=== PATIENT | female | born 1985 | race Caucasian/White ===

== ENCOUNTER 2017-05-22 16:31 | Inpatient (IN) | payer OTHER ==
[2017-05-22 17:18] LABS: Glucose,Whole Blood 60 mg/dL (75-99)
[2017-05-22] MEDS ORDERED: SODIUM CHLORIDE 0.9% 1,000 ML IV ONE ×2 (17:28)
--- NOTE | 2017-05-22 17:38 | ED ---
Altered Mental Status HPI - General Chief Complaint: Altered Mental Status Stated Complaint: SYNCOPE, SEIZURES, HALLUCINATIONS, DIARRHEA Time Seen by Provider: 05/22/17 17:02 Source: patient Mode of arrival: ambulatory Limitations: no limitations - History of Present Illness Initial Comments: This 31-year-old white female presents with mother and sister with the complaint of some mental status changes. She apparently had 2 seizures 2 days ago. She fell approximately 3 times yesterday. Mother states that she was just walking when she would fall to the ground. She does not eat much. She apparently does drink heavily. Sister relates that she likely drinks over a fifth of vodka daily. She does have a history of a seizure disorder and does take Keppra for this. She complains of pain to multiple areas of body. She complains of significant bruising. She has significant bruising to her right femur region, left hip, and to a lesser extent the thoracic and lumbar region as well as the lower and upper extremities. The family states that she has been hallucinating over the last day. She apparently is seeing things that aren 't there and called the police this morning. No other complaints or modifying factors. - Related Data Home Medications Medication Instructions Recorded Confirmed Loratadine [Claritin] 10 mg PO DAILY PRN 04/29/14 05/22/17 Multivitamins, Thera [Theragran] 1 tab PO DAILY@1200 04/29/14 05/22/17 Biotin 5 mg PO DAILY 01/31/16 05/22/17 levETIRAcetam [Keppra] 1,000 mg PO Q12HR 01/31/16 05/22/17 Allergies Allergy/AdvReac Type Severity Reaction Status Date / Time gluten Allergy Swelling Verified 05/22/17 17:03 starch Allergy Swelling Uncoded 01/31/16 12:16 Review of Systems ROS Statement: Those systems with pertinent positive or pertinent negative responses have been documented in the HPI. ROS Other: All systems not noted in ROS Statement are negative. Past Medical History Past Medical History: Seizure Disorder Additional Past Medical History / Comment(s): amenorrhia x 4 years History of Any Multi-Drug Resistant Organisms: None Reported Past Surgical History: No Surgical Hx Reported Past Anesthesia/Blood Transfusion Reactions: Unable to Obtain Past Psychological History: No Psychological Hx Reported Smoking Status: Never smoker Past Alcohol Use History: Abuse, Daily, Heavy Past Drug Use History: None Reported - Past Family History Mother Family Medical History: Cancer General Exam - General Exam Comments Initial Comments: GENERAL: The patient is appearing malnourished. VITAL SIGNS: Heart rate, blood pressure, respiratory rate reviewed as recorded in nurse's notes. EYES: Pupils are round and reactive. Extraocular movements are intact. No conjunctival / lid redness or swelling. ENT: No external evidence of injury, swelling, or ecchymosis. Airway is patent. Throat is clear. NECK: Nontender. No swelling or evidence of injury. No subcutaneous emphysema. Trachea is midline. No thyroid mass. HEART: Regular rate and rhythm. Good peripheral pulses. LUNGS/CHEST: Breath sounds clear and equal bilaterally. No rales, rhonchi, or wheezes. No ecchymosis, subcutaneous emphysema, or tenderness. ABDOMEN: Abdomen soft without tenderness. No palpable masses or organomegaly. No peritoneal signs. No abdominal wall swelling or ecchymosis. EXTREMITIES: There is tenderness and ecchymosis noted to the right mid femur as well as the left hip. There is mild diffuse tenderness noted to bilateral upper and lower extremities. Normal muscle tone and function. No thoracolumbar tenderness. NEUROLOGIC: Sensation is grossly intact. Cranial nerve exam reveals face is symmetrical, tongue is midline, speech is clear. SKIN: There are multiple areas of ecchymosis noted to the right femur, left hip and throughout the upper and lower extremities and back. No induration or masses noted. PSYCHIATRIC: Alert and in no current distress. She appears appropriate currently. Limitations: no limitations Course Vital Signs 05/22/17 05/22/17 05/22/17 16:49 18:28 19:20 Temperature 97.1 F L Pulse Rate 87 96 80 Respiratory 18 18 18 Rate Blood Pressure 90/54 94/61 O2 Sat by Pulse 99 98 Oximetry 05/22/17 20:54 Temperature 96.7 F L Pulse Rate 86 Respiratory 18 Rate Blood Pressure 95/53 O2 Sat by Pulse 99 Oximetry Medical Decision Making - Medical Decision Making The patient was seen and examined. All diagnostics were reviewed. The EKG was done and shows a normal sinus rhythm at a rate of 79. There is no acute ST-T wave changes identified. The AR intervals 144, QRS duration is 88, and the QTc interval is prolonged at 532. The patient received fluid hydration. The patient's laboratory did come back significantly abnormal. Her alcohol level is 381, hemoglobin is 8.8, she is pancytopenic, her sodium is 149, her CO2 is low at 21, her glucose is low at 55, and her liver function studies are elevated. The x-rays did not show any acute processes. The patient also had a computed tomography scan of the brain which shows some worsened atrophy. She is counseled regarding alcohol abuse. It appears that her hypoglycemia is fairly persistent and she is essentially refusing to eat much in the ER. She is given some D50. It is felt as though she would require admission to the hospital. The case is discussed with Dr. Vazquez who is agreeable and would like her to be started on D10. - Lab Data Result diagrams: 05/22/17 17:25 05/22/17 17:25 Lab Results 05/22/17 05/22/17 05/22/17 Range/Units 17:14 17:25 17:25 WBC 3.3 L (3.8-10.6) k/uL RBC 2.42 L (3.80-5.40) m/uL Hgb 8.8 L (11.4-16.0) gm/dL Hct 27.0 L (34.0-46.0) % MCV 111.6 H (80.0-100.0) fL MCH 36.3 H (25.0-35.0) pg MCHC 32.5 (31.0-37.0) g/dL RDW 13.3 (11.5-15.5) % Plt Count 118 L (150-450) k/uL Neutrophils % 67 % Lymphocytes % 20 % Monocytes % 7 % Eosinophils % 1 % Basophils % 1 % Neutrophils # 2.2 (1.3-7.7) k/uL Lymphocytes # 0.7 L (1.0-4.8) k/uL Monocytes # 0.2 (0-1.0) k/uL Eosinophils # 0.0 (0-0.7) k/uL Basophils # 0.0 (0-0.2) k/uL Manual Slide Review Performed Macrocytosis Marked PT (9.0-12.0) sec INR (<1.2) APTT (22.0-30.0) sec Sodium (137-145) mmol/L Potassium (3.5-5.1) mmol/L Chloride (98-107) mmol/L Carbon Dioxide (22-30) mmol/L Anion Gap mmol/L BUN (7-17) mg/dL Creatinine (0.52-1.04) mg/dL Est GFR (CKD-EPI)AfAm (>60 ml/min/1.73 sqM) Est GFR (CKD-EPI)NonAf (>60 ml/min/1.73 sqM) Glucose (74-99) mg/dL POC Glucose (mg/dL) 60 L (75-99) mg/dL POC Glu [employer] Technology Professor Galilea Lim Calcium (8.4-10.2) mg/dL Total Bilirubin (0.2-1.3) mg/dL AST (14-36) U/L ALT (9-52) U/L Alkaline Phosphatase (38-126) U/L Ammonia (<30) umol/L Total Creatine Kinase 130 (30-135) U/L CK-MB (CK-2) 1.5 (0.0-2.4) ng/mL CK-MB (CK-2) Rel Index 1.2 Troponin I <0.012 (0.000-0.034) ng/mL Total Protein (6.3-8.2) g/dL Albumin (3.5-5.0) g/dL Serum Alcohol mg/dL 05/22/17 05/22/17 05/22/17 Range/Units 17:25 17:25 17:44 WBC (3.8-10.6) k/uL RBC (3.80-5.40) m/uL Hgb (11.4-16.0) gm/dL Hct (34.0-46.0) % MCV (80.0-100.0) fL MCH (25.0-35.0) pg MCHC (31.0-37.0) g/dL RDW (11.5-15.5) % Plt Count (150-450) k/uL Neutrophils % % Lymphocytes % % Monocytes % % Eosinophils % % Basophils % % Neutrophils # (1.3-7.7) k/uL Lymphocytes # (1.0-4.8) k/uL Monocytes # (0-1.0) k/uL Eosinophils # (0-0.7) k/uL Basophils # (0-0.2) k/uL Manual Slide Review Macrocytosis PT 12.9 H (9.0-12.0) sec INR 1.4 H (<1.2) APTT 26.6 (22.0-30.0) sec Sodium 149 H (137-145) mmol/L Potassium 3.7 (3.5-5.1) mmol/L Chloride 105 (98-107) mmol/L Carbon Dioxide 21 L (22-30) mmol/L Anion Gap 23 mmol/L BUN 8 (7-17) mg/dL Creatinine 0.30 L (0.52-1.04) mg/dL Est GFR (CKD-EPI)AfAm >90 (>60 ml/min/1.73 sqM) Est GFR (CKD-EPI)NonAf >90 (>60 ml/min/1.73 sqM) Glucose 55 L (74-99) mg/dL POC Glucose (mg/dL) 59 L (75-99) mg/dL POC Glu [employer] Technology Professor ID Galilea Ochoa Calcium 9.1 (8.4-10.2) mg/dL Total Bilirubin 1.8 H (0.2-1.3) mg/dL AST 170 H (14-36) U/L ALT 53 H (9-52) U/L Alkaline Phosphatase 156 H (38-126) U/L Ammonia (<30) umol/L Total Creatine Kinase (30-135) U/L CK-MB (CK-2) (0.0-2.4) ng/mL CK-MB (CK-2) Rel Index Troponin I (0.000-0.034) ng/mL Total Protein 7.5 (6.3-8.2) g/dL Albumin 4.0 (3.5-5.0) g/dL Serum Alcohol 381 mg/dL 05/22/17 05/22/17 05/22/17 Range/Units 17:48 18:27 19:20 WBC (3.8-10.6) k/uL RBC (3.80-5.40) m/uL Hgb (11.4-16.0) gm/dL Hct (34.0-46.0) % MCV (80.0-100.0) fL MCH (25.0-35.0) pg MCHC (31.0-37.0) g/dL RDW (11.5-15.5) % Plt Count (150-450) k/uL Neutrophils % % Lymphocytes % % Monocytes % % Eosinophils % % Basophils % % Neutrophils # (1.3-7.7) k/uL Lymphocytes # (1.0-4.8) k/uL Monocytes # (0-1.0) k/uL Eosinophils # (0-0.7) k/uL Basophils # (0-0.2) k/uL Manual Slide Review Macrocytosis PT (9.0-12.0) sec INR (<1.2) APTT (22.0-30.0) sec Sodium (137-145) mmol/L Potassium (3.5-5.1) mmol/L Chloride (98-107) mmol/L Carbon Dioxide (22-30) mmol/L Anion Gap mmol/L BUN (7-17) mg/dL Creatinine (0.52-1.04) mg/dL Est GFR (CKD-EPI)AfAm (>60 ml/min/1.73 sqM) Est GFR (CKD-EPI)NonAf (>60 ml/min/1.73 sqM) Glucose (74-99) mg/dL POC Glucose (mg/dL) 69 L 69 L (75-99) mg/dL POC Glu [employer] Technology Professor Ree Calvin Pam Calcium (8.4-10.2) mg/dL Total Bilirubin (0.2-1.3) mg/dL AST (14-36) U/L ALT (9-52) U/L Alkaline Phosphatase (38-126) U/L Ammonia <9 (<30) umol/L Total Creatine Kinase (30-135) U/L CK-MB (CK-2) (0.0-2.4) ng/mL CK-MB (CK-2) Rel Index Troponin I (0.000-0.034) ng/mL Total Protein (6.3-8.2) g/dL Albumin (3.5-5.0) g/dL Serum Alcohol mg/dL 05/22/17 05/22/17 05/22/17 Range/Units 20:00 20:46 22:08 WBC (3.8-10.6) k/uL RBC (3.80-5.40) m/uL Hgb (11.4-16.0) gm/dL Hct (34.0-46.0) % MCV (80.0-100.0) fL MCH (25.0-35.0) pg MCHC (31.0-37.0) g/dL RDW (11.5-15.5) % Plt Count (150-450) k/uL Neutrophils % % Lymphocytes % % Monocytes % % Eosinophils % % Basophils % % Neutrophils # (1.3-7.7) k/uL Lymphocytes # (1.0-4.8) k/uL Monocytes # (0-1.0) k/uL Eosinophils # (0-0.7) k/uL Basophils # (0-0.2) k/uL Manual Slide Review Macrocytosis PT (9.0-12.0) sec INR (<1.2) APTT (22.0-30.0) sec Sodium (137-145) mmol/L Potassium (3.5-5.1) mmol/L Chloride (98-107) mmol/L Carbon Dioxide (22-30) mmol/L Anion Gap mmol/L BUN (7-17) mg/dL Creatinine (0.52-1.04) mg/dL Est GFR (CKD-EPI)AfAm (>60 ml/min/1.73 sqM) Est GFR (CKD-EPI)NonAf (>60 ml/min/1.73 sqM) Glucose (74-99) mg/dL POC Glucose (mg/dL) 173 H 149 H 113 H (75-99) mg/dL POC Glu [employer] Technology Professor Gogo Nogueira Andrea Taylor, Tiffany Calcium (8.4-10.2) mg/dL Total Bilirubin (0.2-1.3) mg/dL AST (14-36) U/L ALT (9-52) U/L Alkaline Phosphatase (38-126) U/L Ammonia (<30) umol/L Total Creatine Kinase (30-135) U/L CK-MB (CK-2) (0.0-2.4) ng/mL CK-MB (CK-2) Rel Index Troponin I (0.000-0.034) ng/mL Total Protein (6.3-8.2) g/dL Albumin (3.5-5.0) g/dL Serum Alcohol mg/dL Disposition Clinical Impression: Altered mental status, Seizure, Hypoglycemia, Hypotension, Alcohol abuse, Malnourished, Multiple contusions, Delirium due to general medical condition, Prolonged Q-T interval on ECG, Anemia, Pancytopenia, Hypernatremia, Dehydration , Alcoholic intoxication, Elevated LFTs Disposition: ADMITTED IP TO THIS [facility] Condition: Fair Referrals: Kunal Regan MD [Primary Care Provider] - 1-2 days Time of Disposition: 22:24 Decision Date: 05/22/17 Decision Time: 22:24
[2017-05-22 17:45] LABS: Glucose,Whole Blood 59 mg/dL (75-99)
[2017-05-22 17:56] LABS: ALT 53 U/L (9-52); AST 170 U/L (14-36); Alkaline Phosphatase 156 U/L (38-126); Anion Gap 23 mmol/L; Blood Urea Nitrogen 8 mg/dL (7-17); Calcium 9.1 mg/dL (8.4-10.2); Carbon Dioxide 21 mmol/L (22-30); Chloride 105 mmol/L (98-107); Glucose 55 mg/dL (74-99); Potassium 3.7 mmol/L (3.5-5.1); Sodium 149 mmol/L (137-145); Total Bilirubin 1.8 mg/dL (0.2-1.3); Total Protein 7.5 g/dL (6.3-8.2)
[2017-05-22 18:00] LABS: Basophils % (A) 1 %; Eosinophils % (A) 1 %; HGB 8.8 gm/dL (11.4-16.0); Lymphocytes # (A) 0.7 k/uL (1.0-4.8); Lymphocytes % (A) 20 %; MCH 36.3 pg (25.0-35.0); MCHC 32.5 g/dL (31.0-37.0); MCV 111.6 fL (80.0-100.0); Macrocytosis Marked; Mean Platelet Volume 7.2; Monocytes # (A) 0.2 k/uL (0-1.0); Monocytes % (A) 7 %; Neutrophils # (A) 2.2 k/uL (1.3-7.7); Neutrophils % (A) 67 %; Platelet Count 118 k/uL (150-450); RBC 2.42 m/uL (3.80-5.40); RDW 13.3 % (11.5-15.5); WBC 3.3 k/uL (3.8-10.6)
[2017-05-22 18:04] LABS: INR 1.4 (<1.2); Partial Thromboplastin Time 26.6 sec (22.0-30.0); Prothrombin Time 12.9 sec (9.0-12.0)
[2017-05-22 18:08] LABS: Creatine Kinase 130 U/L (30-135)
[2017-05-22 18:12] LABS: Alcohol 381 mg/dL
[2017-05-22 18:21] LABS: Creatine Kinase MB 1.5 ng/mL (0.0-2.4); Troponin I <0.012 ng/mL (0.000-0.034)
[2017-05-22 18:29] LABS: Glucose,Whole Blood 69 mg/dL (75-99)
[2017-05-22] MEDS ORDERED: DEXTROSE 50%-WATER 50 ML SYRINGE IVP STA (18:45)
--- NOTE | 2017-05-22 18:47 | XR ---
EXAMINATION TYPE: XR chest 2V DATE OF EXAM: 05/22/2017 COMPARISON: 01/31/2016 HISTORY: Altered mental status TECHNIQUE: Frontal and lateral views of the chest are obtained. FINDINGS: There is no heart failure nor confluent pneumonic infiltrate. Heart and mediastinum are no rmal. There are chest leads. Bony thorax is intact. IMPRESSION: Normal chest. No change.
--- NOTE | 2017-05-22 18:52 | XR ---
EXAMINATION TYPE: XR pelvis AP view DATE OF EXAM: 05/22/2017 COMPARISON: NONE HISTORY: Altered mental status TECHNIQUE: Single view FINDINGS: The pelvic ring is intact. Proximal femurs and hip joints are intact. Sacroiliac joints dalton ear normal. IMPRESSION: Normal pelvis
--- NOTE | 2017-05-22 18:53 | XR ---
EXAMINATION TYPE: XR femur RT DATE OF EXAM: 05/22/2017 COMPARISON: NONE HISTORY: Mental status TECHNIQUE: 4 views FINDINGS: I see no fracture nor dislocation. Knee joint and hip joint appear intact. Joint spaces are fairly normal. IMPRESSION: Negative right femur exam.
[2017-05-22 19:24] LABS: Glucose,Whole Blood 69 mg/dL (75-99)
[2017-05-22 20:04] LABS: Glucose,Whole Blood 173 mg/dL (75-99)
--- NOTE | 2017-05-22 20:06 | CT ---
EXAMINATION TYPE: CT brain wo con DATE OF EXAM: 05/22/2017 COMPARISON: 04/29/2014 HISTORY: Altered mental status. CT DLP: 869.3 mGycm. Automated Exposure Control for Dose Reduction was Utilized. TECHNIQUE: CT scan of the head is performed without contrast. FINDINGS: There is cerebral cortical atrophy. There is no mass effect nor midline shift. There is n o sign of intracranial hemorrhage. There is a 1 cm hypodensity in the left temporal lobe in the insul a white matter. The calvarium is intact. CONCLUSION: Moderate atrophy for the patient's age. 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 No acute intracranial abnormality. There is progression of atrophy compared to old CT scan.
[2017-05-22 20:47] LABS: Glucose,Whole Blood 149 mg/dL (75-99)
[2017-05-22 22:13] LABS: Glucose,Whole Blood 113 mg/dL (75-99)
[2017-05-22] MEDS ORDERED: DEXTROSE 10% IN WATER 1,000 ML IV ONE (22:25)
[2017-05-22] MEDS ORDERED: ONDANSETRON 4 MG/2 ML VIAL IVP PRN (22:26)
[2017-05-22] MEDS ORDERED: NALOXONE 0.4 MG/ML 1 ML VIAL IV PRN (22:26)
[2017-05-22] MEDS ORDERED: LORazepam 2 MG/ML INJ IV PRN (22:26)
[2017-05-22] MEDS ORDERED: IBUPROFEN 400 MG TAB PO PRN (22:26)
[2017-05-22] MEDS ORDERED: THIAMINE 100 MG/ML 2 ML VIAL IM STA (22:26)
[2017-05-22] MEDS ORDERED: LORATADINE 10 MG TAB PO PRN (22:29)
[2017-05-22] MEDS: THIAMINE 100 MG TAB PO SCH (23:23)
[2017-05-22] MEDS: PANTOPRAZOLE 40 MG/10 ML VIAL IV SCH (23:23)
[2017-05-22 23:35] LABS: Glucose,Whole Blood 117 mg/dL (75-99)
[2017-05-23] MEDS ORDERED: levETIRAcetam 500 MG TAB PO ONE (00:08)
[2017-05-23] MEDS: LORazepam 2 MG/ML INJ IV PRN ×9 (01:49→20:44)
[2017-05-23 06:58] LABS: Glucose,Whole Blood 90 mg/dL (75-99)
[2017-05-23 07:47] LABS: ALT 50 U/L (9-52); AST 148 U/L (14-36); Albumin 3.1 g/dL (3.5-5.0); Alkaline Phosphatase 167 U/L (38-126); Anion Gap 14 mmol/L; Blood Urea Nitrogen 9 mg/dL (7-17); Calcium 8.1 mg/dL (8.4-10.2); Carbon Dioxide 23 mmol/L (22-30); Chloride 99 mmol/L (98-107); Glucose 84 mg/dL (74-99); Magnesium 1.1 mg/dL (1.6-2.3); Phosphorus 2.4 mg/dL (2.5-4.5); Potassium 3.8 mmol/L (3.5-5.1); Sodium 136 mmol/L (137-145); Total Bilirubin 1.2 mg/dL (0.2-1.3); Total Protein 5.9 g/dL (6.3-8.2)
[2017-05-23 08:45] LABS: Basophils % (A) 1 %; Eosinophils % (A) 1 %; HCT 21.7 % (34.0-46.0); Lymphocytes # (A) 0.5 k/uL (1.0-4.8); Lymphocytes % (A) 21 %; MCH 36.6 pg (25.0-35.0); MCHC 32.4 g/dL (31.0-37.0); MCV 112.9 fL (80.0-100.0); Macrocytosis Marked; Mean Platelet Volume 7.5; Monocytes # (A) 0.3 k/uL (0-1.0); Monocytes % (A) 14 %; Neutrophils # (A) 1.5 k/uL (1.3-7.7); Neutrophils % (A) 60 %; RBC 1.92 m/uL (3.80-5.40); RDW 13.2 % (11.5-15.5); WBC 2.5 k/uL (3.8-10.6)
[2017-05-23] MEDS: PANTOPRAZOLE 40 MG/10 ML VIAL IV SCH (08:46)
[2017-05-23] MEDS: levETIRAcetam 500 MG TAB PO SCH ×2 (08:46→21:18)
[2017-05-23] MEDS: ENOXAPARIN 40 MG/0.4 ML SYRINGE SQ SCH (08:47)
[2017-05-23] MEDS ORDERED: NON-FORMULARY DRUG (Biotin [Biotin] 5 MG) PO SCH (09:00)
[2017-05-23 09:11] LABS: Platelet Count 92 k/uL (150-450)
[2017-05-23] MEDS: THIAMINE 100 MG TAB PO SCH ×2 (11:27→16:43)
[2017-05-23] MEDS: MULTIVITAMINS, THERA 1 EACH TAB PO SCH (11:27)
[2017-05-23 11:44] VITALS: BMI 16.7
--- NOTE | 2017-05-23 16:52 | PN ---
PROGRESS NOTE DATE OF SERVICE: 05/23/17 CHIEF COMPLAINT: Acute alcohol intoxication and chronic alcoholism with pancytopenia. HISTORY OF PRESENT ILLNESS: This lady is doing fairly well. She is not tremulous at this stage and she denies diplopia. PHYSICAL EXAM: She has tachycardia. Chest is clear. The abdomen is soft. IMPRESSION: 1. Acute alcohol intoxication. 2. Chronic alcoholism. 3. Pancytopenia. 4. Impending delirium tremens. PLAN: 1. Continue with IV fluids. 2. Continue to monitor laboratory studies and vital signs as well as her neurologic status. MMODL / IJN: [id number] /
--- NOTE | 2017-05-23 17:07 | HP ---
HISTORY AND PHYSICAL CHIEF COMPLAINT: Acute alcohol intoxication, chronic alcoholism and pancytopenia. HISTORY OF PRESENT ILLNESS: This is another admission for this 31-year-old white female who continues to be a heavy consumer of alcohol. She has never been able get control. She also has a seizure disorder. She came into the emergency room for help. She has thrombocytopenia, hypokalemia, anemia and leukocytosis. She has not had blackouts or seizures of late that she admits to. REVIEW OF SYSTEMS: She has had no diplopia, chest pain, shortness of breath, syncope, abdominal pain, vomiting, hematemesis, melena, hematochezia, jaundice, hematuria, dysuria, diabetes, etc. Blood sugar was somewhat low in the in the emergency room. Past medical history, family history, and personal and social histories are otherwise unremarkable and noncontributory. PHYSICAL EXAMINATION: Blood pressure is 103/70 with a pulse of 96 and regular, respirations of 35, and she is afebrile. In general she appeared to be pale and somewhat lethargic. She was not jaundiced. Head, ears, eyes, nose, mouth and throat were normal except for hyperemia of the lips. Neck veins were not distended. Chest was clear. Cardiac exam demonstrated sinus tachycardia with no murmurs or extra sounds. The abdomen was soft and nontender with no significant ascites or effusion, and there was no hepatomegaly. Extremities were normal. Neurologically she was intact. ADMITTING DIAGNOSES: She is admitted to the hospital with the following diagnoses: 1. Acute alcohol intoxication. 2. Chronic alcoholism. 3. Pancytopenia. 4. Seizure disorder. PLAN: 1. Bed rest. 2. IV fluids. 3. CIWA protocol. MMODL / IJN: [id number] /
[2017-05-23] MEDS: DEXTROSE 5% IN WATER 1,000 ML IV SCH (17:08)
[2017-05-23 17:32] LABS: Appearance,Urine Clear (Clear); Bilirubin,Urine Negative (Negative); Blood,Urine Negative (Negative); Color,Urine Yellow; Glucose,Urine (UA) Negative (Negative); Ketones,Urine Negative (Negative); Leukocyte Esterase,Urine Negative (Negative); Nitrite,Urine Negative (Negative); Protein,Urine Negative (Negative); Specific Gravity,Urine 1.005 (1.001-1.035); Urobilinogen,Urine <2.0 mg/dL (<2.0)
[2017-05-23 17:45] LABS: Amphetamine Screen,Urine Not Detected (NotDetected); Cocaine Screen,Urine Not Detected (NotDetected); Opiate Screen,Urine Not Detected (NotDetected); Phencyclidine Screen,Urine Not Detected (NotDetected); Urn Cannabinoid Scrn Not Detected (NotDetected)
[2017-05-23 17:46] LABS: Barbiturate Screen,Urine Not Detected (NotDetected); Benzodiazepines Screen,Urine Detected (NotDetected); Methadone Screen, Urine Not Detected (NotDetected); Oxycodone Screen, Urine Not Detected (NotDetected); Tricyclic Antidepressant,Urine Not Detected (NotDetected)
[2017-05-24] MEDS: LORazepam 2 MG/ML INJ IV PRN ×3 (00:50→22:09)
[2017-05-24] MEDS: DEXTROSE 5% IN WATER 1,000 ML IV SCH ×2 (05:21→18:30)
[2017-05-24] MEDS: levETIRAcetam 500 MG TAB PO SCH ×2 (07:59→20:24)
[2017-05-24] MEDS: PANTOPRAZOLE 40 MG/10 ML VIAL IV SCH (07:59)
[2017-05-24] MEDS: ENOXAPARIN 40 MG/0.4 ML SYRINGE SQ SCH (07:59)
[2017-05-24 09:06] LABS: Basophils % (A) 0 %; Eosinophils # (A) 0.1 k/uL (0-0.7); Eosinophils % (A) 2 %; HCT 22.6 % (34.0-46.0); HGB 7.7 gm/dL (11.4-16.0); Lymphocytes # (A) 0.4 k/uL (1.0-4.8); Lymphocytes % (A) 13 %; MCH 37.5 pg (25.0-35.0); MCHC 33.9 g/dL (31.0-37.0); MCV 110.7 fL (80.0-100.0); Macrocytosis Marked; Mean Platelet Volume 7.5; Monocytes # (A) 0.2 k/uL (0-1.0); Monocytes % (A) 8 %; Neutrophils # (A) 2.2 k/uL (1.3-7.7); Neutrophils % (A) 75 %; RBC 2.04 m/uL (3.80-5.40); RDW 13.9 % (11.5-15.5); WBC 2.9 k/uL (3.8-10.6)
[2017-05-24 09:10] LABS: Platelet Count 97 k/uL (150-450)
[2017-05-24] MEDS: MULTIVITAMINS, THERA 1 EACH TAB PO SCH (11:36)
[2017-05-24] MEDS: THIAMINE 100 MG TAB PO SCH ×2 (11:36→17:03)
--- NOTE | 2017-05-24 12:50 | PN ---
PROGRESS NOTE DATE OF SERVICE: 05/24/2017. CHIEF COMPLAINT: 1. Acute alcohol intoxication. 2. Chronic alcoholism. 3. Impending DTs. 4. Pancytopenia. PHYSICAL EXAM: Chest is clear and cardiac exam is normal, but she is difficult to arouse. Abdomen is soft, nontender. IMPRESSION: 1. Chronic alcoholism. 2. Acute alcohol intoxication. 3. Delirium tremens. 4. Lethargy. PLAN: Repeat labs and watch hemoglobin. MMODL / IJN: [id number] /
[2017-05-24 15:17] LABS: INR 1.4 (<1.2); Prothrombin Time 12.8 sec (9.0-12.0)
[2017-05-24 15:24] LABS: Anion Gap 10 mmol/L; Blood Urea Nitrogen 3 mg/dL (7-17); Calcium 8.5 mg/dL (8.4-10.2); Carbon Dioxide 28 mmol/L (22-30); Chloride 98 mmol/L (98-107); Glucose 114 mg/dL (74-99); Sodium 136 mmol/L (137-145)
[2017-05-24 15:27] LABS: Potassium 2.7 mmol/L (3.5-5.1)
[2017-05-24] MEDS ORDERED: Potassium Replacement Protocol 1 EACH MISC MISCELLANE PRN (15:29)
[2017-05-24] MEDS: POTASSIUM CHLORIDE 10 MEQ in WATER FOR INJECTION 1 100ML.BAG IVPB SCH ×4 (17:03→19:25)
[2017-05-24] MEDS: ACETAMINOPHEN TAB 325 MG TAB PO PRN (18:11)
[2017-05-24] MEDS: MAGNESIUM SULFATE-D5W PMX 1 GM in DEXTROSE/WATER 1 100ML.BAG IVPB SCH ×3 (18:30→22:13)
[2017-05-25] MEDS ORDERED: Potassium Replacement Protocol 1 EACH MISC MISCELLANE PRN (03:31)
[2017-05-25] MEDS: POTASSIUM CHLORIDE 10 MEQ in WATER FOR INJECTION 1 100ML.BAG IVPB SCH ×2 (04:31→06:12)
[2017-05-25] MEDS: DEXTROSE 5% IN WATER 1,000 ML IV SCH (06:23)
[2017-05-25 08:19] LABS: HCT 21.9 % (34.0-46.0); HGB 7.2 gm/dL (11.4-16.0); MCH 37.5 pg (25.0-35.0); MCHC 32.7 g/dL (31.0-37.0); MCV 114.5 fL (80.0-100.0); Macrocytosis Marked; Mean Platelet Volume 7.4; Platelet Count 100 k/uL (150-450); RBC 1.92 m/uL (3.80-5.40); RDW 13.9 % (11.5-15.5)
[2017-05-25 08:30] LABS: WBC 1.7 k/uL (3.8-10.6)
[2017-05-25 08:48] LABS: Magnesium 1.8 mg/dL (1.6-2.3); Potassium 3.9 mmol/L (3.5-5.1)
[2017-05-25 09:09] LABS: Band Neutrophils % 1 %; Lymphocytes # (M) 0.36 k/uL (1.0-4.8); Monocytes # (M) 0.32 k/uL (0-1.0); Myelocytes # (M) 0.02 k/uL (0); Myelocytes % 1 %; Neutrophils % (M) 58 %; Nucleated Red Blood Cells 0 /100 WBC (0-0); Total Cells Counted 100
[2017-05-25 09:12] LABS: Anisocytosis (M) Present; Poikilocytosis (M) Present; Polychromasia Present
[2017-05-25] MEDS: levETIRAcetam 500 MG TAB PO SCH ×2 (09:27→21:00)
[2017-05-25] MEDS: ENOXAPARIN 40 MG/0.4 ML SYRINGE SQ SCH (09:27)
[2017-05-25] MEDS: PANTOPRAZOLE 40 MG/10 ML VIAL IV SCH (09:28)
[2017-05-25] MEDS: THIAMINE 100 MG TAB PO SCH ×2 (09:28→17:26)
[2017-05-25] MEDS: MULTIVITAMINS, THERA 1 EACH TAB PO SCH (09:28)
--- NOTE | 2017-05-25 15:57 | CDI ---
Last Revision, January 2017 Documentation Clarification Form Date: 05/25/2017 03:54:00 PM From: Lisa AndersonALFREDO, CCDS Admit Date: 05/22/2017 10:26:00 PM Patient Name: Bear Nur Visit Number: [id number] Discharge Date: ATTENTION: The Clinical Documentation Specialists (CDI) and [facility] Coding Staff appreciate your assistance in clarifying documentation. Please respond to the clarification below the line at the bottom and electronically sign. The CDI & [facility] Coding staff will review the response and follow-up if needed. Please note: Queries are made part of the Legal Health Record. If you have any questions, please contact the author of this message via ITS. Dr. Kunal Regan: Per the ED note, the patient appears malnourished, documented BMI is 16.8, per family: the patient does not eat much & drinks >5th Vodka daily. History/Risk Factors: Alcoholism, Seizure disorder, Hypertension. Clinical Indicators: Labs: Albumin: 4.0 - 3.1, Total Protein 7.5 - 5.9. Current BMI: 16.8 Nutrition Assessment: Appetite: Fair; Appearance: Emaciated; Wt 49.895 kg, 5 ft 8 in; Underweight; 9% wt loss x16 months Treatment: Oral nutritional supplement ordered by ED physician, IV fluids, CIWA protocol, IV Ativan In your professional opinion, can you please clarify if these findings signify one of the following conditions? Mild Protein Malnutrition Mild Protein-Calorie Malnutrition Moderate Protein Malnutrition Moderate Protein-Calorie Malnutrition Severe Protein Malnutrition Severe Protein-Calorie Malnutrition Other condition, please specify Unable to determine Please continue to document in your progress notes and discharge summary in order to capture severity of illness and risk of mortality. Include clinical findings that support your diagnosis. MTDD
--- NOTE | 2017-05-25 19:51 | PN ---
PROGRESS NOTE CHIEF COMPLAINT: Alcoholism, DTs and pancytopenia. HISTORY OF PRESENT ILLNESS: This lady is a very difficult to arouse. They say in the daytime she is awake and alert. PHYSICAL EXAMINATION: CHEST: Clear. Cardiac exam is normal. Abdomen is soft, nontender. IMPRESSION: 1. Acute alcohol intoxication. 2. Chronic alcoholism. 3. Pancytopenia. 4. Lethargy. 5. Hypokalemia. 6. Hypomagnesemia. PLAN: 1. Continue with IV fluids. 2. Correct potassium and magnesium. MMODL / IJN: [id number] /
[2017-05-25] MEDS: POTASSIUM CHLORIDE ER 20 MEQ TAB.ER PO SCH (21:00)
[2017-05-25] MEDS: MAGNESIUM OXIDE 400 MG TAB PO SCH (21:00)
[2017-05-25] MEDS: LORazepam 2 MG/ML INJ IV PRN (21:12)
[2017-05-26] MEDS: DEXTROSE 5% IN WATER 1,000 ML IV SCH ×3 (02:48→20:22)
[2017-05-26] MEDS: levETIRAcetam 500 MG TAB PO SCH ×2 (09:57→21:49)
[2017-05-26] MEDS: POTASSIUM CHLORIDE ER 20 MEQ TAB.ER PO SCH ×2 (09:57→21:49)
[2017-05-26] MEDS: MULTIVITAMINS, THERA 1 EACH TAB PO SCH (09:57)
[2017-05-26] MEDS: MAGNESIUM OXIDE 400 MG TAB PO SCH ×2 (09:57→21:49)
[2017-05-26] MEDS: THIAMINE 100 MG TAB PO SCH ×2 (09:57→16:32)
[2017-05-26] MEDS: PANTOPRAZOLE 40 MG/10 ML VIAL IV SCH (09:58)
[2017-05-26] MEDS: ENOXAPARIN 40 MG/0.4 ML SYRINGE SQ SCH (09:58)
[2017-05-26 17:01] LABS: Basophils % (A) 1 %; Eosinophils # (A) 0.1 k/uL (0-0.7); Eosinophils % (A) 3 %; HGB 8.3 gm/dL (11.4-16.0); Hypochromasia Slight; Lymphocytes # (A) 0.4 k/uL (1.0-4.8); Lymphocytes % (A) 22 %; MCH 37.6 pg (25.0-35.0); MCHC 31.9 g/dL (31.0-37.0); Macrocytosis Marked; Mean Platelet Volume 7.5; Monocytes # (A) 0.3 k/uL (0-1.0); Monocytes % (A) 14 %; Neutrophils # (A) 1.1 k/uL (1.3-7.7); Neutrophils % (A) 53 %; RDW 13.7 % (11.5-15.5)
[2017-05-26 17:12] LABS: ALT 34 U/L (9-52); AST 74 U/L (14-36); Albumin 3.5 g/dL (3.5-5.0); Alkaline Phosphatase 197 U/L (38-126); Anion Gap 14 mmol/L; Blood Urea Nitrogen 7 mg/dL (7-17); Calcium 8.8 mg/dL (8.4-10.2); Carbon Dioxide 24 mmol/L (22-30); Chloride 102 mmol/L (98-107); Glucose 91 mg/dL (74-99); Potassium 3.6 mmol/L (3.5-5.1); Sodium 140 mmol/L (137-145); Total Bilirubin 1.1 mg/dL (0.2-1.3); Total Protein 6.9 g/dL (6.3-8.2)
[2017-05-26 17:41] LABS: Platelet Count 170 k/uL (150-450)
[2017-05-26 17:58] LABS: Poikilocytosis (M) Present; Polychromasia Present
--- NOTE | 2017-05-26 18:10 | PN ---
PROGRESS NOTE CHIEF COMPLAINT: DTs. HISTORY OF PRESENT ILLNESS: This lady is stable but she is very difficult to arouse in the morning. They stated that she is more alert and awake during the day. PHYSICAL EXAM: She remains pale. Chest is clear. Cardiac exam is normal. Abdomen is soft, nontender. IMPRESSION: 1. Delirium tremens. 2. Chronic alcoholism. PLAN: Continue to monitor progress. If she does not start to become more alert, she will have to undergo further neurologic evaluation. MMODL / IJN: [id number] /
--- NOTE | 2017-05-26 19:49 | XR ---
EXAMINATION TYPE: XR chest 2V DATE OF EXAM: 05/26/2017 COMPARISON: 05/22/2017 HISTORY: Weakness TECHNIQUE: Frontal and lateral views of the chest are obtained. FINDINGS: Heart and mediastinum are normal. Lungs are clear. Diaphragm is normal. Bony thorax is int act. IMPRESSION: Normal chest. No change.
[2017-05-26] MEDS: ACETAMINOPHEN TAB 325 MG TAB PO PRN (21:52)
[2017-05-26] MEDS: LORazepam 2 MG/ML INJ IV PRN (21:52)
[2017-05-27] MEDS: POTASSIUM CHLORIDE ER 20 MEQ TAB.ER PO SCH ×2 (09:44→19:59)
[2017-05-27] MEDS: MULTIVITAMINS, THERA 1 EACH TAB PO SCH (09:44)
[2017-05-27] MEDS: THIAMINE 100 MG TAB PO SCH ×2 (09:44→16:08)
[2017-05-27] MEDS: PANTOPRAZOLE 40 MG/10 ML VIAL IV SCH (09:44)
[2017-05-27] MEDS: MAGNESIUM OXIDE 400 MG TAB PO SCH ×2 (09:44→19:59)
[2017-05-27] MEDS: levETIRAcetam 500 MG TAB PO SCH ×2 (09:44→19:59)
[2017-05-27] MEDS: ENOXAPARIN 40 MG/0.4 ML SYRINGE SQ SCH (09:44)
[2017-05-27] MEDS: DEXTROSE 5% IN WATER 1,000 ML IV SCH ×2 (09:45→20:00)
[2017-05-27] MEDS: ACETAMINOPHEN TAB 325 MG TAB PO PRN ×3 (09:48→22:48)
--- NOTE | 2017-05-27 10:47 | MISC ---
MISCELLANOUS REPORT This has to do with malnutrition. Notes say moderate protein calorie malnutrition. MMODL / IJN: [id number] /
--- NOTE | 2017-05-27 14:14 | PN ---
PROGRESS NOTE CHIEF COMPLAINT: DKA and pancytopenia. HISTORY OF PRESENT ILLNESS: This lady is doing fairly well, but her white count remains very low. Platelets are starting to respond. She has apparently developed a new problem where she feels at night that her feet are swollen and she is developing the hip esthesia or dysesthesias. PHYSICAL EXAM: CHEST: Clear. Cardiac exam is normal. Abdomen is soft, nontender. The feet are normal. There is no edema and pulses are good. Sensation seems to be normal. IMPRESSION: 1. Questionable peripheral neuropathy affecting the lower extremities. 2. Pancytopenia. 3. Alcohol intoxication. 4. Alcoholism. PLAN: Try to increase activity and bring her to the point of independence after which she can be discharged. MMODL / IJN: [id number] /
[2017-05-27 15:59] LABS: Appearance,Urine Clear (Clear); Bilirubin,Urine Negative (Negative); Blood,Urine Negative (Negative); Color,Urine Light Yellow; Glucose,Urine (UA) Negative (Negative); Ketones,Urine Negative (Negative); Leukocyte Esterase,Urine Negative (Negative); Nitrite,Urine Negative (Negative); PH, Urine 7.5 (5.0-8.0); Protein,Urine Negative (Negative); Specific Gravity,Urine 1.004 (1.001-1.035); Urobilinogen,Urine <2.0 mg/dL (<2.0)
[2017-05-27] MEDS: LORazepam 2 MG/ML INJ IV PRN (22:55)
[2017-05-28] MEDS: POTASSIUM CHLORIDE ER 20 MEQ TAB.ER PO SCH ×2 (08:04→21:46)
[2017-05-28] MEDS: ACETAMINOPHEN TAB 325 MG TAB PO PRN (08:04)
[2017-05-28] MEDS: THIAMINE 100 MG TAB PO SCH ×2 (08:05→16:30)
[2017-05-28] MEDS: levETIRAcetam 500 MG TAB PO SCH ×2 (08:05→21:46)
[2017-05-28] MEDS: MAGNESIUM OXIDE 400 MG TAB PO SCH ×2 (08:05→21:46)
[2017-05-28] MEDS: PANTOPRAZOLE 40 MG TABLET PO SCH (08:05)
[2017-05-28] MEDS: MULTIVITAMINS, THERA 1 EACH TAB PO SCH (08:05)
[2017-05-28] MEDS: ENOXAPARIN 40 MG/0.4 ML SYRINGE SQ SCH (08:05)
[2017-05-28] MEDS: DEXTROSE 5% IN WATER 1,000 ML IV SCH (08:46)
[2017-05-28] MEDS: LORazepam 2 MG/ML INJ IV PRN (22:51)
[2017-05-29 02:52] VITALS: RESP 18
[2017-05-29 06:22] VITALS: BP 107/63; PULSE 108; TEMP 99.8
[2017-05-29] MEDS: levETIRAcetam 500 MG TAB PO SCH (08:30)
[2017-05-29] MEDS: ENOXAPARIN 40 MG/0.4 ML SYRINGE SQ SCH (08:30)
[2017-05-29] MEDS: PANTOPRAZOLE 40 MG TABLET PO SCH (08:30)
[2017-05-29] MEDS: POTASSIUM CHLORIDE ER 20 MEQ TAB.ER PO SCH (08:30)
[2017-05-29] MEDS: MAGNESIUM OXIDE 400 MG TAB PO SCH (08:30)
[2017-05-29] MEDS: ACETAMINOPHEN TAB 325 MG TAB PO PRN (08:35)
[2017-05-29] MEDS: THIAMINE 100 MG TAB PO SCH (11:06)
[2017-05-29] MEDS: MULTIVITAMINS, THERA 1 EACH TAB PO SCH (11:06)
--- NOTE | 2017-05-29 18:10 | PN ---
PROGRESS NOTE CHIEF COMPLAINT: Acute alcohol intoxication, alcoholism and DTs. HISTORY OF PRESENT ILLNESS: This lady is doing quite well now. She is quite awake and alert. PHYSICAL EXAM: CHEST: Clear. Cardiac exam is normal. Abdomen is a little bit distended. There are no masses. IMPRESSION: 1. Alcoholism. 2. Delirium tremens. PLAN: Probably home tomorrow. MMODL / IJN: [id number] /
--- NOTE | 2017-05-29 18:49 | DS ---
DISCHARGE SUMMARY CHIEF COMPLAINT: Acute alcohol intoxication, alcoholism and DTs. HISTORY OF PRESENT ILLNESS AND PHYSICAL EXAM: Details of this lady's history and physical can be found in the initial summary. LABORATORY STUDIES: While she was in a hospital she had laboratory studies details which can be found in the laboratory section of her chart. COURSE IN THE HOSPITAL: After admission she was placed on bedrest and started on intravenous fluids and CIWA protocol. She went into DTs and she remained very lethargic for several days. There was concern that she may have encephalopathy. She then became more awake and alert and stabilized and was able to be discharged on the and she will come to the office in a day or 2. We will talk to her further about treatment and modalities to help her with her addiction. FINAL DIAGNOSES: 1. Acute alcohol intoxication. 2. Chronic alcoholism. 3. Delirium tremens. 4. Possible alcohol encephalopathy. OPERATIONS: None. CONSULTATION: None. She is improved. MMHARPREET / PAYTON: [id number] /
== END 2017-05-29 14:45 | disposition home health service (06) | DRG 897 ==
LOC: EC 16:31 → 3SUR 22:26 → 4MS4W 05-23 10:40
PROVIDERS: ADMIT Family Medicine; ATTEND Family Medicine
DX: F10.231 Alcohol dependence with withdrawal delirium (principal); D61.818 Other pancytopenia; I95.9 Hypotension, unspecified; E87.0 Hyperosmolality and hypernatremia; G31.2 Degeneration of nervous system due to alcohol; E44.0 Moderate protein-calorie malnutrition; E83.42 Hypomagnesemia; Z68.1 Body mass index [BMI] 19.9 or less, adult; G40.909 Epilepsy, unspecified, not intractable, without status epilepticus; E87.6 Hypokalemia; Y90.8 Blood alcohol level of 240 mg/100 ml or more; F10.229 Alcohol dependence with intoxication, unspecified; R00.0 Tachycardia, unspecified; E86.0 Dehydration; G62.9 Polyneuropathy, unspecified; E16.2 Hypoglycemia, unspecified; D64.9 Anemia, unspecified; Z79.899 Other long term (current) drug therapy; Z91.018 Allergy to other foods; Z71.41 Alcohol abuse counseling and surveillance of alcoholic; Z80.9 Family history of malignant neoplasm, unspecified
CPT/HCPCS: 36415; 70450; 71046; 72170; 80048; 80053; 80177; 80306; 80320; 81003; 82140; 82550; 82553; 83735; 84100; 84132; 84484; 85025; 85610; 85730; 87040; 93005; 96361; 96374; 99285

== ENCOUNTER 2017-08-21 20:16 | Inpatient (IN) | payer OTHER ==
[2017-08-21 20:38] LABS: Glucose,Whole Blood 35 mg/dL (75-99)
[2017-08-21 20:38] LABS: Glucose,Whole Blood 41 mg/dL (75-99)
[2017-08-21 20:40] LABS: Glucose,Whole Blood 34 mg/dL (75-99)
[2017-08-21] MEDS ORDERED: DEXTROSE 50%-WATER 50 ML SYRINGE IVP STA (20:53)
[2017-08-21 21:05] LABS: Glucose,Whole Blood 138 mg/dL (75-99)
[2017-08-21] MEDS ORDERED: SODIUM CHLORIDE 0.9% 500 ML IV STA (21:36)
[2017-08-21] MEDS: SODIUM CHLORIDE 0.9% 1,000 ML IV STA (21:51)
[2017-08-21 22:08] LABS: Anisocytosis Slight; HCT 33.7 % (34.0-46.0); HGB 10.4 gm/dL (11.4-16.0); Hypochromasia Slight; MCH 36.4 pg (25.0-35.0); MCHC 30.8 g/dL (31.0-37.0); MCV 117.9 fL (80.0-100.0); Macrocytosis Marked; Mean Platelet Volume 7.6; RBC 2.86 m/uL (3.80-5.40); RDW 16.7 % (11.5-15.5); WBC 2.8 k/uL (3.8-10.6)
[2017-08-21 22:17] LABS: INR 1.5 (<1.2); Prothrombin Time 13.7 sec (9.0-12.0)
[2017-08-21 22:19] LABS: ALT 71 U/L (9-52); AST 289 U/L (14-36); Albumin 4.1 g/dL (3.5-5.0); Alkaline Phosphatase 102 U/L (38-126); Anion Gap 29 mmol/L; Blood Urea Nitrogen 6 mg/dL (7-17); Calcium 7.9 mg/dL (8.4-10.2); Carbon Dioxide 13 mmol/L (22-30); Chloride 97 mmol/L (98-107); Glucose 186 mg/dL (74-99); Magnesium 1.7 mg/dL (1.6-2.3); Phosphorus 2.7 mg/dL (2.5-4.5); Potassium 4.4 mmol/L (3.5-5.1); Sodium 139 mmol/L (137-145); Total Bilirubin 2.7 mg/dL (0.2-1.3); Total Protein 6.8 g/dL (6.3-8.2)
[2017-08-21 22:29] LABS: Alcohol 375 mg/dL
[2017-08-21 22:31] LABS: Creatine Kinase 69 U/L (30-135)
[2017-08-21 22:38] LABS: Lymphocytes # (M) 0.39 k/uL (1.0-4.8); Neutrophils # (M) 2.41 k/uL (1.3-7.7); Neutrophils % (M) 86 %; Nucleated Red Blood Cells 0 /100 WBC (0-0); Platelet Count 95 k/uL (150-450); Polychromasia Present; Total Cells Counted 100
[2017-08-21] MEDS ORDERED: THIAMINE 100 MG/ML 2 ML VIAL IVPB STA (22:43)
--- NOTE | 2017-08-21 22:43 | ED ---
General Adult HPI - General Chief complaint: Weakness Stated complaint: weakness Time Seen by Provider: 08/21/17 21:25 Source: EMS, RN notes reviewed, old records reviewed Mode of arrival: EMS Limitations: physical limitation - History of Present Illness Initial comments: This is a 32-year-old female the ER today. Patient was essay for evaluation regarding weakness. Patient states she cannot walk. Patient is a poor historian at this point secondary severe level of intoxication - Related Data Home Medications Medication Instructions Recorded Confirmed Loratadine [Claritin] 10 mg PO DAILY PRN 04/29/14 08/21/17 Multivitamins, Thera [Multivitamin 1 tab PO DAILY@1200 04/29/14 08/21/17 (formulary)] Biotin 5 mg PO DAILY 01/31/16 08/21/17 levETIRAcetam [Keppra] 1,000 mg PO Q12HR 01/31/16 08/21/17 Ascorbic Acid [Vitamin C] 500 mg PO DAILY 08/21/17 08/21/17 Cholecalciferol [Vitamin D3] 1,000 unit PO DAILY 08/21/17 08/21/17 Vitamin A 8,000 unit PO DAILY 08/21/17 08/21/17 Allergies Allergy/AdvReac Type Severity Reaction Status Date / Time gluten Allergy Swelling Verified 08/21/17 20:52 starch Allergy Swelling Uncoded 01/31/16 12:16 Review of Systems ROS Statement: Those systems with pertinent positive or pertinent negative responses have been documented in the HPI. ROS Other: All systems not noted in ROS Statement are negative. Past Medical History Past Medical History: Seizure Disorder Additional Past Medical History / Comment(s): amenorrhia x 4 years History of Any Multi-Drug Resistant Organisms: None Reported Past Surgical History: No Surgical Hx Reported Past Anesthesia/Blood Transfusion Reactions: Unable to Obtain Past Psychological History: No Psychological Hx Reported Smoking Status: Never smoker Past Alcohol Use History: Abuse, Daily, Heavy Past Drug Use History: None Reported - Past Family History Mother Family Medical History: Cancer General Exam Limitations: physical limitation General appearance: alert, in no apparent distress, appears intoxicated Head exam: Present: atraumatic, normocephalic, normal inspection Eye exam: Present: normal appearance, PERRL, EOMI. Absent: scleral icterus, conjunctival injection, periorbital swelling ENT exam: Present: normal exam, mucous membranes moist Neck exam: Present: normal inspection. Absent: tenderness, meningismus, lymphadenopathy Respiratory exam: Present: normal lung sounds bilaterally. Absent: respiratory distress, wheezes, rales, rhonchi, stridor Cardiovascular Exam: Present: regular rate, normal rhythm, normal heart sounds. Absent: systolic murmur, diastolic murmur, rubs, gallop, clicks GI/Abdominal exam: Present: soft, normal bowel sounds. Absent: distended, tenderness, guarding, rebound, rigid Extremities exam: Present: normal inspection, full ROM, normal capillary refill. Absent: tenderness, pedal edema, joint swelling, calf tenderness Back exam: Present: normal inspection Neurological exam: Present: alert, oriented X3, CN II-XII intact Psychiatric exam: Present: normal affect, normal mood Skin exam: Present: warm, dry, intact, normal color. Absent: rash Course Vital Signs 08/21/17 08/21/17 20:32 23:26 Temperature 98.6 F Pulse Rate 121 H 76 Respiratory 18 18 Rate Blood Pressure 105/62 100/60 O2 Sat by Pulse 98 98 Oximetry - Reevaluation(s) Reevaluation #1: 08/21/17 23:59 Medical record is reviewed EKG Findings - EKG Comments: EKG Findings:: AG shows sinus tach rate 106, CO 136, QRS 80, QTC 480 Medical Decision Making - Medical Decision Making 32 female the ER with history of severe alcoholism. Patient coming in for evaluation of multiple complaints. Patient be admitted for alcohol toxicity withdrawal, multiple x-ray drainage was, dehydration recurrent hypoglycemia - Lab Data Result diagrams: 08/21/17 20:00 08/21/17 20:00 Lab Results 08/21/17 08/21/17 08/21/17 Range/Units 20:00 20:00 20:00 WBC 2.8 L (3.8-10.6) k/uL RBC 2.86 L (3.80-5.40) m/uL Hgb 10.4 L (11.4-16.0) gm/dL Hct 33.7 L (34.0-46.0) % MCV 117.9 H (80.0-100.0) fL MCH 36.4 H (25.0-35.0) pg MCHC 30.8 L (31.0-37.0) g/dL RDW 16.7 H (11.5-15.5) % Plt Count 95 L (150-450) k/uL Neutrophils % (Manual) 86 % Lymphocytes % (Manual) 14 % Neutrophils # (Manual) 2.41 (1.3-7.7) k/uL Lymphocytes # (Manual) 0.39 L (1.0-4.8) k/uL Nucleated RBCs 0 (0-0) /100 WBC Polychromasia Present Hypochromasia Slight Anisocytosis Slight Macrocytosis Marked PT (9.0-12.0) sec INR (<1.2) APTT (22.0-30.0) sec Sodium 139 (137-145) mmol/L Potassium 4.4 (3.5-5.1) mmol/L Chloride 97 L (98-107) mmol/L Carbon Dioxide 13 L (22-30) mmol/L Anion Gap 29 mmol/L BUN 6 L (7-17) mg/dL Creatinine 0.50 L (0.52-1.04) mg/dL Est GFR (CKD-EPI)AfAm >90 (>60 ml/min/1.73 sqM) Est GFR (CKD-EPI)NonAf >90 (>60 ml/min/1.73 sqM) Glucose 186 H (74-99) mg/dL POC Glucose (mg/dL) (75-99) mg/dL POC Glu [employer] Super[employer] ID Plasma Lactic Acid Hema (0.7-2.0) mmol/L Calcium 7.9 L (8.4-10.2) mg/dL Phosphorus 2.7 (2.5-4.5) mg/dL Magnesium 1.7 (1.6-2.3) mg/dL Total Bilirubin 2.7 H (0.2-1.3) mg/dL AST 289 H (14-36) U/L ALT 71 H (9-52) U/L Alkaline Phosphatase 102 (38-126) U/L Total Creatine Kinase 69 (30-135) U/L CK-MB (CK-2) 0.5 (0.0-2.4) ng/mL CK-MB (CK-2) Rel Index 0.7 Troponin I <0.012 (0.000-0.034) ng/mL Total Protein 6.8 (6.3-8.2) g/dL Albumin 4.1 (3.5-5.0) g/dL TSH 1.190 (0.465-4.680) mIU/L Urine Color Urine Appearance (Clear) Urine pH (5.0-8.0) Ur Specific [place] (1.001-1.035) Urine Protein (Negative) Urine Glucose (UA) (Negative) Urine Ketones (Negative) Urine Blood (Negative) Urine Nitrite (Negative) Urine Bilirubin (Negative) Urine Urobilinogen (<2.0) mg/dL Ur Leukocyte Esterase (Negative) Urine RBC (0-5) /hpf Urine WBC (0-5) /hpf Ur Squamous Epith Cells (0-4) /hpf Hyaline Casts (0-2) /lpf Urine Mucus (None) /hpf Serum Alcohol 375 mg/dL 08/21/17 08/21/17 08/21/17 Range/Units 20:00 20:00 20:25 WBC (3.8-10.6) k/uL RBC (3.80-5.40) m/uL Hgb (11.4-16.0) gm/dL Hct (34.0-46.0) % MCV (80.0-100.0) fL MCH (25.0-35.0) pg MCHC (31.0-37.0) g/dL RDW (11.5-15.5) % Plt Count (150-450) k/uL Neutrophils % (Manual) % Lymphocytes % (Manual) % Neutrophils # (Manual) (1.3-7.7) k/uL Lymphocytes # (Manual) (1.0-4.8) k/uL Nucleated RBCs (0-0) /100 WBC Polychromasia Hypochromasia Anisocytosis Macrocytosis PT 13.7 H (9.0-12.0) sec INR 1.5 H (<1.2) APTT 29.0 (22.0-30.0) sec Sodium (137-145) mmol/L Potassium (3.5-5.1) mmol/L Chloride (98-107) mmol/L Carbon Dioxide (22-30) mmol/L Anion Gap mmol/L BUN (7-17) mg/dL Creatinine (0.52-1.04) mg/dL Est GFR (CKD-EPI)AfAm (>60 ml/min/1.73 sqM) Est GFR (CKD-EPI)NonAf (>60 ml/min/1.73 sqM) Glucose (74-99) mg/dL POC Glucose (mg/dL) 35 L (75-99) mg/dL POC Glu [employer] ID Edel Kyle Plasma Lactic Acid Hema 5.6 H* (0.7-2.0) mmol/L Calcium (8.4-10.2) mg/dL Phosphorus (2.5-4.5) mg/dL Magnesium (1.6-2.3) mg/dL Total Bilirubin (0.2-1.3) mg/dL AST (14-36) U/L ALT (9-52) U/L Alkaline Phosphatase (38-126) U/L Total Creatine Kinase (30-135) U/L CK-MB (CK-2) (0.0-2.4) ng/mL CK-MB (CK-2) Rel Index Troponin I (0.000-0.034) ng/mL Total Protein (6.3-8.2) g/dL Albumin (3.5-5.0) g/dL TSH (0.465-4.680) mIU/L Urine Color Urine Appearance (Clear) Urine pH (5.0-8.0) Ur Specific [place] (1.001-1.035) Urine Protein (Negative) Urine Glucose (UA) (Negative) Urine Ketones (Negative) Urine Blood (Negative) Urine Nitrite (Negative) Urine Bilirubin (Negative) Urine Urobilinogen (<2.0) mg/dL Ur Leukocyte Esterase (Negative) Urine RBC (0-5) /hpf Urine WBC (0-5) /hpf Ur Squamous Epith Cells (0-4) /hpf Hyaline Casts (0-2) /lpf Urine Mucus (None) /hpf Serum Alcohol mg/dL 08/21/17 08/21/17 08/21/17 Range/Units 20:27 20:38 21:04 WBC (3.8-10.6) k/uL RBC (3.80-5.40) m/uL Hgb (11.4-16.0) gm/dL Hct (34.0-46.0) % MCV (80.0-100.0) fL MCH (25.0-35.0) pg MCHC (31.0-37.0) g/dL RDW (11.5-15.5) % Plt Count (150-450) k/uL Neutrophils % (Manual) % Lymphocytes % (Manual) % Neutrophils # (Manual) (1.3-7.7) k/uL Lymphocytes # (Manual) (1.0-4.8) k/uL Nucleated RBCs (0-0) /100 WBC Polychromasia Hypochromasia Anisocytosis Macrocytosis PT (9.0-12.0) sec INR (<1.2) APTT (22.0-30.0) sec Sodium (137-145) mmol/L Potassium (3.5-5.1) mmol/L Chloride (98-107) mmol/L Carbon Dioxide (22-30) mmol/L Anion Gap mmol/L BUN (7-17) mg/dL Creatinine (0.52-1.04) mg/dL Est GFR (CKD-EPI)AfAm (>60 ml/min/1.73 sqM) Est GFR (CKD-EPI)NonAf (>60 ml/min/1.73 sqM) Glucose (74-99) mg/dL POC Glucose (mg/dL) 41 L 34 L 138 H (75-99) mg/dL POC Glu [employer] Super[employer] Edel Huerta, Galilea Orellana Plasma Lactic Acid Hema (0.7-2.0) mmol/L Calcium (8.4-10.2) mg/dL Phosphorus (2.5-4.5) mg/dL Magnesium (1.6-2.3) mg/dL Total Bilirubin (0.2-1.3) mg/dL AST (14-36) U/L ALT (9-52) U/L Alkaline Phosphatase (38-126) U/L Total Creatine Kinase (30-135) U/L CK-MB (CK-2) (0.0-2.4) ng/mL CK-MB (CK-2) Rel Index Troponin I (0.000-0.034) ng/mL Total Protein (6.3-8.2) g/dL Albumin (3.5-5.0) g/dL TSH (0.465-4.680) mIU/L Urine Color Urine Appearance (Clear) Urine pH (5.0-8.0) Ur Specific [place] (1.001-1.035) Urine Protein (Negative) Urine Glucose (UA) (Negative) Urine Ketones (Negative) Urine Blood (Negative) Urine Nitrite (Negative) Urine Bilirubin (Negative) Urine Urobilinogen (<2.0) mg/dL Ur Leukocyte Esterase (Negative) Urine RBC (0-5) /hpf Urine WBC (0-5) /hpf Ur Squamous Epith Cells (0-4) /hpf Hyaline Casts (0-2) /lpf Urine Mucus (None) /hpf Serum Alcohol mg/dL 08/21/17 Range/Units 22:55 WBC (3.8-10.6) k/uL RBC (3.80-5.40) m/uL Hgb (11.4-16.0) gm/dL Hct (34.0-46.0) % MCV (80.0-100.0) fL MCH (25.0-35.0) pg MCHC (31.0-37.0) g/dL RDW (11.5-15.5) % Plt Count (150-450) k/uL Neutrophils % (Manual) % Lymphocytes % (Manual) % Neutrophils # (Manual) (1.3-7.7) k/uL Lymphocytes # (Manual) (1.0-4.8) k/uL Nucleated RBCs (0-0) /100 WBC Polychromasia Hypochromasia Anisocytosis Macrocytosis PT (9.0-12.0) sec INR (<1.2) APTT (22.0-30.0) sec Sodium (137-145) mmol/L Potassium (3.5-5.1) mmol/L Chloride (98-107) mmol/L Carbon Dioxide (22-30) mmol/L Anion Gap mmol/L BUN (7-17) mg/dL Creatinine (0.52-1.04) mg/dL Est GFR (CKD-EPI)AfAm (>60 ml/min/1.73 sqM) Est GFR (CKD-EPI)NonAf (>60 ml/min/1.73 sqM) Glucose (74-99) mg/dL POC Glucose (mg/dL) (75-99) mg/dL POC Glu [employer] Supervisor ID Plasma Lactic Acid Hema (0.7-2.0) mmol/L Calcium (8.4-10.2) mg/dL Phosphorus (2.5-4.5) mg/dL Magnesium (1.6-2.3) mg/dL Total Bilirubin (0.2-1.3) mg/dL AST (14-36) U/L ALT (9-52) U/L Alkaline Phosphatase (38-126) U/L Total Creatine Kinase (30-135) U/L CK-MB (CK-2) (0.0-2.4) ng/mL CK-MB (CK-2) Rel Index Troponin I (0.000-0.034) ng/mL Total Protein (6.3-8.2) g/dL Albumin (3.5-5.0) g/dL TSH (0.465-4.680) mIU/L Urine Color Yellow Urine Appearance Clear (Clear) Urine pH 5.5 (5.0-8.0) Ur Specific [place] 1.018 (1.001-1.035) Urine Protein 1+ H (Negative) Urine Glucose (UA) Negative (Negative) Urine Ketones 4+ H (Negative) Urine Blood Negative (Negative) Urine Nitrite Negative (Negative) Urine Bilirubin Negative (Negative) Urine Urobilinogen 3.0 (<2.0) mg/dL Ur Leukocyte Esterase Small H (Negative) Urine RBC 1 (0-5) /hpf Urine WBC 6 H (0-5) /hpf Ur Squamous Epith Cells 1 (0-4) /hpf Hyaline Casts 10 H (0-2) /lpf Urine Mucus Rare H (None) /hpf Serum Alcohol mg/dL - Radiology Data Radiology results: report reviewed (CT abdomen pelvis ultrasound pelvis negative ), image reviewed Disposition Clinical Impression: Hypoglycemia, Delirium due to general medical condition, Altered mental status , Alcoholic intoxication, Alcohol abuse Disposition: ADMITTED IP TO THIS [facility] Condition: Serious Is patient prescribed a controlled substance at d/c from ED?: No Referrals: Kunal Regan MD [Primary Care Provider] - 1-2 days
[2017-08-21 22:44] LABS: Creatine Kinase MB 0.5 ng/mL (0.0-2.4); Troponin I <0.012 ng/mL (0.000-0.034)
[2017-08-21] MEDS ORDERED: DEXTROSE 5%-0.3% NACL 1,000 ML IV SCH (22:45)
--- NOTE | 2017-08-21 22:51 | CT ---
EXAMINATION TYPE: CT abdomen pelvis w con DATE OF EXAM: 08/21/2017 COMPARISON: 05/07/2012 HISTORY: Weakness CT DLP: 364.1 mGycm Automated exposure control for dose reduction was used. TECHNIQUE: Helical acquisition of images was performed from the lung bases through the pelvis. CONTRAST: Performed without Oral Contrast and with IV Contrast, patient injected with 100 mL of Isovue 300. FINDINGS: Lung bases are clear. There is no pleural effusion. Heart size is normal. There is no pericardial eff usion. There is fatty infiltration of the liver. Spleen appears normal. There is no pancreatic mass. Gallbladder appears normal. Bile ducts are not dilated. There is no adrenal mass. Kidneys show satisfactory contrast opacification. There is no hydronephrosi s. There is mild wall thickening of the ascending colon. There is mild distention of the terminal ile um. There is a small amount of free fluid in the pelvis. Bladder distends smoothly. There is no evide nce of a pelvic mass. There is mild wall thickening of the terminal ileum also. The bony structures a re intact. There is rounded soft tissue densities posterior to the right gluteal muscle that could be subcutaneo us hematomas. These measure up to 3 cm. IMPRESSION: THERE IS MILD WALL THICKENING INVOLVING THE ASCENDING COLON AND CECUM. THERE IS MILD ENLARGEMENT OF T HE TERMINAL ILEUM WITH MINIMAL WALL THICKENING. THIS COULD RELATE TO INFLAMMATORY BOWEL DISEASE. MINI MAL FREE FLUID IN THE PELVIS. BOWEL CHANGES ARE NEW COMPARED TO OLD EXAM. THERE IS CLEARING OF THE LEFT OVARY CYST COMPARED TO OLD EXAM. THERE IS RIGHT SIDE POSTERIOR SUBCUTANEOUS DENSITY CONSISTENT WITH SUBCUTANEOUS HEMATOMAS. FATTY INFILTRATION OF THE LIVER.
[2017-08-21 23:12] LABS: Appearance,Urine Clear (Clear); Bilirubin,Urine Negative (Negative); Blood,Urine Negative (Negative); Color,Urine Yellow; Glucose,Urine (UA) Negative (Negative); Hyaline Casts,Urine 10 /lpf (0-2); Ketones,Urine 4+ (Negative); Leukocyte Esterase,Urine Small (Negative); Mucus,Urine Rare /hpf; Nitrite,Urine Negative (Negative); PH, Urine 5.5 (5.0-8.0); Protein,Urine 1+ (Negative); RBC,Urine 1 /hpf (0-5); Specific Gravity,Urine 1.018 (1.001-1.035); Squamous Epithelial Cell,Urine 1 /hpf (0-4); WBC,Urine 6 /hpf (0-5)
[2017-08-21] MEDS: THIAMINE 100 MG TAB PO SCH (23:20)
--- NOTE | 2017-08-22 00:03 | US ---
EXAMINATION TYPE: US transvaginal DATE OF EXAM: 08/21/2017 COMPARISON: 12/04/2013 CLINICAL HISTORY: Pain. Pain TECHNIQUE: Transvaginal (TV). EXAM MEASUREMENTS: Uterus: 4.4 x 2.2 x 3.2 cm Endometrial Stripe: 0.2 cm 1. Uterus: Anteverted wnl 2. Endometrium: wnl 3. Right Ovary: Obscured by overlying bowel gas 4. Left Ovary: Obscured by overlying bowel gas 5. Bilateral Adnexa: wnl 6. Posterior cul-de-sac: wnl IMPRESSION: No adnexal mass or free fluid. No endometrial thickening. No adverse change compared to o ld exam.
[2017-08-22 01:31] LABS: Glucose,Whole Blood 264 mg/dL (75-99)
[2017-08-22] MEDS ORDERED: IBUPROFEN 600 MG TAB PO STA (01:36)
[2017-08-22] MEDS ORDERED: SODIUM CHLORIDE 0.9% 1,000 ML IV ONE (01:50)
[2017-08-22] MEDS ORDERED: SODIUM CHLORIDE 0.9% 500 ML IV ONE (01:50)
[2017-08-22] MEDS ORDERED: cefTRIAXone IN SWFI 1,000 MG/10 ML SYRINGE IVP STA (01:51)
[2017-08-22] MEDS: LORazepam 2 MG/ML INJ IV PRN ×5 (04:31→20:27)
[2017-08-22 05:49] LABS: Glucose,Whole Blood 311 mg/dL (75-99)
[2017-08-22] MEDS: SODIUM CHLORIDE 0.9% 1,000 ML IV SCH ×2 (05:54→15:11)
[2017-08-22] MEDS: SODIUM CHLORIDE 0.9% 1,000 ML IV STA (05:54)
[2017-08-22] MEDS: THIAMINE 100 MG TAB PO SCH ×2 (09:40→15:12)
[2017-08-22] MEDS: MULTIVITAMINS, THERA 1 EACH TAB PO SCH ×2 (09:40→11:41)
[2017-08-22 11:36] LABS: Glucose,Whole Blood 273 mg/dL (75-99)
--- NOTE | 2017-08-22 14:37 | HP ---
HISTORY AND PHYSICAL CHIEF COMPLAINT: Acute alcohol intoxication, low blood sugar. HISTORY OF PRESENT ILLNESS: Another admission for this 32-year-old white female, chronic alcoholic. She came in the emergency room with weakness, malaise and intoxication and her blood sugar was only 32. REVIEW OF SYSTEMS: She is lethargic but denies headaches, change in vision, hearing, shortness of breath, palpitations, chest pain, abdominal pain, vomiting, diarrhea, melena, jaundice, etc. Past medical history, family history and personal and social histories are only significant having to do with her alcoholism. She has chronic alcoholic hepatitis, pancytopenia and seizure disorder. She is not allergic to any medication. She takes Keppra and denies anything else. Remainder of her history is unremarkable. She does not smoke. PHYSICAL EXAMINATION: Blood pressure is 98/55 with a pulse pulse of 122, respirations of 32. She is afebrile. In general, she appeared to be pale and lethargic. Head, ears, eyes, nose, mouth, and throat were grossly normal. Gaze was conjugate. There is no strabismus. Neck veins are not distended. Chest is clear. Cardiac exam demonstrates sinus tachycardia. No murmurs or extra sounds. The abdomen is a little bit tender over the epigastrium and there is slight distention. EXTREMITIES: Normal except for multiple bruises. Neurologically, she is intact except for being a bit lethargic. IMPRESSION: 1. Acute alcohol intoxication. 2. Hypoglycemia: 3. Alcoholic hepatitis. 4. Depression. 5. Pancytopenia. PLAN: 1. Bed rest. 2. IV fluids. 3. WA protocol. 4. Correct electrolyte imbalance and blood sugar. MMODL / IJN: [id number] /
--- NOTE | 2017-08-22 15:04 | PN ---
PROGRESS NOTE DATE OF SERVICE: 08/22/2017 CHIEF COMPLAINT: Acute alcohol intoxication, alcoholic hepatitis. HISTORY OF PRESENT ILLNESS: This lady is lethargic, but she is not tremulous. Answers to questions do not seem appropriate. PHYSICAL EXAM: Her chest is clear. Cardiac exam is normal. Skin and extremities are normal except for the ecchymoses. IMPRESSION: 1. Acute alcoholic intoxication. 2. Alcoholism. 3. Impending delirium tremens. 4. Alcoholic hepatitis. 5. Pancytopenia. PLAN: Continue with IV fluids and CIWA protocol and follow labs. Her prognosis is very poor. MMODL / IJN: [id number] /
[2017-08-22 17:06] LABS: Glucose,Whole Blood 180 mg/dL (75-99)
[2017-08-22] MEDS: cefTRIAXone IN SWFI 1,000 MG/10 ML SYRINGE IVP SCH (20:29)
[2017-08-22] MEDS: levETIRAcetam 500 MG TAB PO SCH (20:29)
[2017-08-22 21:15] LABS: Glucose,Whole Blood 194 mg/dL (75-99)
[2017-08-23] MEDS ORDERED: LORazepam 2 MG/ML INJ ONE (04:15)
[2017-08-23] MEDS: SODIUM CHLORIDE 0.9% 1,000 ML IV SCH ×3 (05:24→23:05)
[2017-08-23 06:14] LABS: Glucose,Whole Blood 123 mg/dL (75-99)
[2017-08-23] MEDS: levETIRAcetam 500 MG TAB PO SCH ×2 (08:02→21:14)
[2017-08-23 11:45] LABS: Glucose,Whole Blood 144 mg/dL (75-99)
[2017-08-23] MEDS: MULTIVITAMINS, THERA 1 EACH TAB PO SCH ×2 (12:58→13:00)
[2017-08-23] MEDS: THIAMINE 100 MG TAB PO SCH ×2 (12:58→17:17)
--- NOTE | 2017-08-23 13:14 | PN ---
PROGRESS NOTE CHIEF COMPLAINT: Acute alcohol intoxication, alcoholism, DTs, alcoholic hepatitis and pancytopenia. HISTORY OF PRESENT ILLNESS: This lady is doing better. She is more awake and alert. PHYSICAL EXAM: She remains pale. Chest is clear. Cardiac exam is normal. Abdomen is soft, nontender. IMPRESSIONS: 1. Acute alcohol intoxication. 2. Alcoholism. 3. Alcoholic hepatitis. 4. Pancytopenia. PLAN: Continue with IV fluids and current treatment. Repeat labs. MMODL / IJN: [id number] /
[2017-08-23] MEDS: LORazepam 2 MG/ML INJ IV PRN ×3 (14:25→20:50)
[2017-08-23 16:35] LABS: Glucose,Whole Blood 111 mg/dL (75-99)
[2017-08-23 16:47] LABS: Anisocytosis Slight; Basophils % (A) 1 %; Eosinophils # (A) 0.1 k/uL (0-0.7); Eosinophils % (A) 4 %; HCT 26.7 % (34.0-46.0); Lymphocytes # (A) 0.2 k/uL (1.0-4.8); Lymphocytes % (A) 15 %; MCH 36.7 pg (25.0-35.0); MCHC 32.1 g/dL (31.0-37.0); MCV 114.5 fL (80.0-100.0); Macrocytosis Marked; Mean Platelet Volume 7.4; Monocytes # (A) 0.1 k/uL (0-1.0); Monocytes % (A) 5 %; Neutrophils # (A) 1.1 k/uL (1.3-7.7); Neutrophils % (A) 72 %; RBC 2.33 m/uL (3.80-5.40); RDW 16.3 % (11.5-15.5)
[2017-08-23 16:53] LABS: INR 1.7 (<1.2); Prothrombin Time 15.9 sec (9.0-12.0)
[2017-08-23 16:55] LABS: ALT 86 U/L (9-52); AST 324 U/L (14-36); Alkaline Phosphatase 126 U/L (38-126); Anion Gap 11 mmol/L; Blood Urea Nitrogen <2 mg/dL (7-17); Calcium 8.1 mg/dL (8.4-10.2); Carbon Dioxide 26 mmol/L (22-30); Chloride 97 mmol/L (98-107); Glucose 114 mg/dL (74-99); Potassium 3.2 mmol/L (3.5-5.1); Sodium 134 mmol/L (137-145); Total Bilirubin 3.2 mg/dL (0.2-1.3); Total Protein 5.5 g/dL (6.3-8.2)
[2017-08-23 17:04] LABS: Platelet Count 50 k/uL (150-450); WBC 1.6 k/uL (3.8-10.6)
[2017-08-23 21:02] LABS: Glucose,Whole Blood 148 mg/dL (75-99)
[2017-08-23] MEDS: cefTRIAXone IN SWFI 1,000 MG/10 ML SYRINGE IVP SCH (21:14)
[2017-08-23 23:12] LABS: HGB 8.6 gm/dL (11.4-16.0)
[2017-08-24] MEDS: LORazepam 2 MG/ML INJ IV PRN ×2 (00:06→04:34)
[2017-08-24 07:23] LABS: Glucose,Whole Blood 86 mg/dL (75-99)
[2017-08-24] MEDS: SODIUM CHLORIDE 0.9% 1,000 ML IV SCH ×2 (08:16→16:09)
[2017-08-24] MEDS: THIAMINE 100 MG TAB PO SCH ×2 (08:16→16:08)
[2017-08-24] MEDS: MULTIVITAMINS, THERA 1 EACH TAB PO SCH (08:16)
[2017-08-24] MEDS: levETIRAcetam 500 MG TAB PO SCH ×2 (08:17→19:59)
[2017-08-24 08:58] LABS: Basophils % (A) 1 %; Eosinophils # (A) 0.1 k/uL (0-0.7); Eosinophils % (A) 4 %; HCT 27.2 % (34.0-46.0); Lymphocytes # (A) 0.5 k/uL (1.0-4.8); Lymphocytes % (A) 15 %; MCH 37.4 pg (25.0-35.0); MCV 113.5 fL (80.0-100.0); Macrocytosis Marked; Mean Platelet Volume 7.8; Monocytes # (A) 0.1 k/uL (0-1.0); Monocytes % (A) 4 %; Neutrophils # (A) 2.2 k/uL (1.3-7.7); Neutrophils % (A) 74 %
[2017-08-24 08:59] LABS: Platelet Count 47 k/uL (150-450)
[2017-08-24 09:32] LABS: ALT 73 U/L (9-52); AST 221 U/L (14-36); Albumin 3.1 g/dL (3.5-5.0); Alkaline Phosphatase 108 U/L (38-126); Anion Gap 11 mmol/L; Blood Urea Nitrogen 2 mg/dL (7-17); Calcium 8.2 mg/dL (8.4-10.2); Carbon Dioxide 24 mmol/L (22-30); Chloride 102 mmol/L (98-107); Glucose 96 mg/dL (74-99); Potassium 3.5 mmol/L (3.5-5.1); Sodium 137 mmol/L (137-145); Total Bilirubin 2.5 mg/dL (0.2-1.3); Total Protein 5.7 g/dL (6.3-8.2)
[2017-08-24 11:59] LABS: Glucose,Whole Blood 97 mg/dL (75-99)
[2017-08-24 17:36] LABS: Glucose,Whole Blood 88 mg/dL (75-99)
[2017-08-24] MEDS: cefTRIAXone IN SWFI 1,000 MG/10 ML SYRINGE IVP SCH (19:59)
--- NOTE | 2017-08-24 20:57 | P.CONS ---
History of Present Illness - Reason for Consult Consult date: 08/24/17 Pancytopenia Requesting physician: Kunal Regan - Chief Complaint Weakness - History of Present Illness Bear is a 32 year old patient who presented to emergency department with increasing weakness, hypoglycema and intoxication. She has previous admissions over the past few years related to alcohol abuse. In January of 2016, she was admitted following routine bloodwork at her PCP office. She was noted to have pancytopenia at that time and weight loss. Hematology was consulted and her pancytopenia and weight loss was contributed to underlying bone marrow supproession and decreased PO intake from heavy chronic alcohol use. She was recently admitted in May of this year (2017) for complaints of mental status changes and seizures. She is on Keppra daily. She has a known history of depression, bruising easily, hallucinations, and multiple falls. 08/24/17 - She presented to the emergency room with extreme weakness and inability to ambulate. On presentation she was extremely intoxicated and her admission bloodwork showed pancytopenia, hematology was consulted. During evaluation this am patient was difficult to arouse and poor historian. She was responsive, although did not wake up fully to answer appropriately. According to the medical record she continues to drink approximately a fifth of liquor or more daily. Review of Systems A 14 point review of systems was assessed and completed and all negative except HPI Past Medical History Past Medical History: Seizure Disorder Additional Past Medical History / Comment(s): amenorrhia x 4 years, " undiagnosed multiple sclerosis" History of Any Multi-Drug Resistant Organisms: None Reported Past Surgical History: No Surgical Hx Reported Past Anesthesia/Blood Transfusion Reactions: Unable to Obtain Past Psychological History: No Psychological Hx Reported Smoking Status: Never smoker Past Alcohol Use History: Abuse, Daily, Heavy Past Drug Use History: None Reported - Past Family History Mother Family Medical History: Cancer Medications and Allergies Home Medications Medication Instructions Recorded Confirmed Type Loratadine [Claritin] 10 mg PO DAILY PRN 04/29/14 08/21/17 History Multivitamins, Thera [Multivitamin 1 tab PO DAILY@1200 04/29/14 08/21/17 History (formulary)] Biotin 5 mg PO DAILY 01/31/16 08/21/17 History levETIRAcetam [Keppra] 1,000 mg PO Q12HR 01/31/16 08/21/17 History Ascorbic Acid [Vitamin C] 500 mg PO DAILY 08/21/17 08/21/17 History Cholecalciferol [Vitamin D3] 1,000 unit PO DAILY 08/21/17 08/21/17 History Vitamin A 8,000 unit PO DAILY 08/21/17 08/21/17 History Allergies Allergy/AdvReac Type Severity Reaction Status Date / Time gluten Allergy Swelling Verified 08/21/17 20:52 starch Allergy Swelling Uncoded 01/31/16 12:16 Physical Exam Vitals: Vital Signs Temp Pulse Resp BP Pulse Ox 08/24/17 15:00 98.2 F 76 16 90/66 98 08/24/17 06:10 98.9 F 125 H 16 112/76 100 08/23/17 22:40 98.1 F 107 H 16 102/73 98 Intake and Output 08/24/17 08/24/17 08/24/17 06:59 14:59 22:59 Intake Total 800 Balance 800 Intake: IV 800 Sodium Chloride 0.9% 1, 800 000 ml @ 100 mls/hr IV . Q10H [facility] Rx#:[id number] Other: Voiding Method Bedpan Incontinent Diaper Incontinent # Voids 2 # Bowel Movements 2 Weight 35 kg 40 kg - Constitutional General appearance: cooperative, no acute distress, thin - EENT Eyes: EOMI, poor dentition, scleral icterus ENT: NA/AT, normal oropharynx - Neck supple, trachea midline Neck: normal ROM - Respiratory Respiratory: bilateral: CTA (no increased effort) - Cardiovascular Heart rate: 106 Rhythm: regular Heart sounds: normal: S1, S2 - Gastrointestinal General gastrointestinal: normal bowel sounds, tenderness - Integumentary Integumentary: pale - Neurologic no focal defects Neurologic: CNII-XII intact - Musculoskeletal Musculoskeletal: generalized weakness - Psychiatric lethargic, difficult to arouse, poor historian Results CBC & Chem 7: 08/24/17 08:31 08/24/17 08:31 Labs: Abnormal Lab Results - Last 24 Hours (Table) 08/23/17 08/23/17 08/24/17 Range/Units 16:22 20:58 08:31 WBC 3.0 L (3.8-10.6) k/uL RBC 2.40 L (3.80-5.40) m/uL Hgb 8.6 L D 9.0 L (11.4-16.0) gm/dL Hct 27.2 L (34.0-46.0) % MCV 113.5 H (80.0-100.0) fL MCH 37.4 H (25.0-35.0) pg RDW 16.0 H (11.5-15.5) % Plt Count 47 L* (150-450) k/uL Lymphocytes # 0.5 L (1.0-4.8) k/uL BUN (7-17) mg/dL Creatinine (0.52-1.04) mg/dL POC Glucose (mg/dL) 148 H (75-99) mg/dL Calcium (8.4-10.2) mg/dL Total Bilirubin (0.2-1.3) mg/dL AST (14-36) U/L ALT (9-52) U/L Total Protein (6.3-8.2) g/dL Albumin (3.5-5.0) g/dL 08/24/17 Range/Units 08:31 WBC (3.8-10.6) k/uL RBC (3.80-5.40) m/uL Hgb (11.4-16.0) gm/dL Hct (34.0-46.0) % MCV (80.0-100.0) fL MCH (25.0-35.0) pg RDW (11.5-15.5) % Plt Count (150-450) k/uL Lymphocytes # (1.0-4.8) k/uL BUN 2 L (7-17) mg/dL Creatinine 0.27 L (0.52-1.04) mg/dL POC Glucose (mg/dL) (75-99) mg/dL Calcium 8.2 L (8.4-10.2) mg/dL Total Bilirubin 2.5 H (0.2-1.3) mg/dL AST 221 H (14-36) U/L ALT 73 H (9-52) U/L Total Protein 5.7 L (6.3-8.2) g/dL Albumin 3.1 L (3.5-5.0) g/dL Microbiology - Last 24 Hours (Table) 08/21/17 22:55 Urine Culture - Final Urine,Voided Staphylococcus aureus 08/22/17 02:31 Blood Culture - Preliminary Blood No Growth after 48 hours Assessment and Plan Plan: Assessment and Recommendations 1. Pancytopenia - Secodnary to bone marrow suppression from chronic Alcohol Abuse. I will discuss with Dr. Garcia in am in role for further testing required regarding pancytopenia Macrocytic Anemia - Monitor CBC Daily - Check Iron Panel, B12, Folate - Likely would benefit from B12 and Folic Acid supplements daily while inpatient Thrombocytopenia - - Monitor for risks of bleeding - Transfuse for platelet count less than 10, or bleeding less than 50 - Would hold Anticoagulation, blood thinners with platlet count less than 50 Leukopenia - secondary to ETOH - Monitor for S/S infection 2. ETOH Abuse and Intoxication: - Per Primary Team - Cessation re-iterated - ?utility maintenance worker/Psych 3. Prolonged INR - Secondary to coagulopathy induced from liver disease from chronic alcohol use - Recheck Coagulation factors in am - May benefit from Vitamin K, recheck in am - Monitor for bleeding 4. Weakness - PT/OT - Per Primary Team 5.Hepatic Encephalopathy - Per Primary Team Thank you for allowing us to participate in the care of your patient we will follow with you Layne Thompson NP
[2017-08-24 20:58] LABS: Glucose,Whole Blood 113 mg/dL (75-99)
--- NOTE | 2017-08-24 23:13 | P.PN ---
Subjective Progress Note Date: 08/24/17 Principal diagnosis: Acute alcohol intoxication and pancytopenia Patient is a 32-year-old female with a known history of alcohol abuse, multiple falls, depression was admitted to hospital with acute alcohol intoxication. Patient also hypoglycemic. Patient does have a history of alcohol abuse. Patient was noted to have pancytopenia and oncology was consulted. Patient does drink about fifth of pint daily. 08/24/2017 Patient does have generalized weakness and lethargic. Platelet count 47 today. Patient was also noted to have right lower activity large bruise around the t thigh region. Oncology is following. Patient is currently lethargic and could not provide any history. Lying in the bed comfortable otherwise. No fever no chills. Patient is being continued on IV fluids and multivitamins. Complete review of systems could not be obtained from the patient Current medications reviewed Objective - Vital Signs Vital signs: Vital Signs Temp 98.2 F 08/24/17 15:00 Pulse 76 08/24/17 15:00 Resp 16 08/24/17 15:00 BP 90/66 08/24/17 15:00 Pulse Ox 98 08/24/17 15:00 Intake & Output 08/24/17 08/24/17 08/25/17 06:59 18:59 06:59 Intake Total 800 Balance 800 Weight 35 kg 40 kg Intake: IV 800 Sodium Chloride 0.9% 1, 800 000 ml @ 100 mls/hr IV . Q10H [facility] Rx#:[id number] Other: Voiding Method Incontinent # Voids 2 # Bowel Movements 2 - Exam PHYSICAL EXAMINATION: Patient is lying in the bed comfortably, no acute distress, lethargic and nonverbal HEENT: Normocephalic. Neck is supple. Pupils reactive. Nostrils clear. Oral cavity is moist. Ears reveal no drainage. Neck reveals no JVD, carotid bruits, or thyromegaly. CHEST EXAMINATION: Trachea is central. Symmetrical expansion. Lung dick clear to auscultation and percussion. CARDIAC: Normal S1, S2 with no gallops. No murmurs ABDOMEN: Soft. Bowel sounds normal. No organomegaly. No abdominal bruits. Extremities: reveal no edema. No clubbing or cyanosis Neurologically . Patient is lethargic and drowsy and otherwise. No focal deficits noted Skin: No rash or skin lesions. Psychiatric: Could not be assessed completely Musculoskeletal: No joint swelling or deformity. - Labs CBC & Chem 7: 18 08:31 18 08:31 Labs: Abnormal Lab Results - Last 24 Hours (Table) 08/23/17 08/24/17 08/24/17 Range/Units 16:22 08:31 08:31 WBC 3.0 L (3.8-10.6) k/uL RBC 2.40 L (3.80-5.40) m/uL Hgb 8.6 L D 9.0 L (11.4-16.0) gm/dL Hct 27.2 L (34.0-46.0) % MCV 113.5 H (80.0-100.0) fL MCH 37.4 H (25.0-35.0) pg RDW 16.0 H (11.5-15.5) % Plt Count 47 L* (150-450) k/uL Lymphocytes # 0.5 L (1.0-4.8) k/uL BUN 2 L (7-17) mg/dL Creatinine 0.27 L (0.52-1.04) mg/dL POC Glucose (mg/dL) (75-99) mg/dL Calcium 8.2 L (8.4-10.2) mg/dL Total Bilirubin 2.5 H (0.2-1.3) mg/dL AST 221 H (14-36) U/L ALT 73 H (9-52) U/L Total Protein 5.7 L (6.3-8.2) g/dL Albumin 3.1 L (3.5-5.0) g/dL 08/24/17 Range/Units 20:57 WBC (3.8-10.6) k/uL RBC (3.80-5.40) m/uL Hgb (11.4-16.0) gm/dL Hct (34.0-46.0) % MCV (80.0-100.0) fL MCH (25.0-35.0) pg RDW (11.5-15.5) % Plt Count (150-450) k/uL Lymphocytes # (1.0-4.8) k/uL BUN (7-17) mg/dL Creatinine (0.52-1.04) mg/dL POC Glucose (mg/dL) 113 H (75-99) mg/dL Calcium (8.4-10.2) mg/dL Total Bilirubin (0.2-1.3) mg/dL AST (14-36) U/L ALT (9-52) U/L Total Protein (6.3-8.2) g/dL Albumin (3.5-5.0) g/dL Microbiology - Last 24 Hours (Table) 08/21/17 22:55 Urine Culture - Final Urine,Voided Staphylococcus aureus 08/22/17 02:31 Blood Culture - Preliminary Blood No Growth after 48 hours Assessment and Plan Assessment: Acute alcohol intoxication with level 375 on admission Pancytopenia secondary to bone marrow suppression from chronic alcohol use Coagulopathy Generalized weakness and lethargy Elevated liver enzymes possible alcohol hepatitis DVT prophylaxis Bipolar disorder Severe alcohol abuse Plan: Patient be continued on IV fluids. Continue the multivitamins and thiamine. Monitor CBC. Hematology/Oncology is following. We'll continue to monitor for alcohol withdrawal symptoms and further recommendations based on the clinical course. Prognosis is guarded. Patient will be started on PTOT once she is is more awake. Time with Patient: Greater than 30
[2017-08-25] MEDS: SODIUM CHLORIDE 0.9% 1,000 ML IV SCH ×3 (04:47→22:41)
[2017-08-25 07:22] LABS: Glucose,Whole Blood 82 mg/dL (75-99)
[2017-08-25] MEDS: levETIRAcetam 500 MG TAB PO SCH ×2 (07:26→20:36)
[2017-08-25 10:41] LABS: Reticulocyte % 3.6 % (0.5-2.0)
[2017-08-25 11:51] LABS: Glucose,Whole Blood 121 mg/dL (75-99)
[2017-08-25] MEDS: THIAMINE 100 MG TAB PO SCH ×2 (12:00→16:04)
[2017-08-25] MEDS: MULTIVITAMINS, THERA 1 EACH TAB PO SCH (12:00)
[2017-08-25 16:57] LABS: Glucose,Whole Blood 104 mg/dL (75-99)
[2017-08-25 17:00] LABS: Iron Saturation 31.53 (12.00-45.00)
[2017-08-25 17:54] LABS: Folate, Serum 14.6 ng/mL
[2017-08-25 19:17] LABS: Glucose,Whole Blood 113 mg/dL (75-99)
[2017-08-25] MEDS: cefTRIAXone IN SWFI 1,000 MG/10 ML SYRINGE IVP SCH (20:36)
[2017-08-25 21:11] LABS: Glucose,Whole Blood 106 mg/dL (75-99)
--- NOTE | 2017-08-25 21:56 | P.PN ---
Subjective Progress Note Date: 08/25/17 Principal diagnosis: Acute alcohol intoxication and pancytopenia Patient is a 32-year-old female with a known history of alcohol abuse, multiple falls, depression was admitted to hospital with acute alcohol intoxication. Patient also hypoglycemic. Patient does have a history of alcohol abuse. Patient was noted to have pancytopenia and oncology was consulted. Patient does drink about fifth of pint daily. 08/24/2017 Patient does have generalized weakness and lethargic. Platelet count 47 today. Patient was also noted to have right lower activity large bruise around the t thigh region. Oncology is following. Patient is currently lethargic and could not provide any history. Lying in the bed comfortable otherwise. No fever no chills. Patient is being continued on IV fluids and multivitamins. 08/25/2017 Patient is more awake and oriented today. Denied any complaints of nausea and vomiting. Slightly tolerating diet. Overall improving. Vitamin B12, iron profile is pending. Patient denied any complaints of chest pain or shortness of breath. No other acute overnight issues. Feels weak. Complete review of systems could not be obtained from the patient Current medications reviewed Objective - Vital Signs Vital signs: Vital Signs Temp 99.0 F 08/25/17 14:51 Pulse 91 08/25/17 14:51 Resp 16 08/25/17 14:51 BP 93/53 08/25/17 14:51 Pulse Ox 98 08/25/17 14:51 Intake & Output 08/25/17 08/25/17 08/26/17 06:59 18:59 06:59 Intake Total 800 Balance 800 Weight 42 kg Intake: IV 800 Sodium Chloride 0.9% 1, 800 000 ml @ 100 mls/hr IV . Q10H [facility] Rx#:[id number] Other: Voiding Method Incontinent # Voids 3 2 - Exam PHYSICAL EXAMINATION: Patient is lying in the bed comfortably, no acute distress, awake alert and oriented 3 HEENT: Normocephalic. Neck is supple. Pupils reactive. Nostrils clear. Oral cavity is moist. Ears reveal no drainage. Neck reveals no JVD, carotid bruits, or thyromegaly. CHEST EXAMINATION: Trachea is central. Symmetrical expansion. Lung dick clear to auscultation and percussion. CARDIAC: Normal S1, S2 with no gallops. No murmurs ABDOMEN: Soft. Bowel sounds normal. No organomegaly. No abdominal bruits. Extremities: reveal no edema. No clubbing or cyanosis Neurologically . Awake alert oriented 3. No focal deficits noted Skin: No rash or skin lesions. Psychiatric: Cooperative. Musculoskeletal: No joint swelling or deformity. - Labs CBC & Chem 7: 08/24/17 08:31 08/24/17 08:31 Labs: Abnormal Lab Results - Last 24 Hours (Table) 08/25/17 08/25/17 08/25/17 Range/Units 08:46 11:49 16:47 Retic Count 3.6 H (0.5-2.0) % POC Glucose (mg/dL) 121 H 104 H (75-99) mg/dL 08/25/17 08/25/17 Range/Units 19:14 21:06 Retic Count (0.5-2.0) % POC Glucose (mg/dL) 113 H 106 H (75-99) mg/dL Microbiology - Last 24 Hours (Table) 08/22/17 02:31 Blood Culture - Preliminary Blood No Growth after 72 hours Assessment and Plan Assessment: Acute alcohol intoxication with level 375 on admission Pancytopenia secondary to bone marrow suppression from chronic alcohol use Coagulopathy Generalized weakness and lethargy Elevated liver enzymes possible alcoholic hepatitis DVT prophylaxis Bipolar disorder Severe alcohol abuse Seizure disorder Plan: Patient be continued on IV fluids. Continue the multivitamins and thiamine. Monitor CBC. Hematology/Oncology is following. We'll continue to monitor for alcohol withdrawal symptoms and further recommendations based on the clinical course. Prognosis is guarded. Patient will be started on PTOT once she is is more awake. Time with Patient: Greater than 30
[2017-08-26] MEDS: LORazepam 2 MG/ML INJ IV PRN (02:24)
[2017-08-26] MEDS: levETIRAcetam 500 MG TAB PO SCH ×2 (07:27→21:12)
[2017-08-26] MEDS: SODIUM CHLORIDE 0.9% 1,000 ML IV SCH ×2 (07:28→21:13)
[2017-08-26 07:43] LABS: Glucose,Whole Blood 96 mg/dL (75-99)
[2017-08-26 08:45] LABS: HCT 23.6 % (34.0-46.0); HGB 7.7 gm/dL (11.4-16.0); Hypochromasia Moderate; MCH 38.4 pg (25.0-35.0); MCHC 32.4 g/dL (31.0-37.0); MCV 118.4 fL (80.0-100.0); Macrocytosis Marked; Platelet Count 65 k/uL (150-450); RBC 1.99 m/uL (3.80-5.40); RDW 15.5 % (11.5-15.5)
[2017-08-26 08:47] LABS: ALT 47 U/L (9-52); AST 97 U/L (14-36); Albumin 2.7 g/dL (3.5-5.0); Alkaline Phosphatase 144 U/L (38-126); Anion Gap 9 mmol/L; Blood Urea Nitrogen 4 mg/dL (7-17); Calcium 7.6 mg/dL (8.4-10.2); Carbon Dioxide 22 mmol/L (22-30); Chloride 104 mmol/L (98-107); Glucose 84 mg/dL (74-99); Potassium 3.1 mmol/L (3.5-5.1); Sodium 135 mmol/L (137-145); Total Bilirubin 1.4 mg/dL (0.2-1.3); Total Protein 5.1 g/dL (6.3-8.2)
[2017-08-26 08:48] LABS: WBC 1.7 k/uL (3.8-10.6)
[2017-08-26 09:23] LABS: Basophils # (M) 0.02 k/uL (0-0.2); Eosinophils # (M) 0.02 k/uL (0-0.7); Monocytes # (M) 0.26 k/uL (0-1.0); Neutrophils # (M) 0.82 k/uL (1.3-7.7); Neutrophils % (M) 48 %; Nucleated Red Blood Cells 0 /100 WBC (0-0); Total Cells Counted 100
[2017-08-26 09:24] LABS: Poikilocytosis (M) Present
--- NOTE | 2017-08-26 10:06 | P.PN ---
Subjective Progress Note Date: 08/26/17 The pt denies any new s/s. NO f/c/n/v/obvious bleeding Objective - Vital Signs Vital signs: Vital Signs Temp 98.7 F 08/26/17 07:00 Pulse 80 08/26/17 07:00 Resp 16 08/26/17 07:00 BP 95/67 08/26/17 07:00 Pulse Ox 100 08/26/17 07:00 Intake & Output 08/25/17 08/26/17 08/26/17 18:59 06:59 18:59 Intake Total 300 Balance 300 Weight 50 kg Intake: Oral 300 Other: Voiding Method Incontinent Incontinent # Voids 2 3 # Bowel Movements 1 - Constitutional General appearance: Present: no acute distress - EENT ENT: Present: normal oropharynx - Respiratory Respiratory: bilateral: CTA - Cardiovascular Rhythm: regular Heart sounds: normal: S1, S2 - Gastrointestinal General gastrointestinal: Present: soft - Integumentary Integumentary: Present: normal - Neurologic Neurologic: Present: CNII-XII intact - Musculoskeletal Musculoskeletal: Present: strength equal bilaterally - Psychiatric Psychiatric: Present: A&O x's 3, appropriate affect - Labs CBC & Chem 7: 08/26/17 08:03 08/26/17 08:03 Labs: Abnormal Lab Results - Last 24 Hours (Table) 08/25/17 08/25/17 08/25/17 Range/Units 08:46 11:49 16:47 WBC (3.8-10.6) k/uL RBC (3.80-5.40) m/uL Hgb (11.4-16.0) gm/dL Hct (34.0-46.0) % MCV (80.0-100.0) fL MCH (25.0-35.0) pg Plt Count (150-450) k/uL Neutrophils # (Manual) (1.3-7.7) k/uL Lymphocytes # (Manual) (1.0-4.8) k/uL Retic Count 3.6 H (0.5-2.0) % Sodium (137-145) mmol/L Potassium (3.5-5.1) mmol/L BUN (7-17) mg/dL Creatinine (0.52-1.04) mg/dL POC Glucose (mg/dL) 121 H 104 H (75-99) mg/dL Calcium (8.4-10.2) mg/dL Total Bilirubin (0.2-1.3) mg/dL AST (14-36) U/L Alkaline Phosphatase (38-126) U/L Total Protein (6.3-8.2) g/dL Albumin (3.5-5.0) g/dL 08/25/17 08/25/17 08/26/17 Range/Units 19:14 21:06 08:03 WBC 1.7 L* (3.8-10.6) k/uL RBC 1.99 L (3.80-5.40) m/uL Hgb 7.7 L (11.4-16.0) gm/dL Hct 23.6 L (34.0-46.0) % MCV 118.4 H (80.0-100.0) fL MCH 38.4 H (25.0-35.0) pg Plt Count 65 L (150-450) k/uL Neutrophils # (Manual) 0.82 L (1.3-7.7) k/uL Lymphocytes # (Manual) 0.60 L (1.0-4.8) k/uL Retic Count (0.5-2.0) % Sodium (137-145) mmol/L Potassium (3.5-5.1) mmol/L BUN (7-17) mg/dL Creatinine (0.52-1.04) mg/dL POC Glucose (mg/dL) 113 H 106 H (75-99) mg/dL Calcium (8.4-10.2) mg/dL Total Bilirubin (0.2-1.3) mg/dL AST (14-36) U/L Alkaline Phosphatase (38-126) U/L Total Protein (6.3-8.2) g/dL Albumin (3.5-5.0) g/dL 08/26/17 Range/Units 08:03 WBC (3.8-10.6) k/uL RBC (3.80-5.40) m/uL Hgb (11.4-16.0) gm/dL Hct (34.0-46.0) % MCV (80.0-100.0) fL MCH (25.0-35.0) pg Plt Count (150-450) k/uL Neutrophils # (Manual) (1.3-7.7) k/uL Lymphocytes # (Manual) (1.0-4.8) k/uL Retic Count (0.5-2.0) % Sodium 135 L (137-145) mmol/L Potassium 3.1 L (3.5-5.1) mmol/L BUN 4 L (7-17) mg/dL Creatinine 0.28 L (0.52-1.04) mg/dL POC Glucose (mg/dL) (75-99) mg/dL Calcium 7.6 L (8.4-10.2) mg/dL Total Bilirubin 1.4 H (0.2-1.3) mg/dL AST 97 H (14-36) U/L Alkaline Phosphatase 144 H (38-126) U/L Total Protein 5.1 L (6.3-8.2) g/dL Albumin 2.7 L (3.5-5.0) g/dL Microbiology - Last 24 Hours (Table) 08/22/17 02:31 Blood Culture - Preliminary Blood No Growth after 96 hours Assessment and Plan (1) Pancytopenia Narrative/Plan: [place] to be due to chronic, prolonged EtOH use. WBC shoulder declined today to 1.7 with ANC of 800. As ANC is below 1000 and the patient is hospitalized, we will start her on filgrastim. I anticipate that she will need only a short course. In the meantime labs have been ordered to rule out any deficiency states. These are pending at this time. Continue the patient on thiamine. Current Visit: No Status: Acute Priority: Medium Code(s): D61.818 - OTHER PANCYTOPENIA SNOMED Code(s): 969250867 Plan: Defer to the admitting service for management of her other medical problems
[2017-08-26] MEDS: FILGRASTIM-SNDZ 300 MCG/0.5 ML SYRINGE SQ SCH (11:03)
[2017-08-26] MEDS: IBUPROFEN 400 MG TAB PO PRN (11:03)
[2017-08-26] MEDS: THIAMINE 100 MG TAB PO SCH ×2 (11:04→16:15)
[2017-08-26 12:30] LABS: Glucose,Whole Blood 101 mg/dL (75-99)
[2017-08-26] MEDS: MULTIVITAMINS, THERA 1 EACH TAB PO SCH (13:13)
[2017-08-26 17:34] LABS: Glucose,Whole Blood 118 mg/dL (75-99)
[2017-08-26] MEDS ORDERED: Potassium Replacement Protocol 1 EACH MISC MISCELLANE PRN (19:18)
[2017-08-26 20:48] LABS: Glucose,Whole Blood 124 mg/dL (75-99)
[2017-08-26] MEDS: POTASSIUM CHLORIDE ER 20 MEQ TAB.ER PO SCH ×2 (21:12→22:00)
[2017-08-26] MEDS: cefTRIAXone IN SWFI 1,000 MG/10 ML SYRINGE IVP SCH (21:12)
--- NOTE | 2017-08-26 23:27 | P.PN ---
Subjective Progress Note Date: 08/26/17 Principal diagnosis: Acute alcohol intoxication and pancytopenia Patient is a 32-year-old female with a known history of alcohol abuse, multiple falls, depression was admitted to hospital with acute alcohol intoxication. Patient also hypoglycemic. Patient does have a history of alcohol abuse. Patient was noted to have pancytopenia and oncology was consulted. Patient does drink about fifth of pint daily. 08/24/2017 Patient does have generalized weakness and lethargic. Platelet count 47 today. Patient was also noted to have right lower activity large bruise around the t thigh region. Oncology is following. Patient is currently lethargic and could not provide any history. Lying in the bed comfortable otherwise. No fever no chills. Patient is being continued on IV fluids and multivitamins. 08/25/2017 Patient is more awake and oriented today. Denied any complaints of nausea and vomiting. Slightly tolerating diet. Overall improving. Vitamin B12, iron profile is pending. Patient denied any complaints of chest pain or shortness of breath. No other acute overnight issues. Feels weak. 08/26/2017 Patient is more awake and oriented today. Able to tolerate oral diet and ambulating slowly with support. Otherwise WBC count dropped down to 1.7. Oncology is following. Patient will be started on filgastrum. Continue to monitor closely. Complete review of systems could not be obtained from the patient Current medications reviewed Objective - Vital Signs Vital signs: Vital Signs Temp 98.2 F 08/26/17 14:50 Pulse 115 H 08/26/17 14:50 Resp 16 08/26/17 14:50 BP 93/66 08/26/17 14:50 Pulse Ox 95 08/26/17 14:50 Intake & Output 08/26/17 08/26/17 08/27/17 06:59 18:59 06:59 Intake Total 300 Balance 300 Weight 50 kg 50 kg Intake: Oral 300 Other: Voiding Method Incontinent Incontinent # Voids 3 2 2 # Bowel Movements 1 1 - Exam PHYSICAL EXAMINATION: Patient is lying in the bed comfortably, no acute distress, awake alert and oriented 3 HEENT: Normocephalic. Neck is supple. Pupils reactive. Nostrils clear. Oral cavity is moist. Ears reveal no drainage. Neck reveals no JVD, carotid bruits, or thyromegaly. CHEST EXAMINATION: Trachea is central. Symmetrical expansion. Lung dick clear to auscultation and percussion. CARDIAC: Normal S1, S2 with no gallops. No murmurs ABDOMEN: Soft. Bowel sounds normal. No organomegaly. No abdominal bruits. Extremities: reveal no edema. No clubbing or cyanosis Neurologically . Awake alert oriented 3. No focal deficits noted Skin: No rash or skin lesions. Psychiatric: Cooperative. Musculoskeletal: No joint swelling or deformity. - Labs CBC & Chem 7: 08/26/17 08:03 08/26/17 08:03 Labs: Abnormal Lab Results - Last 24 Hours (Table) 08/25/17 08/26/17 08/26/17 Range/Units 08:46 08:03 08:03 WBC 1.7 L* (3.8-10.6) k/uL RBC 1.99 L (3.80-5.40) m/uL Hgb 7.7 L (11.4-16.0) gm/dL Hct 23.6 L (34.0-46.0) % MCV 118.4 H (80.0-100.0) fL MCH 38.4 H (25.0-35.0) pg Plt Count 65 L (150-450) k/uL Neutrophils # (Manual) 0.82 L (1.3-7.7) k/uL Lymphocytes # (Manual) 0.60 L (1.0-4.8) k/uL Sodium 135 L (137-145) mmol/L Potassium 3.1 L (3.5-5.1) mmol/L BUN 4 L (7-17) mg/dL Creatinine 0.28 L (0.52-1.04) mg/dL POC Glucose (mg/dL) (75-99) mg/dL Calcium 7.6 L (8.4-10.2) mg/dL TIBC 203 L (228-460) ug/dL Total Bilirubin 1.4 H (0.2-1.3) mg/dL AST 97 H (14-36) U/L Alkaline Phosphatase 144 H (38-126) U/L Total Protein 5.1 L (6.3-8.2) g/dL Albumin 2.7 L (3.5-5.0) g/dL 08/26/17 08/26/17 08/26/17 Range/Units 12:27 17:09 20:41 WBC (3.8-10.6) k/uL RBC (3.80-5.40) m/uL Hgb (11.4-16.0) gm/dL Hct (34.0-46.0) % MCV (80.0-100.0) fL MCH (25.0-35.0) pg Plt Count (150-450) k/uL Neutrophils # (Manual) (1.3-7.7) k/uL Lymphocytes # (Manual) (1.0-4.8) k/uL Sodium (137-145) mmol/L Potassium (3.5-5.1) mmol/L BUN (7-17) mg/dL Creatinine (0.52-1.04) mg/dL POC Glucose (mg/dL) 101 H 118 H 124 H (75-99) mg/dL Calcium (8.4-10.2) mg/dL TIBC (228-460) ug/dL Total Bilirubin (0.2-1.3) mg/dL AST (14-36) U/L Alkaline Phosphatase (38-126) U/L Total Protein (6.3-8.2) g/dL Albumin (3.5-5.0) g/dL Microbiology - Last 24 Hours (Table) 08/22/17 02:31 Blood Culture - Preliminary Blood No Growth after 96 hours Assessment and Plan Assessment: Acute alcohol intoxication with level 375 on admission Pancytopenia secondary to bone marrow suppression from chronic alcohol use Coagulopathy Generalized weakness and lethargy Elevated liver enzymes possible alcoholic hepatitis DVT prophylaxis Bipolar disorder Severe alcohol abuse Seizure disorder Plan: Patient be continued on IV fluids. Continue the multivitamins and thiamine. Monitor CBC. Hematology/Oncology is following. We'll continue to monitor for alcohol withdrawal symptoms and further recommendations based on the clinical course. Prognosis is guarded. Patient will be started on PTOT once she is is more awake. Time with Patient: Greater than 30
[2017-08-27] MEDS: SODIUM CHLORIDE 0.9% 1,000 ML IV SCH ×2 (05:30→16:31)
[2017-08-27 07:24] LABS: Glucose,Whole Blood 88 mg/dL (75-99)
[2017-08-27 08:43] LABS: Anion Gap 4 mmol/L; Blood Urea Nitrogen 3 mg/dL (7-17); Calcium 8.3 mg/dL (8.4-10.2); Carbon Dioxide 26 mmol/L (22-30); Chloride 108 mmol/L (98-107); Glucose 82 mg/dL (74-99); Sodium 138 mmol/L (137-145)
[2017-08-27 09:16] LABS: HCT 23.8 % (34.0-46.0); HGB 7.4 gm/dL (11.4-16.0); Hypochromasia Moderate; MCH 37.4 pg (25.0-35.0); MCV 120.6 fL (80.0-100.0); Macrocytosis Marked; Mean Platelet Volume 7.9; RBC 1.97 m/uL (3.80-5.40); RDW 15.4 % (11.5-15.5)
[2017-08-27 09:19] LABS: Platelet Count 74 k/uL (150-450)
[2017-08-27] MEDS: levETIRAcetam 500 MG TAB PO SCH ×2 (10:21→20:21)
[2017-08-27] MEDS: THIAMINE 100 MG TAB PO SCH ×2 (10:21→16:28)
[2017-08-27] MEDS: MULTIVITAMINS, THERA 1 EACH TAB PO SCH (10:21)
[2017-08-27 10:53] LABS: Band Neutrophils % 3 %; Eosinophils # (M) 0.04 k/uL (0-0.7); Lymphocytes # (M) 0.52 k/uL (1.0-4.8); Monocytes # (M) 0.64 k/uL (0-1.0); Neutrophils % (M) 67 %; Nucleated Red Blood Cells 0 /100 WBC (0-0); Poikilocytosis (M) Present; Total Cells Counted 100
[2017-08-27 10:54] LABS: Toxic Granulation Present
[2017-08-27 12:06] LABS: Glucose,Whole Blood 125 mg/dL (75-99)
[2017-08-27] MEDS: FILGRASTIM-SNDZ 300 MCG/0.5 ML SYRINGE SQ SCH (12:31)
--- NOTE | 2017-08-27 14:19 | P.PN ---
Subjective Progress Note Date: 08/27/17 Principal diagnosis: Acute alcohol intoxication and pancytopenia Patient is a 32-year-old female with a known history of alcohol abuse, multiple falls, depression was admitted to hospital with acute alcohol intoxication. Patient also hypoglycemic. Patient does have a history of alcohol abuse. Patient was noted to have pancytopenia and oncology was consulted. Patient does drink about fifth of pint daily. 08/24/2017 Patient does have generalized weakness and lethargic. Platelet count 47 today. Patient was also noted to have right lower activity large bruise around the t thigh region. Oncology is following. Patient is currently lethargic and could not provide any history. Lying in the bed comfortable otherwise. No fever no chills. Patient is being continued on IV fluids and multivitamins. 08/25/2017 Patient is more awake and oriented today. Denied any complaints of nausea and vomiting. Slightly tolerating diet. Overall improving. Vitamin B12, iron profile is pending. Patient denied any complaints of chest pain or shortness of breath. No other acute overnight issues. Feels weak. 08/26/2017 Patient is more awake and oriented today. Able to tolerate oral diet and ambulating slowly with support. Otherwise WBC count dropped down to 1.7. Oncology is following. Patient will be started on filgastrum. Continue to monitor closely. 08/27/2017 Patient denied any complains of chest pain or shortness of breath. Weakness is improving. Otherwise WBC count improved to 4.0 today. Oncology is on board. Continue with PT OT and possible discharge tomorrow. Complete review of systems could not be obtained from the patient Current medications reviewed Objective - Vital Signs Vital signs: Vital Signs Temp 99.4 F 08/27/17 06:40 Pulse 80 08/27/17 06:40 Resp 18 08/27/17 06:40 BP 89/58 08/27/17 06:40 Pulse Ox 99 08/27/17 06:40 Intake & Output 08/26/17 08/27/17 08/27/17 18:59 06:59 18:59 Intake Total 800 Balance 800 Weight 46 kg Intake: IV 800 Sodium Chloride 0.9% 1, 800 000 ml @ 100 mls/hr IV . Q10H [facility] Rx#:[id number] Other: Voiding Method Incontinent # Voids 2 4 # Bowel Movements 1 - Exam PHYSICAL EXAMINATION: Patient is lying in the bed comfortably, no acute distress, awake alert and oriented 3 HEENT: Normocephalic. Neck is supple. Pupils reactive. Nostrils clear. Oral cavity is moist. Ears reveal no drainage. Neck reveals no JVD, carotid bruits, or thyromegaly. CHEST EXAMINATION: Trachea is central. Symmetrical expansion. Lung dick clear to auscultation and percussion. CARDIAC: Normal S1, S2 with no gallops. No murmurs ABDOMEN: Soft. Bowel sounds normal. No organomegaly. No abdominal bruits. Extremities: reveal no edema. No clubbing or cyanosis Neurologically . Awake alert oriented 3. No focal deficits noted Skin: No rash or skin lesions. Psychiatric: Cooperative. Musculoskeletal: No joint swelling or deformity. - Labs CBC & Chem 7: 08/27/17 08:10 08/27/17 08:10 Labs: Abnormal Lab Results - Last 24 Hours (Table) 08/26/17 08/26/17 08/27/17 Range/Units 17:09 20:41 08:10 RBC (3.80-5.40) m/uL Hgb (11.4-16.0) gm/dL Hct (34.0-46.0) % MCV (80.0-100.0) fL MCH (25.0-35.0) pg Plt Count (150-450) k/uL Lymphocytes # (Manual) (1.0-4.8) k/uL Chloride 108 H (98-107) mmol/L BUN 3 L (7-17) mg/dL Creatinine 0.32 L (0.52-1.04) mg/dL POC Glucose (mg/dL) 118 H 124 H (75-99) mg/dL Calcium 8.3 L (8.4-10.2) mg/dL 08/27/17 08/27/17 Range/Units 08:10 11:39 RBC 1.97 L (3.80-5.40) m/uL Hgb 7.4 L (11.4-16.0) gm/dL Hct 23.8 L (34.0-46.0) % MCV 120.6 H (80.0-100.0) fL MCH 37.4 H (25.0-35.0) pg Plt Count 74 L (150-450) k/uL Lymphocytes # (Manual) 0.52 L (1.0-4.8) k/uL Chloride (98-107) mmol/L BUN (7-17) mg/dL Creatinine (0.52-1.04) mg/dL POC Glucose (mg/dL) 125 H (75-99) mg/dL Calcium (8.4-10.2) mg/dL Microbiology - Last 24 Hours (Table) 08/22/17 02:31 Blood Culture - Preliminary Blood No Growth after 120 hours Assessment and Plan Assessment: Acute alcohol intoxication with level 375 on admission Pancytopenia secondary to bone marrow suppression from chronic alcohol use Neutropenia Coagulopathy Generalized weakness and lethargy Elevated liver enzymes possible alcoholic hepatitis DVT prophylaxis Bipolar disorder Severe alcohol abuse Seizure disorder Plan: Patient be continued on IV fluids. Continue the multivitamins and thiamine. Monitor CBC. Hematology/Oncology is following. We'll continue to monitor for alcohol withdrawal symptoms and further recommendations based on the clinical course. Prognosis is guarded. Patient will be started on PTOT/ Time with Patient: Greater than 30
[2017-08-27] MEDS: IBUPROFEN 400 MG TAB PO PRN (16:28)
[2017-08-27 17:23] LABS: Glucose,Whole Blood 97 mg/dL (75-99)
[2017-08-27] MEDS: cefTRIAXone IN SWFI 1,000 MG/10 ML SYRINGE IVP SCH (20:21)
[2017-08-27 21:01] LABS: Glucose,Whole Blood 99 mg/dL (75-99)
[2017-08-28] MEDS: SODIUM CHLORIDE 0.9% 1,000 ML IV SCH ×3 (05:59→20:25)
[2017-08-28 07:30] LABS: Glucose,Whole Blood 91 mg/dL (75-99)
[2017-08-28] MEDS: levETIRAcetam 500 MG TAB PO SCH ×2 (08:29→20:25)
[2017-08-28] MEDS: FILGRASTIM-SNDZ 300 MCG/0.5 ML SYRINGE SQ SCH (08:30)
[2017-08-28 10:42] LABS: INR 1.4 (<1.2); Prothrombin Time 13.3 sec (9.0-12.0)
[2017-08-28 10:46] LABS: Hypochromasia Slight; MCH 38.2 pg (25.0-35.0); MCV 119.4 fL (80.0-100.0); Macrocytosis Marked; Mean Platelet Volume 7.9; WBC 5.3 k/uL (3.8-10.6)
[2017-08-28 10:57] LABS: Platelet Count 94 k/uL (150-450)
[2017-08-28] MEDS: THIAMINE 100 MG TAB PO SCH ×2 (11:23→16:42)
[2017-08-28] MEDS: MULTIVITAMINS, THERA 1 EACH TAB PO SCH (11:23)
[2017-08-28 12:31] LABS: Glucose,Whole Blood 95 mg/dL (75-99)
[2017-08-28] MEDS: IBUPROFEN 400 MG TAB PO PRN (14:06)
--- NOTE | 2017-08-28 14:54 | P.PN ---
Subjective Progress Note Date: 08/28/17 Principal diagnosis: pancytopenia Pt seen today with RN at bedside. Pt was able to answer few questions only, no nausea or pain. She does not appear to be in any physical distress. Objective - Vital Signs Vital signs: Vital Signs Temp 102.1 F H 08/28/17 14:00 Pulse 122 H 08/28/17 13:36 Resp 16 08/28/17 13:36 BP 110/70 08/28/17 13:36 Pulse Ox 98 08/28/17 13:36 Intake & Output 08/27/17 08/28/17 08/28/17 18:59 06:59 18:59 Intake Total 1000 Balance 1000 Weight 46 kg Intake: IV 800 Sodium Chloride 0.9% 1, 800 000 ml @ 100 mls/hr IV . Q10H [facility] Rx#:[id number] Oral 200 Other: Voiding Method Bedside Commode # Voids 4 4 # Bowel Movements 1 - Exam WDWN, NAD, required loud voice and touch to arouse pt, pt looks around room as though she does not know where she is, when RN speaks to her she is more responsive, respirations are even and unlabored, no petechiae noted. - Labs CBC & Chem 7: 08/28/17 10:17 08/27/17 08:10 Labs: Abnormal Lab Results - Last 24 Hours (Table) 08/28/17 08/28/17 Range/Units 10:17 10:17 RBC 2.10 L (3.80-5.40) m/uL Hgb 8.0 L (11.4-16.0) gm/dL Hct 25.0 L (34.0-46.0) % MCV 119.4 H (80.0-100.0) fL MCH 38.2 H (25.0-35.0) pg Plt Count 94 L (150-450) k/uL PT 13.3 H (9.0-12.0) sec INR 1.4 H (<1.2) Microbiology - Last 24 Hours (Table) 08/22/17 02:31 Blood Culture - Final Blood No Growth after 144 hours Assessment and Plan (1) Pancytopenia Current Visit: Yes Status: Acute Priority: Medium Code(s): D61.818 - OTHER PANCYTOPENIA SNOMED Code(s): 997084785 (2) Coagulopathy Current Visit: Yes Status: Acute Priority: Medium Code(s): D68.9 - COAGULATION DEFECT, UNSPECIFIED SNOMED Code(s): 91019185 Plan: Multiple labs were check to evaluate pt pancytopenia with no actionable deficiency noted. Pt did receive GCSF with improvement in her WBC-this is discontinued. Her anemia and thrombocytopenia are slowly recovering independent of specific intervention. Tried to explain to pt that her blood problems are due to alcohol hurting her bone marrow-she denies ETOH use to me. Encouraged her to talk with her mother who she states takes care of her. Recommended abstinence from alcohol. Coagulopathy r/t poor diet/lack of vit K intake and ETOH effects on the liver. With cessation of alcohol her coags are recovering independently of any intervention/medication.
[2017-08-28 15:04] VITALS: BMI 15.4
[2017-08-28 17:18] LABS: Glucose,Whole Blood 117 mg/dL (75-99)
[2017-08-28] MEDS: cefTRIAXone IN SWFI 1,000 MG/10 ML SYRINGE IVP SCH (20:24)
--- NOTE | 2017-08-28 20:37 | P.CNNES ---
History of Present Illness Consult date: 08/28/17 History of Present Illness: The patient is a 32-year-old right-handed white female with history of EtOH abuse who presents to the emergency room on's August 22 with weakness and alcohol intoxication. She was admitted to the hospital with hypoglycemia and pancytopenia and apparently her blood sugar was 32. Neurology is requested to see the patient for evaluation of weakness in the legs. The patient reports that she has had weakness in the legs for over a month. The patient has a history of seizures and is on Keppra. When asked when she had her last seizure she reports it was 1 week ago and that she came to this hospital emergency room. There are no records to support that. Also she states she had an MRI at this hospital last week. Again there are no records of that. The patient has been having frequency of urination for one month. Shouldn't is an unreliable historian. Review of Systems Eyes: denies blurred vision, denies pain Cardiovascular: Denies chest pain, Denies shortness of breath Respiratory: Denies cough Gastrointestinal: Denies abdominal pain, Denies diarrhea, Denies nausea, Denies vomiting Neurological: Denies numbness, Denies weakness Past Medical History Past Medical History: Seizure Disorder Additional Past Medical History / Comment(s): amenorrhia x 4 years, " undiagnosed multiple sclerosis" History of Any Multi-Drug Resistant Organisms: None Reported Past Surgical History: No Surgical Hx Reported Past Anesthesia/Blood Transfusion Reactions: Unable to Obtain Past Psychological History: No Psychological Hx Reported Smoking Status: Never smoker Past Alcohol Use History: Abuse, Daily, Heavy Past Drug Use History: None Reported - Past Family History Mother Family Medical History: Cancer Medications and Allergies Home Medications Medication Instructions Recorded Confirmed Type Loratadine [Claritin] 10 mg PO DAILY PRN 04/29/14 08/21/17 History Multivitamins, Thera [Multivitamin 1 tab PO DAILY@1200 04/29/14 08/21/17 History (formulary)] Biotin 5 mg PO DAILY 01/31/16 08/21/17 History levETIRAcetam [Keppra] 1,000 mg PO Q12HR 01/31/16 08/21/17 History Ascorbic Acid [Vitamin C] 500 mg PO DAILY 08/21/17 08/21/17 History Cholecalciferol [Vitamin D3] 1,000 unit PO DAILY 08/21/17 08/21/17 History Vitamin A 8,000 unit PO DAILY 08/21/17 08/21/17 History Allergies Allergy/AdvReac Type Severity Reaction Status Date / Time gluten Allergy Swelling Verified 08/21/17 20:52 Physical Examination - Vital Signs Vital Signs: Vital Signs Temp Pulse Resp BP Pulse Ox 08/28/17 17:00 101.0 F H 08/28/17 16:00 100.7 F H 08/28/17 14:00 102.1 F H 08/28/17 13:36 103.2 F H 122 H 16 110/70 98 08/28/17 07:06 97.4 F L 70 20 103/66 99 08/27/17 23:00 99.7 F H 69 18 101/69 100 Intake and Output 08/28/17 08/28/17 08/28/17 06:59 14:59 22:59 Other: # Voids 4 4 2 # Bowel Movements 1 Weight 46 kg 46 kg - Constitutional General appearance: thin - EENT EENT: PERRL - Respiratory Respiratory: lungs clear - Cardiovascular Cardiovascular: regular rate - Neurologic Mental status: She was awake alert and answering questions appropriately. There was no aphasia or dysarthria Cranial nerve examination: EOMI, VFF, face symmetric Speech examination: intact Detailed motor examination: grossly full strength in all extremities Reflexes: 2+: knee - Psychiatric Psychiatric: cooperative Results - Laboratory Findings CBC and BMP: 08/28/17 10:17 08/27/17 08:10 Abnormal Lab Findings: Abnormal Labs 08/21/17 08/21/17 08/21/17 20:00 20:00 20:00 WBC 2.8 L RBC 2.86 L Hgb 10.4 L Hct 33.7 L MCV 117.9 H MCH 36.4 H MCHC 30.8 L RDW 16.7 H Plt Count 95 L Neutrophils # Neutrophils # (Manual) Lymphocytes # Lymphocytes # (Manual) 0.39 L Retic Count PT INR Sodium Potassium Chloride 97 L Carbon Dioxide 13 L BUN 6 L Creatinine 0.50 L Glucose 186 H POC Glucose (mg/dL) Plasma Lactic Acid Hema 5.6 H* Calcium 7.9 L TIBC Total Bilirubin 2.7 H AST 289 H ALT 71 H Alkaline Phosphatase Total Protein Albumin Urine Protein Urine Ketones Ur Leukocyte Esterase Urine WBC Hyaline Casts Urine Mucus 08/21/17 08/21/17 08/21/17 20:00 20:25 20:27 WBC RBC Hgb Hct MCV MCH MCHC RDW Plt Count Neutrophils # Neutrophils # (Manual) Lymphocytes # Lymphocytes # (Manual) Retic Count PT 13.7 H INR 1.5 H Sodium Potassium Chloride Carbon Dioxide BUN Creatinine Glucose POC Glucose (mg/dL) 35 L 41 L Plasma Lactic Acid Hema Calcium TIBC Total Bilirubin AST ALT Alkaline Phosphatase Total Protein Albumin Urine Protein Urine Ketones Ur Leukocyte Esterase Urine WBC Hyaline Casts Urine Mucus 08/21/17 08/21/17 08/21/17 20:38 21:04 22:55 WBC RBC Hgb Hct MCV MCH MCHC RDW Plt Count Neutrophils # Neutrophils # (Manual) Lymphocytes # Lymphocytes # (Manual) Retic Count PT INR Sodium Potassium Chloride Carbon Dioxide BUN Creatinine Glucose POC Glucose (mg/dL) 34 L 138 H Plasma Lactic Acid Hema Calcium TIBC Total Bilirubin AST ALT Alkaline Phosphatase Total Protein Albumin Urine Protein 1+ H Urine Ketones 4+ H Ur Leukocyte Esterase Small H Urine WBC 6 H Hyaline Casts 10 H Urine Mucus Rare H 08/22/17 08/22/17 08/22/17 01:18 01:28 05:47 WBC RBC Hgb Hct MCV MCH MCHC RDW Plt Count Neutrophils # Neutrophils # (Manual) Lymphocytes # Lymphocytes # (Manual) Retic Count PT INR Sodium Potassium Chloride Carbon Dioxide BUN Creatinine Glucose POC Glucose (mg/dL) 264 H 311 H Plasma Lactic Acid Hema 5.8 H* Calcium TIBC Total Bilirubin AST ALT Alkaline Phosphatase Total Protein Albumin Urine Protein Urine Ketones Ur Leukocyte Esterase Urine WBC Hyaline Casts Urine Mucus 08/22/17 08/22/17 08/22/17 11:25 16:55 20:54 WBC RBC Hgb Hct MCV MCH MCHC RDW Plt Count Neutrophils # Neutrophils # (Manual) Lymphocytes # Lymphocytes # (Manual) Retic Count PT INR Sodium Potassium Chloride Carbon Dioxide BUN Creatinine Glucose POC Glucose (mg/dL) 273 H 180 H 194 H Plasma Lactic Acid Hema Calcium TIBC Total Bilirubin AST ALT Alkaline Phosphatase Total Protein Albumin Urine Protein Urine Ketones Ur Leukocyte Esterase Urine WBC Hyaline Casts Urine Mucus 08/23/17 08/23/17 08/23/17 06:10 11:43 16:22 WBC 1.6 L* RBC 2.33 L Hgb 8.6 L D Hct 26.7 L MCV 114.5 H MCH 36.7 H MCHC RDW 16.3 H Plt Count 50 L* Neutrophils # 1.1 L Neutrophils # (Manual) Lymphocytes # 0.2 L Lymphocytes # (Manual) Retic Count PT INR Sodium Potassium Chloride Carbon Dioxide BUN Creatinine Glucose POC Glucose (mg/dL) 123 H 144 H Plasma Lactic Acid Hema Calcium TIBC Total Bilirubin AST ALT Alkaline Phosphatase Total Protein Albumin Urine Protein Urine Ketones Ur Leukocyte Esterase Urine WBC Hyaline Casts Urine Mucus 08/23/17 08/23/17 08/23/17 16:22 16:22 16:32 WBC RBC Hgb Hct MCV MCH MCHC RDW Plt Count Neutrophils # Neutrophils # (Manual) Lymphocytes # Lymphocytes # (Manual) Retic Count PT 15.9 H INR 1.7 H Sodium 134 L Potassium 3.2 L Chloride 97 L Carbon Dioxide BUN <2 L Creatinine 0.30 L Glucose 114 H POC Glucose (mg/dL) 111 H Plasma Lactic Acid Hema Calcium 8.1 L TIBC Total Bilirubin 3.2 H AST 324 H ALT 86 H Alkaline Phosphatase Total Protein 5.5 L Albumin 3.0 L Urine Protein Urine Ketones Ur Leukocyte Esterase Urine WBC Hyaline Casts Urine Mucus 08/23/17 08/24/17 08/24/17 20:58 08:31 08:31 WBC 3.0 L RBC 2.40 L Hgb 9.0 L Hct 27.2 L MCV 113.5 H MCH 37.4 H MCHC RDW 16.0 H Plt Count 47 L* Neutrophils # Neutrophils # (Manual) Lymphocytes # 0.5 L Lymphocytes # (Manual) Retic Count PT INR Sodium Potassium Chloride Carbon Dioxide BUN 2 L Creatinine 0.27 L Glucose POC Glucose (mg/dL) 148 H Plasma Lactic Acid Hema Calcium 8.2 L TIBC Total Bilirubin 2.5 H AST 221 H ALT 73 H Alkaline Phosphatase Total Protein 5.7 L Albumin 3.1 L Urine Protein Urine Ketones Ur Leukocyte Esterase Urine WBC Hyaline Casts Urine Mucus 08/24/17 08/25/17 08/25/17 20:57 08:46 08:46 WBC RBC Hgb Hct MCV MCH MCHC RDW Plt Count Neutrophils # Neutrophils # (Manual) Lymphocytes # Lymphocytes # (Manual) Retic Count 3.6 H PT INR Sodium Potassium Chloride Carbon Dioxide BUN Creatinine Glucose POC Glucose (mg/dL) 113 H Plasma Lactic Acid Hema Calcium TIBC 203 L Total Bilirubin AST ALT Alkaline Phosphatase Total Protein Albumin Urine Protein Urine Ketones Ur Leukocyte Esterase Urine WBC Hyaline Casts Urine Mucus 08/25/17 08/25/17 08/25/17 11:49 16:47 19:14 WBC RBC Hgb Hct MCV MCH MCHC RDW Plt Count Neutrophils # Neutrophils # (Manual) Lymphocytes # Lymphocytes # (Manual) Retic Count PT INR Sodium Potassium Chloride Carbon Dioxide BUN Creatinine Glucose POC Glucose (mg/dL) 121 H 104 H 113 H Plasma Lactic Acid Hema Calcium TIBC Total Bilirubin AST ALT Alkaline Phosphatase Total Protein Albumin Urine Protein Urine Ketones Ur Leukocyte Esterase Urine WBC Hyaline Casts Urine Mucus 08/25/17 08/26/17 08/26/17 21:06 08:03 08:03 WBC 1.7 L* RBC 1.99 L Hgb 7.7 L Hct 23.6 L MCV 118.4 H MCH 38.4 H MCHC RDW Plt Count 65 L Neutrophils # Neutrophils # (Manual) 0.82 L Lymphocytes # Lymphocytes # (Manual) 0.60 L Retic Count PT INR Sodium 135 L Potassium 3.1 L Chloride Carbon Dioxide BUN 4 L Creatinine 0.28 L Glucose POC Glucose (mg/dL) 106 H Plasma Lactic Acid Hema Calcium 7.6 L TIBC Total Bilirubin 1.4 H AST 97 H ALT Alkaline Phosphatase 144 H Total Protein 5.1 L Albumin 2.7 L Urine Protein Urine Ketones Ur Leukocyte Esterase Urine WBC Hyaline Casts Urine Mucus 08/26/17 08/26/17 08/26/17 12:27 17:09 20:41 WBC RBC Hgb Hct MCV MCH MCHC RDW Plt Count Neutrophils # Neutrophils # (Manual) Lymphocytes # Lymphocytes # (Manual) Retic Count PT INR Sodium Potassium Chloride Carbon Dioxide BUN Creatinine Glucose POC Glucose (mg/dL) 101 H 118 H 124 H Plasma Lactic Acid Hema Calcium TIBC Total Bilirubin AST ALT Alkaline Phosphatase Total Protein Albumin Urine Protein Urine Ketones Ur Leukocyte Esterase Urine WBC Hyaline Casts Urine Mucus 08/27/17 08/27/17 08/27/17 08:10 08:10 11:39 WBC RBC 1.97 L Hgb 7.4 L Hct 23.8 L MCV 120.6 H MCH 37.4 H MCHC RDW Plt Count 74 L Neutrophils # Neutrophils # (Manual) Lymphocytes # Lymphocytes # (Manual) 0.52 L Retic Count PT INR Sodium Potassium Chloride 108 H Carbon Dioxide BUN 3 L Creatinine 0.32 L Glucose POC Glucose (mg/dL) 125 H Plasma Lactic Acid Hema Calcium 8.3 L TIBC Total Bilirubin AST ALT Alkaline Phosphatase Total Protein Albumin Urine Protein Urine Ketones Ur Leukocyte Esterase Urine WBC Hyaline Casts Urine Mucus 08/28/17 08/28/17 08/28/17 10:17 10:17 16:58 WBC RBC 2.10 L Hgb 8.0 L Hct 25.0 L MCV 119.4 H MCH 38.2 H MCHC RDW Plt Count 94 L Neutrophils # Neutrophils # (Manual) Lymphocytes # Lymphocytes # (Manual) Retic Count PT 13.3 H INR 1.4 H Sodium Potassium Chloride Carbon Dioxide BUN Creatinine Glucose POC Glucose (mg/dL) 117 H Plasma Lactic Acid Hema Calcium TIBC Total Bilirubin AST ALT Alkaline Phosphatase Total Protein Albumin Urine Protein Urine Ketones Ur Leukocyte Esterase Urine WBC Hyaline Casts Urine Mucus Assessment and Plan (1) Alcohol abuse Current Visit: Yes Status: Chronic SNOMED Code(s): 14382769 (2) Alcoholic intoxication Current Visit: Yes Status: Acute SNOMED Code(s): 77089502 (3) Pancytopenia Current Visit: Yes Status: Acute Priority: Medium SNOMED Code(s): 933042335 (4) History of seizures Current Visit: Yes Status: Acute SNOMED Code(s): 509079962 Plan: is a 32-year-old woman with history of alcohol abuse admitted to the hospital with alcohol intoxication and hypoglycemia. Her pancytopenia is apparently due to bone marrow suppression from EtOH. 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 The patient should continue on multivitamins and thiamine. Recommend PT and OT. Recommend check trough Keppra level. Recommend carotid ultrasound and MRI of the brain if she is not had one recently. Patient however reports that she had one last week.
[2017-08-28 21:48] LABS: Glucose,Whole Blood 130 mg/dL (75-99)
[2017-08-29 07:07] LABS: Glucose,Whole Blood 95 mg/dL (75-99)
[2017-08-29] MEDS: SODIUM CHLORIDE 0.9% 1,000 ML IV SCH ×2 (07:21→17:20)
[2017-08-29] MEDS: levETIRAcetam 500 MG TAB PO SCH ×2 (07:21→21:15)
[2017-08-29] MEDS: THIAMINE 100 MG TAB PO SCH ×2 (11:20→17:20)
[2017-08-29] MEDS: MULTIVITAMINS, THERA 1 EACH TAB PO SCH (11:21)
[2017-08-29 12:07] LABS: Glucose,Whole Blood 82 mg/dL (75-99)
--- NOTE | 2017-08-29 14:09 | XR ---
EXAMINATION TYPE: XR chest 2V DATE OF EXAM: 08/29/2017 COMPARISON: Prior chest 05/26/2017 HISTORY: Seizure TECHNIQUE: Frontal and lateral views of the chest are obtained. FINDINGS: There is no focal air space opacity, pleural effusion, or pneumothorax seen. The cardiac silhouette size is within normal limits. The osseous structures are intact. IMPRESSION: No acute cardiopulmonary process.
--- NOTE | 2017-08-29 14:18 | MR ---
EXAMINATION TYPE: MR brain wo/w con DATE OF EXAM: 08/29/2017 COMPARISON: CT brain May 22, 2017 HISTORY: weakness, history of seizures TECHNIQUE: Multiplanar, multisequence images of the brain and brainstem is performed without and with IV contras t, utilizing 4.5 mL intravenous Gadavist . FINDINGS: Diffusion weighted images demonstrate no evidence of a recent infarct or other diffusion ab normality. There is no worrisome extra-axial fluid collection. There is diffuse ventricular and sulc al prominence consistent with diffuse cerebral atrophy. Old lacunar infarct or prominent Virchow-Chandra n space inferior left basal ganglia axial image 15 is redemonstrated. Midline structures demonstrate normal morphology. The craniocervical junction appears within normal limits. Post contrast images demonstrate no abnormal enhancement. The dural venous sinuses appear pa tent. The visualized sinuses are clear and the globes are intact. IMPRESSION: No evidence of a recent infarct. Mild to moderate diffuse cerebral atrophy quite pronounc ed for patient's age redemonstrated with possible old left inferiorly coronary infarct though favor p rominent Virchow-Myles space. No significant change from recent CT.
--- NOTE | 2017-08-29 15:29 | PN ---
PROGRESS NOTE DATE OF SERVICE: 02/18/2017 CHIEF COMPLAINT: DTs, alcoholic hepatitis, chronic alcoholism, pancytopenia, and lower extremity weakness. HISTORY OF PRESENT ILLNESS: This lady is not being evaluated for profound lower extremity weakness, which is probably related to deconditioning and unuse. It is believed that she probably spends most of her time sitting or lying down and drinking. She is otherwise doing fairly well. She is more much more mentally awake and alert and could probably go home soon. PHYSICAL EXAM: CHEST: Clear. Cardiac exam is normal. Abdomen is soft, nontender. Extremities seem to be normal. IMPRESSION: 1. Generalized lower extremity weakness, probably due to disuse. 2. Acute alcohol intoxication. 3. Chronic alcoholism. 4. Alcoholic hepatitis. 5. Pancytopenia. PLAN: She is being evaluated by Neurology and she can probably go home soon. Discharge planning will be an issue. JANELLE / PAYTON: [id number] /
--- NOTE | 2017-08-29 15:50 | PN ---
PROGRESS NOTE CHIEF COMPLAINT: Alcoholism. HISTORY OF PRESENT ILLNESS: This lady was to be discharged today, but she is running a low-grade fever. She denies dysuria, cough, shortness of breath, abdominal pain, etc. PHYSICAL EXAM: Unchanged. Chest is clear. Cardiac exam is normal. Abdomen is soft, nontender. IMPRESSION: 1. Fever of unknown origin. 2. Alcoholism. 3. Delirium tremens. 4. Alcoholic hepatitis. 5. Pancytopenia. PLAN: Workup FUO with chest x-ray, UA, urine culture and blood cultures. MMODL / IJN: [id number] /
[2017-08-29 16:59] LABS: Glucose,Whole Blood 96 mg/dL (75-99)
[2017-08-29 21:10] LABS: Glucose,Whole Blood 103 mg/dL (75-99)
[2017-08-29] MEDS: IBUPROFEN 400 MG TAB PO PRN (21:14)
[2017-08-29] MEDS: cefTRIAXone IN SWFI 1,000 MG/10 ML SYRINGE IVP SCH (21:15)
[2017-08-29 22:30] VITALS: RESP 18
[2017-08-30] MEDS: SODIUM CHLORIDE 0.9% 1,000 ML IV SCH ×2 (05:58→14:28)
[2017-08-30] MEDS: THIAMINE 100 MG TAB PO SCH (07:30)
[2017-08-30] MEDS: levETIRAcetam 500 MG TAB PO SCH (07:30)
[2017-08-30] MEDS: MULTIVITAMINS, THERA 1 EACH TAB PO SCH (07:30)
[2017-08-30 07:38] LABS: Glucose,Whole Blood 83 mg/dL (75-99)
[2017-08-30 12:35] LABS: Glucose,Whole Blood 106 mg/dL (75-99)
[2017-08-30 16:08] VITALS: BP 95/61; PULSE 72; TEMP 98.6
--- NOTE | 2017-08-30 17:42 | DS ---
DISCHARGE SUMMARY CHIEF COMPLAINT: 1. Acute alcohol intoxication. 2. Chronic alcoholism. 3. Alcoholic hepatitis. 4. Hypoglycemia. 5. Pancytopenia. 6. Peripheral neuropathy. HISTORY OF PRESENT ILLNESS AND PHYSICAL EXAM: Details of this lady's history and physical can be found in the initial workup. LABORATORY STUDIES: While she was in the hospital, she had laboratory studies, details which can be found in the laboratory section of her chart. COURSE IN HOSPITAL: After admission she was placed on bedrest, started on intravenous fluids and was rehydrated. She did go into DTs, which was treated. She slowly improved and became more awake, alert, oriented. She complained of a lot of weakness in the lower extremities, but this was felt largely related to her chronic alcoholism, general debility and peripheral neuropathy. Pancytopenia was also addressed and this was recovering. She was continuing to improve, but it was felt that she may benefit from inpatient rehab and arrangements were made for her to go to [facility]. FINAL DIAGNOSES: 1. Acute alcohol intoxication. 2. Chronic alcoholism. 3. Alcoholic hepatitis. 4. Pancytopenia. 5. Delirium tremens. 6. Peripheral neuropathy with general debility. OPERATIONS: None. CONSULTATIONS: Hematology. She is improved. MMODL / IJN: [id number] /
== END 2017-08-30 16:32 | DRG 897 ==
LOC: EC 20:16 → 4MS4W 08-22 → 6ICU 08-22 01:54 → 6SEL 08-22 02:43 → 4MS4W 08-23 18:56
PROVIDERS: ADMIT Family Medicine; ATTEND Family Medicine
DX: F10.231 Alcohol dependence with withdrawal delirium (principal); D61.818 Other pancytopenia; D68.8 Other specified coagulation defects; Y90.8 Blood alcohol level of 240 mg/100 ml or more; E16.2 Hypoglycemia, unspecified; F10.229 Alcohol dependence with intoxication, unspecified; F31.9 Bipolar disorder, unspecified; G40.909 Epilepsy, unspecified, not intractable, without status epilepticus; K70.10 Alcoholic hepatitis without ascites; Z91.018 Allergy to other foods; G62.1 Alcoholic polyneuropathy; E86.0 Dehydration; R50.9 Fever, unspecified
CPT/HCPCS: 36415; 70553; 71046; 74177; 76830; 80048; 80053; 80177; 80320; 81001; 82140; 82550; 82553; 82607; 82728; 82746; 83540; 83550; 83605; 83735; 84100; 84443; 84484; 85025; 85027; 85045; 85610; 85730; 87040; 87077; 87086; 87186; 93005; 96361; 96374; 96375; 99285

== ENCOUNTER 2018-02-20 12:23 | Emergency (ER) | payer OTHER ==
[2018-02-20 12:26] VITALS: BP 91/62; PULSE 90; RESP 20; TEMP 98.7
--- NOTE | 2018-02-20 13:19 | ED ---
Extremity Problem HPI - General Chief complaint: Extremity Problem,Nontraumatic Stated complaint: Rt arm pain Time Seen by Provider: 02/20/18 12:52 Source: patient, RN notes reviewed Mode of arrival: ambulatory Limitations: no limitations - History of Present Illness Initial comments: 32-year-old female sent emergency Department with chief complaint of right arm, elbow pain. Patient states it started slightly yesterday worse today. Patient states that hurts with any movement especially wrist extension flexion, wrist rotation. 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 Patient is she cannot work yesterday but states she try to go today and the pain was worse. Patient denies any paresthesias. Patient has no shoulder or hand pain. Patient states most the pain is right at her right elbow. - Related Data Home Medications Medication Instructions Recorded Confirmed Multivitamins, Thera [Multivitamin 1 tab PO DAILY@1200 04/29/14 08/21/17 (formulary)] levETIRAcetam [Keppra] 1,000 mg PO Q12HR 01/31/16 08/21/17 Cholecalciferol [Vitamin D3] 1,000 unit PO DAILY 08/21/17 08/21/17 Previous Rx's Medication Instructions Recorded Thiamine [Vitamin B-1] 100 mg PO BID@1200,1700 #60 tab 08/30/17 Allergies Allergy/AdvReac Type Severity Reaction Status Date / Time gluten Allergy Swelling Verified 02/20/18 12:26 Review of Systems ROS Statement: Those systems with pertinent positive or pertinent negative responses have been documented in the HPI. ROS Other: All systems not noted in ROS Statement are negative. Past Medical History Past Medical History: Seizure Disorder Additional Past Medical History / Comment(s): amenorrhia x 4 years, " undiagnosed multiple sclerosis" History of Any Multi-Drug Resistant Organisms: None Reported Past Surgical History: No Surgical Hx Reported Past Anesthesia/Blood Transfusion Reactions: Unable to Obtain Past Psychological History: No Psychological Hx Reported Smoking Status: Never smoker Past Alcohol Use History: Abuse, Daily, Heavy Past Drug Use History: None Reported - Past Family History Mother Family Medical History: Cancer General Exam Limitations: no limitations General appearance: alert, in no apparent distress Eye exam: Present: normal appearance, PERRL, EOMI. Absent: scleral icterus, conjunctival injection, periorbital swelling Respiratory exam: Present: normal lung sounds bilaterally. Absent: respiratory distress, wheezes, rales, rhonchi, stridor Cardiovascular Exam: Present: regular rate, normal rhythm, normal heart sounds. Absent: systolic murmur, diastolic murmur, rubs, gallop, clicks Extremities exam: Present: other (Right wrist there is tenderness at the radial head, pain with wrist flexion-extension pronation supination neurovascular intact, cap refill less than 2 seconds normal color normal warmth there is no signs of infection. Right shoulder full range of motion) Skin exam: Present: warm, dry, intact, normal color. Absent: rash Course Vital Signs 02/20/18 12:24 Temperature 98.7 F Pulse Rate 90 Respiratory 20 Rate Blood Pressure 91/62 O2 Sat by Pulse 98 Oximetry Medical Decision Making - Medical Decision Making 32-year-old female presented emergency dept for right elbow pain. X-rays obtained show subtle fracture of the radial head. Disposition Clinical Impression: Radial head fracture Disposition: HOME SELF-CARE Condition: Stable Instructions: Elbow Fracture (ED) Additional Instructions: Please return to the Emergency Department if symptoms worsen or any other concerns. Is patient prescribed a controlled substance at d/c from ED?: No Referrals: Kunal Regan MD [Primary Care Provider] - 1-2 days Michael Barr MD [STAFF PHYSICIAN] - 1-2 days Time of Disposition: 13:29
--- NOTE | 2018-02-20 13:23 | XR ---
EXAMINATION TYPE: XR elbow complete RT DATE OF EXAM: 02/20/2018 COMPARISON: NONE HISTORY: 32-year-old female with pain and limited range of motion TECHNIQUE: 3 views FINDINGS: There is a subtle less than 1 mm intra-articular step-off of the radial head. There is mild osteopeni a which may be secondary to disuse and can be correlated clinically. Mild enthesopathy. Some mild sof t tissue swelling overlying the olecranon and minimal calcific densities at the triceps insertion. No displaced fractures. Positioning on the lateral view limits assessment of the posterior fat-pad of t he elbow. IMPRESSION: 1. Subtle, less than 1 mm intra-articular step-off of the radial head. Findings suspicious for a subt le nondisplaced fracture of the radial head. Correlate for a history of injury. 2. Mild posterior soft tissue swelling. Calcifications at the triceps insertion could represent enthe sopathy. Correlate to exclude inflammatory etiologies such as gout.
[2018-02-20] MEDS ORDERED: ACET/COD 300 MG/30 MG STARTER PACK 6 TAB BTL PO STA (13:30)
== END 2018-02-20 13:45 | disposition home or self-care (01) ==
LOC: EC 12:23
DX: S52.121A Displaced fracture of head of right radius, initial encounter for closed fracture (principal); G40.909 Epilepsy, unspecified, not intractable, without status epilepticus; Z79.899 Other long term (current) drug therapy; Z91.018 Allergy to other foods
CPT/HCPCS: 29105; 99283

== ENCOUNTER 2018-09-08 15:08 | Emergency (ER) | payer OTHER ==
[2018-09-08] MEDS ORDERED: KETOROLAC 30 MG/ML 1 ML VIAL IM STA (15:35)
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
[2018-09-08 17:57] LABS: HGB 10.8 gm/dL (11.4-16.0); MCHC 33.7 g/dL (31.0-37.0); MCV 101.1 fL (80.0-100.0); Macrocytosis Slight; Mean Platelet Volume 7.4; RBC 3.17 m/uL (3.80-5.40); RDW 14.8 % (11.5-15.5); WBC 2.6 k/uL (3.8-10.6)
[2018-09-08 18:05] LABS: Platelet Count 77 k/uL (150-450)
[2018-09-08 18:20] LABS: African American GFR (CKD) >90 (>60 ml/min/1.73 sqM); Anion Gap 11 mmol/L; Blood Urea Nitrogen 5 mg/dL (7-17); C Reactive Protein <5.0 mg/L (<10.0); Calcium 8.9 mg/dL (8.4-10.2); Carbon Dioxide 27 mmol/L (22-30); Chloride 105 mmol/L (98-107); Glucose 94 mg/dL (74-99); Potassium 3.9 mmol/L (3.5-5.1); Sodium 143 mmol/L (137-145)
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
[2018-09-08] MEDS ORDERED: ACETAMINOPHEN TAB 500 MG TAB PO STA (18:43)
[2018-09-08 18:52] LABS: Erythrocyte Sedimentation Rate 2 mm/hr (0-20)
[2018-09-08 19:24] VITALS: BP 99/61; PULSE 82; RESP 16; TEMP 98.6
[2018-09-08] MEDS ORDERED: ACET/COD 300 MG/30 MG STARTER PACK 6 TAB BTL PO STA (20:06)
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
== END 2018-09-08 20:13 | disposition home or self-care (01) ==
LOC: EC 15:08
DX: R22.0 Localized swelling, mass and lump, head (principal); D72.819 Decreased white blood cell count, unspecified; D69.6 Thrombocytopenia, unspecified; G40.909 Epilepsy, unspecified, not intractable, without status epilepticus; Z79.899 Other long term (current) drug therapy; Z91.018 Allergy to other foods
CPT/HCPCS: 36415; 80048; 85652; 85027; 86140; 70486; 70487; 70491; 99284; 96372; J1885; Q9967

== ENCOUNTER 2018-10-15 17:10 | Emergency (ER) | payer OTHER ==
[2018-10-15 17:32] VITALS: RESP 18; TEMP 98.4
[2018-10-15] MEDS ORDERED: MORPHINE SULFATE 4 MG/ML SYRINGE IVP STA (18:13)
--- NOTE | 2018-10-15 18:48 | CT ---
EXAMINATION TYPE: CT brain santino josé con DATE OF EXAM: 10/15/2018 COMPARISON: 05/22/2017 CT brain HISTORY: Pt tripped over carpet and fell head first into wall. Bruising/hematoma on LT side of uatsdin /eye CT DLP: 1315.4 mGycm Automated exposure control for dose reduction was used. TECHNIQUE: CT scan of the head and cervical spine are performed without contrast. FINDINGS: Ventricles and sulci appear normal. There is no mass effect nor midline shift. There is n o sign of intracranial hemorrhage. There is soft tissue swelling over the lateral aspect of the left orbital bone.. Cervical vertebra have normal alignment. Facet joints are intact. Skull base is intact. There is no e vidence of a fracture. IMPRESSION: Soft tissue swelling over the lateral aspect of the left orbit. No fracture seen. No acute intracrani al abnormality. No change in the brain compared to old exam. Negative CT scan cervical spine.
--- NOTE | 2018-10-15 18:58 | ED ---
General Adult HPI - General Chief complaint: Head Injury Stated complaint: fall, facial injury Time Seen by Provider: 10/15/18 17:50 Source: patient Mode of arrival: ambulatory Limitations: no limitations - History of Present Illness Initial comments: Patient is a 33-year-old female presenting to emergency Department with a chief complaint of tripping and falling on the face. Patient reports she was walking out of the movie theater when she tripped, fell forward on the left side of her face. Patient reports loss of consciousness but is unsure for how long. Patient does report left periorbital swelling but no erythema. Patient also reports a laceration on the left side. Patient denies any blurry vision or pain with extraocular movements. She does report a general headache on the left side of her head and face. Patient reports taking [id number]-agl-khaafii analgesics with minimal improvement. Patient tetanus status is up to date. Patient denies blurry vision, gait instability or ocular pressure. - Related Data Home Medications Medication Instructions Recorded Confirmed Cyclobenzaprine [Flexeril] 10 mg PO DAILY PRN 09/08/18 09/08/18 Ergocalciferol (Vitamin D2) 50,000 unit PO Q28D 09/08/18 09/08/18 [Drisdol] Ferrous Sulfate [Feosol] 325 mg PO DAILY 09/08/18 09/08/18 levETIRAcetam [Keppra] 1,000 mg PO BID 09/08/18 09/08/18 traZODone HCL 50 mg PO HS 09/08/18 09/08/18 Allergies Allergy/AdvReac Type Severity Reaction Status Date / Time gluten Allergy Swelling Verified 09/08/18 15:15 starch Allergy Unknown Verified 09/08/18 16:16 Review of Systems ROS Statement: Those systems with pertinent positive or pertinent negative responses have been documented in the HPI. ROS Other: All systems not noted in ROS Statement are negative. Past Medical History Past Medical History: Seizure Disorder Additional Past Medical History / Comment(s): Amenorrhia x 5 years, "undiagnosed multiple sclerosis", last seizure > 1 year ago. Bone marrow suppression secondary ETOH damange History of Any Multi-Drug Resistant Organisms: None Reported Past Surgical History: No Surgical Hx Reported Past Anesthesia/Blood Transfusion Reactions: Unable to Obtain Past Psychological History: No Psychological Hx Reported Smoking Status: Never smoker Past Alcohol Use History: Occasional Past Drug Use History: None Reported - Past Family History Mother Family Medical History: Cancer Additional Family Medical History / Comment(s): Mother - uterine cancer, skin cancer | grandma - breast cancer General Exam Limitations: no limitations General appearance: alert, in no apparent distress Head exam: Present: normocephalic, other (Negative raccoon eyes, negative Burkett sign, negative hemotympanum.). Absent: atraumatic (Localized edema on the lateral aspect of the left orbit. Laceration measuring approximately 2 cm in the same region.), normal inspection Eye exam: Present: normal appearance, PERRL, EOMI, periorbital swelling. Absent: conjunctival injection, nystagmus Pupils: Present: normal accommodation. Absent: other (No eye entrapment. No pain with extraocular movements.) ENT exam: Present: normal exam, mucous membranes moist, normal external ear exam Neck exam: Present: normal inspection, full ROM. Absent: tenderness Respiratory exam: Present: normal lung sounds bilaterally Cardiovascular Exam: Present: regular rate, normal rhythm, normal heart sounds Extremities exam: Present: normal inspection, full ROM Back exam: Present: normal inspection, full ROM Neurological exam: Present: alert, oriented X3, CN II-XII intact Psychiatric exam: Present: normal affect, normal mood Skin exam: Present: warm, intact, normal color Course Vital Signs 10/15/18 10/15/18 17:29 19:28 Temperature 98.4 F Pulse Rate 87 84 Respiratory 18 18 Rate Blood Pressure 106/72 106/74 O2 Sat by Pulse 99 94 L Oximetry Procedures - Laceration Laceration #1 Consent Obtained: verbal consent Indication: laceration Site: face Size (cm): 2 Description: linear Depth: simple, single layer Sedation/Analgesia: none Anesthetic Used: lidocaine 1% Anesthesia Technique: local infiltration Amount (mls): 5 Pre-repair: irrigated extensively Type of Sutures: nylon Size of Sutures: 4-0 Number of Sutures: 3 Technique: simple, interrupted Patient Tolerated Procedure: well Medical Decision Making - Medical Decision Making Patient 33-year-old female presenting to emergency Department with chief complaint of falling hitting the face. Patient does report loss of consciousness for unknown period of time. CT of the brain C-spine is indicative of soft tissue swelling over the lateral aspect of the left orbit. No fractures seen. No acute intracranial normality. No change in the brain compared to old exam. Negative computed tomography scan of the cervical spine. Negative eye exam. With clinical correlation patient does appear to have a 2 cm laceration on the lateral aspect of the left orbit. Patient does appear to have a hematoma in the region as well. Laceration site was repaired with 3 sutures. Patient vised follow proper wound care instructions. Patient advised to return to emergency Department in 3-5 days for suture removal. Strict return parameters were thoroughly discussed patient was understanding and agreeable. Case discussed with physician. Disposition Clinical Impression: Traumatic hematoma of orbit, Laceration Disposition: HOME SELF-CARE Condition: Stable Instructions (If sedation given, give patient instructions): Care For Your Stitches (DC), Laceration (DC) Additional Instructions: Please return for suture removal in 3-5 days. Alternate between Tylenol and ibuprofen for pain control. Please apply ice compress to minimize swelling. Please return to emergency department if symptoms worsen. Is patient prescribed a controlled substance at d/c from ED?: No Referrals: Kunal Regan MD [Primary Care Provider] - 1-2 days Time of Disposition: 19:55
[2018-10-15] MEDS ORDERED: LIDOCAINE 1% INJ 10MG/ML (20 ML MDV) SQ ONE (19:23)
[2018-10-15] MEDS ORDERED: SODIUM CHLORIDE 0.9% IRRIG 1,000 ML BTL IRRIGATION ONE (19:23)
[2018-10-15 19:29] VITALS: BP 106/74; PULSE 84
[2018-10-15] MEDS ORDERED: IBUPROFEN 800 MG TAB PO STA (19:51)
[2018-10-15] MEDS ORDERED: IBUPROFEN 600 MG STARTER PACK 4 TAB BTL PO STA (19:51)
== END 2018-10-15 20:07 | disposition home or self-care (01) ==
LOC: EC 17:10
DX: S05.42XA Penetrating wound of orbit with or without foreign body, left eye, initial encounter (principal); G40.909 Epilepsy, unspecified, not intractable, without status epilepticus; Z91.018 Allergy to other foods; Z79.899 Other long term (current) drug therapy; Z86.2 Personal history of diseases of the blood and blood-forming organs and certain disorders involving the immune mechanism; W01.0XXA Fall on same level from slipping, tripping and stumbling without subsequent striking against object, initial encounter; Y93.01 Activity, walking, marching and hiking; Y92.254 Theater (live) as the place of occurrence of the external cause
CPT/HCPCS: 72125; 70450; 99284; 12011; 96374; J2270; J2001

== ENCOUNTER 2018-10-21 11:51 | Emergency (ER) | payer OTHER ==
[2018-10-21 11:59] VITALS: TEMP 98
[2018-10-21] MEDS ORDERED: IBUPROFEN 600 MG TAB PO STA (12:47)
--- NOTE | 2018-10-21 12:51 | XR ---
EXAMINATION TYPE: XR mandible complete DATE OF EXAM: 10/21/2018 COMPARISON: NONE HISTORY: Left-sided facial pain after fall with seizure. TECHNIQUE: 5 views of the mandible were obtained. FINDINGS: Left mandibular dental filling is radiopaque. Mandibular rami appear intact as do the zygom atic arches. Nasal septum is overall midline. Paranasal sinuses remain well aerated. Nasopharynx and visualized oropharynx appear patent. No acute osseous fracture is seen. IMPRESSION: No acute osseous fracture is seen of the mandible.
--- NOTE | 2018-10-21 12:55 | ED ---
General Adult HPI - General Chief complaint: Recheck/Abnormal Lab/Rx Stated complaint: Fell injury face Time Seen by Provider: 10/21/18 12:00 Source: patient, RN notes reviewed Limitations: no limitations - History of Present Illness Initial comments: This a 33-year-old female presents emergency Department with multiple complaints. Patient is here for suture removal a laceration on the left side. Patient had sutures placed 6 days ago. Patient did have a fall in which she had a CT was negative for acute management. Patient states she still has bruising and she is concerned that has not dissipated. Patient denies fevers or chills. Patient denies any current headache, neck pain, neck stiffness. Patient denies any extremity weakness. Patient also has been having underlying dental issues in which she is currently on antibiotics. Patient states that she has not seen a dentist or dental origin at this time. - Related Data Home Medications Medication Instructions Recorded Confirmed Cyclobenzaprine [Flexeril] 10 mg PO DAILY PRN 09/08/18 09/08/18 Ergocalciferol (Vitamin D2) 50,000 unit PO Q28D 09/08/18 09/08/18 [Drisdol] Ferrous Sulfate [Feosol] 325 mg PO DAILY 09/08/18 09/08/18 levETIRAcetam [Keppra] 1,000 mg PO BID 09/08/18 09/08/18 traZODone HCL 50 mg PO HS 09/08/18 09/08/18 Allergies Allergy/AdvReac Type Severity Reaction Status Date / Time gluten Allergy Swelling Verified 09/08/18 15:15 starch Allergy Unknown Verified 09/08/18 16:16 Review of Systems ROS Statement: Those systems with pertinent positive or pertinent negative responses have been documented in the HPI. ROS Other: All systems not noted in ROS Statement are negative. Past Medical History Past Medical History: Seizure Disorder Additional Past Medical History / Comment(s): Amenorrhia x 5 years, "undiagnosed multiple sclerosis", last seizure > 1 year ago. Bone marrow suppression secondary ETOH damange History of Any Multi-Drug Resistant Organisms: None Reported Past Surgical History: No Surgical Hx Reported Past Anesthesia/Blood Transfusion Reactions: Unable to Obtain Past Psychological History: Anxiety Smoking Status: Never smoker Past Alcohol Use History: Occasional Past Drug Use History: None Reported - Past Family History Mother Family Medical History: Cancer Additional Family Medical History / Comment(s): Mother - uterine cancer, skin cancer | grandma - breast cancer General Exam Limitations: no limitations General appearance: alert, in no apparent distress Head exam: Present: atraumatic, normocephalic, normal inspection Eye exam: Present: PERRL, EOMI, periorbital swelling, periorbital tenderness, other (Healed incision on the left with sutures in place). Absent: normal appearance, scleral icterus, conjunctival injection ENT exam: Present: normal oropharynx, mucous membranes moist, TM's normal bilaterally, normal external ear exam. Absent: normal exam (Extensive swelling and ecchymosis on the left side of the face; left periorbital region to left mandible) Neck exam: Present: normal inspection, full ROM. Absent: tenderness, meningismus, lymphadenopathy Respiratory exam: Present: normal lung sounds bilaterally. Absent: respiratory distress, wheezes, rales, rhonchi, stridor Cardiovascular Exam: Present: regular rate, normal rhythm, normal heart sounds. Absent: systolic murmur, diastolic murmur, rubs, gallop, clicks Course Vital Signs 10/21/18 11:55 Temperature 98 F Pulse Rate 117 H Respiratory 22 Rate Blood Pressure 103/72 O2 Sat by Pulse 95 Oximetry Medical Decision Making - Medical Decision Making Referral female presented for swelling suture removal bruising. Patient sutures removed in no complications. Patient does have bruising which this from prior injury. Patient also states that she's had some ongoing dental issues. X-rays obtained no acute dental abscess identified. Patient is currently on antibiotics will follow-up with oral surgeon return parameters discussed. Disposition Clinical Impression: Encounter for removal of sutures, Facial hematoma, Mandibular pain, Facial pain Disposition: HOME SELF-CARE Condition: Stable Instructions (If sedation given, give patient instructions): Facial Contusion (ED) Additional Instructions: Please return to the Emergency Department if symptoms worsen or any other concerns. Is patient prescribed a controlled substance at d/c from ED?: No Referrals: Kunal Regan MD [Primary Care Provider] - 1-2 days Walker Cortez DDS [STAFF PHYSICIAN] - 1-2 days Time of Disposition: 12:55
[2018-10-21 13:28] VITALS: BP 112/69; PULSE 102; RESP 20
== END 2018-10-21 13:26 | disposition home or self-care (01) ==
LOC: EC 11:51
DX: Z48.02 Encounter for removal of sutures (principal); S00.12XD Contusion of left eyelid and periocular area, subsequent encounter; G40.909 Epilepsy, unspecified, not intractable, without status epilepticus; F41.9 Anxiety disorder, unspecified; Z79.899 Other long term (current) drug therapy; Z91.048 Other nonmedicinal substance allergy status; Z91.018 Allergy to other foods; W19.XXXD Unspecified fall, subsequent encounter
CPT/HCPCS: 70110; 99283

== ENCOUNTER 2018-11-06 10:18 | Emergency (ER) | payer OTHER ==
[2018-11-06 11:13] VITALS: BP 103/67; PULSE 106; RESP 18; TEMP 98.8
[2018-11-06] MEDS ORDERED: IBUPROFEN 600 MG TAB PO STA (11:57)
--- NOTE | 2018-11-06 12:22 | ED ---
General Adult HPI - General Chief complaint: Skin/Abscess/Foreign Body Stated complaint: fall/eye injury Time Seen by Provider: 11/06/18 11:19 Source: patient, RN notes reviewed Mode of arrival: ambulatory Limitations: no limitations - History of Present Illness Initial comments: 33-year-old female presents to the emergency department for a chief complaint of bruising to the left side of the face. Patient had a trip and fall about 4 weeks ago where she hit her face had bruising. Patient then fell again about 2 weeks ago and caused a laceration of the left eyebrow. States she has had a bump over this area for about 2 weeks. States she is icing it but it will not go away. States she was on antibiotics however did not improve. Patient is concerned because she does not feel that her bruising is improving. Does admit that is changing colors. She is concerned about the bump over her left eyebrow as well. Denies any visual changes. Denies any pain within the left eye. Patient has no other complaints at this time including shortness of breath, chest pain, abdominal pain, nausea or vomiting, headache, or visual changes. - Related Data Home Medications Medication Instructions Recorded Confirmed Cyclobenzaprine [Flexeril] 10 mg PO DAILY PRN 09/08/18 09/08/18 Ergocalciferol (Vitamin D2) 50,000 unit PO Q28D 09/08/18 09/08/18 [Drisdol] Ferrous Sulfate [Feosol] 325 mg PO DAILY 09/08/18 09/08/18 levETIRAcetam [Keppra] 1,000 mg PO BID 09/08/18 09/08/18 traZODone HCL 50 mg PO HS 09/08/18 09/08/18 Allergies Allergy/AdvReac Type Severity Reaction Status Date / Time gluten Allergy Swelling Verified 11/06/18 11:09 starch Allergy Unknown Verified 11/06/18 11:09 Review of Systems ROS Statement: Those systems with pertinent positive or pertinent negative responses have been documented in the HPI. ROS Other: All systems not noted in ROS Statement are negative. Past Medical History Past Medical History: Seizure Disorder Additional Past Medical History / Comment(s): Amenorrhia x 5 years, "undiagnosed multiple sclerosis", last seizure > 1 year ago. Bone marrow suppression secondary ETOH damange History of Any Multi-Drug Resistant Organisms: None Reported Past Surgical History: No Surgical Hx Reported Past Anesthesia/Blood Transfusion Reactions: Unable to Obtain Past Psychological History: Anxiety Smoking Status: Never smoker Past Alcohol Use History: Occasional Past Drug Use History: None Reported - Past Family History Mother Family Medical History: Cancer Additional Family Medical History / Comment(s): Mother - uterine cancer, skin cancer | grandma - breast cancer General Exam Limitations: no limitations General appearance: alert, in no apparent distress Head exam: Absent: atraumatic (Patient is a small 1 cm x 1 cm fluctuant nodule noted to the left eyebrow. There is also a greenish bruising noted to the left side of the face. Does appear to be healing.) Eye exam: Present: normal appearance, PERRL, EOMI. Absent: scleral icterus, conjunctival injection, periorbital swelling ENT exam: Present: normal exam, mucous membranes moist Neck exam: Present: normal inspection, full ROM. Absent: tenderness, meningismus, lymphadenopathy Respiratory exam: Present: normal lung sounds bilaterally. Absent: respiratory distress, wheezes, rales, rhonchi, stridor Cardiovascular Exam: Present: regular rate, normal rhythm, normal heart sounds. Absent: systolic murmur, diastolic murmur, rubs, gallop, clicks Neurological exam: Present: alert Course Vital Signs 11/06/18 11:09 Temperature 98.8 F Pulse Rate 106 H Respiratory 18 Rate Blood Pressure 103/67 O2 Sat by Pulse 98 Oximetry Medical Decision Making - Medical Decision Making 33-year-old female presents for bruising to the left side of the face 4 weeks after a fall at work. Patient has also had a soft nodule over the left eyebrow for the past 2 weeks after a fall that has not resolved. This is a 1 cm x 1 cm. She was seen at the time of fall for these falls. However she presents today because her facial bruising has not yet resolved. CT with contrast was obtained which shows no evidence of acute displaced facial bone fracture. There is a 1.5 x 1.47 m rounded density overlying the lateral wall with fat stranding that is most compatible with an evolving hematoma recommend assessing with ultrasound for internal vascularity if this does not resolve. Cerebral atrophy also noted. Discussed the results with patient. At this point I do not feel comfortable draining joint area over patient's eyebrow. It is not infected nor does it appear to be a simple abscess. Recommend Following up with Maxillofacial Surgery. I did it want blood work on patient but she did not want to wait for this. Discussed the patient that I would like to evaluate her platelets however she refuses. Patient agreed to sign out AGAINST MEDICAL ADVICE and is aware of the risks associated with this. Dr Ramirez also evaluated patient Disposition Clinical Impression: Facial hematoma Disposition: Left Against Medical Advice Condition: Good Instructions (If sedation given, give patient instructions): Hematoma (ED) Additional Instructions: Please follow up with primary care and maxillofacial surgery. Please return to the emergency department if he has any worsening symptoms. Is patient prescribed a controlled substance at d/c from ED?: No Referrals: Kunal Regan MD [Primary Care Provider] - 1-2 days Mu Rueda DDS [STAFF PHYSICIAN] - 1-2 days Time of Disposition: 13:28
[2018-11-06] MEDS ORDERED: SODIUM CHLORIDE 0.9% 500 ML 500 ML IV STA (12:45)
--- NOTE | 2018-11-06 13:00 | CT ---
EXAMINATION TYPE: CT facial bones w con DATE OF EXAM: 11/06/2018 COMPARISON: 09/08/2018 HISTORY: Fall/eye injury CT DLP: 385.3 mGycm Automated exposure control for dose reduction was used. CONTRAST: CT scan of the facial bones is performed with IV Contrast, patient injected with 100 mL of Isovue 300 . TECHNIQUE: CT scan of the sinuses is performed without contrast, axial images are obtained, coronal r eformatted images are also reviewed. FINDINGS: There is a new centrally hyperdense and peripherally hypointense area over the lateral orbi ansley wall. This is seen near the frontal buttress. This measures approximately 1.5 x 1.4 cm. There is very minimal surrounding fat stranding. No underlying orbital fracture seen. No post septal fat stran ding or fluid collection. Orbits remain rounded and symmetric. Lenses are in place within the anterio r chamber. Extraocular muscles appear symmetric. Fat stranding continues inferiorly overlying the zyg omatic arch, which appears intact. Visualized portions of the intracranial structures appear unremarkable other than symmetric periphera l sulcal prominence although exam is not optimized for evaluation of intracranial structures. Within the maxillary sinuses there are air-fluid levels with mild mucosal thickening. This can be seen in ac [place] sinusitis. Remainder of the paranasal sinuses and mastoid air cells appear well aerated. Nasal se ptum and maxillary spine appear intact. Nasal bone also appears intact and unremarkable. Mandibular c ondyles are located within the mandibular fossa although there is slight flattening indicative of tem poromandibular joint dysfunction or early degenerative change. IMPRESSION: 1. No evidence of acute displaced facial bone fracture. 2. 1.5 x 1.4 cm rounded density overlying the lateral wall with inferior associated fat stranding ext ending over the zygomatic arch is most compatible with an evolving hematoma. This was not present on the prior exam of 09/08/2018 and his fitting with the clinical history. If no clinical resolution shor t-term follow-up ultrasound could assess for any internal vascularity to exclude other etiology. 3. Minimal nasal sinus disease with findings suggesting acute sinusitis. 4. Mild degenerative changes of the temporomandibular joints. 5. Cerebral atrophy slightly out of portion to the patient's age. This is considerably and partially visualized.
== END 2018-11-06 13:36 | disposition left against medical advice (07) ==
LOC: EC 10:18
DX: S00.83XA Contusion of other part of head, initial encounter (principal); G31.9 Degenerative disease of nervous system, unspecified; G40.909 Epilepsy, unspecified, not intractable, without status epilepticus; F41.9 Anxiety disorder, unspecified; Z79.899 Other long term (current) drug therapy; Z91.018 Allergy to other foods; W01.0XXA Fall on same level from slipping, tripping and stumbling without subsequent striking against object, initial encounter
CPT/HCPCS: 70487; 99283; Q9967

== ENCOUNTER 2018-11-09 13:29 | Emergency (ER) | payer OTHER ==
[2018-11-09 13:44] VITALS: TEMP 98.5
[2018-11-09 14:03] LABS: Glucose,Whole Blood 111 mg/dL (75-99)
[2018-11-09] MEDS ORDERED: LIDOCAINE 1% INJ 10MG/ML (20 ML MDV) SQ ONE (14:34)
[2018-11-09] MEDS ORDERED: SODIUM CHLORIDE 0.9% 500 ML 500 ML IV STA (14:35)
[2018-11-09] MEDS ORDERED: ACETAMINOPHEN TAB 325 MG TAB PO STA (14:35)
[2018-11-09 15:15] LABS: INR 1.4 (<1.2); Partial Thromboplastin Time 30.8 sec (22.0-30.0); Prothrombin Time 14.2 sec (9.0-12.0)
[2018-11-09 15:20] LABS: ALT 78 U/L (9-52); AST 420 U/L (14-36); African American GFR (CKD) >90 (>60 ml/min/1.73 sqM); Albumin 3.3 g/dL (3.5-5.0); Alkaline Phosphatase 137 U/L (38-126); Anion Gap 14 mmol/L; Blood Urea Nitrogen 3 mg/dL (7-17); Calcium 8.3 mg/dL (8.4-10.2); Carbon Dioxide 28 mmol/L (22-30); Chloride 99 mmol/L (98-107); Glucose 102 mg/dL (74-99); Potassium 3.3 mmol/L (3.5-5.1); Sodium 141 mmol/L (137-145); Total Bilirubin 3.2 mg/dL (0.2-1.3); Total Protein 6.3 g/dL (6.3-8.2)
[2018-11-09 15:24] LABS: Basophils % (A) 0 %; Eosinophils % (A) 1 %; HCT 25.4 % (34.0-46.0); Lymphocytes # (A) 0.4 k/uL (1.0-4.8); Lymphocytes % (A) 17 %; MCH 37.3 pg (25.0-35.0); Macrocytosis Moderate; Mean Platelet Volume 7.5; Monocytes # (A) 0.2 k/uL (0-1.0); Monocytes % (A) 8 %; Neutrophils # (A) 1.5 k/uL (1.3-7.7); Neutrophils % (A) 72 %; RBC 2.38 m/uL (3.80-5.40); RDW 13.8 % (11.5-15.5); WBC 2.1 k/uL (3.8-10.6)
[2018-11-09 15:27] LABS: HGB 8.9 gm/dL (11.4-16.0); MCV 106.7 fL (80.0-100.0)
[2018-11-09] MEDS ORDERED: LIDOCAINE 1%-EPI 1:100,000 20 ML VIAL SQ STA (15:40)
[2018-11-09 16:44] LABS: HCT 23.1 % (34.0-46.0); HGB 8.3 gm/dL (11.4-16.0); MCH 38.6 pg (25.0-35.0); MCHC 35.8 g/dL (31.0-37.0); MCV 107.9 fL (80.0-100.0); Macrocytosis Moderate; Mean Platelet Volume 7.5; RBC 2.14 m/uL (3.80-5.40); RDW 14.1 % (11.5-15.5); WBC 2.1 k/uL (3.8-10.6)
[2018-11-09 17:11] LABS: Platelet Count 38 k/uL (150-450)
--- NOTE | 2018-11-09 17:39 | ED ---
General Adult HPI - General Chief complaint: Wound/Laceration Stated complaint: Suture removal/Bleeding Time Seen by Provider: 11/09/18 14:06 Source: EMS, RN notes reviewed Mode of arrival: EMS Limitations: no limitations - History of Present Illness Initial comments: 33-year-old female with a past medical history of alcoholism, seizure disorder presents to the emergency department for a chief complaint of bleeding. Patient fell twice the first time being about a month ago in the last time being about 3 weeks ago. Patient had sutures over her left eyebrow about 3 weeks ago and had them removed about a week later. Patient has had a lump over her left eyebrow since that time. Today patient scratched this and it started to bleed. States she could not get it to stop bleeding. Denies any new injuries.Patient has no other complaints at this time including shortness of breath, chest pain, abdominal pain, nausea or vomiting, headache, or visual changes. - Related Data Home Medications Medication Instructions Recorded Confirmed Cyclobenzaprine [Flexeril] 10 mg PO DAILY PRN 09/08/18 09/08/18 Ergocalciferol (Vitamin D2) 50,000 unit PO Q28D 09/08/18 09/08/18 [Drisdol] Ferrous Sulfate [Feosol] 325 mg PO DAILY 09/08/18 09/08/18 levETIRAcetam [Keppra] 1,000 mg PO BID 09/08/18 09/08/18 traZODone HCL 50 mg PO HS 09/08/18 09/08/18 Allergies Allergy/AdvReac Type Severity Reaction Status Date / Time gluten Allergy Swelling Verified 11/06/18 11:09 starch Allergy Unknown Verified 11/06/18 11:09 Review of Systems ROS Statement: Those systems with pertinent positive or pertinent negative responses have been documented in the HPI. ROS Other: All systems not noted in ROS Statement are negative. Past Medical History Past Medical History: Seizure Disorder Additional Past Medical History / Comment(s): Amenorrhia x 5 years, "undiagnosed multiple sclerosis", last seizure > 1 year ago. Bone marrow suppression secondary ETOH damange History of Any Multi-Drug Resistant Organisms: None Reported Past Surgical History: No Surgical Hx Reported Past Anesthesia/Blood Transfusion Reactions: Unable to Obtain Past Psychological History: Anxiety Smoking Status: Never smoker Past Alcohol Use History: Occasional Past Drug Use History: None Reported - Past Family History Mother Family Medical History: Cancer Additional Family Medical History / Comment(s): Mother - uterine cancer, skin cancer | grandma - breast cancer General Exam Limitations: no limitations General appearance: alert, in no apparent distress Head exam: Absent: atraumatic (Patient has slight ecchymosis noted to the left side of the face. She has a hematoma noted to the left eyebrow that has a small arterial bleed noted) Eye exam: Present: normal appearance, PERRL, EOMI. Absent: scleral icterus, conjunctival injection, periorbital swelling ENT exam: Present: normal exam, normal oropharynx, mucous membranes moist, TM's normal bilaterally, normal external ear exam Neck exam: Present: normal inspection, full ROM. Absent: tenderness, m eningismus, lymphadenopathy Respiratory exam: Present: normal lung sounds bilaterally. Absent: respiratory distress, wheezes, rales, rhonchi, stridor Cardiovascular Exam: Present: regular rate, normal rhythm, normal heart sounds. Absent: systolic murmur, diastolic murmur, rubs, gallop, clicks Neurological exam: Present: alert Psychiatric exam: Present: normal affect, normal mood Course Vital Signs 11/09/18 11/09/18 11/09/18 13:39 14:30 16:42 Temperature 98.5 F Pulse Rate 88 98 92 Respiratory 19 16 17 Rate Blood Pressure 112/75 95/59 106/64 O2 Sat by Pulse 98 98 98 Oximetry Procedures - Laceration Laceration #1 Consent Obtained: verbal consent Indication: laceration Site: face Size (cm): 1 Type of Sutures: vicryl Size of Sutures: 5-0 Number of Sutures: 2 Technique: other ([id number]) Patient Tolerated Procedure: well, no complications Medical Decision Making - Medical Decision Making 33-year-old female with a past medical history of seizure disorder, alcoholism presents to the emergency department for a chief complaint of bleeding from the left eyebrow. Patient had sutures removed from this area about 2 weeks ago and has had a large induration over this area since that time. Patient's scratched it today and it started to bleed. On evaluation patient has a small arterial bleed noted over the left eyebrow. There is induration noted which was likely a hematoma that had been tamponading this small bleed. Small arterial was tied off with 2 [id number] sutures. These are absorbable and do not need to be removed. Lab work was obtained. Patient does have a hemoglobin of 8.9 which does appear consistent with previous hemoglobins. Platelets are 38 is also consistent with patient's previous levels. INR of 1.4 and transaminitis likely secondary to alcoholism. Patient has CT of the face done this week which showed an evolving hematoma. At the same bleeding is controlled. Patient has an appointment with her primary care provider in 4 days. I discussed that she needs to have repeat blood work at that time to check her hemoglobin and platelets. Discussed returning if she has any other worsening symptoms.I discussed this case with attending Dr. Webber who agrees with this assessment and treatment plan. - Lab Data Result diagrams: 11/09/18 16:30 11/09/18 14:50 Lab Results 11/09/18 11/09/18 11/09/18 Range/Units 14:02 14:50 14:50 WBC 2.1 L (3.8-10.6) k/uL RBC 2.38 L (3.80-5.40) m/uL Hgb 8.9 L D (11.4-16.0) gm/dL Hct 25.4 L (34.0-46.0) % MCV 106.7 H D (80.0-100.0) fL MCH 37.3 H (25.0-35.0) pg MCHC 35.0 (31.0-37.0) g/dL RDW 13.8 (11.5-15.5) % Plt Count (150-450) k/uL Neutrophils % 72 % Lymphocytes % 17 % Monocytes % 8 % Eosinophils % 1 % Basophils % 0 % Neutrophils # 1.5 (1.3-7.7) k/uL Lymphocytes # 0.4 L (1.0-4.8) k/uL Monocytes # 0.2 (0-1.0) k/uL Eosinophils # 0.0 (0-0.7) k/uL Basophils # 0.0 (0-0.2) k/uL Manual Slide Review Performed Macrocytosis Moderate PT (9.0-12.0) sec INR (<1.2) APTT (22.0-30.0) sec Sodium 141 (137-145) mmol/L Potassium 3.3 L (3.5-5.1) mmol/L Chloride 99 (98-107) mmol/L Carbon Dioxide 28 (22-30) mmol/L Anion Gap 14 mmol/L BUN 3 L (7-17) mg/dL Creatinine 0.31 L (0.52-1.04) mg/dL Est GFR (CKD-EPI)AfAm >90 (>60 ml/min/1.73 sqM) Est GFR (CKD-EPI)NonAf >90 (>60 ml/min/1.73 sqM) Glucose 102 H (74-99) mg/dL POC Glucose (mg/dL) 111 H (75-99) mg/dL POC Glu Ladle Repairer ID Galilea Ochoa Calcium 8.3 L (8.4-10.2) mg/dL Total Bilirubin 3.2 H (0.2-1.3) mg/dL AST 420 H (14-36) U/L ALT 78 H (9-52) U/L Alkaline Phosphatase 137 H (38-126) U/L Total Protein 6.3 (6.3-8.2) g/dL Albumin 3.3 L (3.5-5.0) g/dL 11/09/18 11/09/18 Range/Units 14:50 16:30 WBC 2.1 L (3.8-10.6) k/uL RBC 2.14 L (3.80-5.40) m/uL Hgb 8.3 L (11.4-16.0) gm/dL Hct 23.1 L (34.0-46.0) % MCV 107.9 H (80.0-100.0) fL MCH 38.6 H (25.0-35.0) pg MCHC 35.8 (31.0-37.0) g/dL RDW 14.1 (11.5-15.5) % Plt Count 38 L D (150-450) k/uL Neutrophils % % Lymphocytes % % Monocytes % % Eosinophils % % Basophils % % Neutrophils # (1.3-7.7) k/uL Lymphocytes # (1.0-4.8) k/uL Monocytes # (0-1.0) k/uL Eosinophils # (0-0.7) k/uL Basophils # (0-0.2) k/uL Manual Slide Review Macrocytosis Moderate PT 14.2 H (9.0-12.0) sec INR 1.4 H (<1.2) APTT 30.8 H (22.0-30.0) sec Sodium (137-145) mmol/L Potassium (3.5-5.1) mmol/L Chloride (98-107) mmol/L Carbon Dioxide (22-30) mmol/L Anion Gap mmol/L BUN (7-17) mg/dL Creatinine (0.52-1.04) mg/dL Est GFR (CKD-EPI)AfAm (>60 ml/min/1.73 sqM) Est GFR (CKD-EPI)NonAf (>60 ml/min/1.73 sqM) Glucose (74-99) mg/dL POC Glucose (mg/dL) (75-99) mg/dL POC Glu Ladle Repairer ID Calcium (8.4-10.2) mg/dL Total Bilirubin (0.2-1.3) mg/dL AST (14-36) U/L ALT (9-52) U/L Alkaline Phosphatase (38-126) U/L Total Protein (6.3-8.2) g/dL Albumin (3.5-5.0) g/dL Disposition Clinical Impression: Hematoma, Chronic anemia Disposition: HOME SELF-CARE Condition: Good Instructions (If sedation given, give patient instructions): Hematoma (ED) Additional Instructions: Please follow up with primary care provider at your appointment or earlier if possible. Return to the emergency department if you have any worsening symptoms. The sutures will dissolve on their own. Is patient prescribed a controlled substance at d/c from ED?: No Referrals: Kunal Regan MD [Primary Care Provider] - 1-2 days Time of Disposition: 17:46
[2018-11-09 17:46] VITALS: BP 110/60; PULSE 90; RESP 16
== END 2018-11-09 17:47 | disposition home or self-care (01) ==
LOC: EC 13:29
DX: S00.12XA Contusion of left eyelid and periocular area, initial encounter (principal); D64.9 Anemia, unspecified; R74.0 Nonspecific elevation of levels of transaminase and lactic acid dehydrogenase [LDH]; G40.909 Epilepsy, unspecified, not intractable, without status epilepticus; F41.9 Anxiety disorder, unspecified; F10.20 Alcohol dependence, uncomplicated; Z91.018 Allergy to other foods; Z79.899 Other long term (current) drug therapy; X58.XXXA Exposure to other specified factors, initial encounter; Y93.89 Activity, other specified
CPT/HCPCS: 12011; 99283; 36415; 80053; 85025; 85027; 85610; 85730; J2001

== ENCOUNTER 2018-11-28 10:23 | Inpatient (IN) | payer OTHER ==
[2018-11-28] MEDS ORDERED: PANTOPRAZOLE 40 MG/10 ML VIAL IVP ONE (10:59)
[2018-11-28] MEDS ORDERED: OCTREOTIDE 100 MCG/ML INJ IVP STA (11:10)
[2018-11-28] MEDS ORDERED: SODIUM CHLORIDE 0.9% 1,000 ML IV STA ×2 (11:11→13:49)
[2018-11-28] MEDS ORDERED: ONDANSETRON 4 MG/2 ML VIAL IVP STA (11:14)
[2018-11-28] MEDS: SODIUM CHLORIDE 0.9% 1,000 ML IV SCH (11:29)
[2018-11-28 11:44] LABS: INR 2.1 (<1.2); Partial Thromboplastin Time 33.9 sec (22.0-30.0); Prothrombin Time 20.4 sec (9.0-12.0)
[2018-11-28 11:56] LABS: Basophils % (A) 0 %; Eosinophils % (A) 1 %; HCT 25.3 % (34.0-46.0); HGB 8.3 gm/dL (11.4-16.0); Lymphocytes # (A) 0.4 k/uL (1.0-4.8); Lymphocytes % (A) 7 %; MCH 38.4 pg (25.0-35.0); MCHC 32.9 g/dL (31.0-37.0); Macrocytosis Marked; Mean Platelet Volume 7.4; Monocytes # (A) 0.3 k/uL (0-1.0); Monocytes % (A) 6 %; Neutrophils # (A) 4.7 k/uL (1.3-7.7); Neutrophils % (A) 86 %; RBC 2.17 m/uL (3.80-5.40); RDW 13.3 % (11.5-15.5); WBC 5.5 k/uL (3.8-10.6)
[2018-11-28 11:57] LABS: ALT 58 U/L (9-52); AST 309 U/L (14-36); African American GFR (CKD) >90 (>60 ml/min/1.73 sqM); Albumin 3.3 g/dL (3.5-5.0); Alkaline Phosphatase 111 U/L (38-126); Anion Gap 28 mmol/L; Blood Urea Nitrogen 7 mg/dL (7-17); Calcium 7.5 mg/dL (8.4-10.2); Carbon Dioxide 17 mmol/L (22-30); Chloride 89 mmol/L (98-107); Glucose 143 mg/dL (74-99); Magnesium 1.6 mg/dL (1.6-2.3); Phosphorus 3.2 mg/dL (2.5-4.5); Potassium 3.7 mmol/L (3.5-5.1); Sodium 134 mmol/L (137-145); Total Bilirubin 9.5 mg/dL (0.2-1.3); Total Protein 6.2 g/dL (6.3-8.2)
[2018-11-28 12:07] LABS: MCV 116.8 fL (80.0-100.0)
[2018-11-28 12:19] LABS: Platelet Count 98 k/uL (150-450)
[2018-11-28 12:20] LABS: Poikilocytosis (M) Present
[2018-11-28] MEDS ORDERED: PHYTONADIONE 10 MG in SODIUM CHLORIDE 0.9% 50 ML IVPB STA (12:52)
--- NOTE | 2018-11-28 12:59 | ED ---
General Adult HPI - General Chief complaint: Recheck/Abnormal Lab/Rx Stated complaint: facial lac still bleeding Source: patient Mode of arrival: ambulatory Limitations: no limitations - History of Present Illness Initial comments: Patient presents with nausea and vomiting. She has generalized weakness and malaise. She has a history of alcohol abuse. She has lightheadedness. She has no focal weakness. Nothing makes her symptoms better or worse. She denies sick contacts. She has no eye pain. She has no pain or swelling in the arms or legs. - Related Data Home Medications Medication Instructions Recorded Confirmed Cyclobenzaprine [Flexeril] 10 mg PO DAILY PRN 09/08/18 11/28/18 Ergocalciferol (Vitamin D2) 50,000 unit PO Q28D 09/08/18 11/28/18 [Drisdol] levETIRAcetam [Keppra] 1,000 mg PO BID 09/08/18 11/28/18 traZODone HCL 50 mg PO HS 09/08/18 11/28/18 Ascorbic Acid [Vitamin C] 1,000 mg PO DAILY 11/28/18 11/28/18 Biotin 5 mg PO DAILY 11/28/18 11/28/18 Ibuprofen [Motrin] 600 mg PO Q6H PRN 11/28/18 11/28/18 Loratadine 10 mg PO DAILY PRN 11/28/18 11/28/18 Allergies Allergy/AdvReac Type Severity Reaction Status Date / Time gluten Allergy Swelling Verified 11/28/18 10:56 starch Allergy Unknown Verified 11/28/18 10:56 Review of Systems ROS Statement: Those systems with pertinent positive or pertinent negative responses have been documented in the HPI. ROS Other: All systems not noted in ROS Statement are negative. Past Medical History Past Medical History: Seizure Disorder Additional Past Medical History / Comment(s): Amenorrhia x 5 years, "undiagnosed multiple sclerosis", last seizure > 1 year ago. Bone marrow suppression sec ondary ETOH damange, anorexic History of Any Multi-Drug Resistant Organisms: None Reported Past Surgical History: No Surgical Hx Reported Past Anesthesia/Blood Transfusion Reactions: Unable to Obtain Past Psychological History: Anxiety Smoking Status: Never smoker Past Alcohol Use History: Occasional Past Drug Use History: None Reported - Past Family History Mother Family Medical History: Cancer Additional Family Medical History / Comment(s): Mother - uterine cancer, skin cancer | grandma - breast cancer General Exam Limitations: no limitations General appearance: alert Head exam: Present: atraumatic Eye exam: Present: scleral icterus Pupils: Present: normal accommodation ENT exam: Present: normal exam Neck exam: Present: normal inspection Respiratory exam: Present: normal lung sounds bilaterally Cardiovascular Exam: Present: tachycardia GI/Abdominal exam: Present: soft. Absent: distended, tenderness Extremities exam: Present: normal inspection, full ROM Back exam: Present: normal inspection Neurological exam: Present: alert, oriented X3 Psychiatric exam: Present: normal affect Skin exam: Present: warm, dry Course Vital Signs 11/28/18 11/28/18 10:24 12:52 Temperature 98 F Pulse Rate 118 H 105 H Respiratory 18 18 Rate Blood Pressure 98/64 102/77 O2 Sat by Pulse 98 99 Oximetry EKG Findings - EKG Comments: EKG Findings:: Twelve-lead EKG shows ventricular rate 104 bpm, normal MD interva l and QRS complex is, no ST elevation or depression, interpreted by me as sinus tachycardia. Medical Decision Making - Medical Decision Making Patient presents with coffee-ground emesis. She has hyperbilirubinemia. She has an elevated INR, but she is not on Coumadin. I ordered the patient IV vitamin K. I consult at ICU. I consult the GI. Patient will be admitted to the hospital. - Lab Data Result diagrams: 11/28/18 11:25 11/28/18 11:25 Lab Results 11/28/18 11/28/18 11/28/18 Range/Units 11:25 11:25 11:25 WBC (3.8-10.6) k/uL RBC (3.80-5.40) m/uL Hgb (11.4-16.0) gm/dL Hct (34.0-46.0) % MCV (80.0-100.0) fL MCH (25.0-35.0) pg MCHC (31.0-37.0) g/dL RDW (11.5-15.5) % Plt Count (150-450) k/uL Neutrophils % % Lymphocytes % % Monocytes % % Eosinophils % % Basophils % % Neutrophils # (1.3-7.7) k/uL Lymphocytes # (1.0-4.8) k/uL Monocytes # (0-1.0) k/uL Eosinophils # (0-0.7) k/uL Basophils # (0-0.2) k/uL Manual Slide Review Poikilocytosis (manual Macrocytosis PT 20.4 H (9.0-12.0) sec INR 2.1 H (<1.2) APTT 33.9 H (22.0-30.0) sec Sodium 134 L (137-145) mmol/L Potassium 3.7 (3.5-5.1) mmol/L Chloride 89 L (98-107) mmol/L Carbon Dioxide 17 L (22-30) mmol/L Anion Gap 28 mmol/L BUN 7 (7-17) mg/dL Creatinine 0.72 (0.52-1.04) mg/dL Est GFR (CKD-EPI)AfAm >90 (>60 ml/min/1.73 sqM) Est GFR (CKD-EPI)NonAf >90 (>60 ml/min/1.73 sqM) Glucose 143 H (74-99) mg/dL Calcium 7.5 L (8.4-10.2) mg/dL Phosphorus 3.2 (2.5-4.5) mg/dL Magnesium 1.6 (1.6-2.3) mg/dL Total Bilirubin 9.5 H (0.2-1.3) mg/dL AST 309 H (14-36) U/L ALT 58 H (9-52) U/L Alkaline Phosphatase 111 (38-126) U/L Ammonia 32 H (<30) umol/L Total Protein 6.2 L (6.3-8.2) g/dL Albumin 3.3 L (3.5-5.0) g/dL 11/28/18 Range/Units 11:25 WBC 5.5 (3.8-10.6) k/uL RBC 2.17 L (3.80-5.40) m/uL Hgb 8.3 L (11.4-16.0) gm/dL Hct 25.3 L (34.0-46.0) % MCV 116.8 H D (80.0-100.0) fL MCH 38.4 H (25.0-35.0) pg MCHC 32.9 (31.0-37.0) g/dL RDW 13.3 (11.5-15.5) % Plt Count 98 L D (150-450) k/uL Neutrophils % 86 % Lymphocytes % 7 % Monocytes % 6 % Eosinophils % 1 % Basophils % 0 % Neutrophils # 4.7 (1.3-7.7) k/uL Lymphocytes # 0.4 L (1.0-4.8) k/uL Monocytes # 0.3 (0-1.0) k/uL Eosinophils # 0.0 (0-0.7) k/uL Basophils # 0.0 (0-0.2) k/uL Manual Slide Review Performed Poikilocytosis (manual Present Macrocytosis Marked A PT (9.0-12.0) sec INR (<1.2) APTT (22.0-30.0) sec Sodium (137-145) mmol/L Potassium (3.5-5.1) mmol/L Chloride (98-107) mmol/L Carbon Dioxide (22-30) mmol/L Anion Gap mmol/L BUN (7-17) mg/dL Creatinine (0.52-1.04) mg/dL Est GFR (CKD-EPI)AfAm (>60 ml/min/1.73 sqM) Est GFR (CKD-EPI)NonAf (>60 ml/min/1.73 sqM) Glucose (74-99) mg/dL Calcium (8.4-10.2) mg/dL Phosphorus (2.5-4.5) mg/dL Magnesium (1.6-2.3) mg/dL Total Bilirubin (0.2-1.3) mg/dL AST (14-36) U/L ALT (9-52) U/L Alkaline Phosphatase (38-126) U/L Ammonia (<30) umol/L Total Protein (6.3-8.2) g/dL Albumin (3.5-5.0) g/dL Disposition Clinical Impression: Elevated LFTs, Coagulopathy Disposition: ADMITTED IP TO THIS HOSP Condition: Critical Is patient prescribed a controlled substance at d/c from ED?: No Referrals: Kunal Regan MD [Primary Care Provider] - 1-2 days
[2018-11-28] MEDS ORDERED: NALOXONE 0.4 MG/ML 1 ML VIAL IV PRN (13:30)
[2018-11-28] MEDS ORDERED: LORATADINE 10 MG TAB PO PRN (13:32)
[2018-11-28] MEDS ORDERED: PHYTONADIONE 1 MG in SODIUM CHLORIDE 0.9% 50 ML IVPB STA (14:28)
[2018-11-28 15:00] LABS: Glucose,Whole Blood 110 mg/dL (75-99)
--- NOTE | 2018-11-28 16:57 | US ---
EXAMINATION TYPE: US abdomen complete DATE OF EXAM: 11/28/2018 COMPARISON: 05/05/2018 CLINICAL HISTORY: elev LFT and abd pain. Elevated liver enzymes, RUQ pain EXAM MEASUREMENTS: Liver Length: 20.2 cm Gallbladder Wall: 0.4 cm CBD: 0.4 cm Spleen: 9.7 cm Right Kidney: 11.1 x 4.2 x 4.3 cm Left Kidney: 11.3 x 4.7 x 4.2 cm Pancreas: Obscured by bowel gas Liver: enlarged, attenuating Gallbladder: multiple stones, thickened GB wall Evidence for sonographic Barr's sign: yes CBD: limited evaluation Spleen: appears wnl Right Kidney: no evidence of hydronephrosis Left Kidney: no evidence of hydronephrosis Upper IVC: wnl Abd Aorta: wnl Mild amount of ascites noted IMPRESSION: Numerous gallstones. No dilated ducts. Mild hepatomegaly. Mild ascites. Moderate gallblad valery wall thickening and edema consistent with acute cholecystitis. Gallbladder edema is a change comp ared to old exam. Ascites fluid is a change compared to old exam.
--- NOTE | 2018-11-28 18:00 | P.CNPUL ---
"History of Present Illness Consult date: 11/28/18 Chief complaint: Intractable nausea History of present illness: This is a 33-year-old female patient with known history of alcoholism and alcoholic cirrhosis who also has history of seizure disorder, gluten sensitivity , in addition to history of anorexia, history of seizure disorder, who comes into the hospital because of persistent nausea and vomiting that developed this morning. However, her main complaints have been generalized weakness, frequent falls, she has fallen and she has hit her body including the head on multiple occasions and she has bruises over her forehead, face, orbits, lateral chest on the left and until lateral chest on the right. She does have some right upper quadrant pain. The patient also complained of generalized weakness and malaise. She states that she has been seizure free. However she is been drinking a pint of vodka on a daily basis. She came in because she was getting progressively more weak and she was falling significantly and she was unable to function at home. She was also suspected to have GI bleeding. The patient however denies having any coffee-ground emesis. She denies having any bright red blood per rectum. He was lightheaded. She has had similar presentation in the past. Specifically back in April 2018 he presented to the hospital because of inability to hold any food in. The patient had abdominal discomfort and back then and she was treated with a combination of Zofran and Protonix without any improvement in her symptoms. EGD was done by Dr. Christian, and the patient was found to have mild gastritis with biopsies of the abdomen and the body and a cardiac in the fundus being done. Duodenal biopsies were also done that ruled out the possibility of gluten sensi tivity.The patient is quite debilitated. The patient's last seizure was around 2 weeks ago. She has history of pancytopenia related to alcoholism. She has had history of falls. Note that the patient's alcohol level was 186 in time of arrival. AST was 309 with an ALT of 58 and alkaline phosphatase of 111. Total bilirubin was 1.6. She has chronic neuropathic with an INR of 2.1. PT is 20.4 and a PTT is 33.5. Nevertheless, the patient is not having any signs of GI bleeding. She is awake and alert. She is not showing any signs of hepatitic encephalopathy. Abdomen is slightly distended. She is malnourished and anorexic and her BMI 17.3. The ultrasound of the abdomen was done that showed numerous gallstones. No dilated ducts. Mild hepatomegaly. Mild ascites. Moderate amount of bladder wall thickening and edema consistent with acute cholecystitis. Gallbladder edema is a change compared to old examination. Review of Systems Constitutional: Reports daytime sleepiness, Reports fatigue, Reports malaise, Reports poor appetite, Reports weakness, Reports weight loss Eyes: denies as per HPI, denies blurred vision, denies bulging eye, denies decreased vision, denies diplopia, denies discharge, denies dry eye, denies irritation, denies itching, denies pain, denies photophobia, denies loss of peripheral vision, denies loss of vision, denies tunnel vision/blind spots Ears: deny: decreased hearing, ear discharge, earache, tinnitus Ears, nose, mouth and throat: Denies headache, Denies sore throat Breasts: absent: as per HPI, change in shape, gynecomastia, masses, nipple discharge, pain, skin changes, swelling Cardiovascular: Denies chest pain, Denies shortness of breath Respiratory: Denies cough Gastrointestinal: Reports jaundice, Reports loss of appetite, Reports nausea, Reports vomiting Genitourinary: Denies dysuria, Denies hematuria Menstruation: Reports as per HPI Musculoskeletal: Reports frequent falls, Reports muscle weakness Musculoskeletal: absent: ankle pain, ankle stiffness, ankle swelling Integumentary: Reports unusual bruising Neurological: Reports as per HPI, Reports balance difficulties, Reports convulsions, Reports weakness Psychiatric: Reports as per HPI Endocrine: Reports as per HPI, Reports fatigue Hematologic/Lymphatic: Reports as per HPI Allergic/Immunologic: Reports as per HPI Past Medical History Past Medical History: Seizure Disorder Additional Past Medical History / Comment(s): Seizure disorder in the patient's last seizure was several months back, this could've been also alcoholic seizures, chronic alcoholism, anorexia nervosa, history of bone marrow suppression related to alcoholism with pancytopenia, frequent falls, previous history of nausea vomiting and EGD showing mild gastritis from April 2018, alcoholic liver cirrhosis. History of Any Multi-Drug Resistant Organisms: None Reported Past Surgical History: No Surgical Hx Reported Additional Past Surgical History / Comment(s): EGD, wisdom teeth extractions. Past Anesthesia/Blood Transfusion Reactions: No Reported Reaction Smoking Status: Never smoker Past Alcohol Use History: Heavy (Drinks 1 pint of vodka on a daily basis.) - Past Family History Mother Family Medical History: Cancer Additional Family Medical History / Comment(s): Mother - uterine cancer, skin cancer | grandma - breast cancer , her father is alcoholic Father Additional Family Medical History / Comment(s): alcoholism. Medications and Allergies Home Medications Medication Instructions Recorded Confirmed Type Cyclobenzaprine [Flexeril] 10 mg PO DAILY PRN 09/08/18 11/28/18 History Ergocalciferol (Vitamin D2) 50,000 unit PO Q28D 09/08/18 11/28/18 History [Drisdol] levETIRAcetam [Keppra] 1,000 mg PO BID 09/08/18 11/28/18 History traZODone HCL 50 mg PO HS 09/08/18 11/28/18 History Ascorbic Acid [Vitamin C] 1,000 mg PO DAILY 11/28/18 11/28/18 History Biotin 5 mg PO DAILY 11/28/18 11/28/18 History Ibuprofen [Motrin] 600 mg PO Q6H PRN 11/28/18 11/28/18 History Loratadine 10 mg PO DAILY PRN 11/28/18 11/28/18 History Allergies Allergy/AdvReac Type Severity Reaction Status Date / Time gluten Allergy Swelling Verified 11/28/18 10:56 starch Allergy Unknown Verified 11/28/18 10:56 Physical Exam Vitals: Vital Signs Temp Pulse Resp BP Pulse Ox 11/28/18 14:40 98.4 F 11/28/18 13:53 121 H 18 95/67 97 11/28/18 12:52 105 H 18 102/77 99 11/28/18 10:24 98 F 118 H 18 98/64 98 Intake and Output 11/28/18 11/28/18 11/28/18 06:59 14:59 22:59 Other: Weight 51.71 kg Gen. appearance the patient is pale, slightly shaky and tremulous, she is communicating and answering questions appropriately. Nonacute distress. Head shows multiple areas of trauma over the left orbital area with significant bruising and swelling and sloughing of the skin along the left upper lateral orbital area in addition to ecchymotic areas of bruising over the forehead, right cheek, left cheek, Neck was supple and without jugular venous distension, thyromegaly, or carotid bruits. Carotids were easily palpable bilaterally. There was no adenopathy. Lungs were clear to auscultation and percussion, and with normal diaphragmatic excursion. No wheezes or rales were noted. Cardiac exam revealed the PMI to be normally situated and sized. The rhythm was regular and no extrasystoles were noted during several minutes of auscultation. The first and second heart sounds were normal and physiologic splitting of the second heart sound was noted. There were no murmurs, rubs, clicks, or gallops. The patient also has areas of bruising over the anterior chest area moving laterally to the right under her breast and another bruising area in the left posterior chest area laterally. No significant chest wall deformity. Abdomen is soft and there is no significant ascites. There is a right upper quadrant tenderness. This is mainly direct tenderness no rebound tenderness or guarding. No fluid wave or shifting dullness. The patient has adequate bowel sounds. Extremities reveal there is no cyanosis or clubbing.Examination of the extremities revealed easily palpable radial, femoral and pedal pulses. There was no cyanosis, clubbing or edema. Skin is negative for any cellulitis. There is minimal jaundice. There is also extensive bruising as mentioned mainly over the had and the upper torso involvi ng the chest. Neurologically patient is awake and alert and there is no focal neurological deficits. Results - Laboratory Findings CBC and BMP: 11/28/18 11:25 11/28/18 11:25 PT/INR, D-dimer PT 20.4 sec (9.0-12.0) H 11/28/18 11:25 INR 2.1 (<1.2) H 11/28/18 11:25 Abnormal lab findings: Abnormal Labs 11/28/18 11/28/18 11/28/18 11:25 11:25 11:25 RBC Hgb Hct MCV MCH Plt Count Lymphocytes # Macrocytosis PT 20.4 H INR 2.1 H APTT 33.9 H Sodium 134 L Chloride 89 L Carbon Dioxide 17 L Glucose 143 H POC Glucose (mg/dL) Calcium 7.5 L Total Bilirubin 9.5 H AST 309 H ALT 58 H Ammonia 32 H Total Protein 6.2 L Albumin 3.3 L 11/28/18 11/28/18 11:25 14:58 RBC 2.17 L Hgb 8.3 L Hct 25.3 L MCV 116.8 H D MCH 38.4 H Plt Count 98 L D Lymphocytes # 0.4 L Macrocytosis Marked A PT INR APTT Sodium Chloride Carbon Dioxide Glucose POC Glucose (mg/dL) 110 H Calcium Total Bilirubin AST ALT Ammonia Total Protein Albumin Assessment and Plan Plan: 1 chronic alcoholism. The patient presented to the hospital because of generalized weakness and some nausea and questionable GI bleeding. She was caught intoxicated with a positive alcohol level of 168 at time of admission. 2 alcoholic liver cirrhosis with stigmata of chronic liver disease and failure 3 generalized motor weakness and frequent falls with frequent traumatic injuries and bruising over the forehead and face and had an upper chest 4 right upper quadrant tenderness with an ultrasound indicating possibility of an acute cholecystitis 5 seizure disorder exacerbated by alcohol drinking. 6 frequent falls 7 anorexia and her interval was at 8 bicytopenia with chronic anemia and thrombocytopenia related to alcoholism 9 chronic anxiety 10 chronic debility related to above-mentioned comorbidities. 11 coagulopathy secondary to liver cirrhosis Plan Cover the patient with IV Unasyn. Surgical consult regarding possibility of an acute cholecystitis Hydrate the patient gently with IV fluids normal state rate of 50 mL an hour. Restart Keppra 1 g twice a day. Watch for any signs of delirium tremens. Thiamine. Folate. Watch for any GI bleeding. Vitamin K was given regarding coagulopathy. We'll gradually advance diet as tolerated. My overall suspicion for a GI bleeding is low. We'll continue to follow."
--- NOTE | 2018-11-28 18:14 | CONS ---
CONSULTATION DATE OF SERVICE: November 28, 2018. REQUESTING PHYSICIAN: Dr. Kunal Regan. REASON FOR CONSULTATION: Alcoholic liver disease/nausea and vomiting. HISTORY OF PRESENT ILLNESS: The patient is a 33-year-old white female with a history of heavy alcohol abuse, came to the emergency room complaining of nausea, vomiting, generalized weakness, not feeling well, unsteady on her gait for the last few days duration. The patient has been drinking heavily and usually drinks about 6-7 shots of vodka every day for the last 10 years. In the past, was diagnosed with chronic alcoholic liver disease. She states that about 4 or 5 weeks ago she [place] the [place] and had some injury onto the left side of her eye. It is bruised and since then it has not healed very well. She denies any abdominal pain. As per the nursing staff, she had an episode of coffee-grounds emesis apparently in the ER, but the patient denies having any nausea, vomiting. She denies any rectal bleeding or melena. She reports no fever, chills, night sweats. In the emergency room, she was noted to have elevated LFTs with an AST and ALT at 309 and 58 respectively. Total bilirubin is 9.5, and alkaline phosphatase was 111. Serum ammonia level was 32. PT was 24.4. INR is 2.1. WBC 5.5, hemoglobin 8.3, and platelets are 98,000. PAST MEDICAL HISTORY: Significant for heavy alcohol abuse, anxiety, depression. MEDICATIONS: At home include Flexeril, vitamin D2, Keppra, [place], vitamin C, trazodone, biotin, Motrin, loratadine. ALLERGIES: To no known medications. PAST SURGICAL HISTORY: None. SOCIAL HISTORY: No smoking, heavy alcohol abuse as mentioned above. FAMILY HISTORY: Mother had uterine cancer and skin cancer, grandmother had breast cancer. REVIEW OF SYSTEMS: CARDIOPULMONARY: She denies any chest pain or shortness of breath. GENITOURINARY: No dysuria. No hematuria. She does notice that her urine has been dark in color for the last few weeks. ENT/vision unremarkable. CONSTITUTIONAL: No recent weight loss. No fever, chills, night sweats. MUSCULOSKELETAL: Fatigue, weakness and wobbly gait. ENDOCRINE unremarkable. HEMATOLOGY anemia. SKIN unremarkable. PHYSICAL EXAMINATION: She appears comfortable in no apparent distress. Vital signs stable. Blood pressure is 95/67, pulse rate 121, temperature 98.4. HEENT examination unremarkable. Conjunctivae pink. Sclerae deeply icteric. Oral cavity no lesions. NECK: No JVD or lymph node enlargement. Chest was clear to auscultation. HEART: Regular rate and rhythm. ABDOMEN: Soft, it was nontender, nondistended. Liver is palpable at least 5 cm below the right costal margin and was tender to deep palpation. No ascites noted. EXTREMITIES: Trace pedal edema. SKIN no rashes. Bruise on the left lateral side of the left eyebrow. NEUROLOGIC: Alert and oriented x3. No focal deficits. LABS: Done at the time of admission to the hospital: WBC 5.5, hemoglobin 8.3, platelets 98. PT 20.4. INR is 2.1. AST, ALT 309 and 58 respectively. T bilirubin 10.5. Serum alcohol level was 186. Sodium 134, potassium 3.4, chloride 89, CO2 17, BUN 7, creatinine 0.72. IMPRESSION: 1. This is a lady who presents to the hospital with fatigue, weakness, nausea, vomiting, questionable coffee-grounds emesis, as per the nursing staff, history of heavy alcohol abuse and noted to have elevated LFTs and jaundice consistent with acute alcoholic hepatitis. She has history of heavy alcohol abuse for the last 10 years. 2. Upper gastrointestinal bleed/coffee-ground emesis. Hemoglobin at 8.6 g/dL. Presently on IV Protonix 40 mg daily. 3. Coagulopathy secondary to chronic liver disease/acute alcoholic hepatitis. 4. History of anxiety and depression. 5. Thrombocytopenia secondary to portal hypertension/hypersplenism. RECOMMENDATIONS: 1. Clear liquid diet. 2. Continue IV Protonix. 3. Repeat CBC every 6 hours for 1 day. 4. We will obtain ultrasound of the abdomen. 5. Hepatitis viral serologies for A, B and C. 6. I had a lengthy discussion with the patient regarding importance of abstinence from alcohol. Thank you for this consultation. We will follow with you closely during hospital stay. MMODL / IJN: [id number] /
[2018-11-28] MEDS: AMPICILLIN-SULBACTAM 1.5 GM in SODIUM CHLORIDE 0.9% 50 ML IVPB SCH ×2 (18:41→23:12)
[2018-11-28] MEDS ORDERED: POTASSIUM CHLORIDE ER 20 MEQ TAB.ER PO SCH (20:00)
[2018-11-28] MEDS: ONDANSETRON 4 MG/2 ML VIAL IVP PRN (20:17)
[2018-11-28] MEDS: levETIRAcetam 500 MG TAB PO SCH (21:44)
[2018-11-28] MEDS: traZODone HCL 50 MG TAB PO SCH (23:12)
[2018-11-29 05:58] LABS: Basophils % (A) 1 %; Eosinophils % (A) 1 %; Lymphocytes # (A) 0.5 k/uL (1.0-4.8); Lymphocytes % (A) 15 %; MCH 38.5 pg (25.0-35.0); MCHC 32.8 g/dL (31.0-37.0); MCV 117.3 fL (80.0-100.0); Macrocytosis Marked; Mean Platelet Volume 7.6; Monocytes # (A) 0.2 k/uL (0-1.0); Monocytes % (A) 8 %; Neutrophils # (A) 2.2 k/uL (1.3-7.7); Neutrophils % (A) 73 %; RBC 1.62 m/uL (3.80-5.40); RDW 12.9 % (11.5-15.5)
[2018-11-29 06:03] LABS: HGB 6.2 gm/dL (11.4-16.0)
[2018-11-29] MEDS: AMPICILLIN-SULBACTAM 1.5 GM in SODIUM CHLORIDE 0.9% 50 ML IVPB SCH ×3 (06:11→17:09)
[2018-11-29 06:12] LABS: Platelet Count 39 k/uL (150-450)
[2018-11-29 06:13] LABS: Polychromasia Present
[2018-11-29 06:14] LABS: African American GFR (CKD) >90 (>60 ml/min/1.73 sqM); Anion Gap 19 mmol/L; Blood Urea Nitrogen 9 mg/dL (7-17); Calcium 6.7 mg/dL (8.4-10.2); Carbon Dioxide 19 mmol/L (22-30); Chloride 93 mmol/L (98-107); Glucose 139 mg/dL (74-99); Potassium 3.6 mmol/L (3.5-5.1); Sodium 131 mmol/L (137-145); Target Cells Present
[2018-11-29] MEDS ORDERED: POTASSIUM BICARBONATE/CIT AC 20 MEQ TABLET.EFF NG-TUBE SCH ×2 (07:00→08:00)
[2018-11-29 08:33] LABS: D-Dimer 5.31 mg/L FEU (<0.60); INR 1.9 (<1.2); Prothrombin Time 18.5 sec (9.0-12.0)
[2018-11-29] MEDS: PANTOPRAZOLE 40 MG/10 ML VIAL IV SCH (08:37)
[2018-11-29] MEDS: levETIRAcetam 500 MG TAB PO SCH ×2 (08:38→20:41)
[2018-11-29] MEDS: ASCORBIC ACID 500 MG TAB PO SCH (08:38)
[2018-11-29] MEDS: ONDANSETRON 4 MG/2 ML VIAL IVP PRN (08:57)
[2018-11-29] MEDS: SODIUM CHLORIDE 0.9% 1,000 ML IV SCH (08:58)
[2018-11-29] MEDS ORDERED: NON FORMULARY DRUG (Biotin [Biotin] 5 MG) PO SCH (09:00)
[2018-11-29 10:49] LABS: Albumin 2.5 g/dL (3.5-5.0); Bilirubin, Conjugated 2.3 mg/dL (0.0-0.3); Bilirubin, Delta 3.6 mg/dL (0.0-0.2); Bilirubin,Unconjugated 1.3 mg/dL (0.0-1.1); Total Bilirubin 7.2 mg/dL (0.2-1.3); Total Protein 5.2 g/dL (6.3-8.2)
[2018-11-29 11:19] LABS: Amylase <30 U/L (30-110)
--- NOTE | 2018-11-29 14:52 | P.GSCN ---
"History of Present Illness Consult date: 11/29/18 Reason for Consult: Cholecystitis Requesting physician: Natanael Palmer History of present illness: CHIEF COMPLAINT: Cholecystitis HISTORY OF PRESENT ILLNESS: 33-year-old female who presented to the emergency room with a complaint of nausea and vomiting. Patient was apparently having coffee-ground emesis. She also has audible lab abnormalities. She was admitted to the intensive care unit. General surgery was consulted for further evaluation of possible cholecystitis. Patient examined at the bedside in the intensive care unit. Patient does report right upper quadrant and epigastric pain. She continues to feel nauseous today. Patient denies abdominal pain that increases with fatty or greasy food intake prior to hospitalization. PAST MEDICAL HISTORY: See list. PAST SURGICAL HISTORY: See list. SOCIAL HISTORY: No illicit drug use. History of alcohol abuse. REVIEW OF SYSTEMS: CONSTITUTIONAL: Denies fever or chills. HEENT: Denies blurred vision, vision changes, or eye pain. Denies hemoptysis CARDIOVASCULAR: Denies chest pain or pressure. RESPIRATORY: No shortness of breath. GASTROINTESTINAL: Refer to HPI for pertinent findings HEMATOLOGIC: Chronic anemia secondary to alcoholism. GENITOURINARY: Denies any blood in urine. SKIN: Denies pruitis. Denies rash. Reports bruising to face from recent fall. PHYSICAL EXAM: VITAL SIGNS: Reviewed. GENERAL: Well-developed in no acute distress-but appears to be feeling unwell. Pale. Ecchymosis to left side of face. HEENT: No sclera icterus. Extraocular movements grossly intact. Moist buccal mucosa. Head is atraumatic, normocephalic. ABDOMEN: Soft. Nondistended. Tenderness upon palpation of epigastric region and right upper quadrant. NEUROLOGIC: Alert and oriented. Cranial nerves II through XII grossly intact. LABORATORY DATA: WBC 3.0. Hemoglobin 6.2. Platelet count 39. INR 1.9. Bilirubin 7.2. AST 251. ALT 57. Alkaline phosphatase 76. Lipase 345. Amylase less than 30. IMAGING: Abdominal ultrasound: Numerous gallstones. No dilated ducts. Mild hepatomegaly. Mild ascites. Moderate occult lateral thickening and edema consistent with acute cholecystitis. ASSESSMENT: 1. Abdominal pain, nausea, vomiting 2. Cholelithiasis with acute cholecystitis 3. Alcohol abuse 4. Pancytopenia 5. Alcoholic liver cirrhosis 6. 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 Continue antibiotics 2. Patient will require cholecystectomy when medically stable. Due to patients multiple co-morbidities, laboratory abnormalities, and coagulopathy this will not be performed during this hospitalization. Patient may follow-up with Dr. Em outpatient. Nurse practitioner note has been reviewed by physician. Signing provider agrees with the documented findings, assessment, and plan of care. Past Medical History Past Medical History: Seizure Disorder Additional Past Medical History / Comment(s): Seizure disorder in the patient's last seizure was several months back, this could've been also alcoholic seizures, chronic alcoholism, anorexia nervosa, history of bone marrow suppression related to alcoholism with pancytopenia, frequent falls, previous history of nausea vomiting and EGD showing mild gastritis from April 2018, alcoholic liver cirrhosis. History of Any Multi-Drug Resistant Organisms: None Reported Past Surgical History: No Surgical Hx Reported Additional Past Surgical History / Comment(s): EGD, wisdom teeth extractions. Past Anesthesia/Blood Transfusion Reactions: No Reported Reaction Smoking Status: Never smoker Past Alcohol Use History: Heavy (Drinks 1 pint of vodka on a daily basis.) - Past Family History Mother Family Medical History: Cancer Additional Family Medical History / Comment(s): Mother - uterine cancer, skin cancer | grandma - breast cancer , her father is alcoholic Father Additional Family Medical History / Comment(s): alcoholism. Medications and Allergies Home Medications Medication Instructions Recorded Confirmed Type Cyclobenzaprine [Flexeril] 10 mg PO DAILY PRN 09/08/18 11/28/18 History Ergocalciferol (Vitamin D2) 50,000 unit PO Q28D 09/08/18 11/28/18 History [Drisdol] levETIRAcetam [Keppra] 1,000 mg PO BID 09/08/18 11/28/18 History traZODone HCL 50 mg PO HS 09/08/18 11/28/18 History Ascorbic Acid [Vitamin C] 1,000 mg PO DAILY 11/28/18 11/28/18 History Biotin 5 mg PO DAILY 11/28/18 11/28/18 History Ibuprofen [Motrin] 600 mg PO Q6H PRN 11/28/18 11/28/18 History Loratadine 10 mg PO DAILY PRN 11/28/18 11/28/18 History Allergies Allergy/AdvReac Type Severity Reaction Status Date / Time gluten Allergy Swelling Verified 11/28/18 10:56 starch Allergy Unknown Verified 11/28/18 10:56 Surgical - Exam Vital Signs Temp Pulse Resp BP Pulse Ox 98 F 118 H 18 98/64 98 11/28/18 10:24 11/28/18 10:24 11/28/18 10:24 11/28/18 10:24 11/28/18 10:24 Results - Labs 11/29/18 05:40 11/29/18 05:40 Abnormal Lab Results - Last 24 Hours (Table) 11/28/18 11/29/18 11/29/18 Range/Units 14:58 05:40 05:40 WBC 3.0 L (3.8-10.6) k/uL RBC 1.62 L (3.80-5.40) m/uL Hgb 6.2 L* D (11.4-16.0) gm/dL Hct 19.0 L* (34.0-46.0) % MCV 117.3 H (80.0-100.0) fL MCH 38.5 H (25.0-35.0) pg Plt Count 39 L D (150-450) k/uL Lymphocytes # 0.5 L (1.0-4.8) k/uL Macrocytosis Marked A PT (9.0-12.0) sec INR (<1.2) D-Dimer (<0.60) mg/L FEU Sodium 131 L (137-145) mmol/L Chloride 93 L (98-107) mmol/L Carbon Dioxide 19 L (22-30) mmol/L Glucose 139 H (74-99) mg/dL POC Glucose (mg/dL) 110 H (75-99) mg/dL Calcium 6.7 L (8.4-10.2) mg/dL Total Bilirubin (0.2-1.3) mg/dL Conjugated Bilirubin (0.0-0.3) mg/dL Unconjugated Bilirubin (0.0-1.1) mg/dL Delta Bilirubin (0.0-0.2) mg/dL AST (14-36) U/L ALT (9-52) U/L Total Protein (6.3-8.2) g/dL Albumin (3.5-5.0) g/dL Amylase (30-110) U/L Lipase (23-300) U/L Crossmatch 11/29/18 11/29/18 11/29/18 Range/Units 05:40 05:40 05:40 WBC (3.8-10.6) k/uL RBC (3.80-5.40) m/uL Hgb (11.4-16.0) gm/dL Hct (34.0-46.0) % MCV (80.0-100.0) fL MCH (25.0-35.0) pg Plt Count (150-450) k/uL Lymphocytes # (1.0-4.8) k/uL Macrocytosis PT 18.5 H (9.0-12.0) sec INR 1.9 H (<1.2) D-Dimer 5.31 H (<0.60) mg/L FEU Sodium (137-145) mmol/L Chloride (98-107) mmol/L Carbon Dioxide (22-30) mmol/L Glucose (74-99) mg/dL POC Glucose (mg/dL) (75-99) mg/dL Calcium (8.4-10.2) mg/dL Total Bilirubin 7.2 H (0.2-1.3) mg/dL Conjugated Bilirubin 2.3 H (0.0-0.3) mg/dL Unconjugated Bilirubin 1.3 H (0.0-1.1) mg/dL Delta Bilirubin 3.6 H (0.0-0.2) mg/dL AST 251 H (14-36) U/L ALT 57 H (9-52) U/L Total Protein 5.2 L (6.3-8.2) g/dL Albumin 2.5 L (3.5-5.0) g/dL Amylase <30 L (30-110) U/L Lipase 345 H (23-300) U/L Crossmatch 11/29/18 Range/Units 06:40 WBC (3.8-10.6) k/uL RBC (3.80-5.40) m/uL Hgb (11.4-16.0) gm/dL Hct (34.0-46.0) % MCV (80.0-100.0) fL MCH (25.0-35.0) pg Plt Count (150-450) k/uL Lymphocytes # (1.0-4.8) k/uL Macrocytosis PT (9.0-12.0) sec INR (<1.2) D-Dimer (<0.60) mg/L FEU Sodium (137-145) mmol/L Chloride (98-107) mmol/L Carbon Dioxide (22-30) mmol/L Glucose (74-99) mg/dL POC Glucose (mg/dL) (75-99) mg/dL Calcium (8.4-10.2) mg/dL Total Bilirubin (0.2-1.3) mg/dL Conjugated Bilirubin (0.0-0.3) mg/dL Unconjugated Bilirubin (0.0-1.1) mg/dL Delta Bilirubin (0.0-0.2) mg/dL AST (14-36) U/L ALT (9-52) U/L Total Protein (6.3-8.2) g/dL Albumin (3.5-5.0) g/dL Amylase (30-110) U/L Lipase (23-300) U/L Crossmatch See Detail Diabetes panel 11/29/18 11/29/18 Range/Units 05:40 05:40 Sodium 131 L (137-145) mmol/L Potassium 3.6 (3.5-5.1) mmol/L Chloride 93 L (98-107) mmol/L Carbon Dioxide 19 L (22-30) mmol/L BUN 9 (7-17) mg/dL Creatinine 0.89 (0.52-1.04) mg/dL Glucose 139 H (74-99) mg/dL Calcium 6.7 L (8.4-10.2) mg/dL AST 251 H (14-36) U/L ALT 57 H (9-52) U/L Alkaline Phosphatase 76 (38-126) U/L Total Protein 5.2 L (6.3-8.2) g/dL Albumin 2.5 L (3.5-5.0) g/dL Calcium panel 11/29/18 11/29/18 Range/Units 05:40 05:40 Calcium 6.7 L (8.4-10.2) mg/dL Albumin 2.5 L (3.5-5.0) g/dL Pituitary panel 11/29/18 Range/Units 05:40 Sodium 131 L (137-145) mmol/L Potassium 3.6 (3.5-5.1) mmol/L Chloride 93 L (98-107) mmol/L Carbon Dioxide 19 L (22-30) mmol/L BUN 9 (7-17) mg/dL Creatinine 0.89 (0.52-1.04) mg/dL Glucose 139 H (74-99) mg/dL Calcium 6.7 L (8.4-10.2) mg/dL Adrenal panel 11/29/18 11/29/18 Range/Units 05:40 05:40 Sodium 131 L (137-145) mmol/L Potassium 3.6 (3.5-5.1) mmol/L Chloride 93 L (98-107) mmol/L Carbon Dioxide 19 L (22-30) mmol/L BUN 9 (7-17) mg/dL Creatinine 0.89 (0.52-1.04) mg/dL Glucose 139 H (74-99) mg/dL Calcium 6.7 L (8.4-10.2) mg/dL Total Bilirubin 7.2 H (0.2-1.3) mg/dL AST 251 H (14-36) U/L ALT 57 H (9-52) U/L Alkaline Phosphatase 76 (38-126) U/L Total Protein 5.2 L (6.3-8.2) g/dL Albumin 2.5 L (3.5-5.0) g/dL"
--- NOTE | 2018-11-29 15:57 | P.PN ---
Subjective Progress Note Date: 11/29/18 This is a 33-year-old female patient with known history of alcoholism and alcoholic cirrhosis who also has history of seizure disorder, gluten sensitivity , in addition to history of anorexia, history of seizure disorder, who comes into the hospital because of persistent nausea and vomiting that developed this morning. However, her main complaints have been generalized weakness, frequent falls, she has fallen and she has hit her body including the head on multiple occasions and she has bruises over her forehead, face, orbits, lateral chest on the left and until lateral chest on the right. She does have some right upper quadrant pain. The patient also complained of generalized weakness and malaise. She states that she has been seizure free. However she is been drinking a pint of vodka on a daily basis. She came in because she was getting progressively more weak and she was falling significantly and she was unable to function at home. She was also suspected to have GI bleeding. The patient however denies having any coffee-ground emesis. She denies having any bright red blood per re ctum. He was lightheaded. She has had similar presentation in the past. Specifically back in April 2018 he presented to the hospital because of inability to hold any food in. The patient had abdominal discomfort and back then and she was treated with a combination of Zofran and Protonix without any improvement in her symptoms. EGD was done by Dr. Christian, and the patient was found to have mild gastritis with biopsies of the abdomen and the body and a cardiac in the fundus being done. Duodenal biopsies were also done that ruled out the possibility of gluten sensitivity.The patient is quite debilitated. The patient's last seizure was around 2 weeks ago. She has history of pancytopenia related to alcoholism. She has had history of falls. Note that the patient's alcohol level was 186 in time of arrival. AST was 309 with an ALT of 58 and alkaline phosphatase of 111. Total bilirubin was 1.6. She has chronic neuropathic with an INR of 2.1. PT is 20.4 and a PTT is 33.5. Nevertheless, the patient is not having any signs of GI bleeding. She is awake and alert. She is not showing any signs of hepatitic encephalopathy. Abdomen is slightly distended. She is malnourished and anorexic and her BMI 17.3. The ultrasound of the abdomen was done that showed numerous gallstones. No dilated ducts. Mild hepatomegaly. Mild ascites. Moderate amount of bladder wall thickening and edema consistent with acute cholecystitis. Gallbladder edema is a change compared to old examination. On 11/29/2018 and seeing this patient for a follow-up. She remains tachycardic. Earlier this morning she had a drop in hemoglobin down to 6.2 and the patient was given a unit of packed RBC. There was no evidence of any GI bleeding. The patient did not have any coffee-ground emesis or bright red blood per rectum. Her platelet counts have dropped down to 39,000 and note that the patient has chronic thrombus cytopenia and anemia and occasional leukopenia related to chronic alcoholism. She is awake and alert. She is complaining of some nausea. She is also complaining of some upper quadrant and epigastric pain. Her INR is at 1.9. A lipase was ordered and the level was at 345. The rest of the LFTs were abnormal although comparable to yesterday with a AST of 251 and ALT of 57 c onsistent with alcohol abuse. Total protein is at 5.2. Bilirubin was at 7.2. The patient is afebrile. The patient underwent an ultrasound of the abdomen that showed mild ascites. There was mild to moderate gallbladder wall thickening and edema consistent with acute cholecystitis in for that reason a surgical consultation was obtained. Objective - Vital Signs Vital signs: Vital Signs Temp 99.1 F 11/29/18 12:11 Pulse 105 H 11/29/18 15:00 Resp 17 11/29/18 15:00 BP 106/77 11/29/18 15:00 Pulse Ox 96 11/29/18 15:00 Intake & Output 11/28/18 11/29/18 11/29/18 18:59 06:59 18:59 Intake Total 350 775 860 Output Total 300 240 Balance 350 475 620 Weight 51.71 kg 53.4 kg 53.4 kg Intake: IV 250 575 550 Normal Saline 250 575 550 Intake, IV Titration 100 200 Amount Ampicillin-Sulbactam 1.5 100 200 gm In Sodium Chloride 0.9 % 50 ml @ 100 mls/hr IVPB Q6HR JD Rx#:[id number] Blood Product 310 Rc As-3 Unit 310 [id number] Output: Urine 300 240 Other: Voiding Method Bedside Commode Bedside Commode Bedpan Bedpan # Bowel Movements 1 - Exam Gen. appearance the patient is pale, slightly shaky and tremulous, she is communicating and answering questions appropriately. Nonacute distress. Head shows multiple areas of trauma over the left orbital area with significant bruising and swelling and sloughing of the skin along the left upper lateral orbital area in addition to ecchymotic areas of bruising over the forehead, right cheek, left cheek, Neck was supple and without jugular venous distension, thyromegaly, or carotid bruits. Carotids were easily palpable bilaterally. There was no adenopathy. Lungs were clear to auscultation and percussion, and with normal diaphragmatic excursion. No wheezes or rales were noted. Cardiac exam revealed the PMI to be normally situated and sized. The rhythm was regular and no extrasystoles were noted during several minutes of auscultation. The first and second heart sounds were normal and physiologic splitting of the second heart sound was noted. There were no murmurs, rubs, clicks, or gallops. The patient also has areas of bruising over the anterior chest area moving laterally to the right under her breast and another bruising area in the left posterior chest area laterally. No significant chest wall deformity. Abdomen is soft and there is no significant ascites. There is a right upper quadrant tenderness. This is mainly direct tenderness no rebound tenderness or guarding. No fluid wave or shifting dullness. The patient has adequate bowel sounds. Extremities reveal there is no cyanosis or clubbing.Examination of the extremities revealed easily palpable radial, femoral and pedal pulses. There was no cyanosis, clubbing or edema. Skin is negative for any cellulitis. There is minimal jaundice. There is also extensive bruising as mentioned mainly over the had and the upper torso involv ing the chest. Neurologically patient is awake and alert and there is no focal neurological deficits. - Labs CBC & Chem 7: 11/29/18 05:40 11/29/18 05:40 Labs: Abnormal Lab Results - Last 24 Hours (Table) 11/29/18 11/29/18 11/29/18 Range/Units 05:40 05:40 05:40 WBC 3.0 L (3.8-10.6) k/uL RBC 1.62 L (3.80-5.40) m/uL Hgb 6.2 L* D (11.4-16.0) gm/dL Hct 19.0 L* (34.0-46.0) % MCV 117.3 H (80.0-100.0) fL MCH 38.5 H (25.0-35.0) pg Plt Count 39 L D (150-450) k/uL Lymphocytes # 0.5 L (1.0-4.8) k/uL Macrocytosis Marked A PT 18.5 H (9.0-12.0) sec INR 1.9 H (<1.2) D-Dimer 5.31 H (<0.60) mg/L FEU Sodium 131 L (137-145) mmol/L Chloride 93 L (98-107) mmol/L Carbon Dioxide 19 L (22-30) mmol/L Glucose 139 H (74-99) mg/dL Calcium 6.7 L (8.4-10.2) mg/dL Total Bilirubin (0.2-1.3) mg/dL Conjugated Bilirubin (0.0-0.3) mg/dL Unconjugated Bilirubin (0.0-1.1) mg/dL Delta Bilirubin (0.0-0.2) mg/dL AST (14-36) U/L ALT (9-52) U/L Total Protein (6.3-8.2) g/dL Albumin (3.5-5.0) g/dL Amylase (30-110) U/L Lipase (23-300) U/L Crossmatch 11/29/18 11/29/18 11/29/18 Range/Units 05:40 05:40 06:40 WBC (3.8-10.6) k/uL RBC (3.80-5.40) m/uL Hgb (11.4-16.0) gm/dL Hct (34.0-46.0) % MCV (80.0-100.0) fL MCH (25.0-35.0) pg Plt Count (150-450) k/uL Lymphocytes # (1.0-4.8) k/uL Macrocytosis PT (9.0-12.0) sec INR (<1.2) D-Dimer (<0.60) mg/L FEU Sodium (137-145) mmol/L Chloride (98-107) mmol/L Carbon Dioxide (22-30) mmol/L Glucose (74-99) mg/dL Calcium (8.4-10.2) mg/dL Total Bilirubin 7.2 H (0.2-1.3) mg/dL Conjugated Bilirubin 2.3 H (0.0-0.3) mg/dL Unconjugated Bilirubin 1.3 H (0.0-1.1) mg/dL Delta Bilirubin 3.6 H (0.0-0.2) mg/dL AST 251 H (14-36) U/L ALT 57 H (9-52) U/L Total Protein 5.2 L (6.3-8.2) g/dL Albumin 2.5 L (3.5-5.0) g/dL Amylase <30 L (30-110) U/L Lipase 345 H (23-300) U/L Crossmatch See Detail Assessment and Plan Plan: 1 chronic alcoholism. The patient presented to the hospital because of generalized weakness and some nausea and questionable GI bleeding. She was caught intoxicated with a positive alcohol level of 168 at time of admission. The patient's mental status is normal and the patient does not have any signs of delirium tremens at this point in time. 2 alcoholic liver cirrhosis with stigmata of chronic liver disease and failure 3 generalized motor weakness and frequent falls with frequent traumatic injuries and bruising over the forehead and face and had an upper chest 4 right upper quadrant tenderness with an ultrasound indicating possibility of an acute cholecystitis, ultrasound the abdomen showed also gallbladder wall thickening and edema consistent with a diagnosis. The patient was started on IV Unasyn. 5 seizure disorder exacerbated by alcohol drinking. 6 frequent falls 7 anorexia and her interval was at 8 bicytopenia with chronic anemia and thrombocytopenia related to alcoholism, with an acute drop in hemoglobin down to 6.2 and the patient was given a unit of packed RBC. No evidence of any external or exogenous or GI bleeding. 9 chronic anxiety 10 chronic debility related to above-mentioned comorbidities. 11 coagulopathy secondary to liver cirrhosis Plan Cover the patient with IV Unasyn. Surgical consult regarding possibility of an acute cholecystitis. Transfused with a unit of packed RBC. Watch for any signs of GI bleeding. Monitor hemoglobin. Monitor platelet count. Keep the patient in ICU. We'll continue to follow.
--- NOTE | 2018-11-29 17:13 | HP ---
HISTORY AND PHYSICAL CHIEF COMPLAINT: Upper GI bleed. HISTORY OF PRESENT ILLNESS: This is another admission for this 33-year-old white female, a chronic alcoholic. She is probably near the end of her life expectancy, given that she continues to drink heavily, has now developed cirrhosis, pancytopenia and generalized weakness to the point where she can barely ambulate. She recently admitted to having a lifelong history of anorexia as well as bulimia, which complicates things even more. She has decided that she needs help and she started going to counseling recently. She came in on the day of admission with massive hematemesis and maroon liquid stool. She denies any abdominal pain or chest pain. REVIEW OF SYSTEMS: Otherwise noncontributory. She has had no seizures, syncope, abdominal pain, urinary complaints, etc. Past medical history, family history, and personal and social histories reveal that she is NOT ALLERGIC TO ANY MEDICATION. She has been on Ultram, folic acid, ferrous sulfate, hydroxyzine, loratadine, cyclobenzaprine, vitamin D and other vitamins, including biotin. Past medical history, family history personal and social histories are otherwise unremarkable or noncontributory. She orrhea. She has never smoked. PHYSICAL EXAMINATION: Blood pressure is 95/55 with a pulse of 110, respirations of 46, and she is afebrile. In general she appeared to be extremely pale. She is awake and alert. She has multiple ecchymoses. Head, ears, eyes, nose, mouth and throat are otherwise unremarkable except for scleral icterus and puffiness of both cheeks. She has a healing hematoma in the left eyebrow area where she recently fell. She has ecchymoses on the left side of the face from the fall as well. Neck veins are not distended. Chest is clear. Cardiac exam demonstrates tachycardia with no murmurs or extra sounds. Abdomen is soft. There are no masses or visceromegaly. Bowel sounds are present. Extremities are normal except for multiple ecchymoses. Neurologically she seems to be intact. She is admitted to the hospital with the diagnoses: 1. Upper gastrointestinal hemorrhage. 2. Chronic alcoholism. 3. Alcoholic liver disease with cirrhosis. 4. Pancytopenia. 5. Anorexia. 6. Bulimia. PLAN: 1. Bed rest. 2. IV fluids. 3. Transfuse as necessary. 4. Consult with Intensive Medicine and GI. MMMABELL / IJN: [id number] /
--- NOTE | 2018-11-29 17:13 | PN ---
PROGRESS NOTE CHIEF COMPLAINT: GI bleed. HISTORY OF PRESENT ILLNESS: This lady has been fairly stable during the night. Blood pressure is adequate. She is awake and alert. It is not apparent that she has passed more blood. PHYSICAL EXAMINATION: She remains very pale. Blood pressure systolically is just over 100. Cardiac exam is normal. Chest is clear. Abdomen is soft, nontender. IMPRESSION: 1. Upper gastrointestinal bleed. 2. Alcoholism. 3. Cirrhosis. 4. General debility and weakness. 5. Multiple falls. PLAN: Continue with IV fluids and stabilize the patient pending possible endoscopies in the next day or 2 if she has no further bleeding. MMODL / IJN: [id number] /
[2018-11-29] MEDS: traMADol 50 MG TAB PO PRN (17:19)
--- NOTE | 2018-11-29 18:10 | PN ---
PROGRESS NOTE DATE OF SERVICE: 11/29/2018 The patient is a 33-year-old pleasant white female with history of heavy alcohol abuse, admitted to hospital with progressive weakness, not feeling well, fatigued and jaundiced for the last few days duration. She came to the hospital with nausea, vomiting, and diarrhea. She was seen in consultation yesterday for acute alcoholic hepatitis. Today, she is feeling better. She had 2 episodes of bilious emesis this morning and had 2 episodes of loose watery bowel movements. She denies any abdominal pain. Overall, she states she is feeling better. PHYSICAL EXAMINATION: Appears comfortable. No apparent distress. Vital signs are stable. Blood pressure 108/80, pulse rate 118, temperature 99.1. HEENT examination unremarkable. Conjunctivae pink. Sclerae anicteric. Oral cavity no lesions. NECK: No JVD or lymph node enlargement. Chest was clear to auscultation. HEART: Regular rate and rhythm. ABDOMEN: Soft. Tenderness in the right upper quadrant. Liver was palpable 5 cm below the right costal margin and was tender. EXTREMITIES: No pedal edema. Skin no rashes. NEUROLOGIC: Alert and oriented x3. No focal deficits. LABS: From today WBC 3, hemoglobin 6.2, platelets are 39,000. INR is 1.9. Bilirubin is 7.2, AST 251, ALT 57, alkaline phosphatase is 57. Serum alcohol at the time of admission was 186. Ultrasound of the abdomen that was done yesterday showed evidence of mild hepatomegaly, mild ascites, no dilated ducts and numerous gallstones noted with thickening of the gallbladder. IMPRESSION: 1. Acute alcoholic hepatitis with elevated LFTs and jaundice. 2. History of heavy alcohol abuse. 3. Severe anemia, but clinically no evidence of active bleeding. Hemoglobin was 6.2, requiring 2 units of blood transfusion. 4. Severe pancytopenia probably related to portal hypertension/hypersplenism. 5. Mild ascites. RECOMMENDATIONS: 1. Continue with supportive and symptomatic care. 2. Watch closely for alcohol withdrawal. 3. Abstinence from alcohol. 4. Obtain hepatitis viral serologies for B and C. 5. Repeat labs in the morning and we will follow with you closely during the hospital stay. Thank you for this consultation. MMODL / IJN: [id number] /
[2018-11-29 19:05] LABS: Anisocytosis Slight; Basophils % (A) 1 %; Eosinophils % (A) 1 %; HCT 23.9 % (34.0-46.0); Lymphocytes # (A) 0.4 k/uL (1.0-4.8); Lymphocytes % (A) 12 %; MCH 36.1 pg (25.0-35.0); MCHC 34.1 g/dL (31.0-37.0); Macrocytosis Marked; Mean Platelet Volume 7.3; Monocytes # (A) 0.2 k/uL (0-1.0); Monocytes % (A) 6 %; Neutrophils # (A) 2.6 k/uL (1.3-7.7); Neutrophils % (A) 79 %; Platelet Count 35 k/uL (150-450); RBC 2.26 m/uL (3.80-5.40); RDW 19.7 % (11.5-15.5); WBC 3.3 k/uL (3.8-10.6)
[2018-11-29 19:06] LABS: HGB 8.2 gm/dL (11.4-16.0)
[2018-11-29] MEDS: traZODone HCL 50 MG TAB PO SCH (21:39)
[2018-11-30] MEDS: AMPICILLIN-SULBACTAM 1.5 GM in SODIUM CHLORIDE 0.9% 50 ML IVPB SCH ×5 (00:45→23:03)
[2018-11-30] MEDS: traMADol 50 MG TAB PO PRN ×3 (00:47→20:01)
[2018-11-30 05:19] LABS: Anisocytosis Slight; Basophils % (A) 0 %; Eosinophils % (A) 1 %; HCT 25.6 % (34.0-46.0); HGB 8.4 gm/dL (11.4-16.0); Lymphocytes # (A) 0.3 k/uL (1.0-4.8); Lymphocytes % (A) 10 %; MCH 35.6 pg (25.0-35.0); MCHC 32.9 g/dL (31.0-37.0); Macrocytosis Marked; Monocytes # (A) 0.2 k/uL (0-1.0); Monocytes % (A) 5 %; Neutrophils # (A) 2.5 k/uL (1.3-7.7); Neutrophils % (A) 82 %; RBC 2.36 m/uL (3.80-5.40); RDW 19.9 % (11.5-15.5)
[2018-11-30 05:20] LABS: Platelet Count 31 k/uL (150-450)
[2018-11-30 05:21] LABS: MCV 108.3 fL (80.0-100.0)
[2018-11-30 05:31] LABS: ALT 51 U/L (9-52); AST 208 U/L (14-36); African American GFR (CKD) >90 (>60 ml/min/1.73 sqM); Albumin 2.3 g/dL (3.5-5.0); Alkaline Phosphatase 76 U/L (38-126); Anion Gap 10 mmol/L; Bilirubin, Conjugated 4.4 mg/dL (0.0-0.3); Bilirubin, Delta 3.4 mg/dL (0.0-0.2); Bilirubin,Unconjugated 1.6 mg/dL (0.0-1.1); Blood Urea Nitrogen 9 mg/dL (7-17); Calcium 6.8 mg/dL (8.4-10.2); Carbon Dioxide 25 mmol/L (22-30); Chloride 98 mmol/L (98-107); Glucose 99 mg/dL (74-99); Potassium 3.1 mmol/L (3.5-5.1); Sodium 133 mmol/L (137-145); Total Bilirubin 9.4 mg/dL (0.2-1.3)
[2018-11-30 06:12] LABS: D-Dimer 3.4 mg/L FEU (<0.60); INR 1.9 (<1.2); Prothrombin Time 19.2 sec (9.0-12.0)
[2018-11-30] MEDS: ONDANSETRON 4 MG/2 ML VIAL IVP PRN ×3 (08:59→19:57)
[2018-11-30] MEDS: ASCORBIC ACID 500 MG TAB PO SCH (08:59)
[2018-11-30] MEDS: levETIRAcetam 500 MG TAB PO SCH ×2 (08:59→20:02)
[2018-11-30] MEDS: PANTOPRAZOLE 40 MG/10 ML VIAL IV SCH (08:59)
[2018-11-30] MEDS ORDERED: Potassium Replacement Protocol 1 EACH MISC MISCELLANE PRN (11:22)
--- NOTE | 2018-11-30 12:00 | P.PN ---
Progress Note - Text Progress Note Date: 11/30/18 Patient still has persistent nausea. On exam her vital signs are stable. Her abdomen is soft. Symptomatically thighs. Patient was scheduled for laparoscopic ostectomy on Monday. She'll be medically optimized.
[2018-11-30] MEDS: POTASSIUM CHLORIDE 20 MEQ in WATER FOR INJECTION 1 100ML.BAG IVPB SCH ×3 (12:02→16:01)
[2018-11-30 12:06] LABS: Hepatitis B Surface Antigen Non-Reactive (Non-Reactive); Hepatitis C IgG Antibody Non-Reactive (Non-Reactive)
[2018-11-30] MEDS: SODIUM CHLORIDE 0.9% 1,000 ML IV SCH ×3 (12:21→23:04)
--- NOTE | 2018-11-30 14:16 | PN ---
PROGRESS NOTE DATE OF SERVICE: 11/30/2018. CHIEF COMPLAINT: Upper GI bleed. HISTORY OF PRESENT ILLNESS: This lady is fairly stable. She has apparently not bled in the last 24 hours. She is awake and alert. She is not complaining of any pain, nausea, etc. PHYSICAL EXAMINATION: Blood pressure is normal. She has sinus tachycardia. She remains pale. Dressing still in the left eyebrow. Chest is clear and the cardiac exam demonstrates sinus rhythm and tachycardia. The abdomen is slightly protuberant, soft and nontender. Extremities normal. IMPRESSION: 1. Upper gastrointestinal bleed. 2. Chronic alcoholism. 3. Alcoholic hepatitis. 4. Cirrhosis. 5. Thrombocytopenia. 6. Hypoproteinemia. 7. Hypocalcemia. 8. Hyperammonemia. 9. Hypokalemia. PLAN: She will continue care in the intensive care unit for the time being. When she is stable, she should have another upper GI endoscopy and probably eventually a cholecystectomy. MMODL / IJN: [id number] /
--- NOTE | 2018-11-30 16:13 | P.PN ---
Subjective Progress Note Date: 11/30/18 This is a 33-year-old female patient with known history of alcoholism and alcoholic cirrhosis who also has history of seizure disorder, gluten sensitivity , in addition to history of anorexia, history of seizure disorder, who comes into the hospital because of persistent nausea and vomiting that developed this morning. However, her main complaints have been generalized weakness, frequent falls, she has fallen and she has hit her body including the head on multiple occasions and she has bruises over her forehead, face, orbits, lateral chest on the left and until lateral chest on the right. She does have some right upper quadrant pain. The patient also complained of generalized weakness and malaise. She states that she has been seizure free. However she is been drinking a pint of vodka on a daily basis. She came in because she was getting progressively more weak and she was falling significantly and she was unable to function at home. She was also suspected to have GI bleeding. The patient however denies having any coffee-ground emesis. She denies having any bright red blood per re ctum. He was lightheaded. She has had similar presentation in the past. Specifically back in April 2018 he presented to the hospital because of inability to hold any food in. The patient had abdominal discomfort and back then and she was treated with a combination of Zofran and Protonix without any improvement in her symptoms. EGD was done by Dr. Christian, and the patient was found to have mild gastritis with biopsies of the abdomen and the body and a cardiac in the fundus being done. Duodenal biopsies were also done that ruled out the possibility of gluten sensitivity.The patient is quite debilitated. The patient's last seizure was around 2 weeks ago. She has history of pancytopenia related to alcoholism. She has had history of falls. Note that the patient's alcohol level was 186 in time of arrival. AST was 309 with an ALT of 58 and alkaline phosphatase of 111. Total bilirubin was 1.6. She has chronic neuropathic with an INR of 2.1. PT is 20.4 and a PTT is 33.5. Nevertheless, the patient is not having any signs of GI bleeding. She is awake and alert. She is not showing any signs of hepatitic encephalopathy. Abdomen is slightly distended. She is malnourished and anorexic and her BMI 17.3. The ultrasound of the abdomen was done that showed numerous gallstones. No dilated ducts. Mild hepatomegaly. Mild ascites. Moderate amount of bladder wall thickening and edema consistent with acute cholecystitis. Gallbladder edema is a change compared to old examination. On 11/29/2018 and seeing this patient for a follow-up. She remains tachycardic. Earlier this morning she had a drop in hemoglobin down to 6.2 and the patient was given a unit of packed RBC. There was no evidence of any GI bleeding. The patient did not have any coffee-ground emesis or bright red blood per rectum. Her platelet counts have dropped down to 39,000 and note that the patient has chronic thrombus cytopenia and anemia and occasional leukopenia related to chronic alcoholism. She is awake and alert. She is complaining of some nausea. She is also complaining of some upper quadrant and epigastric pain. Her INR is at 1.9. A lipase was ordered and the level was at 345. The rest of the LFTs were abnormal although comparable to yesterday with a AST of 251 and ALT of 57 c onsistent with alcohol abuse. Total protein is at 5.2. Bilirubin was at 7.2. The patient is afebrile. The patient underwent an ultrasound of the abdomen that showed mild ascites. There was mild to moderate gallbladder wall thickening and edema consistent with acute cholecystitis in for that reason a surgical consultation was obtained. On 11/30/2018 the patient continues to be nauseated. Oral intake is still low. She is not having any emesis. I discussed the case in general surgery and I think we should consider doing a cholecystectomy on this patient knowing that she has extensive cholelithiasis and chronic cholecystitis. No ascites patient is receiving IV fluids. No chest pain. No shortness of breath. No falls. She is spending most of her time in bed. She is on IV fluids which was cut down to 50 mL an hour and a urine output is somewhat between 20-30 mL an hour. INR toda y is at 1.9. Hemoglobin stable at 8.4. No signs of any GI bleed. Hemoglobin is at 8.4. White cell count is at 3.0. Platelet count is also stable at 31. As for the LFTs, they are gradually improving. AST is down to 208 with an ALT of 51. Bilirubin is elevated at 6.8 with a stable compared to yesterday. Objective - Vital Signs Vital signs: Vital Signs Temp 97.4 F L 11/30/18 16:00 Pulse 100 11/30/18 16:00 Resp 17 11/30/18 16:00 BP 109/97 11/30/18 16:00 Pulse Ox 96 11/30/18 16:00 Intake & Output 11/29/18 11/30/18 11/30/18 18:59 06:59 18:59 Intake Total 1260 1150 1650 Output Total 360 330 395 Balance 911 375 1478 Weight 53.4 kg 53.4 kg Intake: IV 900 1100 1000 Normal Saline 900 1100 1000 Intake, IV Titration 50 50 400 Amount Ampicillin-Sulbactam 1.5 50 50 100 gm In Sodium Chloride 0.9 % 50 ml @ 100 mls/hr IVPB Q6HR JD Rx#:[id number] Potassium Chloride 20 meq 300 In Water For Injection 1 100ml.bag @ 50 mls/hr IVPB Q2H JD Rx#: [id number] Oral 250 Blood Product 310 Rc As-3 Unit 310 [id number] Output: Urine 360 330 245 Emesis 150 Other: Voiding Method Bedside Commode Indwelling Catheter Indwelling Catheter Bedpan Indwelling Catheter # Emeses 3 - Exam Gen. appearance the patient is pale, slightly shaky and tremulous, she is communicating and answering questions appropriately. Nonacute distress. Head shows multiple areas of trauma over the left orbital area with significant bruising and swelling and sloughing of the skin along the left upper lateral orbital area in addition to ecchymotic areas of bruising over the forehead, right cheek, left cheek, Neck was supple and without jugular venous distension, thyromegaly, or carotid bruits. Carotids were easily palpable bilaterally. There was no adenopathy. Lungs were clear to auscultation and percussion, and with normal diaphragmatic excursion. No wheezes or rales were noted. Cardiac exam revealed the PMI to be normally situated and sized. The rhythm was regular and no extrasystoles were noted during several minutes of auscultation. The first and second heart sounds were normal and physiologic splitting of the second heart sound was noted. There were no murmurs, rubs, clicks, or gallops. The patient also has areas of bruising over the anterior chest area moving laterally to the right under her breast and another bruising area in the left posterior chest area laterally. No significant chest wall deformity. Abdomen is soft and there is no significant ascites. There is a right upper quadrant tenderness. This is mainly direct tenderness no rebound tenderness or guarding. No fluid wave or shifting dullness. The patient has adequate bowel sounds. Extremities reveal there is no cyanosis or clubbing.Examination of the extremities revealed easily palpable radial, femoral and pedal pulses. There was no cyanosis, clubbing or edema. Skin is negative for any cellulitis. There is minimal jaundice. There is also extensive bruising as mentioned mainly over the had and the upper torso involving the chest. Neurologically patient is awake and alert and there is no focal neurological deficits. - Labs CBC & Chem 7: 11/30/18 05:05 11/30/18 05:05 Labs: Abnormal Lab Results - Last 24 Hours (Table) 11/29/18 11/30/18 11/30/18 Range/Units 17:40 05:05 05:05 WBC 3.3 L 3.0 L (3.8-10.6) k/uL RBC 2.26 L 2.36 L (3.80-5.40) m/uL Hgb 8.2 L D 8.4 L (11.4-16.0) gm/dL Hct 23.9 L 25.6 L (34.0-46.0) % MCV 106.0 H D 108.3 H (80.0-100.0) fL MCH 36.1 H 35.6 H (25.0-35.0) pg RDW 19.7 H 19.9 H (11.5-15.5) % Plt Count 35 L 31 L (150-450) k/uL Lymphocytes # 0.4 L 0.3 L (1.0-4.8) k/uL Macrocytosis Marked A Marked A PT (9.0-12.0) sec INR (<1.2) D-Dimer (<0.60) mg/L FEU Sodium 133 L (137-145) mmol/L Potassium 3.1 L (3.5-5.1) mmol/L Calcium 6.8 L (8.4-10.2) mg/dL Total Bilirubin 9.4 H (0.2-1.3) mg/dL Conjugated Bilirubin 4.4 H (0.0-0.3) mg/dL Unconjugated Bilirubin 1.6 H (0.0-1.1) mg/dL Delta Bilirubin 3.4 H (0.0-0.2) mg/dL AST 208 H (14-36) U/L Ammonia (<30) umol/L Total Protein 5.0 L (6.3-8.2) g/dL Albumin 2.3 L (3.5-5.0) g/dL 11/30/18 11/30/18 Range/Units 05:05 05:05 WBC (3.8-10.6) k/uL RBC (3.80-5.40) m/uL Hgb (11.4-16.0) gm/dL Hct (34.0-46.0) % MCV (80.0-100.0) fL MCH (25.0-35.0) pg RDW (11.5-15.5) % Plt Count (150-450) k/uL Lymphocytes # (1.0-4.8) k/uL Macrocytosis PT 19.2 H (9.0-12.0) sec INR 1.9 H (<1.2) D-Dimer 3.40 H (<0.60) mg/L FEU Sodium (137-145) mmol/L Potassium (3.5-5.1) mmol/L Calcium (8.4-10.2) mg/dL Total Bilirubin (0.2-1.3) mg/dL Conjugated Bilirubin (0.0-0.3) mg/dL Unconjugated Bilirubin (0.0-1.1) mg/dL Delta Bilirubin (0.0-0.2) mg/dL AST (14-36) U/L Ammonia 38 H (<30) umol/L Total Protein (6.3-8.2) g/dL Albumin (3.5-5.0) g/dL Assessment and Plan Plan: 1 chronic alcoholism. 2 alcoholic liver cirrhosis with stigmata of chronic liver disease and failure 3 generalized motor weakness and frequent falls with frequent traumatic injuries and bruising over the forehead and face and had an upper chest 4 acute/chronic cholecystitis with extensive cholelithiasis and gallbladder wall thickening with persistent nausea. Currently on IV Zosyn. The patient is being considered for cholecystectomy sometime next week. 5 seizure disorder exacerbated by alcohol drinking. 6 frequent falls 7 anorexia 8 bicytopenia with chronic anemia and thrombocytopenia related to alcoholism, with an acute drop in hemoglobin down to 6.2 and the patient was given a unit of packed RBC. No evidence of any external or exogenous or GI bleeding. Hemog lobin stable is at for the plated count is down to 31. 9 chronic anxiety 10 chronic debility related to above-mentioned comorbidities. 11 coagulopathy secondary to liver cirrhosis Plan Continue monitoring the hematologic profile. No signs of any GI bleed. Hemoglobin stable. Platelet counts are low. Discussed the need for a cholecystectomy with general surgery. This will be decided by next week and this may be considered to be done by Monday. I think the medication will be persistent nausea to the point where the patient is unable to take for meals. She has become progressively more debilitated. We will going to monitor the hematologic profile. No signs of any delirium tremens. No falls. May be able to transfer out of the intensive care unit at a later stage. Continue the supportive care.
[2018-11-30] MEDS ORDERED: SODIUM CHLORIDE 0.9% 1,000 ML IV ONE (17:20)
[2018-11-30] MEDS: traZODone HCL 50 MG TAB PO SCH (20:02)
[2018-12-01] MEDS: AMPICILLIN-SULBACTAM 1.5 GM in SODIUM CHLORIDE 0.9% 50 ML IVPB SCH ×4 (05:36→23:34)
[2018-12-01 06:02] LABS: Anisocytosis Slight; Basophils % (A) 0 %; Eosinophils # (A) 0.1 k/uL (0-0.7); Eosinophils % (A) 1 %; HCT 27.7 % (34.0-46.0); HGB 8.8 gm/dL (11.4-16.0); Lymphocytes # (A) 0.3 k/uL (1.0-4.8); Lymphocytes % (A) 8 %; MCH 35.2 pg (25.0-35.0); MCHC 31.7 g/dL (31.0-37.0); Mean Platelet Volume 7.7; Monocytes # (A) 0.2 k/uL (0-1.0); Monocytes % (A) 6 %; Neutrophils # (A) 3.1 k/uL (1.3-7.7); Neutrophils % (A) 81 %; RDW 19.8 % (11.5-15.5); WBC 3.9 k/uL (3.8-10.6)
[2018-12-01 06:03] LABS: Macrocytosis Marked; Platelet Count 40 k/uL (150-450)
[2018-12-01 06:19] LABS: African American GFR (CKD) >90 (>60 ml/min/1.73 sqM); Anion Gap 9 mmol/L; Blood Urea Nitrogen 7 mg/dL (7-17); Calcium 6.8 mg/dL (8.4-10.2); Carbon Dioxide 21 mmol/L (22-30); Chloride 106 mmol/L (98-107); Glucose 86 mg/dL (74-99); Magnesium 1.3 mg/dL (1.6-2.3); Potassium 3.5 mmol/L (3.5-5.1); Sodium 136 mmol/L (137-145)
[2018-12-01] MEDS ORDERED: Magnesium Replacement Protocol 1 EACH MISC MISCELLANE PRN (06:24)
[2018-12-01] MEDS: POTASSIUM CHLORIDE ER 20 MEQ TAB.ER PO SCH ×2 (06:32→09:07)
[2018-12-01] MEDS: MAGNESIUM SULFATE-D5W PMX 1 GM in DEXTROSE/WATER 1 100ML.BAG IVPB SCH ×3 (06:32→09:11)
--- NOTE | 2018-12-01 07:25 | P.PN ---
Subjective Progress Note Date: 11/30/18 Principal diagnosis: Acute alcoholic hepatitis, pancytopenia, nausea and vomiting The patient is seen sitting in bed. She is still reporting nausea and vomiting, with an episode of vomiting earlier the day. She still remains jaundice. Objective - Vital Signs Vital signs: Vital Signs Temp 98.2 F 11/30/18 12:00 Pulse 102 H 11/30/18 15:00 Resp 18 11/30/18 15:00 BP 98/86 11/30/18 15:00 Pulse Ox 95 11/30/18 15:00 Intake & Output 11/29/18 11/30/18 11/30/18 18:59 06:59 18:59 Intake Total 1260 1150 1450 Output Total 360 330 220 Balance 923 806 6578 Weight 53.4 kg 53.4 kg Intake: IV 900 1100 900 Normal Saline 900 1100 900 Intake, IV Titration 50 50 300 Amount Ampicillin-Sulbactam 1.5 50 50 100 gm In Sodium Chloride 0.9 % 50 ml @ 100 mls/hr IVPB Q6HR JD Rx#:[id number] Potassium Chloride 20 meq 200 In Water For Injection 1 100ml.bag @ 50 mls/hr IVPB Q2H JD Rx#: [id number] Oral 250 Blood Product 310 Rc As-3 Unit 310 [id number] Output: Urine 360 330 220 Other: Voiding Method Bedside Commode Indwelling Catheter Indwelling Catheter Bedpan Indwelling Catheter - Exam On physical examination, patient appears comfortable in no apparent distress. HEAD: Normocephalic, atraumatic. EYES: Scleral icterus. No conjunctival injection. MOUTH: No lesions, tongue midline. NECK: Trachea midline, no gross abnormalities. CHEST: Decreased air entry bilaterally. HEART: Regular rate and rhythm. ABDOMEN: Soft, obese and mildly distended. Bowel sounds are positive. No organomegaly. No guarding or rigidity. EXTREMITIES: Bilateral pedal edema. SKIN: No rashes, jaundice. NEUROLOGIC: Alert and oriented x3, no asterixis. No focal deficits. - Labs CBC & Chem 7: 12/01/18 05:29 12/01/18 05:29 Labs: Abnormal Lab Results - Last 24 Hours (Table) 11/29/18 11/30/18 11/30/18 Range/Units 17:40 05:05 05:05 WBC 3.3 L 3.0 L (3.8-10.6) k/uL RBC 2.26 L 2.36 L (3.80-5.40) m/uL Hgb 8.2 L D 8.4 L (11.4-16.0) gm/dL Hct 23.9 L 25.6 L (34.0-46.0) % MCV 106.0 H D 108.3 H (80.0-100.0) fL MCH 36.1 H 35.6 H (25.0-35.0) pg RDW 19.7 H 19.9 H (11.5-15.5) % Plt Count 35 L 31 L (150-450) k/uL Lymphocytes # 0.4 L 0.3 L (1.0-4.8) k/uL Macrocytosis Marked A Marked A PT (9.0-12.0) sec INR (<1.2) D-Dimer (<0.60) mg/L FEU Sodium 133 L (137-145) mmol/L Potassium 3.1 L (3.5-5.1) mmol/L Calcium 6.8 L (8.4-10.2) mg/dL Total Bilirubin 9.4 H (0.2-1.3) mg/dL Conjugated Bilirubin 4.4 H (0.0-0.3) mg/dL Unconjugated Bilirubin 1.6 H (0.0-1.1) mg/dL Delta Bilirubin 3.4 H (0.0-0.2) mg/dL AST 208 H (14-36) U/L Ammonia (<30) umol/L Total Protein 5.0 L (6.3-8.2) g/dL Albumin 2.3 L (3.5-5.0) g/dL 11/30/18 11/30/18 Range/Units 05:05 05:05 WBC (3.8-10.6) k/uL RBC (3.80-5.40) m/uL Hgb (11.4-16.0) gm/dL Hct (34.0-46.0) % MCV (80.0-100.0) fL MCH (25.0-35.0) pg RDW (11.5-15.5) % Plt Count (150-450) k/uL Lymphocytes # (1.0-4.8) k/uL Macrocytosis PT 19.2 H (9.0-12.0) sec INR 1.9 H (<1.2) D-Dimer 3.40 H (<0.60) mg/L FEU Sodium (137-145) mmol/L Potassium (3.5-5.1) mmol/L Calcium (8.4-10.2) mg/dL Total Bilirubin (0.2-1.3) mg/dL Conjugated Bilirubin (0.0-0.3) mg/dL Unconjugated Bilirubin (0.0-1.1) mg/dL Delta Bilirubin (0.0-0.2) mg/dL AST (14-36) U/L Ammonia 38 H (<30) umol/L Total Protein (6.3-8.2) g/dL Albumin (3.5-5.0) g/dL Assessment and Plan (1) Elevated LFTs Narrative/Plan: 33-year-old female with a medical history significant for alcohol abuse and pr ior hospitalization for similar complaints of nausea and vomiting, jaundice, alcohol withdrawal acute alcoholic hepatitis. Currently receiving treatment in the intensive care unit with tentative plan for cholecystectomy. The patient has remained nauseated with poor oral intake. Liver enzymes remain persistently elevated, consistent with history of alcoholic hepatitis. Laboratory testing for chronic hepatitis B and C. Current Visit: Yes Status: Acute Code(s): R79.89 - OTHER SPECIFIED ABNORMAL FINDINGS OF BLOOD CHEMISTRY SNOMED Code(s): 440542915 (2) Coagulopathy Current Visit: Yes Status: Acute Priority: Medium Code(s): D68.9 - COAGULATION DEFECT, UNSPECIFIED SNOMED Code(s): 31835115 (3) Intractable nausea and vomiting Current Visit: No Status: Acute Code(s): R11.2 - NAUSEA WITH VOMITING, UNSPECIFIED SNOMED Code(s): 764953450 (4) Pancytopenia Current Visit: No Status: Acute Priority: Medium Code(s): D61.818 - OTHER PANCYTOPENIA SNOMED Code(s): 392277697 (5) Alcohol abuse Current Visit: No Status: Chronic Code(s): F10.10 - ALCOHOL ABUSE, UNCOMPLICATED SNOMED Code(s): 63875941 Plan: Supportive care Okay for diet Continue antiemetic therapy Will increase Protonix to twice daily Continue to monitor liver enzymes, CBC, INR Appreciate recommendations from surgical and compliance lead service No plans for endoscopic evaluation at this time Thank you for allowing us to participate in the care of the patient we will continue to follow
[2018-12-01] MEDS ORDERED: PANTOPRAZOLE 40 MG TABLET PO SCH ×2 (07:30→09:00)
[2018-12-01] MEDS: ONDANSETRON 4 MG/2 ML VIAL IVP PRN (08:05)
[2018-12-01] MEDS: levETIRAcetam 500 MG TAB PO SCH ×2 (09:07→19:53)
[2018-12-01] MEDS: ASCORBIC ACID 500 MG TAB PO SCH (09:07)
[2018-12-01] MEDS: traMADol 50 MG TAB PO PRN ×2 (09:10→19:52)
[2018-12-01] MEDS: SODIUM CHLORIDE 0.9% 1,000 ML IV SCH ×2 (09:14→18:44)
--- NOTE | 2018-12-01 10:20 | P.PN ---
Subjective Progress Note Date: 12/01/18 This is a 33-year-old female patient with known history of alcoholism and alcoholic cirrhosis who also has history of seizure disorder, gluten sensitivity , in addition to history of anorexia, history of seizure disorder, who comes into the hospital because of persistent nausea and vomiting that developed this morning. However, her main complaints have been generalized weakness, frequent falls, she has fallen and she has hit her body including the head on multiple occasions and she has bruises over her forehead, face, orbits, lateral chest on the left and until lateral chest on the right. She does have some right upper quadrant pain. The patient also complained of generalized weakness and malaise. She states that she has been seizure free. However she is been drinking a pint of vodka on a daily basis. She came in because she was getting progressively more weak and she was falling significantly and she was unable to function at home. She was also suspected to have GI bleeding. The patient however denies having any coffee-ground emesis. She denies having any bright red blood per re ctum. He was lightheaded. She has had similar presentation in the past. Specifically back in April 2018 he presented to the hospital because of inability to hold any food in. The patient had abdominal discomfort and back then and she was treated with a combination of Zofran and Protonix without any improvement in her symptoms. EGD was done by Dr. Christian, and the patient was found to have mild gastritis with biopsies of the abdomen and the body and a cardiac in the fundus being done. Duodenal biopsies were also done that ruled out the possibility of gluten sensitivity.The patient is quite debilitated. The patient's last seizure was around 2 weeks ago. She has history of pancytopenia related to alcoholism. She has had history of falls. Note that the patient's alcohol level was 186 in time of arrival. AST was 309 with an ALT of 58 and alkaline phosphatase of 111. Total bilirubin was 1.6. She has chronic neuropathic with an INR of 2.1. PT is 20.4 and a PTT is 33.5. Nevertheless, the patient is not having any signs of GI bleeding. She is awake and alert. She is not showing any signs of hepatitic encephalopathy. Abdomen is slightly distended. She is malnourished and anorexic and her BMI 17.3. The ultrasound of the abdomen was done that showed numerous gallstones. No dilated ducts. Mild hepatomegaly. Mild ascites. Moderate amount of bladder wall thickening and edema consistent with acute cholecystitis. Gallbladder edema is a change compared to old examination. On 11/29/2018 and seeing this patient for a follow-up. She remains tachycardic. Earlier this morning she had a drop in hemoglobin down to 6.2 and the patient was given a unit of packed RBC. There was no evidence of any GI bleeding. The patient did not have any coffee-ground emesis or bright red blood per rectum. Her platelet counts have dropped down to 39,000 and note that the patient has chronic thrombus cytopenia and anemia and occasional leukopenia related to chronic alcoholism. She is awake and alert. She is complaining of some nausea. She is also complaining of some upper quadrant and epigastric pain. Her INR is at 1.9. A lipase was ordered and the level was at 345. The rest of the LFTs were abnormal although comparable to yesterday with a AST of 251 and ALT of 57 c onsistent with alcohol abuse. Total protein is at 5.2. Bilirubin was at 7.2. The patient is afebrile. The patient underwent an ultrasound of the abdomen that showed mild ascites. There was mild to moderate gallbladder wall thickening and edema consistent with acute cholecystitis in for that reason a surgical consultation was obtained. On 11/30/2018 the patient continues to be nauseated. Oral intake is still low. She is not having any emesis. I discussed the case in general surgery and I think we should consider doing a cholecystectomy on this patient knowing that she has extensive cholelithiasis and chronic cholecystitis. No ascites patient is receiving IV fluids. No chest pain. No shortness of breath. No falls. She is spending most of her time in bed. She is on IV fluids which was cut down to 50 mL an hour and a urine output is somewhat between 20-30 mL an hour. INR toda y is at 1.9. Hemoglobin stable at 8.4. No signs of any GI bleed. Hemoglobin is at 8.4. White cell count is at 3.0. Platelet count is also stable at 31. As for the LFTs, they are gradually improving. AST is down to 208 with an ALT of 51. Bilirubin is elevated at 6.8 with a stable compared to yesterday. On 12/01/2018 the patient continues to be nauseated. Unfortunately she is unable to take and any significant oral intake. She was given a bolus of 1 L yesterday as the patient was becoming progressively more tachycardic. This morning she is still tachycardic and in sinus rhythm and a heart rate is somewhat between 120 and 1:30. No palpitation. No chest pain. No shortness of breath. No ascites. Her torso hematomas are pretty much unchanged in hemoglobin is stable. Urine output is order of 20-30 mL an hour. We are still contemplating a cholecystectomy on this patient by Monday. No ascites. Right upper quadrant is tender still. No significant abdominal distention. She did have a liquidy bowel movement yesterday that was nonbloody. White cell count is not elevated. Platelet count is 40,000. Bilirubin still elevated. No signs of any delirium tremens. Her antibiotic coverage is IV Unasyn. Objective - Vital Signs Vital signs: Vital Signs Temp 98.1 F 12/01/18 08:00 Pulse 126 H 12/01/18 09:00 Resp 25 H 12/01/18 09:00 BP 112/90 12/01/18 09:00 Pulse Ox 93 L 12/01/18 09:00 Intake & Output 11/30/18 12/01/18 12/01/18 18:59 06:59 18:59 Intake Total 2950 1400 400 Output Total 435 275 50 Balance 2515 1125 350 Weight 53.4 kg 59 kg Intake: IV 1200 1300 200 Normal Saline 1200 1300 200 Intake, IV Titration 1500 100 200 Amount Ampicillin-Sulbactam 1.5 200 100 gm In Sodium Chloride 0.9 % 50 ml @ 100 mls/hr IVPB Q6HR [facility] Rx#:[id number] Magnesium Sulfate-D5w Pmx 200 1 gm In Dextrose/Water 1 100ml.bag @ 100 mls/hr IVPB Q1H [facility] Rx#: [id number] Potassium Chloride 20 meq 300 In Water For Injection 1 100ml.bag @ 50 mls/hr IVPB Q2H [facility] Rx#: [id number] Sodium Chloride 0.9% 1, 1000 000 ml @ 999 mls/hr IV . Q1H1M [facility] Rx#:[id number] Oral 250 Output: Urine 285 275 50 Emesis 150 Other: Voiding Method Indwelling Catheter Indwelling Catheter Indwelling Catheter # Emeses 3 - Exam Gen. appearance the patient is pale, slightly shaky and tremulous, she is communicating and answering questions appropriately. Nonacute distress. Head shows multiple areas of trauma over the left orbital area with significant bruising and swelling and sloughing of the skin along the left upper lateral orbital area in addition to ecchymotic areas of bruising over the forehead, right cheek, left cheek, Neck was supple and without jugular venous distension, thyromegaly, or carotid bruits. Carotids were easily palpable bilaterally. There was no adenopathy. Lungs were clear to auscultation and percussion, and with normal diaphragmatic excursion. No wheezes or rales were noted. Cardiac exam revealed the PMI to be normally situated and sized. The rhythm was regular and no extrasystoles were noted during several minutes of auscultation. The first and second heart sounds were normal and physiologic splitting of the second heart sound was noted. There were no murmurs, rubs, clicks, or gallops. The patient also has areas of bruising over the anterior chest area moving laterally to the right under her breast and another bruising area in the left posterior chest area laterally. No significant chest wall deformity. Abdomen is soft and there is no significant ascites. There is a right upper quadrant tenderness. This is mainly direct tenderness no rebound tenderness or guarding. No fluid wave or shifting dullness. The patient has adequate bowel sounds. Extremities reveal there is no cyanosis or clubbing.Examination of the extremities revealed easily palpable radial, femoral and pedal pulses. There was no cyanosis, clubbing or edema. Skin is negative for any cellulitis. There is minimal jaundice. There is also extensive bruising as mentioned mainly over the had and the upper torso involving the chest. Neurologically patient is awake and alert and there is no focal neurological deficits. - Labs CBC & Chem 7: 12/01/18 05:29 12/01/18 05:29 Labs: Abnormal Lab Results - Last 24 Hours (Table) 12/01/18 12/01/18 Range/Units 05:29 05:29 RBC 2.50 L (3.80-5.40) m/uL Hgb 8.8 L (11.4-16.0) gm/dL Hct 27.7 L (34.0-46.0) % MCV 111.0 H (80.0-100.0) fL MCH 35.2 H (25.0-35.0) pg RDW 19.8 H (11.5-15.5) % Plt Count 40 L (150-450) k/uL Lymphocytes # 0.3 L (1.0-4.8) k/uL Macrocytosis Marked A Sodium 136 L (137-145) mmol/L Carbon Dioxide 21 L (22-30) mmol/L Creatinine 0.48 L (0.52-1.04) mg/dL Calcium 6.8 L (8.4-10.2) mg/dL Magnesium 1.3 L (1.6-2.3) mg/dL Assessment and Plan Plan: 1 chronic alcoholism. 2 alcoholic liver cirrhosis with stigmata of chronic liver disease and failure 3 generalized motor weakness and frequent falls with frequent traumatic injuries and bruising over the forehead and face and had an upper chest 4 acute/chronic cholecystitis with extensive cholelithiasis and gallbladder wall thickening with persistent nausea. Currently on IV Unasyn. The patient is being considered for cholecystectomy sometime next week. The patient is still feeling nauseated. On today's evaluation and there is increased tachycardia which makes me wonder if there is any ongoing complication with her gallbladder. We'll check a lactic acid level. 5 seizure disorder exacerbated by alcohol drinking. 6 frequent falls 7 anorexia 8 bicytopenia with chronic anemia and thrombocytopenia related to alcoholism, 9 chronic anxiety 10 chronic debility related to above-mentioned comorbidities. 11 coagulopathy secondary to liver cirrhosis Plan No signs of bleeding. No signs of any impairments. Tachycardia is concerning. Check a lactic acid level. IV fluids at the rate of 100 mL an hour of normal saline. Urine output is adequate for now. Monitor the rhythm.. Repeated blood cultures. We'll continue to follow. We'll communicating with general surgeon regarding the cholecystectomy we still intend to go by Monday.
--- NOTE | 2018-12-01 11:09 | P.PN ---
Progress Note - Text Progress Note Date: 12/01/18 The patient still has chronic complaints of nausea. On exam her vital signs are stable. Her abdomen soft. Symptomatically cholelithiasis. Patient will be scheduled for laparoscopic cholecystectomy on Monday.
[2018-12-01 11:43] LABS: Magnesium 2.5 mg/dL (1.6-2.3); Potassium 3.5 mmol/L (3.5-5.1)
[2018-12-01] MEDS: POTASSIUM CHLORIDE 10 MEQ in WATER FOR INJECTION 1 100ML.BAG IVPB SCH ×4 (12:15→15:31)
[2018-12-01] MEDS ORDERED: LORazepam 2 MG/ML INJ IV PRN (12:33)
[2018-12-01] MEDS: PANTOPRAZOLE 40 MG/10 ML VIAL IVP SCH ×2 (15:54→19:54)
--- NOTE | 2018-12-01 16:04 | PN ---
PROGRESS NOTE I am covering for Dr. Regan. DATE OF SERVICE: 12/01/2018 This 33-year-old woman who was admitted with a significant history of alcoholism also has alcoholic cirrhosis. The patient is at present nauseated. The patient also had acute on chronic cholecystitis. Surgery is tentatively being planned at this time. Dr. Em is following the patient closely for symptomatic cholelithiasis. No chest pain. No palpitations. Past medical history reviewed. REVIEW OF SYSTEMS: CARDIOVASCULAR SYSTEM: No angina, palpitations. RESPIRATORY SYSTEM: As mentioned earlier. GI: As mentioned earlier. : No dysuria or retention. NERVOUS SYSTEM: No numbness, weakness. CURRENT MEDICATIONS: Reviewed. They include: 1. Unasyn 1.5 grams q.6. 2. Vitamin C 1000 mg daily. 3. Vitamin D2, 50,000. 4. Keppra 1000 mg p.o. b.i.d. 5. Claritin 10 mg daily. 6. Ativan 1 mg p.r.n. 7. KCl, magnesium replacement protocols. 8. Narcan. 9. Protonix 40 mg daily. 10.Ultram 50 mg q.i.d. p.r.n. 11.Desyrel 50 mg at bedtime. PHYSICAL EXAMINATION: Patient is alert, oriented x2. Pulse is 116, blood pressure 115/93, respiration 14, temperature 98.4, pulse ox 90% on room air. HEENT: Conjunctivae icteric. Oral mucosa moist. NECK: No jugular venous distention. CARDIOVASCULAR SYSTEM: S1, S2 muffled. RESPIRATORY SYSTEM: Breath sounds diminished at the bases. A few scattered rhonchi. ABDOMEN: Soft. Mild diffuse discomfort on palpation. No guarding or rigidity. Distended. LEGS: No edema. No swelling. NERVOUS SYSTEM: No focal deficit. LABS: WBC 3.9, hemoglobin 8.8, and platelets are 40. Sodium is 136 and potassium 3.5. Magnesium is 1.3. Hepatitis C is negative. ASSESSMENT: 1. Acute alcoholism and alcoholic hepatitis. 2. Symptomatic cholelithiasis. 3. Alcoholic liver disease with the stigmata of chronic liver disease. 4. Hyperammonemia. 5. Anemia secondary to chronic liver disease. 6. Thrombocytopenia, possibly secondary to chronic liver disease. 7. Hyponatremia. 8. Seizure disorder. 9. Anxiety, depression. 10.Tachycardia. RECOMMENDATIONS AND DISCUSSION: In this 33-year-old woman who presented with multiple medical issues, we will monitor the patient closely, continue the current medications, continue with symptomatic treatment. Otherwise, I recommend proton pump inhibitors. Follow closely with Gastroenterology. Repeat labs. LFTs. Follow closely with Surgery. The patient is on empiric antibiotics. Cultures are negative so far. Further recommendations to follow. PT/INR was also elevated. I would recommend repetition of the PT/INR as well just to ensure normalcy as well as ammonia. Lactulose may be instituted if the patient shows any change in mental status. Further recommendations to follow. Dr. Regan will follow tomorrow. MMODL / IJN: [id number] /
[2018-12-01] MEDS: traZODone HCL 50 MG TAB PO SCH (19:54)
[2018-12-02] MEDS: LORazepam 2 MG/ML INJ IV PRN ×4 (01:41→12:34)
[2018-12-02] MEDS: SODIUM CHLORIDE 0.9% 1,000 ML IV SCH ×2 (04:58→15:06)
[2018-12-02] MEDS: AMPICILLIN-SULBACTAM 1.5 GM in SODIUM CHLORIDE 0.9% 50 ML IVPB SCH ×4 (05:00→23:37)
[2018-12-02 06:20] LABS: African American GFR (CKD) >90 (>60 ml/min/1.73 sqM); Anion Gap 10 mmol/L; Blood Urea Nitrogen 7 mg/dL (7-17); Carbon Dioxide 19 mmol/L (22-30); Chloride 106 mmol/L (98-107); Glucose 79 mg/dL (74-99); Potassium 4.6 mmol/L (3.5-5.1); Sodium 135 mmol/L (137-145)
[2018-12-02 06:21] LABS: ALT 44 U/L (9-52); AST 139 U/L (14-36); Albumin 2.5 g/dL (3.5-5.0); Alkaline Phosphatase 88 U/L (38-126); Calcium 7.3 mg/dL (8.4-10.2); Magnesium 2.1 mg/dL (1.6-2.3); Total Protein 5.5 g/dL (6.3-8.2)
[2018-12-02 06:25] LABS: Total Bilirubin 18.2 mg/dL (0.2-1.3)
[2018-12-02 06:29] LABS: Anisocytosis Slight; HCT 30.5 % (34.0-46.0); HGB 9.6 gm/dL (11.4-16.0); Hypochromasia Marked; MCH 36.8 pg (25.0-35.0); MCHC 31.6 g/dL (31.0-37.0); Macrocytosis Marked; Mean Platelet Volume 6.9; Platelet Count 60 k/uL (150-450); RBC 2.62 m/uL (3.80-5.40); RDW 19.6 % (11.5-15.5); WBC 4.7 k/uL (3.8-10.6)
[2018-12-02 06:34] LABS: MCV 116.2 fL (80.0-100.0)
[2018-12-02 06:42] LABS: INR 1.9 (<1.2)
[2018-12-02] MEDS: PANTOPRAZOLE 40 MG/10 ML VIAL IVP SCH ×2 (09:01→20:28)
[2018-12-02] MEDS: ASCORBIC ACID 500 MG TAB PO SCH (09:13)
[2018-12-02 09:23] LABS: Band Neutrophils % 1 %; Eosinophils # (M) 0.14 k/uL (0-0.7); Lymphocytes # (M) 0.47 k/uL (1.0-4.8); Metamyelocytes # (M) 0.05 k/uL (0); Metamyelocytes % 1 %; Monocytes # (M) 0.47 k/uL (0-1.0); Neutrophils % (M) 78 %; Nucleated Red Blood Cells 0 /100 WBC (0-0); Total Cells Counted 200
--- NOTE | 2018-12-02 09:40 | P.PN ---
Progress Note - Text Progress Note Date: 12/02/18 The patient is obtunded. It is unclear if she is undergoing DTs. Her bilirubin increased to 18. Her liver function tests are normal. White count is normal. On exam her abdomen is soft. Patient is obviously icteric. Her recent ultrasound shows evidence of cholelithiasis with thickened gall bladder wall. If she is medically stable she'll undergo laparoscopic cholecystectomy in the a.m.
--- NOTE | 2018-12-02 11:43 | P.PN ---
Subjective Progress Note Date: 12/02/18 This is a 33-year-old female patient with known history of alcoholism and alcoholic cirrhosis who also has history of seizure disorder, gluten sensitivity , in addition to history of anorexia, history of seizure disorder, who comes into the hospital because of persistent nausea and vomiting that developed this morning. However, her main complaints have been generalized weakness, frequent falls, she has fallen and she has hit her body including the head on multiple occasions and she has bruises over her forehead, face, orbits, lateral chest on the left and until lateral chest on the right. She does have some right upper quadrant pain. The patient also complained of generalized weakness and malaise. She states that she has been seizure free. However she is been drinking a pint of vodka on a daily basis. She came in because she was getting progressively more weak and she was falling significantly and she was unable to function at home. She was also suspected to have GI bleeding. The patient however denies having any coffee-ground emesis. She denies having any bright red blood per re ctum. He was lightheaded. She has had similar presentation in the past. Specifically back in April 2018 he presented to the hospital because of inability to hold any food in. The patient had abdominal discomfort and back then and she was treated with a combination of Zofran and Protonix without any improvement in her symptoms. EGD was done by Dr. Christian, and the patient was found to have mild gastritis with biopsies of the abdomen and the body and a cardiac in the fundus being done. Duodenal biopsies were also done that ruled out the possibility of gluten sensitivity.The patient is quite debilitated. The patient's last seizure was around 2 weeks ago. She has history of pancytopenia related to alcoholism. She has had history of falls. Note that the patient's alcohol level was 186 in time of arrival. AST was 309 with an ALT of 58 and alkaline phosphatase of 111. Total bilirubin was 1.6. She has chronic neuropathic with an INR of 2.1. PT is 20.4 and a PTT is 33.5. Nevertheless, the patient is not having any signs of GI bleeding. She is awake and alert. She is not showing any signs of hepatitic encephalopathy. Abdomen is slightly distended. She is malnourished and anorexic and her BMI 17.3. The ultrasound of the abdomen was done that showed numerous gallstones. No dilated ducts. Mild hepatomegaly. Mild ascites. Moderate amount of bladder wall thickening and edema consistent with acute cholecystitis. Gallbladder edema is a change compared to old examination. On 11/29/2018 and seeing this patient for a follow-up. She remains tachycardic. Earlier this morning she had a drop in hemoglobin down to 6.2 and the patient was given a unit of packed RBC. There was no evidence of any GI bleeding. The patient did not have any coffee-ground emesis or bright red blood per rectum. Her platelet counts have dropped down to 39,000 and note that the patient has chronic thrombus cytopenia and anemia and occasional leukopenia related to chronic alcoholism. She is awake and alert. She is complaining of some nausea. She is also complaining of some upper quadrant and epigastric pain. Her INR is at 1.9. A lipase was ordered and the level was at 345. The rest of the LFTs were abnormal although comparable to yesterday with a AST of 251 and ALT of 57 c onsistent with alcohol abuse. Total protein is at 5.2. Bilirubin was at 7.2. The patient is afebrile. The patient underwent an ultrasound of the abdomen that showed mild ascites. There was mild to moderate gallbladder wall thickening and edema consistent with acute cholecystitis in for that reason a surgical consultation was obtained. On 11/30/2018 the patient continues to be nauseated. Oral intake is still low. She is not having any emesis. I discussed the case in general surgery and I think we should consider doing a cholecystectomy on this patient knowing that she has extensive cholelithiasis and chronic cholecystitis. No ascites patient is receiving IV fluids. No chest pain. No shortness of breath. No falls. She is spending most of her time in bed. She is on IV fluids which was cut down to 50 mL an hour and a urine output is somewhat between 20-30 mL an hour. INR toda y is at 1.9. Hemoglobin stable at 8.4. No signs of any GI bleed. Hemoglobin is at 8.4. White cell count is at 3.0. Platelet count is also stable at 31. As for the LFTs, they are gradually improving. AST is down to 208 with an ALT of 51. Bilirubin is elevated at 6.8 with a stable compared to yesterday. On 12/01/2018 the patient continues to be nauseated. Unfortunately she is unable to take and any significant oral intake. She was given a bolus of 1 L yesterday as the patient was becoming progressively more tachycardic. This morning she is still tachycardic and in sinus rhythm and a heart rate is somewhat between 120 and 1:30. No palpitation. No chest pain. No shortness of breath. No ascites. Her torso hematomas are pretty much unchanged in hemoglobin is stable. Urine output is order of 20-30 mL an hour. We are still contemplating a cholecystectomy on this patient by Monday. No ascites. Right upper quadrant is tender still. No significant abdominal distention. She did have a liquidy bowel movement yesterday that was nonbloody. White cell count is not elevated. Platelet count is 40,000. Bilirubin still elevated. No signs of any delirium tremens. Her antibiotic coverage is IV Unasyn. On 2018 I'm seeing this patient for a follow-up. As mentioned earlier, the patient was in the intensive care unit for complications related to alcoholism, generalized weakness, nausea and emesis and she was diagnosed having an acute cholecystitis. Yesterday, I noted that the patient was becoming progressively more tachycardic. The exact cause was not clear. I was concerned about an underlying septic event. Lactic acid level came back at 1.1. No significant le ukocytosis. No fever. As the day went by, the patient went progressively into clinic delirium tremens and alcohol withdrawal. She started getting agitated, initially paranoid and later on more restless trying to get out of bed and grab things and she was found to be progressively more confused. She was given Ativan and a total of 4 mg of Ativan was given to her throughout the morning from 1:30 to 6:30 AM this morning. Currently she is losing. She is resting comfortably in bed. Her tachycardia is improved and her heart rate is is down to 113. Urine output is in order of 15-20 mL an hour. Her white cell cause at 4.7 her hemoglobin of 9.6. Right upper quadrant is [employer]. Creatinine stable at 0.4. Her bilirubin is up to 18.2. AST is 139 ALT is at 44 and ammonia level is at 12. Serum albumin is at 2.5. She is not eating much as the patient is nauseated and since she went to [facility] she hasn't had anything to eat orally. She is receiving IV fluids in the order of 100 mL an hour of normal saline. He made on IV Unasyn. Objective - Vital Signs Vital signs: Vital Signs Temp 97.8 F 12/02/18 08:00 Pulse 112 H 12/02/18 11:00 Resp 17 12/02/18 11:00 BP 119/96 12/02/18 11:00 Pulse Ox 98 12/02/18 11:00 Intake & Output 12/01/18 12/02/18 12/02/18 18:59 06:59 18:59 Intake Total 1850 1250 500 Output Total 240 230 85 Balance 1610 1020 415 Weight 59.4 kg Intake: IV 1100 1200 500 Normal Saline 1100 1200 500 Intake, IV Titration 750 50 Amount Ampicillin-Sulbactam 1.5 50 50 gm In Sodium Chloride 0.9 % 50 ml @ 100 mls/hr IVPB Q6HR JD Rx#:[id number] Magnesium Sulfate-D5w Pmx 300 1 gm In Dextrose/Water 1 100ml.bag @ 100 mls/hr IVPB Q1H JD Rx#: [id number] Potassium Chloride 10 meq 400 In Water For Injection 1 100ml.bag @ 100 mls/hr IVPB Q1HR JD Rx#: [id number] Output: Urine 240 230 85 Other: Voiding Method Indwelling Catheter Indwelling Catheter Indwelling Catheter - Exam Gen. appearance the patient is pale, the patient is arousable. She is quite sedated at this point as the patient is under the effect of Ativan. She was restless and agitated earlier related to delirium tremens. Head shows multiple areas of trauma over the left orbital area with significant bruising and swelling and sloughing of the skin along the left upper lateral orbital area in addition to ecchymotic areas of bruising over the forehead, right cheek, left cheek, Neck was supple and without jugular venous distension, thyromegaly, or carotid bruits. Carotids were easily palpable bilaterally. There was no adenopathy. Lungs were clear to auscultation and percussion, and with normal diaphragmatic excursion. No wheezes or rales were noted. Cardiac exam revealed the PMI to be normally situated and sized. The rhythm was regular and no extrasystoles were noted during several minutes of auscultation. The first and second heart sounds were normal and physiologic splitting of the second heart sound was noted. There were no murmurs, rubs, clicks, or gallops. The patient also has areas of bruising over the anterior chest area moving laterally to the right under her breast and another bruising area in the left posterior chest area laterally. No significant chest wall deformity. Abdomen is soft and there is no significant ascites. There is a right upper quadrant tenderness. This is mainly direct tenderness no rebound tenderness or guarding. No fluid wave or shifting dullness. The patient has adequate bowel sounds. Extremities reveal there is no cyanosis or clubbing.Examination of the ex tremities revealed easily palpable radial, femoral and pedal pulses. There was no cyanosis, clubbing or edema. Skin is negative for any cellulitis. There is minimal jaundice. There is also extensive bruising as mentioned mainly over the had and the upper torso involving the chest. Neurologically patient is has a nonfocal or nonlateralizing neurologic exam. She withdraws to painful stimulation. She has a positive gag reflex and the coughing reflex. No facial asymmetry. Pupils are equal and reactive to light. - Labs CBC & Chem 7: 12/02/18 05:50 12/02/18 05:50 Labs: Abnormal Lab Results - Last 24 Hours (Table) 12/01/18 12/02/18 12/02/18 Range/Units 11:18 05:50 05:50 RBC 2.62 L (3.80-5.40) m/uL Hgb 9.6 L (11.4-16.0) gm/dL Hct 30.5 L (34.0-46.0) % MCV 116.2 H D (80.0-100.0) fL MCH 36.8 H (25.0-35.0) pg RDW 19.6 H (11.5-15.5) % Plt Count 60 L (150-450) k/uL Lymphocytes # (Manual) 0.47 L (1.0-4.8) k/uL Metamyelocytes # (Man) 0.05 H (0) k/uL Macrocytosis Marked A PT (9.0-12.0) sec INR (<1.2) Sodium 135 L (137-145) mmol/L Carbon Dioxide 19 L (22-30) mmol/L Creatinine 0.46 L (0.52-1.04) mg/dL Calcium 7.3 L (8.4-10.2) mg/dL Magnesium 2.5 H (1.6-2.3) mg/dL Total Bilirubin 18.2 H* (0.2-1.3) mg/dL AST 139 H (14-36) U/L Total Protein 5.5 L (6.3-8.2) g/dL Albumin 2.5 L (3.5-5.0) g/dL 12/02/18 Range/Units 05:50 RBC (3.80-5.40) m/uL Hgb (11.4-16.0) gm/dL Hct (34.0-46.0) % MCV (80.0-100.0) fL MCH (25.0-35.0) pg RDW (11.5-15.5) % Plt Count (150-450) k/uL Lymphocytes # (Manual) (1.0-4.8) k/uL Metamyelocytes # (Man) (0) k/uL Macrocytosis PT 19.0 H (9.0-12.0) sec INR 1.9 H (<1.2) Sodium (137-145) mmol/L Carbon Dioxide (22-30) mmol/L Creatinine (0.52-1.04) mg/dL Calcium (8.4-10.2) mg/dL Magnesium (1.6-2.3) mg/dL Total Bilirubin (0.2-1.3) mg/dL AST (14-36) U/L Total Protein (6.3-8.2) g/dL Albumin (3.5-5.0) g/dL Microbiology - Last 24 Hours (Table) 12/01/18 12:00 Urine Culture - Preliminary Urine,Catheterized Assessment and Plan Plan: 1 chronic alcoholism. The patient became progressively more confused and she went into the room tremors overnight. The patient was given Ativan. Currently she is was sedated and she is hemodynamically stable. Initially she became tachycardic and subsequently she became progressively more confused and paranoid and following that she became confused and restless and agitated. 2 alcoholic liver cirrhosis with stigmata of chronic liver disease and failure 3 generalized motor weakness and frequent falls with frequent traumatic injuries and bruising over the forehead and face and had an upper chest 4 acute/chronic cholecystitis with extensive cholelithiasis and gallbladder wall thickening with persistent nausea. Currently on IV Unasyn. The patient is being considered for cholecystectomy sometime next week. The patient is still feeling nauseated. Today's evaluation, the patient's bilirubin is even higher at 18. The plan was to do a cholecystectomy on her by Monday. Nevertheless, the issue for now as the acute delirium tremens. When he to monitor her mentation over the next 24 hours and decide if she is stable enough to undergo the surgery. The rate, she is quite weak and she is at high risk of having complications following surgery because of her liver disease and various other comorbidities. 5 seizure disorder exacerbated by alcohol drinking. 6 frequent falls 7 anorexia 8 bicytopenia with chronic anemia and thrombocytopenia related to alcoholism, white cell count is stable and the platelet count is on the rise and is up to 60,000 9 chronic anxiety 10 chronic debility related to above-mentioned comorbidities. 11 coagulopathy secondary to liver cirrhosis Plan We'll treat delirium tremens. We'll continue with IV fluids. Continue thiamine. Switched Keppra to IV. Hold off on surgeries till her delirium tremens is fully recovered. The platelet Counts are up. White cell count is stable. Continue IV Unasyn. Condition is still critical. Prognosis poor baseline above-mentioned comorbidities. We'll continue to follow. Ammonia level is low.
--- NOTE | 2018-12-02 12:29 | PN ---
PROGRESS NOTE DATE OF SERVICE: 12/02/2018 CHIEF COMPLAINT: GI bleed, alcoholism and cirrhosis. HISTORY OF PRESENT ILLNESS: This lady is becoming more lethargic. Bilirubin is up to 18. There is talk of surgery, but this likely will be difficult to carry out considering her rapid deterioration. REVIEW OF SYSTEMS: Review of systems is unobtainable. PHYSICAL EXAMINATION: She is not arousable. She has become extremely jaundiced. Chest demonstrates scattered rales and very few rhonchi. Cardiac exam demonstrates tachycardia and the abdomen is slightly protuberant. Extremities are unchanged. IMPRESSION: 1. Chronic alcoholism. 2. Alcoholic hepatitis. 3. Cirrhosis. 4. Ascites. 5. Rising bilirubin. 6. Cholecystitis. 7. Cholelithiasis. PLAN: Continue to follow with intensive medicine, GI and surgery. Prognosis is poor. MMODL / IJN: [id number] /
[2018-12-02] MEDS: levETIRAcetam IV 1,000 MG in SALINE 1 100ML.BAG IVPB SCH ×2 (12:40→20:28)
--- NOTE | 2018-12-02 19:32 | P.PN ---
Subjective Progress Note Date: 12/02/18 Principal diagnosis: Acute alcoholic hepatitis, pancytopenia, nausea and vomiting The patient is seen lying in bed. Patient was agitated and delirious overnight and has been receiving benzodiazepine therapy for alcohol withdrawal. Objective - Vital Signs Vital signs: Vital Signs Temp 97.2 F L 12/02/18 16:00 Pulse 117 H 12/02/18 17:00 Resp 26 H 12/02/18 17:00 BP 118/90 12/02/18 17:00 Pulse Ox 96 12/02/18 17:00 Intake & Output 12/01/18 12/02/18 12/02/18 18:59 06:59 18:59 Intake Total 1850 1250 1250 Output Total 240 230 185 Balance 1610 1020 1065 Weight 59.4 kg Intake: IV 1100 1200 1100 Normal Saline 1100 1200 1100 Intake, IV Titration 750 50 150 Amount Ampicillin-Sulbactam 1.5 50 50 50 gm In Sodium Chloride 0.9 % 50 ml @ 100 mls/hr IVPB Q6HR JD Rx#:[id number] Magnesium Sulfate-D5w Pmx 300 1 gm In Dextrose/Water 1 100ml.bag @ 100 mls/hr IVPB Q1H JD Rx#: [id number] Potassium Chloride 10 meq 400 In Water For Injection 1 100ml.bag @ 100 mls/hr IVPB Q1HR JD Rx#: [id number] levETIRAcetam IV 1,000 mg 100 In Saline 1 100ml.bag @ 400 mls/hr IVPB Q12HR JD Rx#:[id number] Output: Urine 240 230 185 Other: Voiding Method Indwelling Catheter Indwelling Catheter Indwelling Catheter - Exam On physical examination, patient appears comfortable in no apparent distress. HEAD: Normocephalic, atraumatic. EYES: Scleral icterus. No conjunctival injection. MOUTH: No lesions, tongue midline. NECK: Trachea midline, no gross abnormalities. CHEST: Decreased air entry bilaterally. HEART: Regular rate and rhythm. ABDOMEN: Soft, obese and mildly distended. Bowel sounds are positive. No organomegaly. No guarding or rigidity. EXTREMITIES: Bilateral pedal edema. SKIN: No rashes, jaundice. NEUROLOGIC: Somnolent, no asterixis. No focal deficits. - Labs CBC & Chem 7: 12/02/18 05:50 12/02/18 05:50 Labs: Abnormal Lab Results - Last 24 Hours (Table) 12/02/18 12/02/18 12/02/18 Range/Units 05:50 05:50 05:50 RBC 2.62 L (3.80-5.40) m/uL Hgb 9.6 L (11.4-16.0) gm/dL Hct 30.5 L (34.0-46.0) % MCV 116.2 H D (80.0-100.0) fL MCH 36.8 H (25.0-35.0) pg RDW 19.6 H (11.5-15.5) % Plt Count 60 L (150-450) k/uL Lymphocytes # (Manual) 0.47 L (1.0-4.8) k/uL Metamyelocytes # (Man) 0.05 H (0) k/uL Macrocytosis Marked A PT 19.0 H (9.0-12.0) sec INR 1.9 H (<1.2) Sodium 135 L (137-145) mmol/L Carbon Dioxide 19 L (22-30) mmol/L Creatinine 0.46 L (0.52-1.04) mg/dL Calcium 7.3 L (8.4-10.2) mg/dL Total Bilirubin 18.2 H* (0.2-1.3) mg/dL AST 139 H (14-36) U/L Total Protein 5.5 L (6.3-8.2) g/dL Albumin 2.5 L (3.5-5.0) g/dL Microbiology - Last 24 Hours (Table) 12/01/18 11:18 Blood Culture - Preliminary Blood No Growth after 24 hours 12/01/18 12:00 Urine Culture - Preliminary Urine,Catheterized Assessment and Plan (1) Elevated LFTs Narrative/Plan: 33-year-old female with a medical history significant for alcohol abuse and prior hospitalization for similar complaints of nausea and vomiting, jaundice, alcohol withdrawal acute alcoholic hepatitis. Currently receiving treatment in the intensive care unit with tentative plan for cholecystectomy. The patient has remained nauseated with poor oral intake. Liver enzymes remain persistently elevated, consistent with history of alcoholic hepatitis. Laboratory testing for chronic hepatitis B and C negative. Current Visit: Yes Status: Acute Code(s): R79.89 - OTHER SPECIFIED ABNORMAL FINDINGS OF BLOOD CHEMISTRY SNOMED Code(s): 386750330 (2) Coagulopathy Current Visit: Yes Status: Acute Priority: Medium Code(s): D68.9 - COAGULATION DEFECT, UNSPECIFIED SNOMED Code(s): 22978996 (3) Intractable nausea and vomiting Current Visit: No Status: Acute Code(s): R11.2 - NAUSEA WITH VOMITING, UNSPECIFIED SNOMED Code(s): 181296681 (4) Pancytopenia Current Visit: No Status: Acute Priority: Medium Code(s): D61.818 - OTHER PANCYTOPENIA SNOMED Code(s): 425438985 (5) Alcohol abuse Current Visit: No Status: Chronic Code(s): F10.10 - ALCOHOL ABUSE, UNCOMPLICATED SNOMED Code(s): 14523843 Plan: Supportive care Okay for diet Continue antiemetic therapy Protonix twice daily Continue to monitor liver enzymes, CBC, INR Appreciate recommendations from surgical and liquid center assembler service Continue Unasyn No plans for endoscopic evaluation at this time Thank you for allowing us to participate in the care of the patient we will continue to follow
[2018-12-02] MEDS: levETIRAcetam 500 MG TAB PO SCH (19:43)
[2018-12-02] MEDS: traZODone HCL 50 MG TAB PO SCH (20:23)
[2018-12-03] MEDS: LORazepam 2 MG/ML INJ IV PRN ×2 (00:13→04:58)
[2018-12-03] MEDS: SODIUM CHLORIDE 0.9% 1,000 ML IV SCH ×3 (00:53→20:12)
[2018-12-03] MEDS: AMPICILLIN-SULBACTAM 1.5 GM in SODIUM CHLORIDE 0.9% 50 ML IVPB SCH ×3 (05:26→17:34)
[2018-12-03 05:53] LABS: ALT 36 U/L (9-52); AST 107 U/L (14-36); African American GFR (CKD) >90 (>60 ml/min/1.73 sqM); Albumin 2.3 g/dL (3.5-5.0); Alkaline Phosphatase 91 U/L (38-126); Anion Gap 11 mmol/L; Blood Urea Nitrogen 7 mg/dL (7-17); Calcium 7.7 mg/dL (8.4-10.2); Carbon Dioxide 17 mmol/L (22-30); Chloride 107 mmol/L (98-107); Glucose 72 mg/dL (74-99); Potassium 4.5 mmol/L (3.5-5.1); Sodium 135 mmol/L (137-145)
[2018-12-03 06:17] LABS: Total Bilirubin 19.4 mg/dL (0.2-1.3); Total Protein 5.3 g/dL (6.3-8.2)
[2018-12-03] MEDS: ASCORBIC ACID 500 MG TAB PO SCH (08:15)
[2018-12-03] MEDS: PANTOPRAZOLE 40 MG/10 ML VIAL IVP SCH ×2 (08:18→20:10)
[2018-12-03] MEDS: levETIRAcetam IV 1,000 MG in SALINE 1 100ML.BAG IVPB SCH ×2 (08:18→20:10)
[2018-12-03 09:19] LABS: Anisocytosis Moderate; HCT 31.4 % (34.0-46.0); HGB 9.7 gm/dL (11.4-16.0); Hypochromasia Marked; MCH 35.7 pg (25.0-35.0); MCHC 30.7 g/dL (31.0-37.0); Macrocytosis Marked; Mean Platelet Volume 7.2; RDW 20.2 % (11.5-15.5); WBC 3.4 k/uL (3.8-10.6)
[2018-12-03 09:42] LABS: MCV 116.2 fL (80.0-100.0); Platelet Count 73 k/uL (150-450)
[2018-12-03 09:43] LABS: INR 1.9 (<1.2)
[2018-12-03 09:57] LABS: Band Neutrophils % 2 %; Basophils # (M) 0.03 k/uL (0-0.2); Lymphocytes # (M) 0.14 k/uL (1.0-4.8); Monocytes # (M) 0.65 k/uL (0-1.0); Myelocytes # (M) 0.03 k/uL (0); Myelocytes % 1 %; Neutrophils % (M) 72 %; Nucleated Red Blood Cells 0 /100 WBC (0-0); Poikilocytosis (M) Present; Total Cells Counted 200
--- NOTE | 2018-12-03 12:16 | PN ---
PROGRESS NOTE CHIEF COMPLAINT: Upper GI bleed, jaundice, cirrhosis. HISTORY OF PRESENT ILLNESS: This lady might be a little bit more alert today than yesterday. Bilirubin was slightly to 19. Cardiac enzymes have been normal or near normal. REVIEW OF SYSTEMS: Unobtainable. PHYSICAL EXAMINATION: Blood pressure is 127/64. Head, ears, eyes, nose, mouth, and throat were unremarkable except for jaundice. She seems to be a little bit more arousable. Chest is clear. Cardiac exam is normal and the abdomen is soft and slightly protuberant. Extremities are normal. IMPRESSION: 1. Upper gastrointestinal bleed. 2. Cirrhosis. 3. Alcoholic hepatitis. 4. Chronic alcoholism. 5. Pancytopenia. 6. Anorexia. 7. Bulimia. PLAN: Continue with supportive care and await to see if her encephalopathy clears. MMODL / IJN: [id number] /
--- NOTE | 2018-12-03 13:45 | P.PN ---
Subjective Progress Note Date: 12/03/18 Principal diagnosis: Chronic alcoholism and possible acute cholecystitis. This is a 33-year-old female patient with known history of alcoholism and alcoholic cirrhosis who also has history of seizure disorder, gluten sensitivity , in addition to history of anorexia, history of seizure disorder, who comes into the hospital because of persistent nausea and vomiting that developed this morning. However, her main complaints have been generalized weakness, frequent falls, she has fallen and she has hit her body including the head on multiple occasions and she has bruises over her forehead, face, orbits, lateral chest on the left and until lateral chest on the right. She does have some right upper quadrant pain. The patient also complained of generalized weakness and malaise. She states that she has been seizure free. However she is been drinking a pint of vodka on a daily basis. She came in because she was getting progressively more weak and she was falling significantly and she was unable to function at home. She was also suspected to have GI bleeding. The patient however denies having any coffee-ground emesis. She denies having any bright red blood per re ctum. He was lightheaded. She has had similar presentation in the past. Specifically back in April 2018 he presented to the hospital because of inability to hold any food in. The patient had abdominal discomfort and back then and she was treated with a combination of Zofran and Protonix without any improvement in her symptoms. EGD was done by Dr. Christian, and the patient was found to have mild gastritis with biopsies of the abdomen and the body and a cardiac in the fundus being done. Duodenal biopsies were also done that ruled out the possibility of gluten sensitivity.The patient is quite debilitated. The patient's last seizure was around 2 weeks ago. She has history of pancytopenia related to alcoholism. She has had history of falls. Note that the patient's alcohol level was 186 in time of arrival. AST was 309 with an ALT of 58 and alkaline phosphatase of 111. Total bilirubin was 1.6. She has chronic neuropathic with an INR of 2.1. PT is 20.4 and a PTT is 33.5. Nevertheless, the patient is not having any signs of GI bleeding. She is awake and alert. She is not showing any signs of hepatitic encephalopathy. Abdomen is slightly distended. She is malnourished and anorexic and her BMI 17.3. The ultrasound of the abdomen was done that showed numerous gallstones. No dilated ducts. Mild hepatomegaly. Mild ascites. Moderate amount of bladder wall thickening and edema consistent with acute cholecystitis. Gallbladder edema is a change compared to old examination. On 11/29/2018 and seeing this patient for a follow-up. She remains tachycardic. Earlier this morning she had a drop in hemoglobin down to 6.2 and the patient was given a unit of packed RBC. There was no evidence of any GI bleeding. The patient did not have any coffee-ground emesis or bright red blood per rectum. Her platelet counts have dropped down to 39,000 and note that the patient has chronic thrombus cytopenia and anemia and occasional leukopenia related to chronic alcoholism. She is awake and alert. She is complaining of some nausea. She is also complaining of some upper quadrant and epigastric pain. Her INR is at 1.9. A lipase was ordered and the level was at 345. The rest of the LFTs were abnormal although comparable to yesterday with a AST of 251 and ALT of 57 c onsistent with alcohol abuse. Total protein is at 5.2. Bilirubin was at 7.2. The patient is afebrile. The patient underwent an ultrasound of the abdomen that showed mild ascites. There was mild to moderate gallbladder wall thickening and edema consistent with acute cholecystitis in for that reason a surgical consultation was obtained. On 11/30/2018 the patient continues to be nauseated. Oral intake is still low. She is not having any emesis. I discussed the case in general surgery and I think we should consider doing a cholecystectomy on this patient knowing that she has extensive cholelithiasis and chronic cholecystitis. No ascites patient is receiving IV fluids. No chest pain. No shortness of breath. No falls. She is spending most of her time in bed. She is on IV fluids which was cut down to 50 mL an hour and a urine output is somewhat between 20-30 mL an hour. INR toda y is at 1.9. Hemoglobin stable at 8.4. No signs of any GI bleed. Hemoglobin is at 8.4. White cell count is at 3.0. Platelet count is also stable at 31. As for the LFTs, they are gradually improving. AST is down to 208 with an ALT of 51. Bilirubin is elevated at 6.8 with a stable compared to yesterday. On 12/01/2018 the patient continues to be nauseated. Unfortunately she is unable to take and any significant oral intake. She was given a bolus of 1 L yesterday as the patient was becoming progressively more tachycardic. This morning she is still tachycardic and in sinus rhythm and a heart rate is somewhat between 120 and 1:30. No palpitation. No chest pain. No shortness of breath. No ascites. Her torso hematomas are pretty much unchanged in hemoglobin is stable. Urine output is order of 20-30 mL an hour. We are still contemplating a cholecystectomy on this patient by Monday. No ascites. Right upper quadrant is tender still. No significant abdominal distention. She did have a liquidy bowel movement yesterday that was nonbloody. White cell count is not elevated. Platelet count is 40,000. Bilirubin still elevated. No signs of any delirium tremens. Her antibiotic coverage is IV Unasyn. On 2018 I'm seeing this patient for a follow-up. As mentioned earlier, the patient was in the intensive care unit for complications related to alcoholism, generalized weakness, nausea and emesis and she was diagnosed having an acute cholecystitis. Yesterday, I noted that the patient was becoming progressively more tachycardic. The exact cause was not clear. I was concerned about an underlying septic event. Lactic acid level came back at 1.1. No significant le ukocytosis. No fever. As the day went by, the patient went progressively into clinic delirium tremens and alcohol withdrawal. She started getting agitated, initially paranoid and later on more restless trying to get out of bed and grab things and she was found to be progressively more confused. She was given Ativan and a total of 4 mg of Ativan was given to her throughout the morning from 1:30 to 6:30 AM this morning. Currently she is losing. She is resting comfortably in bed. Her tachycardia is improved and her heart rate is is down to 113. Urine output is in order of 15-20 mL an hour. Her white cell cause at 4.7 her hemoglobin of 9.6. Right upper quadrant is quiller tender. Creatinine stable at 0.4. Her bilirubin is up to 18.2. AST is 139 ALT is at 44 and ammonia level is at 12. Serum albumin is at 2.5. She is not eating much as the patient is nauseated and since she went to s she hasn't had anything to eat orally. She is receiving IV fluids in the order of 100 mL an hour of normal saline. He made on IV Unasyn. Reevaluated today on 12/02/2018, patient remains in the ICU, she has multiple medical problems including alcoholism, recurrent episodes of nausea and vom iting, seen by surgery, and planning to take the patient for laparoscopic cholecystectomy today. Patient remains on the alcohol withdrawal protocol, she seems to be calm today, she is extremely jaundice. And her bilirubin seems to be on the rise. Denies any shortness of breath. Denies any cough no wheezing. His CBC is relatively normal hemoglobin is 9.7 WBC count is 3.4. INR is 1.9, patient will be receiving fresh frozen plasma and vitamin K before surgery. Elect lites are normal renal profile is normal bicarb is between 17 and 21. Bilirubin is still high at 19.4. Albumin is 2.3. Objective - Vital Signs Vital signs: Vital Signs Temp 98.2 F 12/03/18 12:00 Pulse 115 H 12/03/18 12:00 Resp 25 H 12/03/18 12:00 BP 105/80 12/03/18 12:00 Pulse Ox 94 L 12/03/18 12:00 Intake & Output 12/02/18 12/03/18 12/03/18 18:59 06:59 18:59 Intake Total 1400 1300 400 Output Total 200 225 85 Balance 1200 1075 315 Weight 62.4 kg 62.4 kg Intake: IV 1200 1200 400 Normal Saline 1200 1200 400 Intake, IV Titration 200 100 Amount Ampicillin-Sulbactam 1.5 100 gm In Sodium Chloride 0.9 % 50 ml @ 100 mls/hr IVPB Q6HR JD Rx#:[id number] levETIRAcetam IV 1,000 mg 100 100 In Saline 1 100ml.bag @ 400 mls/hr IVPB Q12HR JD Rx#:[id number] Output: Urine 200 225 85 Other: Voiding Method Indwelling Catheter Indwelling Catheter Indwelling Catheter - Exam physical examination, revealed a 33-year-old female, jaundice, in no distress. HEAD: Normocephalic, atraumatic. EYES: PERRLA, EOMI, positive icterus. MOUTH: No lesions, tongue midline. NECK: Trachea midline, no gross abnormalities. CHEST: Symmetrical chest expansion, clear breath sound bilaterally no crackles or rhonchi or wheezes. HEART: Normal S1 and S2, no S3 gallop. ABDOMEN: Soft nontender no megaly no rebound no guarding.. EXTREMITIES: Trace of bipedal edema. SKIN: No rashes, positive jaundice, areas of bruising noted in the left facial area. NEUROLOGIC: Alert oriented 3, no gross focal neurologic deficit. No asterixis - Labs CBC & Chem 7: 12/03/18 08:33 12/03/18 04:47 Labs: Abnormal Lab Results - Last 24 Hours (Table) 12/03/18 12/03/18 12/03/18 Range/Units 04:47 08:33 08:33 WBC 3.4 L (3.8-10.6) k/uL RBC 2.70 L (3.80-5.40) m/uL Hgb 9.7 L (11.4-16.0) gm/dL Hct 31.4 L (34.0-46.0) % MCV 116.2 H (80.0-100.0) fL MCH 35.7 H (25.0-35.0) pg MCHC 30.7 L (31.0-37.0) g/dL RDW 20.2 H (11.5-15.5) % Plt Count 73 L (150-450) k/uL Lymphocytes # (Manual) 0.14 L (1.0-4.8) k/uL Myelocytes # (Manual) 0.03 H (0) k/uL Macrocytosis Marked A PT 19.0 H (9.0-12.0) sec INR 1.9 H (<1.2) Sodium 135 L (137-145) mmol/L Carbon Dioxide 17 L (22-30) mmol/L Creatinine 0.43 L (0.52-1.04) mg/dL Glucose 72 L (74-99) mg/dL Calcium 7.7 L (8.4-10.2) mg/dL Total Bilirubin 19.4 H* (0.2-1.3) mg/dL AST 107 H (14-36) U/L Total Protein 5.3 L (6.3-8.2) g/dL Albumin 2.3 L (3.5-5.0) g/dL Microbiology - Last 24 Hours (Table) 12/01/18 11:18 Blood Culture - Preliminary Blood No Growth after 48 hours 12/01/18 12:00 Urine Culture - Final Urine,Catheterized Assessment and Plan Assessment: Impression: Alcohol liver cirrhosis Chronic alcoholism Acute on chronic cholecystitis and cholelithiasis Seizure disorder exacerbated by alcohol drinking Frequent falls secondary to above. 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 Continue Keppra, continue thiamine, address coagulopathy, continue IV antibiotics, surgery is addressing her acute cholecystitis, and possibly surgery today or tomorrow. We'll continue to follow. Prognosis is extremely poor and guarded. Time with Patient: Less than 30
[2018-12-03] MEDS ORDERED: SODIUM CHLORIDE 0.9% 1,000 ML IV ONE (17:12)
[2018-12-03] MEDS ORDERED: PHYTONADIONE 10 MG in SODIUM CHLORIDE 0.9% 50 ML IVPB STA (19:47)
--- NOTE | 2018-12-03 19:53 | P.PN ---
Subjective Progress Note Date: 12/03/18 Principal diagnosis: Acute alcoholic hepatitis, pancytopenia, nausea and vomiting The patient is seen lying in bed. The patient reports some nausea and vomiting this morning. Objective - Vital Signs Vital signs: Vital Signs Temp 98.2 F 12/03/18 12:00 Pulse 118 H 12/03/18 14:00 Resp 29 H 12/03/18 14:00 BP 111/82 12/03/18 14:00 Pulse Ox 95 12/03/18 14:00 Intake & Output 12/02/18 12/03/18 12/03/18 18:59 06:59 18:59 Intake Total 1400 1300 800 Output Total 200 225 165 Balance 1200 1075 635 Weight 62.4 kg 62.4 kg Intake: IV 1200 1200 800 Normal Saline 1200 1200 800 Intake, IV Titration 200 100 Amount Ampicillin-Sulbactam 1.5 100 gm In Sodium Chloride 0.9 % 50 ml @ 100 mls/hr IVPB Q6HR JD Rx#:[id number] levETIRAcetam IV 1,000 mg 100 100 In Saline 1 100ml.bag @ 400 mls/hr IVPB Q12HR JD Rx#:[id number] Output: Urine 200 225 165 Other: Voiding Method Indwelling Catheter Indwelling Catheter Indwelling Catheter - Exam On physical examination, patient appears comfortable in no apparent distress. HEAD: Normocephalic, atraumatic. EYES: Scleral icterus. No conjunctival injection. MOUTH: No lesions, tongue midline. NECK: Trachea midline, no gross abnormalities. CHEST: Decreased air entry bilaterally. HEART: Regular rate and rhythm. ABDOMEN: Soft, obese and mildly distended. Bowel sounds are positive. No organomegaly. No guarding or rigidity. EXTREMITIES: Bilateral pedal edema. SKIN: No rashes, jaundice. NEUROLOGIC: Somnolent but interactive and oriented 2, no asterixis. No focal deficits. - Labs CBC & Chem 7: 12/03/18 08:33 12/03/18 04:47 Labs: Abnormal Lab Results - Last 24 Hours (Table) 12/03/18 12/03/18 12/03/18 Range/Units 04:47 08:33 08:33 WBC 3.4 L (3.8-10.6) k/uL RBC 2.70 L (3.80-5.40) m/uL Hgb 9.7 L (11.4-16.0) gm/dL Hct 31.4 L (34.0-46.0) % MCV 116.2 H (80.0-100.0) fL MCH 35.7 H (25.0-35.0) pg MCHC 30.7 L (31.0-37.0) g/dL RDW 20.2 H (11.5-15.5) % Plt Count 73 L (150-450) k/uL Lymphocytes # (Manual) 0.14 L (1.0-4.8) k/uL Myelocytes # (Manual) 0.03 H (0) k/uL Macrocytosis Marked A PT 19.0 H (9.0-12.0) sec INR 1.9 H (<1.2) Sodium 135 L (137-145) mmol/L Carbon Dioxide 17 L (22-30) mmol/L Creatinine 0.43 L (0.52-1.04) mg/dL Glucose 72 L (74-99) mg/dL Calcium 7.7 L (8.4-10.2) mg/dL Total Bilirubin 19.4 H* (0.2-1.3) mg/dL AST 107 H (14-36) U/L Total Protein 5.3 L (6.3-8.2) g/dL Albumin 2.3 L (3.5-5.0) g/dL Microbiology - Last 24 Hours (Table) 12/01/18 11:18 Blood Culture - Preliminary Blood No Growth after 48 hours 12/01/18 12:00 Urine Culture - Final Urine,Catheterized Assessment and Plan (1) Elevated LFTs Narrative/Plan: 33-year-old female with a medical history significant for alcohol abuse and prior hospitalization for similar complaints of nausea and vomiting, jaundice, alcohol withdrawal acute alcoholic hepatitis. Currently receiving treatment in the intensive care unit with tentative plan for cholecystectomy. The patient has remained nauseated with poor oral intake. Liver enzymes remain persistently elevated, consistent with history of alcoholic hepatitis. Laboratory testing for chronic hepatitis B and C negative. Current Visit: Yes Status: Acute Code(s): R79.89 - OTHER SPECIFIED ABNORMAL FINDINGS OF BLOOD CHEMISTRY SNOMED Code(s): 636256552 (2) Coagulopathy Current Visit: Yes Status: Acute Priority: Medium Code(s): D68.9 - COAGULATION DEFECT, UNSPECIFIED SNOMED Code(s): 56751136 (3) Intractable nausea and vomiting Current Visit: No Status: Acute Code(s): R11.2 - NAUSEA WITH VOMITING, UNSPECIFIED SNOMED Code(s): 488473558 (4) Pancytopenia Current Visit: No Status: Acute Priority: Medium Code(s): D61.818 - OTHER PANCYTOPENIA SNOMED Code(s): 668404069 (5) Alcohol abuse Current Visit: No Status: Chronic Code(s): F10.10 - ALCOHOL ABUSE, UNCOMPLICATED SNOMED Code(s): 74484854 Plan: Supportive care Okay for diet Continue antiemetic therapy Protonix twice daily Continue to monitor liver enzymes, CBC, INR Appreciate recommendations from surgical and ocular care aide service Continue Unasyn No plans for endoscopic evaluation at this time Thank you for allowing us to participate in the care of the patient we will continue to follow
[2018-12-03] MEDS: traZODone HCL 50 MG TAB PO SCH (20:11)
[2018-12-03] MEDS ORDERED: FUROSEMIDE 10 MG/ML 4 ML VIAL IV STA (21:36)
[2018-12-04] MEDS: AMPICILLIN-SULBACTAM 1.5 GM in SODIUM CHLORIDE 0.9% 50 ML IVPB SCH ×4 (00:13→18:17)
[2018-12-04] MEDS: LORazepam 2 MG/ML INJ IV PRN ×5 (00:14→16:08)
[2018-12-04] MEDS: traMADol 50 MG TAB PO PRN (04:43)
[2018-12-04] MEDS: SODIUM CHLORIDE 0.9% 1,000 ML IV SCH ×2 (05:42→10:04)
[2018-12-04 06:27] LABS: ALT 38 U/L (9-52); AST 99 U/L (14-36); African American GFR (CKD) >90 (>60 ml/min/1.73 sqM); Albumin 2.5 g/dL (3.5-5.0); Alkaline Phosphatase 94 U/L (38-126); Anion Gap 12 mmol/L; Blood Urea Nitrogen 7 mg/dL (7-17); Calcium 7.8 mg/dL (8.4-10.2); Carbon Dioxide 18 mmol/L (22-30); Chloride 107 mmol/L (98-107); Glucose 84 mg/dL (74-99); Potassium 3.2 mmol/L (3.5-5.1); Sodium 137 mmol/L (137-145); Total Protein 5.5 g/dL (6.3-8.2)
[2018-12-04 06:28] LABS: Total Bilirubin 21.7 mg/dL (0.2-1.3)
[2018-12-04 06:46] LABS: Prothrombin Time 19.2 sec (9.0-12.0)
[2018-12-04 06:52] LABS: Anisocytosis Slight; HCT 29.2 % (34.0-46.0); HGB 9.5 gm/dL (11.4-16.0); Hypochromasia Moderate; MCH 37.1 pg (25.0-35.0); MCHC 32.5 g/dL (31.0-37.0); MCV 114.2 fL (80.0-100.0); Macrocytosis Marked; Mean Platelet Volume 6.5; RBC 2.56 m/uL (3.80-5.40); RDW 19.5 % (11.5-15.5); WBC 3.2 k/uL (3.8-10.6)
[2018-12-04] MEDS ORDERED: Potassium Replacement Protocol 1 EACH MISC MISCELLANE PRN ×2 (06:53→07:06)
[2018-12-04 06:57] LABS: Platelet Count 79 k/uL (150-450)
[2018-12-04 07:54] LABS: Eosinophils # (M) 0.06 k/uL (0-0.7); Nucleated Red Blood Cells 0 /100 WBC (0-0)
[2018-12-04 07:55] LABS: Lymphocytes # (M) 0.48 k/uL (1.0-4.8); Monocytes # (M) 0.54 k/uL (0-1.0); Neutrophils % (M) 66 %; Total Cells Counted 200
[2018-12-04] MEDS: ASCORBIC ACID 500 MG TAB PO SCH (08:12)
[2018-12-04] MEDS: POTASSIUM CHLORIDE ER 20 MEQ TAB.ER PO SCH ×2 (08:12→08:25)
[2018-12-04] MEDS: PANTOPRAZOLE 40 MG/10 ML VIAL IVP SCH ×2 (08:20→08:21)
[2018-12-04] MEDS: POTASSIUM CHLORIDE 10 MEQ in WATER FOR INJECTION 1 100ML.BAG IVPB SCH ×4 (08:21→11:15)
[2018-12-04] MEDS: levETIRAcetam IV 1,000 MG in SALINE 1 100ML.BAG IVPB SCH ×2 (09:41→23:49)
[2018-12-04] MEDS ORDERED: SODIUM CHLORIDE 0.9% 500 ML 500 ML IV ONE (10:02)
--- NOTE | 2018-12-04 11:40 | P.PN ---
Subjective Progress Note Date: 12/04/18 Principal diagnosis: Chronic alcoholism and possible acute cholecystitis. This is a 33-year-old female patient with known history of alcoholism and alcoholic cirrhosis who also has history of seizure disorder, gluten sensitivity , in addition to history of anorexia, history of seizure disorder, who comes into the hospital because of persistent nausea and vomiting that developed this morning. However, her main complaints have been generalized weakness, frequent falls, she has fallen and she has hit her body including the head on multiple occasions and she has bruises over her forehead, face, orbits, lateral chest on the left and until lateral chest on the right. She does have some right upper quadrant pain. The patient also complained of generalized weakness and malaise. She states that she has been seizure free. However she is been drinking a pint of vodka on a daily basis. She came in because she was getting progressively more weak and she was falling significantly and she was unable to function at home. She was also suspected to have GI bleeding. The patient however denies having any coffee-ground emesis. She denies having any bright red blood per re ctum. He was lightheaded. She has had similar presentation in the past. Specifically back in April 2018 he presented to the hospital because of inability to hold any food in. The patient had abdominal discomfort and back then and she was treated with a combination of Zofran and Protonix without any improvement in her symptoms. EGD was done by Dr. Christian, and the patient was found to have mild gastritis with biopsies of the abdomen and the body and a cardiac in the fundus being done. Duodenal biopsies were also done that ruled out the possibility of gluten sensitivity.The patient is quite debilitated. The patient's last seizure was around 2 weeks ago. She has history of pancytopenia related to alcoholism. She has had history of falls. Note that the patient's alcohol level was 186 in time of arrival. AST was 309 with an ALT of 58 and alkaline phosphatase of 111. Total bilirubin was 1.6. She has chronic neuropathic with an INR of 2.1. PT is 20.4 and a PTT is 33.5. Nevertheless, the patient is not having any signs of GI bleeding. She is awake and alert. She is not showing any signs of hepatitic encephalopathy. Abdomen is slightly distended. She is malnourished and anorexic and her BMI 17.3. The ultrasound of the abdomen was done that showed numerous gallstones. No dilated ducts. Mild hepatomegaly. Mild ascites. Moderate amount of bladder wall thickening and edema consistent with acute cholecystitis. Gallbladder edema is a change compared to old examination. On 11/29/2018 and seeing this patient for a follow-up. She remains tachycardic. Earlier this morning she had a drop in hemoglobin down to 6.2 and the patient was given a unit of packed RBC. There was no evidence of any GI bleeding. The patient did not have any coffee-ground emesis or bright red blood per rectum. Her platelet counts have dropped down to 39,000 and note that the patient has chronic thrombus cytopenia and anemia and occasional leukopenia related to chronic alcoholism. She is awake and alert. She is complaining of some nausea. She is also complaining of some upper quadrant and epigastric pain. Her INR is at 1.9. A lipase was ordered and the level was at 345. The rest of the LFTs were abnormal although comparable to yesterday with a AST of 251 and ALT of 57 c onsistent with alcohol abuse. Total protein is at 5.2. Bilirubin was at 7.2. The patient is afebrile. The patient underwent an ultrasound of the abdomen that showed mild ascites. There was mild to moderate gallbladder wall thickening and edema consistent with acute cholecystitis in for that reason a surgical consultation was obtained. On 11/30/2018 the patient continues to be nauseated. Oral intake is still low. She is not having any emesis. I discussed the case in general surgery and I think we should consider doing a cholecystectomy on this patient knowing that she has extensive cholelithiasis and chronic cholecystitis. No ascites patient is receiving IV fluids. No chest pain. No shortness of breath. No falls. She is spending most of her time in bed. She is on IV fluids which was cut down to 50 mL an hour and a urine output is somewhat between 20-30 mL an hour. INR toda y is at 1.9. Hemoglobin stable at 8.4. No signs of any GI bleed. Hemoglobin is at 8.4. White cell count is at 3.0. Platelet count is also stable at 31. As for the LFTs, they are gradually improving. AST is down to 208 with an ALT of 51. Bilirubin is elevated at 6.8 with a stable compared to yesterday. On 12/01/2018 the patient continues to be nauseated. Unfortunately she is unable to take and any significant oral intake. She was given a bolus of 1 L yesterday as the patient was becoming progressively more tachycardic. This morning she is still tachycardic and in sinus rhythm and a heart rate is somewhat between 120 and 1:30. No palpitation. No chest pain. No shortness of breath. No ascites. Her torso hematomas are pretty much unchanged in hemoglobin is stable. Urine output is order of 20-30 mL an hour. We are still contemplating a cholecystectomy on this patient by Monday. No ascites. Right upper quadrant is tender still. No significant abdominal distention. She did have a liquidy bowel movement yesterday that was nonbloody. White cell count is not elevated. Platelet count is 40,000. Bilirubin still elevated. No signs of any delirium tremens. Her antibiotic coverage is IV Unasyn. On 12/02 2018 I'm seeing this patient for a follow-up. As mentioned earlier, the patient was in the intensive care unit for complications related to alcoholism, generalized weakness, nausea and emesis and she was diagnosed having an acute cholecystitis. Yesterday, I noted that the patient was becoming progressively more tachycardic. The exact cause was not clear. I was concerned about an underlying septic event. Lactic acid level came back at 1.1. No significant leukocytosis. No fever. As the day went by, the patient went progressively into clinic delirium tremens and alcohol withdrawal. She started getting agitated, initially paranoid and later on more restless trying to get out of bed and grab things and she was found to be progressively more confused. She was given Ativan and a total of 4 mg of Ativan was given to her throughout the morning from 1:30 to 6:30 AM this morning. Currently she is losing. She is resting comfortably in bed. Her tachycardia is improved and her heart rate is is down to 113. Urine output is in order of 15-20 mL an hour. Her white cell cause at 4.7 her hemoglobin of 9.6. Right upper quadrant is shredding machine tender. Cre atinine stable at 0.4. Her bilirubin is up to 18.2. AST is 139 ALT is at 44 and ammonia level is at 12. Serum albumin is at 2.5. She is not eating much as the patient is nauseated and since she went to [facility] she hasn't had anything to eat orally. She is receiving IV fluids in the order of 100 mL an hour of normal saline. He made on IV Unasyn. Reevaluated today on 12/03/2018, patient remains in the ICU, she has multiple medical problems including alcoholism, recurrent episodes of nausea and vomiting, seen by surgery, and planning to take the patient for laparoscopic cholecystectomy today. Patient remains on the alcohol withdrawal protocol, she seems to be calm today, she is extremely jaundice. And her bilirubin seems to be on the rise. Denies any shortness of breath. Denies any cough no wheezing. His CBC is relatively normal hemoglobin is 9.7 WBC count is 3.4. INR is 1.9, patient will be receiving fresh frozen plasma and vitamin K before surgery. Elect lites are normal renal profile is normal bicarb is between 17 and 21. Bilirubin is still high at 19.4. Albumin is 2.3. Reevaluated today on 12/04/2018, remains in the ICU on the alcohol withdrawal protocol, she had occasional nausea, patient is scheduled to undergo laparoscopic cholecystectomy today. Patient is on room air, cough, hemodynamically stable, urine output was marginal yesterday, given fluid boluses followed by Lasix late last night, then she responded well to fluids and Lasix. CBC is relatively normal today. Platelets remained low at 79,000. INR is 2.0. Potassium is 3.2. Being corrected as per protocol. Total bilirubin is increasing at 21.7. Objective - Vital Signs Vital signs: Vital Signs Temp 97.6 F 12/04/18 08:00 Pulse 101 H 12/04/18 11:00 Resp 28 H 12/04/18 11:00 BP 111/87 12/04/18 11:00 Pulse Ox 93 L 12/04/18 10:00 Intake & Output 12/03/18 12/04/18 12/04/18 18:59 06:59 18:59 Intake Total 2150 1400 1550 Output Total 220 1500 115 Balance 1930 -100 1435 Weight 62.4 kg 64 kg Intake: IV 2150 1400 1050 Ampicillin-Sulbactam 1.5 50 200 gm In Sodium Chloride 0.9 % 50 ml @ 100 mls/hr IVPB Q6HR [facility] Rx#:[id number] Normal Saline 1100 1200 550 Sodium Chloride 0.9% 1, 1000 500 000 ml @ 999 mls/hr IV . Q1H1M [facility] Rx#:[id number] Intake, IV Titration 500 Amount Potassium Chloride 10 meq 400 In Water For Injection 1 100ml.bag @ 100 mls/hr IVPB Q1HR [facility] Rx#: [id number] levETIRAcetam IV 1,000 mg 100 In Saline 1 100ml.bag @ 400 mls/hr IVPB Q12HR [facility] Rx#:[id number] Output: Urine 220 1500 115 Other: Voiding Method Indwelling Catheter Indwelling Catheter Indwelling Catheter - Exam physical examination, revealed a 33-year-old female, jaundiced, in no distress. HEAD: Normocephalic, atraumatic. EYES: PERRLA, EOMI, positive icterus. MOUTH: No lesions, tongue midline. NECK: Trachea midline, no gross abnormalities. CHEST: Symmetrical chest expansion, clear breath sound bilaterally no crackles or rhonchi or wheezes. HEART: Normal S1 and S2, no S3 gallop. ABDOMEN: Soft nontender no megaly no rebound no guarding.. EXTREMITIES: Trace of bipedal edema. SKIN: No rashes, positive jaundice, areas of bruising noted in the left facial area. NEUROLOGIC: Alert oriented 3, no gross focal neurologic deficit. No asterixis - Labs CBC & Chem 7: 12/04/18 05:29 12/04/18 05:29 Labs: Abnormal Lab Results - Last 24 Hours (Table) 12/04/18 12/04/18 12/04/18 Range/Units 05:29 05:29 05:29 WBC 3.2 L (3.8-10.6) k/uL RBC 2.56 L (3.80-5.40) m/uL Hgb 9.5 L (11.4-16.0) gm/dL Hct 29.2 L (34.0-46.0) % MCV 114.2 H (80.0-100.0) fL MCH 37.1 H (25.0-35.0) pg RDW 19.5 H (11.5-15.5) % Plt Count 79 L (150-450) k/uL Lymphocytes # (Manual) 0.48 L (1.0-4.8) k/uL Macrocytosis Marked A PT 19.2 H (9.0-12.0) sec INR 2.0 H (<1.2) Potassium 3.2 L (3.5-5.1) mmol/L Carbon Dioxide 18 L (22-30) mmol/L Creatinine 0.48 L (0.52-1.04) mg/dL Calcium 7.8 L (8.4-10.2) mg/dL Total Bilirubin 21.7 H* (0.2-1.3) mg/dL AST 99 H (14-36) U/L Total Protein 5.5 L (6.3-8.2) g/dL Albumin 2.5 L (3.5-5.0) g/dL Microbiology - Last 24 Hours (Table) 12/01/18 11:18 Blood Culture - Preliminary Blood No Growth after 48 hours Assessment and Plan Assessment: Impression: Alcohol liver cirrhosis Chronic alcoholism Acute on chronic cholecystitis and cholelithiasis Seizure disorder exacerbated by alcohol drinking Frequent falls secondary to above. 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 Continue all withdrawal protocol. Continue Keppra thiamine Continue IV antibiotics. Considering her coagulopathy, I wonder if the patient could even undergo surgery today. This will be left for the surgeon to decide. Overall prognosis remains poor and guarded. We'll continue to follow in the ICU. Time with Patient: Less than 30
--- NOTE | 2018-12-04 14:00 | PN ---
PROGRESS NOTE CHIEF COMPLAINT: Upper GI bleed, alcoholism, cirrhosis, cholecystitis, DTs. HISTORY OF PRESENT ILLNESS: This lady is becoming a little bit more awake and alert. It is planned that she is to go to the operating room today for cholecystectomy. However, her INR is 2 today and her potassium is also low at 3.2. REVIEW OF SYSTEMS: Unobtainable. PHYSICAL EXAMINATION: She is a little bit more awake and alert. She is not responding normally, however. Blood pressure is 112/71, jaundice continues to be marked. Pupils were equal, round and reactive. Chest demonstrates occasional rhonchi bilaterally. The cardiac exam is normal and the abdomen is slightly protuberant and soft. IMPRESSION: 1. Upper gastrointestinal bleed. 2. Alcoholism. 3. Cirrhosis. 4. Hepatic failure. 5. Cholecystitis. 6. Alcoholic encephalopathy. 7. Hypokalemia. 8. Hyperprothrombinemia. PLAN: No change in program. We will see if surgery takes her to the operating room today or holds off. MMODL / IJN: [id number] /
--- NOTE | 2018-12-04 16:40 | P.CONS ---
"History of Present Illness - Chief Complaint Medical debility - History of Present Illness I had the opportunity to see patient for inpatient rehab consultation with regard to medical debility. Patient admitted to [facility] November 28 intractable nausea and known alcoholic liver disease. Seen by Dr. Hodges and Shira for acute cholecystitis. Seen by Dr. Palmer for ICU and pulmonary. Abdominal ultrasound demonstrates multiple gallstones, hepatomegaly, mild ascites and gallbladder wall thickening consistent with acute cholecystitis. PT and OT prescribed and I have added speech therapy at this time. Patient reports that this is not her first admission for this type of problem. Previous functional history as elicited from patient: 33-year-old right-handed white female who is single lives in one floor home alone. Works full-time. Patient poor historian due to debility. Review of Systems Review of systems: ENT: Denies sneezes or discharge. Eyes: Denies discharge or photophobia. Cardiac: Denies chest pain or palpitation. Mild lower extremity edema. Pulmonary: Denies cough or shortness of breath. Breast: Denies discharge or lumps. Gastrointestinal: Denies nausea, emesis, constipation, diarrhea. Genitourinary: Denies discharge or frequency. Musculoskeletal: Denies muscle or bone aches. Neurologic: Marked generalized weakness. Endocrine: Denies shakes or sweats. Oncology: Denies cancers. Dermatologic: Denies rash, itching, pruritus. ALLERGY/immunology: Denies sneezes, rashes. Past Medical History Past Medical History: Seizure Disorder Additional Past Medical History / Comment(s): Seizure disorder in the patient's last seizure was several months back, this could've been also alcoholic seizures, chronic alcoholism, anorexia nervosa, history of bone marrow suppression related to alcoholism with pancytopenia, frequent falls, previous history of nausea vomiting and EGD showing mild gastritis from April 2018, alcoholic liver cirrhosis. History of Any Multi-Drug Resistant Organisms: None Reported Past Surgical History: No Surgical Hx Reported Additional Past Surgical History / Comment(s): EGD, wisdom teeth extractions. Past Anesthesia/Blood Transfusion Reactions: No Reported Reaction Smoking Status: Never smoker Past Alcohol Use History: Heavy (Drinks 1 pint of vodka on a daily basis.) - Past Family History Mother Family Medical History: Cancer Additional Family Medical History / Comment(s): Mother - uterine cancer, skin cancer | grandma - breast cancer , her father is alcoholic Father Additional Family Medical History / Comment(s): alcoholism. Medications and Allergies Home Medications Medication Instructions Recorded Confirmed Type Cyclobenzaprine [Flexeril] 10 mg PO DAILY PRN 09/08/18 11/28/18 History Ergocalciferol (Vitamin D2) 50,000 unit PO Q28D 09/08/18 11/28/18 History [Drisdol] levETIRAcetam [Keppra] 1,000 mg PO BID 09/08/18 11/28/18 History traZODone HCL 50 mg PO HS 09/08/18 11/28/18 History Ascorbic Acid [Vitamin C] 1,000 mg PO DAILY 11/28/18 11/28/18 History Biotin 5 mg PO DAILY 11/28/18 11/28/18 History Ibuprofen [Motrin] 600 mg PO Q6H PRN 11/28/18 11/28/18 History Loratadine 10 mg PO DAILY PRN 11/28/18 11/28/18 History Allergies Allergy/AdvReac Type Severity Reaction Status Date / Time gluten Allergy Swelling Verified 11/28/18 10:56 starch Allergy Unknown Verified 11/28/18 10:56 Physical Exam Vitals: Vital Signs Temp Pulse Resp BP Pulse Ox 12/04/18 16:00 96.2 F L 99 25 H 117/89 96 12/04/18 15:00 99 110/88 94 L 12/04/18 14:00 100 25 H 108/90 12/04/18 13:00 107 H 26 H 110/84 93 L 12/04/18 12:00 96.1 F L 102 H 27 H 113/94 93 L 12/04/18 11:00 101 H 28 H 111/87 12/04/18 10:00 103 H 25 H 109/93 93 L 12/04/18 09:00 107 H 25 H 117/91 95 12/04/18 08:00 97.6 F 93 29 H 110/88 93 L 12/04/18 07:00 104 H 16 115/89 12/04/18 06:00 106 H 28 H 112/86 97 12/04/18 05:00 106 H 35 H 113/90 98 12/04/18 04:00 122 H 22 96/70 97 12/04/18 03:00 130 H 29 H 114/79 98 12/04/18 02:00 135 H 34 H 115/100 98 12/04/18 01:00 113 H 28 H 109/82 97 12/04/18 00:00 97.6 F 125 H 25 H 129/117 98 12/03/18 23:00 118 H 26 H 113/88 97 12/03/18 22:00 106 H 20 110/84 94 L 12/03/18 21:00 112 H 20 118/56 94 L 12/03/18 20:00 98 F 123 H 18 121/96 98 12/03/18 19:00 116 H 22 115/92 96 12/03/18 18:00 114 H 16 116/95 96 12/03/18 17:00 120 H 30 H 117/97 98 Intake and Output 12/04/18 12/04/18 12/04/18 06:59 14:59 22:59 Intake Total 900 2075 250 Output Total 1120 220 45 Balance -220 1855 205 Intake: IV 900 1475 250 Ampicillin-Sulbactam 1.5 200 50 gm In Sodium Chloride 0.9 % 50 ml @ 100 mls/hr IVPB Q6HR [facility] Rx#:[id number] Normal Saline 700 925 250 Sodium Chloride 0.9% 1, 500 000 ml @ 999 mls/hr IV . Q1H1M [facility] Rx#:[id number] Intake, IV Titration 500 Amount Potassium Chloride 10 meq 400 In Water For Injection 1 100ml.bag @ 100 mls/hr IVPB Q1HR [facility] Rx#: [id number] levETIRAcetam IV 1,000 mg 100 In Saline 1 100ml.bag @ 400 mls/hr IVPB Q12HR [facility] Rx#:[id number] Oral 100 Output: Urine 1120 220 45 Other: Voiding Method Indwelling Catheter Indwelling Catheter Indwelling Catheter Weight 64 kg Skin: Good color, texture, turgor. General: Medium build and comfortable appearance. Head: Normocephalic, atraumatic. Eyes: Symmetric. Pupils equal round. Ears: Symmetric. Hearing within normal limits. Mouth: Clear. Neck: Supple. Carotid without bruit. Cardiac: Regular rate and rhythm. Lungs: Clear anteriorly and posteriorly. Abdomen: Soft active nontender. Extremities: Normal tone. Mild lower extremity edema. Neurological: Mental status: Alert, cooperative, pleasant. Poor voice volume. Cranial nerves: Symmetric facial tone and trapezius. Motor: Poor movement all 4 limbs. Sensation: Intact throughout. DTRs: Symmetric and equal throughout. Mobility: Requires physical assistance for bed mobility. Results CBC & Chem 7: 12/04/18 05:29 12/04/18 05:29 Labs: Abnormal Lab Results - Last 24 Hours (Table) 12/04/18 12/04/18 12/04/18 Range/Units 05:29 05:29 05:29 WBC 3.2 L (3.8-10.6) k/uL RBC 2.56 L (3.80-5.40) m/uL Hgb 9.5 L (11.4-16.0) gm/dL Hct 29.2 L (34.0-46.0) % MCV 114.2 H (80.0-100.0) fL MCH 37.1 H (25.0-35.0) pg RDW 19.5 H (11.5-15.5) % Plt Count 79 L (150-450) k/uL Lymphocytes # (Manual) 0.48 L (1.0-4.8) k/uL Macrocytosis Marked A PT 19.2 H (9.0-12.0) sec INR 2.0 H (<1.2) Potassium 3.2 L (3.5-5.1) mmol/L Carbon Dioxide 18 L (22-30) mmol/L Creatinine 0.48 L (0.52-1.04) mg/dL Calcium 7.8 L (8.4-10.2) mg/dL Total Bilirubin 21.7 H* (0.2-1.3) mg/dL AST 99 H (14-36) U/L Total Protein 5.5 L (6.3-8.2) g/dL Albumin 2.5 L (3.5-5.0) g/dL Microbiology - Last 24 Hours (Table) 12/01/18 11:18 Blood Culture - Preliminary Blood No Growth after 72 hours Assessment and Plan (1) Altered mental status Current Visit: No Status: Acute Code(s): R41.82 - ALTERED MENTAL STATUS, UN SPECIFIED SNOMED Code(s): 583989188 Plan: Impression: 1. Medical debility. 2. Alcoholic liver disease with cirrhosis and ascites. 3. Chronic anemia. Comments and plan: At this time PT and OT prescribed and I have added speech therapy. Patient rehab prognosis guarded currently due to marked debility."
--- NOTE | 2018-12-04 19:16 | P.PN ---
Subjective Progress Note Date: 12/04/18 Principal diagnosis: Acute alcoholic hepatitis, pancytopenia, nausea and vomiting The patient is seen lying in bed. Patient had been nothing by mouth for possible cholecystectomy today, however procedure well. Current today and patient will be fed. Still reporting some nausea. Objective - Vital Signs Vital signs: Vital Signs Temp 96.2 F L 12/04/18 16:00 Pulse 100 12/04/18 18:00 Resp 23 12/04/18 18:00 BP 108/87 12/04/18 18:00 Pulse Ox 94 L 12/04/18 17:00 Intake & Output 12/04/18 12/04/18 12/05/18 06:59 18:59 06:59 Intake Total 1400 2575 Output Total 1500 310 Balance -100 2265 Weight 64 kg Intake: IV 1400 1975 Ampicillin-Sulbactam 1.5 200 50 gm In Sodium Chloride 0.9 % 50 ml @ 100 mls/hr IVPB Q6HR [facility] Rx#:[id number] Normal Saline 1200 1425 Sodium Chloride 0.9% 1, 500 000 ml @ 999 mls/hr IV . Q1H1M [facility] Rx#:[id number] Intake, IV Titration 500 Amount Potassium Chloride 10 meq 400 In Water For Injection 1 100ml.bag @ 100 mls/hr IVPB Q1HR [facility] Rx#: [id number] levETIRAcetam IV 1,000 mg 100 In Saline 1 100ml.bag @ 400 mls/hr IVPB Q12HR [facility] Rx#:[id number] Oral 100 Output: Urine 1500 310 Other: Voiding Method Indwelling Catheter Indwelling Catheter - Exam On physical examination, patient appears comfortable in no apparent distress. HEAD: Normocephalic, healing laceration of left. EYES: Scleral icterus. No conjunctival injection. MOUTH: No lesions, tongue midline. NECK: Trachea midline, no gross abnormalities. CHEST: Decreased air entry bilaterally. HEART: Regular rate and rhythm. ABDOMEN: Soft, obese and mildly distended. Bowel sounds are positive. No organomegaly. No guarding or rigidity. EXTREMITIES: Bilateral pedal edema. SKIN: No rashes, jaundice. NEUROLOGIC: Somnolent but interactive and oriented 2, no asterixis. No focal deficits. - Labs CBC & Chem 7: 12/04/18 05:29 12/04/18 05:29 Labs: Abnormal Lab Results - Last 24 Hours (Table) 10/22/19 10/22/19 10/22/19 Range/Units 05:29 05:29 05:29 WBC 3.2 L (3.8-10.6) k/uL RBC 2.56 L (3.80-5.40) m/uL Hgb 9.5 L (11.4-16.0) gm/dL Hct 29.2 L (34.0-46.0) % MCV 114.2 H (80.0-100.0) fL MCH 37.1 H (25.0-35.0) pg RDW 19.5 H (11.5-15.5) % Plt Count 79 L (150-450) k/uL Lymphocytes # (Manual) 0.48 L (1.0-4.8) k/uL Macrocytosis Marked A PT 19.2 H (9.0-12.0) sec INR 2.0 H (<1.2) Potassium 3.2 L (3.5-5.1) mmol/L Carbon Dioxide 18 L (22-30) mmol/L Creatinine 0.48 L (0.52-1.04) mg/dL Calcium 7.8 L (8.4-10.2) mg/dL Total Bilirubin 21.7 H* (0.2-1.3) mg/dL AST 99 H (14-36) U/L Total Protein 5.5 L (6.3-8.2) g/dL Albumin 2.5 L (3.5-5.0) g/dL Microbiology - Last 24 Hours (Table) 12/01/18 11:18 Blood Culture - Preliminary Blood No Growth after 72 hours Assessment and Plan (1) Elevated LFTs Narrative/Plan: 33-year-old female with a medical history significant for alcohol abuse and prior hospitalization for similar complaints of nausea and vomiting, jaundice, alcohol withdrawal acute alcoholic hepatitis. Currently receiving treatment in the intensive care unit with tentative plan for cholecystectomy. The patient has remained nauseated with poor oral intake. Liver enzymes remain persistently elevated, consistent with history of alcoholic hepatitis. Laboratory testing for chronic hepatitis B and C negative. Current Visit: Yes Status: Acute Code(s): R79.89 - OTHER SPECIFIED ABNORMAL FINDINGS OF BLOOD CHEMISTRY SNOMED Code(s): 817788217 (2) Coagulopathy Current Visit: Yes Status: Acute Priority: Medium Code(s): D68.9 - COAGULA TION DEFECT, UNSPECIFIED SNOMED Code(s): 74420372 (3) Intractable nausea and vomiting Current Visit: No Status: Acute Code(s): R11.2 - NAUSEA WITH VOMITING, UNSPECIFIED SNOMED Code(s): 129649242 (4) Pancytopenia Current Visit: No Status: Acute Priority: Medium Code(s): D61.818 - OTHER PANCYTOPENIA SNOMED Code(s): 398513817 (5) Alcohol abuse Current Visit: No Status: Chronic Code(s): F10.10 - ALCOHOL ABUSE, UNCOMPLICATED SNOMED Code(s): 78689600 Plan: Supportive care Okay for diet Continue antiemetic therapy Protonix twice daily Continue to monitor liver enzymes, CBC, INR Appreciate recommendations from surgical and dental hygiene administrative assistant service No plans for endoscopic evaluation at this time Thank you for allowing us to participate in the care of the patient we will continue to follow
[2018-12-04] MEDS: traZODone HCL 50 MG TAB PO SCH (23:49)
[2018-12-05] MEDS: AMPICILLIN-SULBACTAM 1.5 GM in SODIUM CHLORIDE 0.9% 50 ML IVPB SCH ×2 (00:58→05:17)
[2018-12-05] MEDS: SODIUM CHLORIDE 0.9% 1,000 ML IV SCH ×4 (00:59→22:37)
[2018-12-05] MEDS: LORazepam 2 MG/ML INJ IV PRN ×3 (01:14→22:36)
[2018-12-05 08:04] LABS: Anisocytosis Slight; HCT 30.3 % (34.0-46.0); HGB 9.7 gm/dL (11.4-16.0); Hypochromasia Marked; MCH 37.1 pg (25.0-35.0); Macrocytosis Marked; Mean Platelet Volume 6.7; RBC 2.61 m/uL (3.80-5.40); RDW 19.6 % (11.5-15.5); WBC 2.6 k/uL (3.8-10.6)
[2018-12-05 08:10] LABS: ALT 41 U/L (9-52); AST 90 U/L (14-36); African American GFR (CKD) >90 (>60 ml/min/1.73 sqM); Albumin 2.3 g/dL (3.5-5.0); Alkaline Phosphatase 84 U/L (38-126); Anion Gap 14 mmol/L; Blood Urea Nitrogen 8 mg/dL (7-17); Carbon Dioxide 17 mmol/L (22-30); Chloride 109 mmol/L (98-107); Glucose 78 mg/dL (74-99); Potassium 3.6 mmol/L (3.5-5.1); Sodium 140 mmol/L (137-145); Total Protein 5.4 g/dL (6.3-8.2)
[2018-12-05 08:11] LABS: Platelet Count 86 k/uL (150-450)
[2018-12-05 08:14] LABS: Prothrombin Time 19.8 sec (9.0-12.0)
[2018-12-05 08:31] LABS: Total Bilirubin 19.7 mg/dL (0.2-1.3)
[2018-12-05] MEDS: PANTOPRAZOLE 40 MG/10 ML VIAL IVP SCH ×2 (08:34→21:50)
[2018-12-05] MEDS: levETIRAcetam IV 1,000 MG in SALINE 1 100ML.BAG IVPB SCH ×2 (08:34→21:38)
[2018-12-05] MEDS: ASCORBIC ACID 500 MG TAB PO SCH (08:39)
[2018-12-05] MEDS ORDERED: POTASSIUM CHLORIDE 10 MEQ in WATER FOR INJECTION 1 100ML.BAG IVPB SCH (09:00)
[2018-12-05 10:36] LABS: Band Neutrophils % 3 %; Basophils # (M) 0.03 k/uL (0-0.2); Eosinophils # (M) 0.05 k/uL (0-0.7); Lymphocytes # (M) 0.47 k/uL (1.0-4.8); Monocytes # (M) 0.52 k/uL (0-1.0); Neutrophils % (M) 56 %; Nucleated Red Blood Cells 0 /100 WBC (0-0); Total Cells Counted 100
[2018-12-05 10:37] LABS: Poikilocytosis (M) Present
[2018-12-05 10:38] LABS: Mixed Population RBC Present
[2018-12-05] MEDS: SPIRONOLACTONE 25 MG TAB PO SCH ×2 (11:13→21:50)
--- NOTE | 2018-12-05 11:28 | P.PN ---
Subjective Progress Note Date: 12/05/18 Principal diagnosis: Chronic alcoholism and possible acute cholecystitis. This is a 33-year-old female patient with known history of alcoholism and alcoholic cirrhosis who also has history of seizure disorder, gluten sensitivity , in addition to history of anorexia, history of seizure disorder, who comes into the hospital because of persistent nausea and vomiting that developed this morning. However, her main complaints have been generalized weakness, frequent falls, she has fallen and she has hit her body including the head on multiple occasions and she has bruises over her forehead, face, orbits, lateral chest on the left and until lateral chest on the right. She does have some right upper quadrant pain. The patient also complained of generalized weakness and malaise. She states that she has been seizure free. However she is been drinking a pint of vodka on a daily basis. She came in because she was getting progressively more weak and she was falling significantly and she was unable to function at home. She was also suspected to have GI bleeding. The patient however denies having any coffee-ground emesis. She denies having any bright red blood per re ctum. He was lightheaded. She has had similar presentation in the past. Specifically back in April 2018 he presented to the hospital because of inability to hold any food in. The patient had abdominal discomfort and back then and she was treated with a combination of Zofran and Protonix without any improvement in her symptoms. EGD was done by Dr. Christian, and the patient was found to have mild gastritis with biopsies of the abdomen and the body and a cardiac in the fundus being done. Duodenal biopsies were also done that ruled out the possibility of gluten sensitivity.The patient is quite debilitated. The patient's last seizure was around 2 weeks ago. She has history of pancytopenia related to alcoholism. She has had history of falls. Note that the patient's alcohol level was 186 in time of arrival. AST was 309 with an ALT of 58 and alkaline phosphatase of 111. Total bilirubin was 1.6. She has chronic neuropathic with an INR of 2.1. PT is 20.4 and a PTT is 33.5. Nevertheless, the patient is not having any signs of GI bleeding. She is awake and alert. She is not showing any signs of hepatitic encephalopathy. Abdomen is slightly distended. She is malnourished and anorexic and her BMI 17.3. The ultrasound of the abdomen was done that showed numerous gallstones. No dilated ducts. Mild hepatomegaly. Mild ascites. Moderate amount of bladder wall thickening and edema consistent with acute cholecystitis. Gallbladder edema is a change compared to old examination. On 11/29/2018 and seeing this patient for a follow-up. She remains tachycardic. Earlier this morning she had a drop in hemoglobin down to 6.2 and the patient was given a unit of packed RBC. There was no evidence of any GI bleeding. The patient did not have any coffee-ground emesis or bright red blood per rectum. Her platelet counts have dropped down to 39,000 and note that the patient has chronic thrombus cytopenia and anemia and occasional leukopenia related to chronic alcoholism. She is awake and alert. She is complaining of some nausea. She is also complaining of some upper quadrant and epigastric pain. Her INR is at 1.9. A lipase was ordered and the level was at 345. The rest of the LFTs were abnormal although comparable to yesterday with a AST of 251 and ALT of 57 c onsistent with alcohol abuse. Total protein is at 5.2. Bilirubin was at 7.2. The patient is afebrile. The patient underwent an ultrasound of the abdomen that showed mild ascites. There was mild to moderate gallbladder wall thickening and edema consistent with acute cholecystitis in for that reason a surgical consultation was obtained. On 11/30/2018 the patient continues to be nauseated. Oral intake is still low. She is not having any emesis. I discussed the case in general surgery and I think we should consider doing a cholecystectomy on this patient knowing that she has extensive cholelithiasis and chronic cholecystitis. No ascites patient is receiving IV fluids. No chest pain. No shortness of breath. No falls. She is spending most of her time in bed. She is on IV fluids which was cut down to 50 mL an hour and a urine output is somewhat between 20-30 mL an hour. INR toda y is at 1.9. Hemoglobin stable at 8.4. No signs of any GI bleed. Hemoglobin is at 8.4. White cell count is at 3.0. Platelet count is also stable at 31. As for the LFTs, they are gradually improving. AST is down to 208 with an ALT of 51. Bilirubin is elevated at 6.8 with a stable compared to yesterday. On 12/01/2018 the patient continues to be nauseated. Unfortunately she is unable to take and any significant oral intake. She was given a bolus of 1 L yesterday as the patient was becoming progressively more tachycardic. This morning she is still tachycardic and in sinus rhythm and a heart rate is somewhat between 120 and 1:30. No palpitation. No chest pain. No shortness of breath. No ascites. Her torso hematomas are pretty much unchanged in hemoglobin is stable. Urine output is order of 20-30 mL an hour. We are still contemplating a cholecystectomy on this patient by Monday. No ascites. Right upper quadrant is tender still. No significant abdominal distention. She did have a liquidy bowel movement yesterday that was nonbloody. White cell count is not elevated. Platelet count is 40,000. Bilirubin still elevated. No signs of any delirium tremens. Her antibiotic coverage is IV Unasyn. On 12/02 2018 I'm seeing this patient for a follow-up. As mentioned earlier, the patient was in the intensive care unit for complications related to alcoholism, generalized weakness, nausea and emesis and she was diagnosed having an acute cholecystitis. Yesterday, I noted that the patient was becoming progressively more tachycardic. The exact cause was not clear. I was concerned about an underlying septic event. Lactic acid level came back at 1.1. No significant leukocytosis. No fever. As the day went by, the patient went progressively into clinic delirium tremens and alcohol withdrawal. She started getting agitated, initially paranoid and later on more restless trying to get out of bed and grab things and she was found to be progressively more confused. She was given Ativan and a total of 4 mg of Ativan was given to her throughout the morning from 1:30 to 6:30 AM this morning. Currently she is losing. She is resting comfortably in bed. Her tachycardia is improved and her heart rate is is down to 113. Urine output is in order of 15-20 mL an hour. Her white cell cause at 4.7 her hemoglobin of 9.6. Right upper quadrant is shot coat tender. Cre atinine stable at 0.4. Her bilirubin is up to 18.2. AST is 139 ALT is at 44 and ammonia level is at 12. Serum albumin is at 2.5. She is not eating much as the patient is nauseated and since she went to [facility] she hasn't had anything to eat orally. She is receiving IV fluids in the order of 100 mL an hour of normal saline. He made on IV Unasyn. Reevaluated today on 12/03/2018, patient remains in the ICU, she has multiple medical problems including alcoholism, recurrent episodes of nausea and vomiting, seen by surgery, and planning to take the patient for laparoscopic cholecystectomy today. Patient remains on the alcohol withdrawal protocol, she seems to be calm today, she is extremely jaundice. And her bilirubin seems to be on the rise. Denies any shortness of breath. Denies any cough no wheezing. His CBC is relatively normal hemoglobin is 9.7 WBC count is 3.4. INR is 1.9, patient will be receiving fresh frozen plasma and vitamin K before surgery. Elect lites are normal renal profile is normal bicarb is between 17 and 21. Bilirubin is still high at 19.4. Albumin is 2.3. Reevaluated today on 12/04/2018, remains in the ICU on the alcohol withdrawal protocol, she had occasional nausea, patient is scheduled to undergo laparoscopic cholecystectomy today. Patient is on room air, cough, hemodynamically stable, urine output was marginal yesterday, given fluid boluses followed by Lasix late last night, then she responded well to fluids and Lasix. CBC is relatively normal today. Platelets remained low at 79,000. INR is 2.0. Potassium is 3.2. Being corrected as per protocol. Total bilirubin is increasing at 21.7. Patient was reevaluated today on 12/05/2018, remains in the ICU, patient is fairly well controlled with Ativan as far as her alcohol withdrawal is co ncerned. Her surgery was canceled yesterday, patient is not the most ideal candidate for laparoscopic surgery at this point. Her labs are basically about the same, continues to have low platelets of 86,000, INR remains elevated at 2.0, electrolytes are normal. Renal profile is normal, and her urine output is marginal. Total bilirubin is 19.7 today. Patient remains in jaundice. Objective - Vital Signs Vital signs: Vital Signs Temp 34 F L 12/05/18 08:00 Pulse 98 12/05/18 11:00 Resp 22 12/05/18 11:00 BP 120/88 12/05/18 11:00 Pulse Ox 96 12/05/18 11:00 Intake & Output 12/04/18 12/05/18 12/05/18 18:59 06:59 18:59 Intake Total 2575 1750 975 Output Total 310 152 70 Balance 2265 1598 905 Weight 71.1 kg 71.1 kg Intake: IV 1975 1750 675 Ampicillin-Sulbactam 1.5 50 200 gm In Sodium Chloride 0.9 % 50 ml @ 100 mls/hr IVPB Q6HR [facility] Rx#:[id number] Normal Saline 1425 1500 675 Sodium Chloride 0.9% 1, 500 000 ml @ 999 mls/hr IV . Q1H1M [facility] Rx#:[id number] levETIRAcetam IV 1,000 mg 50 In Saline 1 100ml.bag @ 400 mls/hr IVPB Q12HR [facility] Rx#:[id number] Intake, IV Titration 500 300 Amount Potassium Chloride 10 meq 100 In Water For Injection 1 100ml.bag @ 100 mls/hr IVPB Q1H [facility] Rx#: [id number] Potassium Chloride 10 meq 400 100 In Water For Injection 1 100ml.bag @ 100 mls/hr IVPB Q1HR [facility] Rx#: [id number] levETIRAcetam IV 1,000 mg 100 100 In Saline 1 100ml.bag @ 400 mls/hr IVPB Q12HR [facility] Rx#:[id number] Oral 100 Output: Urine 310 152 70 Other: Voiding Method Indwelling Catheter Indwelling Catheter Indwelling Catheter - Exam physical examination, revealed a 33-year-old female, jaundiced, in no distress. HEAD: Normocephalic, atraumatic. EYES: PERRLA, EOMI, positive icterus. MOUTH: No lesions, tongue midline. NECK: Trachea midline, no gross abnormalities. CHEST: Symmetrical chest expansion, clear breath sound bilaterally no crackles or rhonchi or wheezes. HEART: Normal S1 and S2, no S3 gallop. ABDOMEN: Soft nontender no megaly no rebound no guarding.. EXTREMITIES: Trace of bipedal edema. SKIN: No rashes, positive jaundice, areas of bruising noted in the left facial area. NEUROLOGIC: Alert oriented 3, no gross focal neurologic deficit. No asterixis - Labs CBC & Chem 7: 12/05/18 07:35 12/05/18 07:35 Labs: Abnormal Lab Results - Last 24 Hours (Table) 12/05/18 12/05/18 12/05/18 Range/Units 07:35 07:35 07:35 WBC 2.6 L (3.8-10.6) k/uL RBC 2.61 L (3.80-5.40) m/uL Hgb 9.7 L (11.4-16.0) gm/dL Hct 30.3 L (34.0-46.0) % MCV 116.0 H (80.0-100.0) fL MCH 37.1 H (25.0-35.0) pg RDW 19.6 H (11.5-15.5) % Plt Count 86 L (150-450) k/uL Lymphocytes # (Manual) 0.47 L (1.0-4.8) k/uL Macrocytosis Marked A PT 19.8 H (9.0-12.0) sec INR 2.0 H (<1.2) APTT 43.0 H (22.0-30.0) sec Chloride 109 H (98-107) mmol/L Carbon Dioxide 17 L (22-30) mmol/L Creatinine 0.49 L (0.52-1.04) mg/dL Calcium 8.0 L (8.4-10.2) mg/dL Total Bilirubin 19.7 H* (0.2-1.3) mg/dL AST 90 H (14-36) U/L Total Protein 5.4 L (6.3-8.2) g/dL Albumin 2.3 L (3.5-5.0) g/dL Microbiology - Last 24 Hours (Table) 12/01/18 11:18 Blood Culture - Preliminary Blood No Growth after 72 hours Assessment and Plan Assessment: Impression: Alcohol liver cirrhosis Chronic alcoholism Acute on chronic cholecystitis and cholelithiasis Seizure disorder exacerbated by alcohol drinking Frequent falls secondary to above. 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 Continue CIWA protocol. Continue Keppra thiamine Discontinue IV antibiotics. Started patient on Aldactone dose of urine output is marginal. Canceled surgery as discussed with the surgeon on the case. For now. Overall prognosis remains poor and guarded. We'll continue to follow in the ICU. Time with Patient: Less than 30
--- NOTE | 2018-12-05 11:52 | PN ---
PROGRESS NOTE CHIEF COMPLAINT: Upper GI bleed. HISTORY OF PRESENT ILLNESS: This lady is not doing well. Her surgery was canceled yesterday. She is still very lethargic and atonic. She is still receiving Ativan from [id number] and apparently 2 days ago was bright and alert. It is difficult to evaluate her mental status at this time as long as she is on the CIWA protocol. PHYSICAL EXAMINATION: She remains deeply jaundiced. Blood pressure is normal. Chest is clear and cardiac exam demonstrates tachycardia and the abdomen is slightly distended with ascitic fluid. IMPRESSION: 1. Upper gastrointestinal bleed. 2. Chronic alcoholism. 3. Acute alcohol intoxication. 4. Delirium tremens. 5. Cirrhosis. 6. Ascites. 7. Possible alcoholic encephalopathy. PLAN: Continue to monitor in ICU and await to see if her cognitive function returns to normal. JANELLE / PAYTON: [id number] /
--- NOTE | 2018-12-05 16:02 | P.PN ---
Subjective Progress Note Date: 12/05/18 CHIEF COMPLAINT: Cholecystitis HISTORY OF PRESENT ILLNESS: Patient examined at the bedside with Dr. Em. Patient remains lethargic. She is receiving ativan PRN for alcohol withdrawal. WBC 2.6. Hemoglobin 9.7. Platelet count 86. INR remains elevated at 2.0. Total bilirubin 19.7. AST 90. ALT 41. PHYSICAL EXAM: VITAL SIGNS: Reviewed. GENERAL: Well-developed in no acute distress. HEENT: Sclera icterus. Extraocular movements grossly intact. Moist buccal mucosa. Head is atraumatic, normocephalic. ABDOMEN: Soft. Nondistended. Nontender. NEUROLOGIC: Lethargic ASSESSMENT: 1. Abdominal pain, nausea, vomiting 2. Cholelithiasis with acute cholecystitis 3. Alcohol abuse 4. Pancytopenia 5. Alcoholic liver cirrhosis 6. 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 Continue antibiotics 2. Diet as tolerated 3. Patient will require cholecystectomy when medically stable, anticipate earliest will be next week for surgery Nurse practitioner note has been reviewed by physician. Signing provider agrees with the documented findings, assessment, and plan of care. Objective - Vital Signs Vital signs: Vital Signs Temp 34 F L 12/05/18 12:00 Pulse 94 12/05/18 15:00 Resp 22 12/05/18 15:00 BP 121/74 12/05/18 15:00 Pulse Ox 98 12/05/18 15:00 Intake & Output 12/04/18 12/05/18 12/05/18 18:59 06:59 18:59 Intake Total 2575 1750 1575 Output Total 310 152 115 Balance 2265 1598 1460 Weight 71.1 kg 71.[place]: [place] [address] 1275 Ampicillin-Sulbactam 1.5 50 200 gm In Sodium Chloride 0.9 % 50 ml @ 100 mls/hr IVPB Q6HR [facility] Rx#:[id number] Normal Saline 1425 1500 1275 Sodium Chloride 0.9% 1, 500 000 ml @ 999 mls/hr IV . Q1H1M [facility] Rx#:[id number] levETIRAcetam IV 1,000 mg 50 In Saline 1 100ml.bag @ 400 mls/hr IVPB Q12HR [facility] Rx#:[id number] Intake, IV Titration 500 300 Amount Potassium Chloride 10 meq 100 In Water For Injection 1 100ml.bag @ 100 mls/hr IVPB Q1H [facility] Rx#: [id number] Potassium Chloride 10 meq 400 100 In Water For Injection 1 100ml.bag @ 100 mls/hr IVPB Q1HR [facility] Rx#: [id number] levETIRAcetam IV 1,000 mg 100 100 In Saline 1 100ml.bag @ 400 mls/hr IVPB Q12HR [facility] Rx#:[id number] Oral 100 Output: Urine 310 152 115 Other: Voiding Method Indwelling Catheter Indwelling Catheter Indwelling Catheter - Labs CBC & Chem 7: 12/05/18 07:35 12/05/18 07:35 Labs: Abnormal Lab Results - Last 24 Hours (Table) 12/05/18 12/05/18 12/05/18 Range/Units 07:35 07:35 07:35 WBC 2.6 L (3.8-10.6) k/uL RBC 2.61 L (3.80-5.40) m/uL Hgb 9.7 L (11.4-16.0) gm/dL Hct 30.3 L (34.0-46.0) % MCV 116.0 H (80.0-100.0) fL MCH 37.1 H (25.0-35.0) pg RDW 19.6 H (11.5-15.5) % Plt Count 86 L (150-450) k/uL Lymphocytes # (Manual) 0.47 L (1.0-4.8) k/uL Macrocytosis Marked A PT 19.8 H (9.0-12.0) sec INR 2.0 H (<1.2) APTT 43.0 H (22.0-30.0) sec Chloride 109 H (98-107) mmol/L Carbon Dioxide 17 L (22-30) mmol/L Creatinine 0.49 L (0.52-1.04) mg/dL Calcium 8.0 L (8.4-10.2) mg/dL Total Bilirubin 19.7 H* (0.2-1.3) mg/dL AST 90 H (14-36) U/L Total Protein 5.4 L (6.3-8.2) g/dL Albumin 2.3 L (3.5-5.0) g/dL Microbiology - Last 24 Hours (Table) 12/01/18 11:18 Blood Culture - Preliminary Blood No Growth after 96 hours
--- NOTE | 2018-12-05 19:08 | P.PN ---
Subjective Progress Note Date: 12/05/18 Principal diagnosis: Acute alcoholic hepatitis, pancytopenia, nausea and vomiting The patient is seen lying in bed, no acute events reported. Tolerating diet of poor oral intake. Objective - Vital Signs Vital signs: Vital Signs Temp 34 F L 12/05/18 12:00 Pulse 95 12/05/18 12:00 Resp 24 12/05/18 12:00 BP 113/93 12/05/18 12:00 Pulse Ox 98 12/05/18 12:00 Intake & Output 12/04/18 12/05/18 12/05/18 18:59 06:59 18:59 Intake Total 2575 1750 1125 Output Total 310 152 80 Balance 2265 1598 1045 Weight 71.1 kg 71.1 kg Intake: IV 1974 1750 825 Ampicillin-Sulbactam 1.5 50 200 gm In Sodium Chloride 0.9 % 50 ml @ 100 mls/hr IVPB Q6HR [facility] Rx#:[id number] Normal Saline 1425 1500 825 Sodium Chloride 0.9% 1, 500 000 ml @ 999 mls/hr IV . Q1H1M [facility] Rx#:[id number] levETIRAcetam IV 1,000 mg 50 In Saline 1 100ml.bag @ 400 mls/hr IVPB Q12HR [facility] Rx#:[id number] Intake, IV Titration 500 300 Amount Potassium Chloride 10 meq 100 In Water For Injection 1 100ml.bag @ 100 mls/hr IVPB Q1H [facility] Rx#: [id number] Potassium Chloride 10 meq 400 100 In Water For Injection 1 100ml.bag @ 100 mls/hr IVPB Q1HR [facility] Rx#: [id number] levETIRAcetam IV 1,000 mg 100 100 In Saline 1 100ml.bag @ 400 mls/hr IVPB Q12HR [facility] Rx#:[id number] Oral 100 Output: Urine 310 152 80 Other: Voiding Method Indwelling Catheter Indwelling Catheter Indwelling Catheter - Exam On physical examination, patient appears comfortable in no apparent distress. HEAD: Normocephalic, healing laceration of left. EYES: Scleral icterus. No conjunctival injection. MOUTH: No lesions, tongue midline. NECK: Trachea midline, no gross abnormalities. CHEST: Decreased air entry bilaterally. HEART: Regular rate and rhythm. ABDOMEN: Soft, obese and mildly distended. Bowel sounds are positive. No organomegaly. No guarding or rigidity. EXTREMITIES: Bilateral pedal edema. SKIN: No rashes, jaundice. NEUROLOGIC: Somnolent but arousable. - Labs CBC & Chem 7: 12/05/18 07:35 12/05/18 07:35 Labs: Abnormal Lab Results - Last 24 Hours (Table) 12/05/18 12/05/18 12/05/18 Range/Units 07:35 07:35 07:35 WBC 2.6 L (3.8-10.6) k/uL RBC 2.61 L (3.80-5.40) m/uL Hgb 9.7 L (11.4-16.0) gm/dL Hct 30.3 L (34.0-46.0) % MCV 116.0 H (80.0-100.0) fL MCH 37.1 H (25.0-35.0) pg RDW 19.6 H (11.5-15.5) % Plt Count 86 L (150-450) k/uL Lymphocytes # (Manual) 0.47 L (1.0-4.8) k/uL Macrocytosis Marked A PT 19.8 H (9.0-12.0) sec INR 2.0 H (<1.2) APTT 43.0 H (22.0-30.0) sec Chloride 109 H (98-107) mmol/L Carbon Dioxide 17 L (22-30) mmol/L Creatinine 0.49 L (0.52-1.04) mg/dL Calcium 8.0 L (8.4-10.2) mg/dL Total Bilirubin 19.7 H* (0.2-1.3) mg/dL AST 90 H (14-36) U/L Total Protein 5.4 L (6.3-8.2) g/dL Albumin 2.3 L (3.5-5.0) g/dL Microbiology - Last 24 Hours (Table) 12/01/18 11:18 Blood Culture - Preliminary Blood No Growth after 72 hours Assessment and Plan (1) Elevated LFTs Narrative/Plan: 33-year-old female with a medical history significant for alcohol abuse and prior hospitalization for similar complaints of nausea and vomiting, jaundice, alcohol withdrawal acute alcoholic hepatitis. Currently receiving treatment in the intensive care unit with tentative plan for cholecystectomy. The patient has remained nauseated with poor oral intake. Liver enzymes remain persistently elevated, consistent with history of alcoholic hepatitis. Laboratory testing for chronic hepatitis B and C negative. Current Visit: Yes Status: Acute Code(s): R79.89 - OTHER SPECIFIED ABNORMAL FINDINGS OF BLOOD CHEMISTRY SNOMED Code(s): 802316468 (2) Coagulopathy Current Visit: Yes Status: Acute Priority: Medium Code(s): D68.9 - COAGULA TION DEFECT, UNSPECIFIED SNOMED Code(s): 74378583 (3) Intractable nausea and vomiting Current Visit: No Status: Acute Code(s): R11.2 - NAUSEA WITH VOMITING, UNSPECIFIED SNOMED Code(s): 338613694 (4) Pancytopenia Current Visit: No Status: Acute Priority: Medium Code(s): D61.818 - OTHER PANCYTOPENIA SNOMED Code(s): 427266438 (5) Alcohol abuse Current Visit: No Status: Chronic Code(s): F10.10 - ALCOHOL ABUSE, UNCOMPLICATED SNOMED Code(s): 50858690 Plan: Supportive care Okay for diet Continue antiemetic therapy Protonix twice daily Continue to monitor liver enzymes, CBC, INR Appreciate recommendations from surgical and data processing clerk service No plans for endoscopic evaluation at this time Thank you for allowing us to participate in the care of the patient we will continue to follow
[2018-12-05] MEDS: traZODone HCL 50 MG TAB PO SCH (21:50)
[2018-12-06 05:48] LABS: Anisocytosis Slight; HCT 32.9 % (34.0-46.0); HGB 10.4 gm/dL (11.4-16.0); Hypochromasia Moderate; MCHC 31.5 g/dL (31.0-37.0); MCV 114.3 fL (80.0-100.0); Macrocytosis Marked; Mean Platelet Volume 7.5; RBC 2.88 m/uL (3.80-5.40); RDW 19.7 % (11.5-15.5); WBC 2.4 k/uL (3.8-10.6)
[2018-12-06 05:49] LABS: ALT 42 U/L (9-52); AST 89 U/L (14-36); African American GFR (CKD) >90 (>60 ml/min/1.73 sqM); Albumin 2.4 g/dL (3.5-5.0); Alkaline Phosphatase 94 U/L (38-126); Anion Gap 13 mmol/L; Blood Urea Nitrogen 8 mg/dL (7-17); Calcium 8.3 mg/dL (8.4-10.2); Carbon Dioxide 15 mmol/L (22-30); Chloride 111 mmol/L (98-107); Glucose 73 mg/dL (74-99); Potassium 3.8 mmol/L (3.5-5.1); Sodium 139 mmol/L (137-145); Total Protein 5.5 g/dL (6.3-8.2)
[2018-12-06 05:51] LABS: Total Bilirubin 19.7 mg/dL (0.2-1.3)
[2018-12-06 05:52] LABS: Platelet Count 93 k/uL (150-450)
[2018-12-06 05:55] LABS: Partial Thromboplastin Time 45.9 sec (22.0-30.0); Prothrombin Time 19.6 sec (9.0-12.0)
[2018-12-06 06:25] LABS: Band Neutrophils % 3 %; Basophils # (M) 0.02 k/uL (0-0.2); Eosinophils # (M) 0.05 k/uL (0-0.7); Lymphocytes # (M) 0.55 k/uL (1.0-4.8); Monocytes # (M) 0.43 k/uL (0-1.0); Neutrophils % (M) 53 %; Nucleated Red Blood Cells 0 /100 WBC (0-0); Total Cells Counted 100
[2018-12-06] MEDS: SODIUM CHLORIDE 0.9% 1,000 ML IV SCH ×3 (07:04→23:53)
[2018-12-06] MEDS: SPIRONOLACTONE 25 MG TAB PO SCH ×3 (08:59→23:59)
[2018-12-06] MEDS: PANTOPRAZOLE 40 MG/10 ML VIAL IVP SCH ×2 (09:00→23:56)
[2018-12-06] MEDS: ASCORBIC ACID 500 MG TAB PO SCH (09:00)
[2018-12-06] MEDS: levETIRAcetam IV 1,000 MG in SALINE 1 100ML.BAG IVPB SCH ×2 (09:16→23:55)
[2018-12-06] MEDS ORDERED: FUROSEMIDE 10 MG/ML 4 ML VIAL IV STA (10:10)
[2018-12-06] MEDS: AMPICILLIN-SULBACTAM 1.5 GM in SODIUM CHLORIDE 0.9% 50 ML IVPB SCH ×2 (10:40→19:17)
--- NOTE | 2018-12-06 11:03 | US ---
EXAMINATION TYPE: US abdomen limited DATE OF EXAM: 12/06/2018 COMPARISON: NONE CLINICAL HISTORY: ascites. Ascites. Fluid is visualized in lower abdomen. Limited scanning performed of the abdomen. IMPRESSION: Moderate ascites
--- NOTE | 2018-12-06 11:52 | P.PN ---
Subjective Progress Note Date: 12/06/18 Principal diagnosis: Chronic alcoholism and possible acute cholecystitis. This is a 33-year-old female patient with known history of alcoholism and alcoholic cirrhosis who also has history of seizure disorder, gluten sensitivity , in addition to history of anorexia, history of seizure disorder, who comes into the hospital because of persistent nausea and vomiting that developed this morning. However, her main complaints have been generalized weakness, frequent falls, she has fallen and she has hit her body including the head on multiple occasions and she has bruises over her forehead, face, orbits, lateral chest on the left and until lateral chest on the right. She does have some right upper quadrant pain. The patient also complained of generalized weakness and malaise. She states that she has been seizure free. However she is been drinking a pint of vodka on a daily basis. She came in because she was getting progressively more weak and she was falling significantly and she was unable to function at home. She was also suspected to have GI bleeding. The patient however denies having any coffee-ground emesis. She denies having any bright red blood per re ctum. He was lightheaded. She has had similar presentation in the past. Specifically back in April 2018 he presented to the hospital because of inability to hold any food in. The patient had abdominal discomfort and back then and she was treated with a combination of Zofran and Protonix without any improvement in her symptoms. EGD was done by Dr. Christian, and the patient was found to have mild gastritis with biopsies of the abdomen and the body and a cardiac in the fundus being done. Duodenal biopsies were also done that ruled out the possibility of gluten sensitivity.The patient is quite debilitated. The patient's last seizure was around 2 weeks ago. She has history of pancytopenia related to alcoholism. She has had history of falls. Note that the patient's alcohol level was 186 in time of arrival. AST was 309 with an ALT of 58 and alkaline phosphatase of 111. Total bilirubin was 1.6. She has chronic neuropathic with an INR of 2.1. PT is 20.4 and a PTT is 33.5. Nevertheless, the patient is not having any signs of GI bleeding. She is awake and alert. She is not showing any signs of hepatitic encephalopathy. Abdomen is slightly distended. She is malnourished and anorexic and her BMI 17.3. The ultrasound of the abdomen was done that showed numerous gallstones. No dilated ducts. Mild hepatomegaly. Mild ascites. Moderate amount of bladder wall thickening and edema consistent with acute cholecystitis. Gallbladder edema is a change compared to old examination. On 11/29/2018 and seeing this patient for a follow-up. She remains tachycardic. Earlier this morning she had a drop in hemoglobin down to 6.2 and the patient was given a unit of packed RBC. There was no evidence of any GI bleeding. The patient did not have any coffee-ground emesis or bright red blood per rectum. Her platelet counts have dropped down to 39,000 and note that the patient has chronic thrombus cytopenia and anemia and occasional leukopenia related to chronic alcoholism. She is awake and alert. She is complaining of some nausea. She is also complaining of some upper quadrant and epigastric pain. Her INR is at 1.9. A lipase was ordered and the level was at 345. The rest of the LFTs were abnormal although comparable to yesterday with a AST of 251 and ALT of 57 c onsistent with alcohol abuse. Total protein is at 5.2. Bilirubin was at 7.2. The patient is afebrile. The patient underwent an ultrasound of the abdomen that showed mild ascites. There was mild to moderate gallbladder wall thickening and edema consistent with acute cholecystitis in for that reason a surgical consultation was obtained. On 11/30/2018 the patient continues to be nauseated. Oral intake is still low. She is not having any emesis. I discussed the case in general surgery and I think we should consider doing a cholecystectomy on this patient knowing that she has extensive cholelithiasis and chronic cholecystitis. No ascites patient is receiving IV fluids. No chest pain. No shortness of breath. No falls. She is spending most of her time in bed. She is on IV fluids which was cut down to 50 mL an hour and a urine output is somewhat between 20-30 mL an hour. INR toda y is at 1.9. Hemoglobin stable at 8.4. No signs of any GI bleed. Hemoglobin is at 8.4. White cell count is at 3.0. Platelet count is also stable at 31. As for the LFTs, they are gradually improving. AST is down to 208 with an ALT of 51. Bilirubin is elevated at 6.8 with a stable compared to yesterday. On 12/01/2018 the patient continues to be nauseated. Unfortunately she is unable to take and any significant oral intake. She was given a bolus of 1 L yesterday as the patient was becoming progressively more tachycardic. This morning she is still tachycardic and in sinus rhythm and a heart rate is somewhat between 120 and 1:30. No palpitation. No chest pain. No shortness of breath. No ascites. Her torso hematomas are pretty much unchanged in hemoglobin is stable. Urine output is order of 20-30 mL an hour. We are still contemplating a cholecystectomy on this patient by Monday. No ascites. Right upper quadrant is tender still. No significant abdominal distention. She did have a liquidy bowel movement yesterday that was nonbloody. White cell count is not elevated. Platelet count is 40,000. Bilirubin still elevated. No signs of any delirium tremens. Her antibiotic coverage is IV Unasyn. On 12/02 2018 I'm seeing this patient for a follow-up. As mentioned earlier, the patient was in the intensive care unit for complications related to alcoholism, generalized weakness, nausea and emesis and she was diagnosed having an acute cholecystitis. Yesterday, I noted that the patient was becoming progressively more tachycardic. The exact cause was not clear. I was concerned about an underlying septic event. Lactic acid level came back at 1.1. No significant leukocytosis. No fever. As the day went by, the patient went progressively into clinic delirium tremens and alcohol withdrawal. She started getting agitated, initially paranoid and later on more restless trying to get out of bed and grab things and she was found to be progressively more confused. She was given Ativan and a total of 4 mg of Ativan was given to her throughout the morning from 1:30 to 6:30 AM this morning. Currently she is losing. She is resting comfortably in bed. Her tachycardia is improved and her heart rate is is down to 113. Urine output is in order of 15-20 mL an hour. Her white cell cause at 4.7 her hemoglobin of 9.6. Right upper quadrant is blow machine tender starch spraying. Cre atinine stable at 0.4. Her bilirubin is up to 18.2. AST is 139 ALT is at 44 and ammonia level is at 12. Serum albumin is at 2.5. She is not eating much as the patient is nauseated and since she went to [facility] she hasn't had anything to eat orally. She is receiving IV fluids in the order of 100 mL an hour of normal saline. He made on IV Unasyn. Reevaluated today on 12/03/2018, patient remains in the ICU, she has multiple medical problems including alcoholism, recurrent episodes of nausea and vomiting, seen by surgery, and planning to take the patient for laparoscopic cholecystectomy today. Patient remains on the alcohol withdrawal protocol, she seems to be calm today, she is extremely jaundice. And her bilirubin seems to be on the rise. Denies any shortness of breath. Denies any cough no wheezing. His CBC is relatively normal hemoglobin is 9.7 WBC count is 3.4. INR is 1.9, patient will be receiving fresh frozen plasma and vitamin K before surgery. Elect lites are normal renal profile is normal bicarb is between 17 and 21. Bilirubin is still high at 19.4. Albumin is 2.3. Reevaluated today on 12/04/2018, remains in the ICU on the alcohol withdrawal protocol, she had occasional nausea, patient is scheduled to undergo laparoscopic cholecystectomy today. Patient is on room air, cough, hemodynamically stable, urine output was marginal yesterday, given fluid boluses followed by Lasix late last night, then she responded well to fluids and Lasix. CBC is relatively normal today. Platelets remained low at 79,000. INR is 2.0. Potassium is 3.2. Being corrected as per protocol. Total bilirubin is increasing at 21.7. Patient was reevaluated today on 12/05/2018, remains in the ICU, patient is fairly well controlled with Ativan as far as her alcohol withdrawal is co ncerned. Her surgery was canceled yesterday, patient is not the most ideal candidate for laparoscopic surgery at this point. Her labs are basically about the same, continues to have low platelets of 86,000, INR remains elevated at 2.0, electrolytes are normal. Renal profile is normal, and her urine output is marginal. Total bilirubin is 19.7 today. Patient remains in jaundice. Patient was reevaluated today on 12/06/2018, she is basically about the same. Not requiring as much Ativan, patient is calm, and slow to respond. Her abdomen seems to be getting a bit more distended, and his urine output remains marginal at 10-15 mL per hour. Hence I recommended today ultrasound of the abdomen and pelvis, I have also recommended measuring bladder pressures to make sure that the patient is not developing an abdominal compartment syndrome. And if she does have ascites, may consider having paracentesis by interventional radiology. She was seen earlier by her admitting physician, and he is recommending a CT of the head. Mostly because of her lethargy. Ammonia level seems to be normal. Her abdominal ultrasound did show moderate ascites, hence I will recommend paracentesis by interventional radiology, in the meantime patient was placed back on her antibiotics/Unasyn. She was also placed on sodium bicarb. And she may need fresh frozen plasma and vitamin K for elevated INR of 2.0 once we know when the paracentesis is scheduled. Father is at bedside, and he was updated on her condition and her overall prognostic picture. Objective - Vital Signs Vital signs: Vital Signs Temp 95.0 F L 12/06/18 09:00 Pulse 112 H 12/06/18 11:00 Resp 28 H 12/06/18 11:00 BP 119/69 12/06/18 11:00 Pulse Ox 95 12/06/18 10:00 Intake & Output 12/05/18 12/06/18 12/06/18 18:59 06:59 18:59 Intake Total 5 1950 1000 Output Total 145 142 60 Balance 1880 1808 940 Weight 71.1 kg 77.1 kg Intake: IV 1725 1900 750 Normal Saline 1725 1800 750 levETIRAcetam IV 1,000 mg 100 In Saline 1 100ml.bag @ 400 mls/hr IVPB Q12HR [facility] Rx#:[id number] Intake, IV Titration 300 150 Amount Ampicillin-Sulbactam 1.5 50 gm In Sodium Chloride 0.9 % 50 ml @ 100 mls/hr IVPB Q6HR [facility] Rx#:[id number] Potassium Chloride 10 meq 100 In Water For Injection 1 100ml.bag @ 100 mls/hr IVPB Q1H [facility] Rx#: [id number] Potassium Chloride 10 meq 100 In Water For Injection 1 100ml.bag @ 100 mls/hr IVPB Q1HR [facility] Rx#: [id number] levETIRAcetam IV 1,000 mg 100 100 In Saline 1 100ml.bag @ 400 mls/hr IVPB Q12HR [facility] Rx#:[id number] Oral 50 100 Output: Urine 145 142 60 Other: Voiding Method Indwelling Catheter Indwelling Catheter Indwelling Catheter - Exam physical examination, revealed a 33-year-old female, jaundiced, in no distress. HEAD: Normocephalic, atraumatic. EYES: PERRLA, EOMI, positive icterus. MOUTH: No lesions, tongue midline. NECK: Trachea midline, no gross abnormalities. CHEST: Symmetrical chest expansion, clear breath sound bilaterally no crackles or rhonchi or wheezes. HEART: Normal S1 and S2, no S3 gallop. ABDOMEN: Slightly tense to palpation, nontender no megaly no rebound no guarding.. EXTREMITIES: 1+ bipedal edema. SKIN: No rashes, positive jaundice, areas of bruising noted in the left facial area. NEUROLOGIC: Alert oriented 3, no gross focal neurologic deficit. No asterixis - Labs CBC & Chem 7: 12/06/18 04:59 12/06/18 04:59 Labs: Abnormal Lab Results - Last 24 Hours (Table) 12/06/18 12/06/18 12/06/18 Range/Units 04:59 04:59 04:59 WBC 2.4 L (3.8-10.6) k/uL RBC 2.88 L (3.80-5.40) m/uL Hgb 10.4 L (11.4-16.0) gm/dL Hct 32.9 L (34.0-46.0) % MCV 114.3 H (80.0-100.0) fL MCH 36.0 H (25.0-35.0) pg RDW 19.7 H (11.5-15.5) % Plt Count 93 L (150-450) k/uL Lymphocytes # (Manual) 0.55 L (1.0-4.8) k/uL Macrocytosis Marked A PT 19.6 H (9.0-12.0) sec INR 2.0 H (<1.2) APTT 45.9 H (22.0-30.0) sec Chloride 111 H (98-107) mmol/L Carbon Dioxide 15 L (22-30) mmol/L Creatinine 0.50 L (0.52-1.04) mg/dL Glucose 73 L (74-99) mg/dL Calcium 8.3 L (8.4-10.2) mg/dL Total Bilirubin 19.7 H* (0.2-1.3) mg/dL AST 89 H (14-36) U/L Total Protein 5.5 L (6.3-8.2) g/dL Albumin 2.4 L (3.5-5.0) g/dL Microbiology - Last 24 Hours (Table) 12/01/18 11:18 Blood Culture - Preliminary Blood No Growth after 96 hours Assessment and Plan Assessment: Impression: Alcohol liver cirrhosis Chronic alcoholism Acute on chronic cholecystitis and cholelithiasis Seizure disorder exacerbated by alcohol drinking Frequent falls secondary to above. 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 Continue CIWA protocol. Continue Keppra thiamine Resume IV antibiotics. Lasix 40 mg IV push 14 low urine output today. And increase her Aldactone. to 25 mg by mouth 3 times a day. Continue to play surgery on hold for now. Updated her father on her condition. Placed on sodium bicarb for extremely low bicarb level. Measure bladder pressure, rule out abdominal compartment syndrome especially with her low urine output. Arrange for paracentesis by interventional radiology hopefully today or tomorrow. Prognosis remains extremely poor and guarded, we'll continue to monitor in the ICU. Time with Patient: Less than 30
--- NOTE | 2018-12-06 14:16 | P.PN ---
Subjective Progress Note Date: 12/06/18 CHIEF COMPLAINT: Cholecystitis HISTORY OF PRESENT ILLNESS: Patient examined at the bedside with Dr. Em. Patient remains lethargic. 3 BC 2.4. Hemoglobin 10.4. Platelet count 93. INR 2.0. Total bilirubin 19.7. AST 89. ALT 42. PHYSICAL EXAM: VITAL SIGNS: Reviewed. GENERAL: Well-developed in no acute distress. HEENT: Sclera icterus. Extraocular movements grossly intact. Moist buccal mucosa. Head is atraumatic, normocephalic. ABDOMEN: Soft. Distended. Nontender. NEUROLOGIC: Lethargic ASSESSMENT: 1. Abdominal pain, nausea, vomiting 2. Cholelithiasis with acute cholecystitis 3. Alcohol abuse 4. Pancytopenia 5. Alcoholic liver cirrhosis 6. 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 Continue antibiotics 2. Diet as tolerated 3. Patient will require cholecystectomy when medically stable, anticipate earliest will be next week for surgery Nurse practitioner note has been reviewed by physician. Signing provider agrees with the documented findings, assessment, and plan of care. Objective - Vital Signs Vital signs: Vital Signs Temp 96.0 F L 12/06/18 12:01 Pulse 97 12/06/18 14:00 Resp 17 12/06/18 14:00 BP 113/94 12/06/18 14:00 Pulse Ox 95 12/06/18 12:01 Intake & Output 12/05/18 12/06/18 12/06/18 18:59 06:59 18:59 Intake Total 5 1950 1750 Output Total 145 142 670 Balance 1880 1808 1080 Weight 71.1 kg 77.1 kg Intake: IV 1725 1900 1200 Normal Saline 1725 1800 1200 levETIRAcetam IV 1,000 mg 100 In Saline 1 100ml.bag @ 400 mls/hr IVPB Q12HR [facility] Rx#:[id number] Intake, IV Titration 300 150 Amount Ampicillin-Sulbactam 1.5 50 gm In Sodium Chloride 0.9 % 50 ml @ 100 mls/hr IVPB Q6HR [facility] Rx#:[id number] Potassium Chloride 10 meq 100 In Water For Injection 1 100ml.bag @ 100 mls/hr IVPB Q1H [facility] Rx#: [id number] Potassium Chloride 10 meq 100 In Water For Injection 1 100ml.bag @ 100 mls/hr IVPB Q1HR [facility] Rx#: [id number] levETIRAcetam IV 1,000 mg 100 100 In Saline 1 100ml.bag @ 400 mls/hr IVPB Q12HR [facility] Rx#:[id number] Oral 50 100 Tube Feeding 300 Output: Urine 145 142 670 Other: Voiding Method Indwelling Catheter Indwelling Catheter Indwelling Catheter - Labs CBC & Chem 7: 12/06/18 04:59 12/06/18 04:59 Labs: Abnormal Lab Results - Last 24 Hours (Table) 12/06/18 12/06/18 12/06/18 Range/Units 04:59 04:59 04:59 WBC 2.4 L (3.8-10.6) k/uL RBC 2.88 L (3.80-5.40) m/uL Hgb 10.4 L (11.4-16.0) gm/dL Hct 32.9 L (34.0-46.0) % MCV 114.3 H (80.0-100.0) fL MCH 36.0 H (25.0-35.0) pg RDW 19.7 H (11.5-15.5) % Plt Count 93 L (150-450) k/uL Lymphocytes # (Manual) 0.55 L (1.0-4.8) k/uL Macrocytosis Marked A PT 19.6 H (9.0-12.0) sec INR 2.0 H (<1.2) APTT 45.9 H (22.0-30.0) sec Chloride 111 H (98-107) mmol/L Carbon Dioxide 15 L (22-30) mmol/L Creatinine 0.50 L (0.52-1.04) mg/dL Glucose 73 L (74-99) mg/dL Calcium 8.3 L (8.4-10.2) mg/dL Total Bilirubin 19.7 H* (0.2-1.3) mg/dL AST 89 H (14-36) U/L Total Protein 5.5 L (6.3-8.2) g/dL Albumin 2.4 L (3.5-5.0) g/dL Microbiology - Last 24 Hours (Table) 12/01/18 11:18 Blood Culture - Preliminary Blood No Growth after 120 hours
--- NOTE | 2018-12-06 15:17 | PN ---
PROGRESS NOTE CHIEF COMPLAINT: Upper GI bleed, alcoholism, cirrhosis, encephalopathy. HISTORY OF PRESENT ILLNESS: This lady has been a little bit more awake and alert, but she is not cognitive, basically back to normal. She is not responding and she remains very weak and "floppy." She is unable sit up by herself. There was also starting to be concerned, she has not had anything to eat for over a week. REVIEW OF SYSTEMS: Unobtainable. She is not responding to questions. Her eyes are open. On physical exam, vital signs are normal and she remains very jaundice. Bilirubin is unchanged. Pupils were equal, round. Neck is supple. The chest demonstrates occasional rhonchi. The cardiac exam demonstrates sinus tachycardia and the abdomen are slightly protuberant and soft. Extremities are normal. IMPRESSION: 1. Status post upper gastrointestinal bleed. 2. Chronic alcoholism. 3. Cirrhosis. 4. Encephalopathy. 5. Hyperbilirubinemia. 6. Protein malnutrition. PLAN: 1. Neurology consult. 2. CT of the brain. 3. EEG. 4. Discussion was held with nutritional therapy and she will be started on TPN. MMODL / IJN: [id number] /
[2018-12-06] MEDS: SODIUM BICARBONATE TAB 650 MG TAB PO SCH ×2 (15:58→15:59)
[2018-12-06] MEDS ORDERED: MVI, ADULT NO.4 WITH VIT K 10 ML, TRACE (CONC-1ML/DOSE) 1 ML in AMINO ACID 4.25%-D10W+L... IV ONE ×3 (16:00)
[2018-12-06] MEDS ORDERED: ALBUMIN HUMAN 25% 50 ML in EMPTY BAG 1 BAG IVPB ONE (16:00)
[2018-12-06 16:15] LABS: Magnesium 1.5 mg/dL (1.6-2.3)
--- NOTE | 2018-12-06 16:22 | US ---
EXAMINATION TYPE: US paracentesis abd w/image DATE OF EXAM: 12/06/2018 COMPARISON: NONE HISTORY: Ascites. PROCEDURE: Maximal barrier technique was utilized. The skin overlying a suitable pocket of fluid was localized with ultrasound and the overlying skin was prepped and draped. Ultrasound was utilized with sterile technique. Lidocaine was used for local anesthesia and a skin zaira made with a scalpel. Catheter was advanced under direct ultrasound guidance into a suitable pocket of fluid and approximately 5.2 liter s of yellow fluid were removed. Catheter was withdrawn and hemostasis achieved. There is no immedia te complication; the patient is discharged in stable condition. IMPRESSION: STATUS POST ULTRASOUND GUIDED PARACENTESIS FOR PALLIATION OF ASCITES. THIS PROCEDURE WA S PERFORMED BY THE UNDERSIGNED.
--- NOTE | 2018-12-06 16:37 | CT ---
EXAMINATION TYPE: CT brain wo/w con DATE OF EXAM: 12/06/2018 COMPARISON: 10/15/2018 INDICATION: Encephalopathy. DLP: 2181.4 mGycm, Automated exposure control for dose reduction was used. CONTRAST: 100 mL Isovue-300 CT of the brain is performed utilizing 3 mm thick sections through the posterior fossa and 3 mm thick sections through the remaining calvarium. Study is performed within 24 hours of arrival to the [facility]. No abnormal hyperdensity is present to suggest an acute intracranial hemorrhage. No mass lesion is evident. No acute infarcts are evident. Ventricles and sulci are appropriate for the patient age. Paranasal sinuses and mastoid air cells within the [id number] are clear. No abnormal enhancement is evident. IMPRESSIONS: 1. No acute abnormality pre and postcontrast CT brain
[2018-12-06 19:35] LABS: Glucose,Whole Blood 81 mg/dL (75-99)
[2018-12-06 19:35] LABS: ABG Base Excess -9.1 mmol/L; ABG HCO3 16 mmol/L (21-25); ABG Oxygen Saturation 94.1 % (94-97); ABG PCO2 29 mmHg (35-45); ABG PH 7.36 (7.35-7.45); ABG PO2 73 mmHg (83-108); ABG TCO2 17 mmol/L (19-24); Allen Test Performed? Yes
[2018-12-06] MEDS ORDERED: PROPOFOL 1,000 MG in EMPTY BAG 1 BAG IV SCH (20:30)
--- NOTE | 2018-12-06 21:10 | XR ---
EXAMINATION TYPE: XR chest 1V portable DATE OF EXAM: 12/06/2018 COMPARISON: 05/05/2018 HISTORY: Check tube placement TECHNIQUE: Single frontal view of the chest is obtained. FINDINGS: Endotracheal tube is 4 cm from the carmen. There is blunting of the costophrenic angles. T here is pulmonary congestion. There is nasogastric tube in good position. There are chest leads. IMPRESSION: Bilateral pleural effusions and pulmonary edema is new compared to last exam.
[2018-12-06] MEDS: CHLORHEXIDINE GLUCONATE 15 ML CUP MUCOUS MEM SCH (21:30)
[2018-12-06] MEDS ORDERED: DEXTROSE 5% IN WATER 1,000 ML with SODIUM BICARB (1 MEQ/ML) 150 ML IV SCH (21:30)
[2018-12-06 21:40] LABS: ABG Base Excess -9.5 mmol/L; ABG HCO3 17 mmol/L (21-25); ABG PCO2 32 mmHg (35-45); ABG PH 7.33 (7.35-7.45); ABG PO2 327 mmHg (83-108); ABG TCO2 18 mmol/L (19-24); Allen Test Performed? Yes
[2018-12-06 21:49] LABS: Anisocytosis Slight; HCT 28.6 % (34.0-46.0); HGB 9.6 gm/dL (11.4-16.0); Hypochromasia Slight; MCH 37.7 pg (25.0-35.0); MCHC 33.5 g/dL (31.0-37.0); MCV 112.5 fL (80.0-100.0); Macrocytosis Marked; RBC 2.54 m/uL (3.80-5.40); RDW 19.6 % (11.5-15.5)
[2018-12-06 21:50] LABS: Platelet Count 75 k/uL (150-450)
[2018-12-06 22:04] LABS: ALT 39 U/L (9-52); AST 72 U/L (14-36); African American GFR (CKD) >90 (>60 ml/min/1.73 sqM); Albumin 2.2 g/dL (3.5-5.0); Alkaline Phosphatase 70 U/L (38-126); Anion Gap 13 mmol/L; Blood Urea Nitrogen 6 mg/dL (7-17); Calcium 7.9 mg/dL (8.4-10.2); Carbon Dioxide 15 mmol/L (22-30); Chloride 111 mmol/L (98-107); Glucose 82 mg/dL (74-99); Magnesium 1.4 mg/dL (1.6-2.3); Potassium 3.3 mmol/L (3.5-5.1); Sodium 139 mmol/L (137-145); Total Protein 4.9 g/dL (6.3-8.2)
[2018-12-06] MEDS ORDERED: CHLORHEXIDINE GLUCONATE 15 ML CUP MUCOUS MEM ONE (22:05)
[2018-12-06 22:20] LABS: INR 2.3 (<1.2); Partial Thromboplastin Time 56.1 sec (22.0-30.0); Prothrombin Time 22.1 sec (9.0-12.0)
[2018-12-06] MEDS ORDERED: Potassium Replacement Protocol 1 EACH MISC MISCELLANE PRN (23:05)
[2018-12-06] MEDS: POTASSIUM BICARBONATE/CIT AC 20 MEQ TABLET.EFF NG-TUBE SCH (23:51)
[2018-12-06] MEDS: MAGNESIUM SULFATE-D5W PMX 1 GM in DEXTROSE/WATER 1 100ML.BAG IVPB SCH (23:51)
[2018-12-07] MEDS: AMPICILLIN-SULBACTAM 1.5 GM in SODIUM CHLORIDE 0.9% 50 ML IVPB SCH ×3 (00:01→12:22)
--- NOTE | 2018-12-07 00:22 | XR ---
EXAMINATION TYPE: XR chest 1V portable DATE OF EXAM: 12/07/2018 COMPARISON: NONE HISTORY: Check tube placement TECHNIQUE: Single frontal view of the chest is obtained. FINDINGS: Endotracheal tube is almost 4 cm from the carmen. Nasogastric tube is in good position. Th ere are pleural effusions. There are chest leads. Bony thorax is intact. There is no pneumothorax. IMPRESSION: Moderate pleural effusions unchanged. Pulmonary edema is possible.
[2018-12-07] MEDS: POTASSIUM BICARBONATE/CIT AC 20 MEQ TABLET.EFF NG-TUBE SCH (01:09)
[2018-12-07] MEDS: MAGNESIUM SULFATE-D5W PMX 1 GM in DEXTROSE/WATER 1 100ML.BAG IVPB SCH ×2 (01:09→01:41)
[2018-12-07] MEDS: SODIUM CHLORIDE 0.9% 1,000 ML IV SCH (01:41)
[2018-12-07 05:00] LABS: Anisocytosis Slight; Basophils # (A) 0.1 k/uL (0-0.2); Basophils % (A) 1 %; Eosinophils % (A) 1 %; HCT 30.2 % (34.0-46.0); HGB 10.1 gm/dL (11.4-16.0); Hypochromasia Slight; Lymphocytes # (A) 0.6 k/uL (1.0-4.8); Lymphocytes % (A) 17 %; MCH 37.3 pg (25.0-35.0); MCHC 33.4 g/dL (31.0-37.0); MCV 111.7 fL (80.0-100.0); Monocytes # (A) 0.3 k/uL (0-1.0); Monocytes % (A) 9 %; Neutrophils # (A) 2.7 k/uL (1.3-7.7); Neutrophils % (A) 70 %; RDW 19.5 % (11.5-15.5); WBC 3.8 k/uL (3.8-10.6)
[2018-12-07 05:03] LABS: Macrocytosis Marked; Platelet Count 73 k/uL (150-450)
[2018-12-07 05:04] LABS: Ionized Calcium 5.1 mg/dL (4.5-5.3)
[2018-12-07 05:13] LABS: ALT 38 U/L (9-52); AST 67 U/L (14-36); African American GFR (CKD) >90 (>60 ml/min/1.73 sqM); Alkaline Phosphatase 70 U/L (38-126); Anion Gap 12 mmol/L; Blood Urea Nitrogen 6 mg/dL (7-17); Calcium 7.9 mg/dL (8.4-10.2); Carbon Dioxide 17 mmol/L (22-30); Chloride 109 mmol/L (98-107); Glucose 141 mg/dL (74-99); Magnesium 2.3 mg/dL (1.6-2.3); Phosphorus 2.9 mg/dL (2.5-4.5); Potassium 2.9 mmol/L (3.5-5.1); Sodium 138 mmol/L (137-145)
[2018-12-07 05:18] LABS: Total Bilirubin 16.5 mg/dL (0.2-1.3)
[2018-12-07 05:19] LABS: INR 2.3 (<1.2); Partial Thromboplastin Time 58.8 sec (22.0-30.0); Prothrombin Time 22.3 sec (9.0-12.0); Total Protein 4.6 g/dL (6.3-8.2)
[2018-12-07] MEDS: POTASSIUM CHLORIDE 10 MEQ in WATER FOR INJECTION 1 100ML.BAG IVPB SCH ×6 (05:56→13:25)
--- NOTE | 2018-12-07 06:51 | P.PN ---
Subjective Progress Note Date: 12/06/18 Principal diagnosis: Acute alcoholic hepatitis, pancytopenia, nausea and vomiting The patient is seen lying in bed, she is status post paracentesis with over 5 L removed. No acute events per nursing staff. Objective - Vital Signs Vital signs: Vital Signs Temp 96.0 F L 12/06/18 12:01 Pulse 97 12/06/18 14:00 Resp 17 12/06/18 14:00 BP 113/94 12/06/18 14:00 Pulse Ox 95 12/06/18 12:01 Intake & Output 12/05/18 12/06/18 12/06/18 18:59 06:59 18:59 Intake Total 2024 1950 1750 Output Total 145 142 670 Balance 1880 1808 1080 Weight 71.1 kg 77.1 kg 77.1 kg Intake: IV 1725 1900 1200 Normal Saline 1725 1800 1200 levETIRAcetam IV 1,000 mg 100 In Saline 1 100ml.bag @ 400 mls/hr IVPB Q12HR JD Rx#:[id number] Intake, IV Titration 300 150 Amount Ampicillin-Sulbactam 1.5 50 gm In Sodium Chloride 0.9 % 50 ml @ 100 mls/hr IVPB Q6HR JD Rx#:[id number] Potassium Chloride 10 meq 100 In Water For Injection 1 100ml.bag @ 100 mls/hr IVPB Q1H JD Rx#: [id number] Potassium Chloride 10 meq 100 In Water For Injection 1 100ml.bag @ 100 mls/hr IVPB Q1HR JD Rx#: [id number] levETIRAcetam IV 1,000 mg 100 100 In Saline 1 100ml.bag @ 400 mls/hr IVPB Q12HR JD Rx#:[id number] Oral 50 100 Tube Feeding 300 Output: Urine 145 142 670 Other: Voiding Method Indwelling Catheter Indwelling Catheter Indwelling Catheter - Exam On physical examination, patient appears comfortable in no apparent distress. HEAD: Normocephalic, healing laceration of left. EYES: Scleral icterus. No conjunctival injection. MOUTH: No lesions, tongue midline. NECK: Trachea midline, no gross abnormalities. CHEST: Decreased air entry bilaterally. HEART: Regular rate and rhythm. ABDOMEN: Soft, obese and less distended status post paracentesis. Bowel sounds are positive. No organomegaly. No guarding or rigidity. EXTREMITIES: Bilateral pedal edema. SKIN: No rashes, jaundice. NEUROLOGIC: Somnolent but arousable. - Labs CBC & Chem 7: 12/07/18 04:40 12/07/18 04:40 Labs: Abnormal Lab Results - Last 24 Hours (Table) 12/06/18 12/06/18 12/06/18 Range/Units 04:59 04:59 04:59 WBC 2.4 L (3.8-10.6) k/uL RBC 2.88 L (3.80-5.40) m/uL Hgb 10.4 L (11.4-16.0) gm/dL Hct 32.9 L (34.0-46.0) % MCV 114.3 H (80.0-100.0) fL MCH 36.0 H (25.0-35.0) pg RDW 19.7 H (11.5-15.5) % Plt Count 93 L (150-450) k/uL Lymphocytes # (Manual) 0.55 L (1.0-4.8) k/uL Macrocytosis Marked A PT 19.6 H (9.0-12.0) sec INR 2.0 H (<1.2) APTT 45.9 H (22.0-30.0) sec Chloride 111 H (98-107) mmol/L Carbon Dioxide 15 L (22-30) mmol/L Creatinine 0.50 L (0.52-1.04) mg/dL Glucose 73 L (74-99) mg/dL Calcium 8.3 L (8.4-10.2) mg/dL Total Bilirubin 19.7 H* (0.2-1.3) mg/dL AST 89 H (14-36) U/L Total Protein 5.5 L (6.3-8.2) g/dL Albumin 2.4 L (3.5-5.0) g/dL Microbiology - Last 24 Hours (Table) 12/01/18 11:18 Blood Culture - Preliminary Blood No Growth after 120 hours Assessment and Plan (1) Elevated LFTs Narrative/Plan: 33-year-old female with a medical history significant for alcohol abuse and prior hospitalization for similar complaints of nausea and vomiting, jaundice, alcohol withdrawal acute alcoholic hepatitis. Currently receiving treatment in the intensive care unit with tentative plan for cholecystectomy. The patient has remained nauseated with poor oral intake. Liver enzymes remain persistently elevated, consistent with history of alcoholic hepatitis. Laboratory testing for chronic hepatitis B and C negative. Current Visit: Yes Status: Acute Code(s): R79.89 - OTHER SPECIFIED ABNORMAL FINDINGS OF BLOOD CHEMISTRY SNOMED Code(s): 753235777 (2) Coagulopathy Current Visit: Yes Status: Acute Priority: Medium Code(s): D68.9 - COAGULATION DEFECT, UNSPECIFIED SNOMED Code(s): 84065941 (3) Intractable nausea and vomiting Current Visit: No Status: Acute Code(s): R11.2 - NAUSEA WITH VOMITING, U NSPECIFIED SNOMED Code(s): 745957060 (4) Pancytopenia Current Visit: No Status: Acute Priority: Medium Code(s): D61.818 - OTHER PANCYTOPENIA SNOMED Code(s): 154256918 (5) Alcohol abuse Current Visit: No Status: Chronic Code(s): F10.10 - ALCOHOL ABUSE, UNCOMPLICATED SNOMED Code(s): 29372786 Plan: Supportive care Okay for diet Continue antiemetic therapy Protonix twice daily Continue to monitor liver enzymes, CBC, INR Appreciate recommendations from surgical and carpet weaver service No plans for endoscopic evaluation at this time Status post paracentesis with over 5 L of ascites removed, albumin was ordered for the patient after the procedure Thank you for allowing us to participate in the care of the patient we will continue to follow
[2018-12-07] MEDS ORDERED: NOREPINEPHRINE 4 MG in SODIUM CHLORIDE 0.9% 250 ML IV SCH (08:15)
[2018-12-07] MEDS: CHLORHEXIDINE GLUCONATE 15 ML CUP MUCOUS MEM SCH (08:29)
[2018-12-07] MEDS: LACTULOSE 20 GM/30 ML CUP PO SCH ×2 (08:30→12:23)
[2018-12-07] MEDS: PANTOPRAZOLE 40 MG/10 ML VIAL IVP SCH (08:30)
--- NOTE | 2018-12-07 08:40 | XR ---
EXAMINATION TYPE: XR chest 1V portable DATE OF EXAM: 12/07/2018 COMPARISON: Prior chest x-ray 12/07/2018 HISTORY: Intubated TECHNIQUE: Single frontal view of the chest is obtained. FINDINGS: Endotracheal tube and NG tube are overlying appropriate positions. No evident pneumothorax . Bibasilar increased density is present, the hemidiaphragms are obscured. Heart is stable. IMPRESSION: Findings are unchanged. Probable bibasilar effusions. There is likely associated atelect asis.
[2018-12-07] MEDS ORDERED: FAT EMULSION 20% 250 ML in EMPTY BAG 1 BAG IV SCH (09:00)
[2018-12-07] MEDS ORDERED: 1: MVI, ADULT NO.4 WITH VIT K 10 ML, TRACE (CONC-1ML/DOSE) 1 ML in AMINO ACID 4.25%-D10W IV SCH ×3 (09:00)
[2018-12-07] MEDS: levETIRAcetam IV 1,000 MG in SALINE 1 100ML.BAG IVPB SCH (09:06)
[2018-12-07] MEDS: ASCORBIC ACID 500 MG TAB PO SCH (09:20)
[2018-12-07 09:27] LABS: Glucose,Whole Blood 180 mg/dL (75-99)
[2018-12-07 10:09] LABS: ABG Base Excess -7.3 mmol/L; ABG HCO3 18 mmol/L (21-25); ABG PCO2 33 mmHg (35-45); ABG PH 7.35 (7.35-7.45); ABG PO2 115 mmHg (83-108); ABG TCO2 19 mmol/L (19-24); Allen Test Performed? Yes
[2018-12-07 10:34] VITALS: BMI 23.1
[2018-12-07] MEDS: SPIRONOLACTONE 25 MG TAB PO SCH (10:56)
[2018-12-07] MEDS ORDERED: LIDOCAINE 1% INJ 10MG/ML (20 ML MDV) SQ ONE (11:22)
[2018-12-07] MEDS ORDERED: NOREPINEPHRINE 32 MG in SODIUM CHLORIDE 0.9% 218 ML IV SCH (12:00)
--- NOTE | 2018-12-07 12:03 | XR ---
EXAMINATION TYPE: XR chest 1V confirm line [facility] DATE OF EXAM: 12/07/2018 COMPARISON: Prior chest x-ray same date earlier time HISTORY: PICC line placement TECHNIQUE: Single frontal view of the chest is obtained. FINDINGS: There is been interval placement of a right-sided PICC line, distal tip is overlying super ior vena cava. Difficult to exclude worsening effusions. No pneumothorax. IMPRESSION: No evident complication status post PICC line placement. Possible increasing pleural eff usions.
[2018-12-07 12:04] LABS: Glucose,Whole Blood 155 mg/dL (75-99)
--- NOTE | 2018-12-07 12:12 | P.PN ---
Subjective Progress Note Date: 12/07/18 Principal diagnosis: Chronic alcoholism and possible acute cholecystitis. This is a 33-year-old female patient with known history of alcoholism and alcoholic cirrhosis who also has history of seizure disorder, gluten sensitivity , in addition to history of anorexia, history of seizure disorder, who comes into the hospital because of persistent nausea and vomiting that developed this morning. However, her main complaints have been generalized weakness, frequent falls, she has fallen and she has hit her body including the head on multiple occasions and she has bruises over her forehead, face, orbits, lateral chest on the left and until lateral chest on the right. She does have some right upper quadrant pain. The patient also complained of generalized weakness and malaise. She states that she has been seizure free. However she is been drinking a pint of vodka on a daily basis. She came in because she was getting progressively more weak and she was falling significantly and she was unable to function at home. She was also suspected to have GI bleeding. The patient however denies having any coffee-ground emesis. She denies having any bright red blood per re ctum. He was lightheaded. She has had similar presentation in the past. Specifically back in April 2018 he presented to the hospital because of inability to hold any food in. The patient had abdominal discomfort and back then and she was treated with a combination of Zofran and Protonix without any improvement in her symptoms. EGD was done by Dr. Christian, and the patient was found to have mild gastritis with biopsies of the abdomen and the body and a cardiac in the fundus being done. Duodenal biopsies were also done that ruled out the possibility of gluten sensitivity.The patient is quite debilitated. The patient's last seizure was around 2 weeks ago. She has history of pancytopenia related to alcoholism. She has had history of falls. Note that the patient's alcohol level was 186 in time of arrival. AST was 309 with an ALT of 58 and alkaline phosphatase of 111. Total bilirubin was 1.6. She has chronic neuropathic with an INR of 2.1. PT is 20.4 and a PTT is 33.5. Nevertheless, the patient is not having any signs of GI bleeding. She is awake and alert. She is not showing any signs of hepatitic encephalopathy. Abdomen is slightly distended. She is malnourished and anorexic and her BMI 17.3. The ultrasound of the abdomen was done that showed numerous gallstones. No dilated ducts. Mild hepatomegaly. Mild ascites. Moderate amount of bladder wall thickening and edema consistent with acute cholecystitis. Gallbladder edema is a change compared to old examination. On 11/29/2018 and seeing this patient for a follow-up. She remains tachycardic. Earlier this morning she had a drop in hemoglobin down to 6.2 and the patient was given a unit of packed RBC. There was no evidence of any GI bleeding. The patient did not have any coffee-ground emesis or bright red blood per rectum. Her platelet counts have dropped down to 39,000 and note that the patient has chronic thrombus cytopenia and anemia and occasional leukopenia related to chronic alcoholism. She is awake and alert. She is complaining of some nausea. She is also complaining of some upper quadrant and epigastric pain. Her INR is at 1.9. A lipase was ordered and the level was at 345. The rest of the LFTs were abnormal although comparable to yesterday with a AST of 251 and ALT of 57 c onsistent with alcohol abuse. Total protein is at 5.2. Bilirubin was at 7.2. The patient is afebrile. The patient underwent an ultrasound of the abdomen that showed mild ascites. There was mild to moderate gallbladder wall thickening and edema consistent with acute cholecystitis in for that reason a surgical consultation was obtained. On 11/30/2018 the patient continues to be nauseated. Oral intake is still low. She is not having any emesis. I discussed the case in general surgery and I think we should consider doing a cholecystectomy on this patient knowing that she has extensive cholelithiasis and chronic cholecystitis. No ascites patient is receiving IV fluids. No chest pain. No shortness of breath. No falls. She is spending most of her time in bed. She is on IV fluids which was cut down to 50 mL an hour and a urine output is somewhat between 20-30 mL an hour. INR toda y is at 1.9. Hemoglobin stable at 8.4. No signs of any GI bleed. Hemoglobin is at 8.4. White cell count is at 3.0. Platelet count is also stable at 31. As for the LFTs, they are gradually improving. AST is down to 208 with an ALT of 51. Bilirubin is elevated at 6.8 with a stable compared to yesterday. On 12/01/2018 the patient continues to be nauseated. Unfortunately she is unable to take and any significant oral intake. She was given a bolus of 1 L yesterday as the patient was becoming progressively more tachycardic. This morning she is still tachycardic and in sinus rhythm and a heart rate is somewhat between 120 and 1:30. No palpitation. No chest pain. No shortness of breath. No ascites. Her torso hematomas are pretty much unchanged in hemoglobin is stable. Urine output is order of 20-30 mL an hour. We are still contemplating a cholecystectomy on this patient by Monday. No ascites. Right upper quadrant is tender still. No significant abdominal distention. She did have a liquidy bowel movement yesterday that was nonbloody. White cell count is not elevated. Platelet count is 40,000. Bilirubin still elevated. No signs of any delirium tremens. Her antibiotic coverage is IV Unasyn. On 12/02 2018 I'm seeing this patient for a follow-up. As mentioned earlier, the patient was in the intensive care unit for complications related to alcoholism, generalized weakness, nausea and emesis and she was diagnosed having an acute cholecystitis. Yesterday, I noted that the patient was becoming progressively more tachycardic. The exact cause was not clear. I was concerned about an underlying septic event. Lactic acid level came back at 1.1. No significant leukocytosis. No fever. As the day went by, the patient went progressively into clinic delirium tremens and alcohol withdrawal. She started getting agitated, initially paranoid and later on more restless trying to get out of bed and grab things and she was found to be progressively more confused. She was given Ativan and a total of 4 mg of Ativan was given to her throughout the morning from 1:30 to 6:30 AM this morning. Currently she is losing. She is resting comfortably in bed. Her tachycardia is improved and her heart rate is is down to 113. Urine output is in order of 15-20 mL an hour. Her white cell cause at 4.7 her hemoglobin of 9.6. Right upper quadrant is cracking still operator. Cre atinine stable at 0.4. Her bilirubin is up to 18.2. AST is 139 ALT is at 44 and ammonia level is at 12. Serum albumin is at 2.5. She is not eating much as the patient is nauseated and since she went to [facility] she hasn't had anything to eat orally. She is receiving IV fluids in the order of 100 mL an hour of normal saline. He made on IV Unasyn. Reevaluated today on 12/03/2018, patient remains in the ICU, she has multiple medical problems including alcoholism, recurrent episodes of nausea and vomiting, seen by surgery, and planning to take the patient for laparoscopic cholecystectomy today. Patient remains on the alcohol withdrawal protocol, she seems to be calm today, she is extremely jaundice. And her bilirubin seems to be on the rise. Denies any shortness of breath. Denies any cough no wheezing. His CBC is relatively normal hemoglobin is 9.7 WBC count is 3.4. INR is 1.9, patient will be receiving fresh frozen plasma and vitamin K before surgery. Elect lites are normal renal profile is normal bicarb is between 17 and 21. Bilirubin is still high at 19.4. Albumin is 2.3. Reevaluated today on 12/04/2018, remains in the ICU on the alcohol withdrawal protocol, she had occasional nausea, patient is scheduled to undergo laparoscopic cholecystectomy today. Patient is on room air, cough, hemodynamically stable, urine output was marginal yesterday, given fluid boluses followed by Lasix late last night, then she responded well to fluids and Lasix. CBC is relatively normal today. Platelets remained low at 79,000. INR is 2.0. Potassium is 3.2. Being corrected as per protocol. Total bilirubin is increasing at 21.7. Patient was reevaluated today on 12/05/2018, remains in the ICU, patient is fairly well controlled with Ativan as far as her alcohol withdrawal is co ncerned. Her surgery was canceled yesterday, patient is not the most ideal candidate for laparoscopic surgery at this point. Her labs are basically about the same, continues to have low platelets of 86,000, INR remains elevated at 2.0, electrolytes are normal. Renal profile is normal, and her urine output is marginal. Total bilirubin is 19.7 today. Patient remains in jaundice. Patient was reevaluated today on 12/06/2018, she is basically about the same. Not requiring as much Ativan, patient is calm, and slow to respond. Her abdomen seems to be getting a bit more distended, and his urine output remains marginal at 10-15 mL per hour. Hence I recommended today ultrasound of the abdomen and pelvis, I have also recommended measuring bladder pressures to make sure that the patient is not developing an abdominal compartment syndrome. And if she does have ascites, may consider having paracentesis by interventional radiology. She was seen earlier by her admitting physician, and he is recommending a CT of the head. Mostly because of her lethargy. Ammonia level seems to be normal. Her abdominal ultrasound did show moderate ascites, hence I will recommend paracentesis by interventional radiology, in the meantime patient was placed back on her antibiotics/Unasyn. She was also placed on sodium bicarb. And she may need fresh frozen plasma and vitamin K for elevated INR of 2.0 once we know when the paracentesis is scheduled. Father is at bedside, and he was updated on her condition and her overall prognostic picture. Reevaluated today on 12/07/2018, patient took a downhill course last night, she had worsening mental status, he was becoming more and more lethargic, difficult to arouse. And obviously she developed acute hepatic encephalopathy. Her ammonia level went from 28 on 12/05 to69 on 12/06- to114 this morning. Hence she was placed on lactulose and I will likely add rifaximin. Patient had over 5 L of fluid drained from her peritoneal cavity yesterday, clearly she had significant ascites, I ordered ultrasound, confirmed ascites, and recommended ultrasound-guided paracentesis by interventional radiology. The labs on the ascites fluid are pending. Patient is empirically on Unasyn. This morning, the patient is on mechanical ventilation, and family is at bedside. She is on assist control rate of 14 tidal volume of 350 FiO2 is 40% PEEP is 5. She is on 2 mcg/m of norepinephrine. She is also on sodium bicarb drip. Propofol at 15 mcg/kg/m. ABG this morning showed a pO2 of 115 pCO2 of 33 pH of 7.35. Chest x- ray showed bilateral pleural effusions, and I would likely arrange for thoracentesis/ultrasound-guided either today or in a.m. I would recommend fresh frozen plasma for her elevated pro time before proceeding with thoracentesis. Her INR today is 2.3. Patient will be receiving a PICC line today and I will likely place an arterial line for hemodynamic monitoring. Father and mother are at bedside, and they were updated on her condition and they are very well aware of her poor prognosis, and I recommended GI staff to discuss her condition also with the family. Objective - Vital Signs Vital signs: Vital Signs Temp 93.4 F L 12/07/18 10:00 Pulse 99 12/07/18 11:00 Resp 10 L 12/07/18 11:00 BP 86/63 12/07/18 10:00 Pulse Ox 96 12/07/18 11:00 Intake & Output 12/06/18 12/07/18 12/07/18 18:59 06:59 18:59 Intake Total 2400 1571.125 129.131 Output Total 2020 1380 75 Balance 380 191.125 54.131 Weight 77.1 kg 68.8 kg 68.8 kg Intake: IV 1800 1500 100 Ampicillin-Sulbactam 1.5 200 gm In Sodium Chloride 0.9 % 50 ml @ 100 mls/hr IVPB Q6HR JD Rx#:[id number] Mvi, Adult No.4 with Vit 500 50 K 10 ml Trace (Conc-1Ml/ Dose) 1 ml In Amino Acid 4.25%-D10w+Lytes*E* 1,000 ml @ 50 mls/hr IV . [id number] ONE Rx#:[id number] Normal Saline 1800 300 Sodium Chloride 0.9% 1, 500 50 000 ml @ 50 mls/hr IV . Q20H JD Rx#:[id number] Intake, IV Titration 200 71.125 29.131 Amount Albumin Human 25% 50 ml 50 In Empty Bag 1 bag @ 50 mls/hr IVPB ONCE ONE Rx#: [id number] Ampicillin-Sulbactam 1.5 50 gm In Sodium Chloride 0.9 % 50 ml @ 100 mls/hr IVPB Q6HR JD Rx#:[id number] Norepinephrine 4 mg In 29.131 Sodium Chloride 0.9% 250 ml @ 0.05 MCG/KG/MIN 14. 688 mls/hr IV .[id number] JD Rx#:[id number] Propofol 1,000 mg In 71.125 0 Empty Bag 1 bag @ Titrate IV .Q0M JD Rx#: [id number] levETIRAcetam IV 1,000 mg 100 In Saline 1 100ml.bag @ 400 mls/hr IVPB Q12HR JD Rx#:[id number] Oral 100 Tube Feeding 300 Output: Urine 2019 1380 75 Other: Voiding Method Indwelling Catheter Indwelling Catheter ABP, PAP, CO, CI - Last Documented Arterial Blood Pressure 105/64 - Exam physical examination, revealed a 33-year-old female, jaundiced, on mechanical ventilation, sedated. HEAD: Normocephalic, atraumatic. EYES: PERRLA, EOMI, positive icterus. MOUTH: No lesions, tongue midline. Dry mucous membranes. NECK: No neck masses no JVD, no lymphadenopathy. No thyromegaly. CHEST: Diminished breath sounds bilaterally, no rhonchi and no wheezes. HEART: Normal S1 and S2, no S3 gallop. ABDOMEN: Soft, nontender, enlarged liver noted, positive ascites/minimal. EXTREMITIES: 1+ bipedal edema. SKIN: No rashes, positive jaundice, areas of bruising noted in the left facial area. NEUROLOGIC: Could not be assessed, patient is sedated, and propofol, on mechanical ventilation. Psychiatric: Cannot be assessed. - Labs CBC & Chem 7: 12/07/18 04:40 12/07/18 04:40 Labs: Abnormal Lab Results - Last 24 Hours (Table) 12/06/18 12/06/18 12/06/18 Range/Units 15:26 19:21 21:32 WBC (3.8-10.6) k/uL RBC (3.80-5.40) m/uL Hgb (11.4-16.0) gm/dL Hct (34.0-46.0) % MCV (80.0-100.0) fL MCH (25.0-35.0) pg RDW (11.5-15.5) % Plt Count (150-450) k/uL Lymphocytes # (1.0-4.8) k/uL Macrocytosis PT (9.0-12.0) sec INR (<1.2) APTT (22.0-30.0) sec ABG pH 7.33 L (7.35-7.45) ABG pCO2 29 L 32 L (35-45) mmHg ABG pO2 73 L 327 H (83-108) mmHg ABG HCO3 16 L 17 L (21-25) mmol/L ABG Total CO2 17 L 18 L (19-24) mmol/L ABG O2 Saturation 100.0 H (94-97) % Potassium (3.5-5.1) mmol/L Chloride (98-107) mmol/L Carbon Dioxide (22-30) mmol/L BUN (7-17) mg/dL Creatinine (0.52-1.04) mg/dL Glucose (74-99) mg/dL POC Glucose (mg/dL) (75-99) mg/dL Calcium (8.4-10.2) mg/dL Magnesium 1.5 L (1.6-2.3) mg/dL Total Bilirubin (0.2-1.3) mg/dL AST (14-36) U/L Ammonia (<30) umol/L Total Protein (6.3-8.2) g/dL Albumin (3.5-5.0) g/dL 12/06/18 12/06/18 12/06/18 Range/Units 21:40 21:40 21:40 WBC 3.0 L (3.8-10.6) k/uL RBC 2.54 L (3.80-5.40) m/uL Hgb 9.6 L (11.4-16.0) gm/dL Hct 28.6 L (34.0-46.0) % MCV 112.5 H (80.0-100.0) fL MCH 37.7 H (25.0-35.0) pg RDW 19.6 H (11.5-15.5) % Plt Count 75 L (150-450) k/uL Lymphocytes # (1.0-4.8) k/uL Macrocytosis Marked A PT 22.1 H (9.0-12.0) sec INR 2.3 H (<1.2) APTT 56.1 H (22.0-30.0) sec ABG pH (7.35-7.45) ABG pCO2 (35-45) mmHg ABG pO2 (83-108) mmHg ABG HCO3 (21-25) mmol/L ABG Total CO2 (19-24) mmol/L ABG O2 Saturation (94-97) % Potassium 3.3 L (3.5-5.1) mmol/L Chloride 111 H (98-107) mmol/L Carbon Dioxide 15 L (22-30) mmol/L BUN 6 L (7-17) mg/dL Creatinine 0.48 L (0.52-1.04) mg/dL Glucose (74-99) mg/dL POC Glucose (mg/dL) (75-99) mg/dL Calcium 7.9 L (8.4-10.2) mg/dL Magnesium 1.4 L (1.6-2.3) mg/dL Total Bilirubin 17.0 H* (0.2-1.3) mg/dL AST 72 H (14-36) U/L Ammonia (<30) umol/L Total Protein 4.9 L (6.3-8.2) g/dL Albumin 2.2 L (3.5-5.0) g/dL 12/06/18 12/07/18 12/07/18 Range/Units 21:40 04:40 04:40 WBC (3.8-10.6) k/uL RBC 2.70 L (3.80-5.40) m/uL Hgb 10.1 L (11.4-16.0) gm/dL Hct 30.2 L (34.0-46.0) % MCV 111.7 H (80.0-100.0) fL MCH 37.3 H (25.0-35.0) pg RDW 19.5 H (11.5-15.5) % Plt Count 73 L (150-450) k/uL Lymphocytes # 0.6 L (1.0-4.8) k/uL Macrocytosis Marked A PT (9.0-12.0) sec INR (<1.2) APTT (22.0-30.0) sec ABG pH (7.35-7.45) ABG pCO2 (35-45) mmHg ABG pO2 (83-108) mmHg ABG HCO3 (21-25) mmol/L ABG Total CO2 (19-24) mmol/L ABG O2 Saturation (94-97) % Potassium 2.9 L (3.5-5.1) mmol/L Chloride 109 H (98-107) mmol/L Carbon Dioxide 17 L (22-30) mmol/L BUN 6 L (7-17) mg/dL Creatinine 0.45 L (0.52-1.04) mg/dL Glucose 141 H (74-99) mg/dL POC Glucose (mg/dL) (75-99) mg/dL Calcium 7.9 L (8.4-10.2) mg/dL Magnesium (1.6-2.3) mg/dL Total Bilirubin 16.5 H* (0.2-1.3) mg/dL AST 67 H (14-36) U/L Ammonia 69 H (<30) umol/L Total Protein 4.6 L (6.3-8.2) g/dL Albumin 2.0 L (3.5-5.0) g/dL 12/07/18 12/07/18 12/07/18 Range/Units 04:40 04:40 08:12 WBC (3.8-10.6) k/uL RBC (3.80-5.40) m/uL Hgb (11.4-16.0) gm/dL Hct (34.0-46.0) % MCV (80.0-100.0) fL MCH (25.0-35.0) pg RDW (11.5-15.5) % Plt Count (150-450) k/uL Lymphocytes # (1.0-4.8) k/uL Macrocytosis PT 22.3 H (9.0-12.0) sec INR 2.3 H (<1.2) APTT 58.8 H (22.0-30.0) sec ABG pH (7.35-7.45) ABG pCO2 33 L (35-45) mmHg ABG pO2 115 H (83-108) mmHg ABG HCO3 18 L (21-25) mmol/L ABG Total CO2 (19-24) mmol/L ABG O2 Saturation 99.0 H (94-97) % Potassium (3.5-5.1) mmol/L Chloride (98-107) mmol/L Carbon Dioxide (22-30) mmol/L BUN (7-17) mg/dL Creatinine (0.52-1.04) mg/dL Glucose (74-99) mg/dL POC Glucose (mg/dL) (75-99) mg/dL Calcium (8.4-10.2) mg/dL Magnesium (1.6-2.3) mg/dL Total Bilirubin (0.2-1.3) mg/dL AST (14-36) U/L Ammonia 114 H (<30) umol/L Total Protein (6.3-8.2) g/dL Albumin (3.5-5.0) g/dL 12/07/18 Range/Units 09:25 WBC (3.8-10.6) k/uL RBC (3.80-5.40) m/uL Hgb (11.4-16.0) gm/dL Hct (34.0-46.0) % MCV (80.0-100.0) fL MCH (25.0-35.0) pg RDW (11.5-15.5) % Plt Count (150-450) k/uL Lymphocytes # (1.0-4.8) k/uL Macrocytosis PT (9.0-12.0) sec INR (<1.2) APTT (22.0-30.0) sec ABG pH (7.35-7.45) ABG pCO2 (35-45) mmHg ABG pO2 (83-108) mmHg ABG HCO3 (21-25) mmol/L ABG Total CO2 (19-24) mmol/L ABG O2 Saturation (94-97) % Potassium (3.5-5.1) mmol/L Chloride (98-107) mmol/L Carbon Dioxide (22-30) mmol/L BUN (7-17) mg/dL Creatinine (0.52-1.04) mg/dL Glucose (74-99) mg/dL POC Glucose (mg/dL) 180 H (75-99) mg/dL Calcium (8.4-10.2) mg/dL Magnesium (1.6-2.3) mg/dL Total Bilirubin (0.2-1.3) mg/dL AST (14-36) U/L Ammonia (<30) umol/L Total Protein (6.3-8.2) g/dL Albumin (3.5-5.0) g/dL Microbiology - Last 24 Hours (Table) 12/07/18 00:20 Sputum Culture - Preliminary Sputum 12/01/18 11:18 Blood Culture - Preliminary Blood No Growth after 120 hours Assessment and Plan Assessment: Impression: Acute hypoxic respiratory failure secondary to hepatic encephalopathy. Patient was actually intubated mostly to protect her airways, she was extremely lethargic, and difficult to arouse. Patient also had bilateral pleural effusions which seems to be getting worse over the last 2 days, may require thoracentesis. Bilateral pleural effusions secondary to ascites, secondary to alcohol liver disease. Alcohol liver cirrhosis Chronic alcoholism Acute on chronic cholecystitis and cholelithiasis Seizure disorder exacerbated by alcohol drinking Frequent falls secondary to above. Chronic debility secondary to above Coagulopathy secondary to liver cirrhosis Recommendation: Continue ventilatory support continue hemodynamic support Continue GI and DVT prophylaxis. Nutritional support via enteral feeding will be addressed today. Continue present supportive care measures. Continue CIWA protocol. Continue Keppra thiamine Continue Unasyn.Continue diuretics. Monitor daily electrolytes and renal profile. Surgery is presently on hold patient is definitely a high surgical risk at this point. Discussed patient's condition with father and mother at bedside. Explained to them her overall clinical picture and poor prognosis. And suggested discussion regarding her condition by gastroenterology. Continue sodium bicarb infusion Recommended PICC line placement also recommended arterial line placement, and may even recommend thoracentesis either today or tomorrow depending on the ultrasound findings and will give her fresh was a plasma prior to thoracentesis. Overall prognosis remains extremely poor, critical care time is 40 minutes. Time with Patient: Greater than 30
--- NOTE | 2018-12-07 12:15 | P.PN ---
Subjective Progress Note Date: 12/07/18 Principal diagnosis: Alcohol hepatitis nausea vomiting pancytopenia 33-year-old female history of EtOH abuse prolonged hospitalization admitted with acute alcohol hepatitis and jaundice. Status post paracentesis the other day with 5 L removed received albumin. Hemoglobin 10.1 platelets 73,000 stable. INR 2.3 unchanged from yesterday. LFTs total bilirubin 16.5 slightly improved from 17 yesterday, peak bilirubin 21.7. AST 67. ALT 38. AP 70. Ammonia 114 up from 69; lactulose started. Hepatitis B surface antigen and hepatitis C antibody nonreactive. Patient was intubated yesterday evening secondary to tenderness. Receiving low- dose IV pressors. PICC line scheduled this morning to be placed. Objective - Vital Signs Vital signs: Vital Signs Temp 89.2 F L 12/07/18 04:00 Pulse 75 12/07/18 06:00 Resp 16 12/07/18 06:00 BP 92/72 12/06/18 22:00 Pulse Ox 97 12/07/18 06:00 Intake & Output 12/06/18 12/07/18 12/07/18 18:59 06:59 18:59 Intake Total 2400 371.125 Output Total 2019 675 Balance 380 -303.875 Weight 77.1 kg Intake: IV 1800 300 Normal Saline 1800 300 Intake, IV Titration 200 71.125 Amount Albumin Human 25% 50 ml 50 In Empty Bag 1 bag @ 50 mls/hr IVPB ONCE ONE Rx#: [id number] Ampicillin-Sulbactam 1.5 50 gm In Sodium Chloride 0.9 % 50 ml @ 100 mls/hr IVPB Q6HR JD Rx#:[id number] Propofol 1,000 mg In 71.125 Empty Bag 1 bag @ Titrate IV .Q0M JD Rx#: [id number] levETIRAcetam IV 1,000 mg 100 In Saline 1 100ml.bag @ 400 mls/hr IVPB Q12HR JD Rx#:[id number] Oral 100 Tube Feeding 300 Output: Urine 2019 675 Other: Voiding Method Indwelling Catheter Indwelling Catheter ABP, PAP, CO, CI - Last Documented Arterial Blood Pressure 94/55 - Exam General appearance: The patient is intubated sedated. Jaundice. HET: Head is normocephalic and atraumatic. Pupils are equal and reactive. Oropharynx is clear without lesions. Sclerae icterus. OG with bilious fluid. Neck: Supple without lymphadenopathy. Trachea midline. Endotracheal tube int act. Heart: S1 S2. Regular rate and rhythm. Lungs: No crackles or wheezes are heard. Abdomen: Soft, mildly distended with mild ascites hypoactive bowel sounds. Extremities: Jaundice. No cyanosis, rash, ulceration, clubbing, or edema. Radial and pedal pulses are 2/4 bilaterally. Tran dark colored urine. Neurological: Intubated sedated intact. - Labs CBC & Chem 7: 12/07/18 04:40 12/07/18 04:40 Labs: Abnormal Lab Results - Last 24 Hours (Table) 12/06/18 12/06/18 12/06/18 Range/Units 15:26 19:21 21:32 WBC (3.8-10.6) k/uL RBC (3.80-5.40) m/uL Hgb (11.4-16.0) gm/dL Hct (34.0-46.0) % MCV (80.0-100.0) fL MCH (25.0-35.0) pg RDW (11.5-15.5) % Plt Count (150-450) k/uL Lymphocytes # (1.0-4.8) k/uL Macrocytosis PT (9.0-12.0) sec INR (<1.2) APTT (22.0-30.0) sec ABG pH 7.33 L (7.35-7.45) ABG pCO2 29 L 32 L (35-45) mmHg ABG pO2 73 L 327 H (83-108) mmHg ABG HCO3 16 L 17 L (21-25) mmol/L ABG Total CO2 17 L 18 L (19-24) mmol/L ABG O2 Saturation 100.0 H (94-97) % Potassium (3.5-5.1) mmol/L Chloride (98-107) mmol/L Carbon Dioxide (22-30) mmol/L BUN (7-17) mg/dL Creatinine (0.52-1.04) mg/dL Glucose (74-99) mg/dL Calcium (8.4-10.2) mg/dL Magnesium 1.5 L (1.6-2.3) mg/dL Total Bilirubin (0.2-1.3) mg/dL AST (14-36) U/L Ammonia (<30) umol/L Total Protein (6.3-8.2) g/dL Albumin (3.5-5.0) g/dL 12/06/18 12/06/18 12/06/18 Range/Units 21:40 21:40 21:40 WBC 3.0 L (3.8-10.6) k/uL RBC 2.54 L (3.80-5.40) m/uL Hgb 9.6 L (11.4-16.0) gm/dL Hct 28.6 L (34.0-46.0) % MCV 112.5 H (80.0-100.0) fL MCH 37.7 H (25.0-35.0) pg RDW 19.6 H (11.5-15.5) % Plt Count 75 L (150-450) k/uL Lymphocytes # (1.0-4.8) k/uL Macrocytosis Marked A PT 22.1 H (9.0-12.0) sec INR 2.3 H (<1.2) APTT 56.1 H (22.0-30.0) sec ABG pH (7.35-7.45) ABG pCO2 (35-45) mmHg ABG pO2 (83-108) mmHg ABG HCO3 (21-25) mmol/L ABG Total CO2 (19-24) mmol/L ABG O2 Saturation (94-97) % Potassium 3.3 L (3.5-5.1) mmol/L Chloride 111 H (98-107) mmol/L Carbon Dioxide 15 L (22-30) mmol/L BUN 6 L (7-17) mg/dL Creatinine 0.48 L (0.52-1.04) mg/dL Glucose (74-99) mg/dL Calcium 7.9 L (8.4-10.2) mg/dL Magnesium 1.4 L (1.6-2.3) mg/dL Total Bilirubin 17.0 H* (0.2-1.3) mg/dL AST 72 H (14-36) U/L Ammonia (<30) umol/L Total Protein 4.9 L (6.3-8.2) g/dL Albumin 2.2 L (3.5-5.0) g/dL 12/06/18 12/07/18 12/07/18 Range/Units 21:40 04:40 04:40 WBC (3.8-10.6) k/uL RBC 2.70 L (3.80-5.40) m/uL Hgb 10.1 L (11.4-16.0) gm/dL Hct 30.2 L (34.0-46.0) % MCV 111.7 H (80.0-100.0) fL MCH 37.3 H (25.0-35.0) pg RDW 19.5 H (11.5-15.5) % Plt Count 73 L (150-450) k/uL Lymphocytes # 0.6 L (1.0-4.8) k/uL Macrocytosis Marked A PT (9.0-12.0) sec INR (<1.2) APTT (22.0-30.0) sec ABG pH (7.35-7.45) ABG pCO2 (35-45) mmHg ABG pO2 (83-108) mmHg ABG HCO3 (21-25) mmol/L ABG Total CO2 (19-24) mmol/L ABG O2 Saturation (94-97) % Potassium 2.9 L (3.5-5.1) mmol/L Chloride 109 H (98-107) mmol/L Carbon Dioxide 17 L (22-30) mmol/L BUN 6 L (7-17) mg/dL Creatinine 0.45 L (0.52-1.04) mg/dL Glucose 141 H (74-99) mg/dL Calcium 7.9 L (8.4-10.2) mg/dL Magnesium (1.6-2.3) mg/dL Total Bilirubin 16.5 H* (0.2-1.3) mg/dL AST 67 H (14-36) U/L Ammonia 69 H (<30) umol/L Total Protein 4.6 L (6.3-8.2) g/dL Albumin 2.0 L (3.5-5.0) g/dL 12/07/18 12/07/18 Range/Units 04:40 04:40 WBC (3.8-10.6) k/uL RBC (3.80-5.40) m/uL Hgb (11.4-16.0) gm/dL Hct (34.0-46.0) % MCV (80.0-100.0) fL MCH (25.0-35.0) pg RDW (11.5-15.5) % Plt Count (150-450) k/uL Lymphocytes # (1.0-4.8) k/uL Macrocytosis PT 22.3 H (9.0-12.0) sec INR 2.3 H (<1.2) APTT 58.8 H (22.0-30.0) sec ABG pH (7.35-7.45) ABG pCO2 (35-45) mmHg ABG pO2 (83-108) mmHg ABG HCO3 (21-25) mmol/L ABG Total CO2 (19-24) mmol/L ABG O2 Saturation (94-97) % Potassium (3.5-5.1) mmol/L Chloride (98-107) mmol/L Carbon Dioxide (22-30) mmol/L BUN (7-17) mg/dL Creatinine (0.52-1.04) mg/dL Glucose (74-99) mg/dL Calcium (8.4-10.2) mg/dL Magnesium (1.6-2.3) mg/dL Total Bilirubin (0.2-1.3) mg/dL AST (14-36) U/L Ammonia 114 H (<30) umol/L Total Protein (6.3-8.2) g/dL Albumin (3.5-5.0) g/dL Microbiology - Last 24 Hours (Table) 12/01/18 11:18 Blood Culture - Preliminary Blood No Growth after 120 hours Assessment and Plan (1) Acute alcoholic hepatitis Narrative/Plan: 33-year-old female with a history of significant alcohol abuse with acute alcohol hepatitis with decompensation hepatic encephalopathy hyperammonemia now intubated requiring low-dose pressors. Current Visit: Yes Status: Acute Code(s): K70.10 - ALCOHOLIC HEPATITIS WITHOUT ASCITES SNOMED Code(s): 6897200 (2) Anemia Current Visit: No Status: Acute Code(s): D64.9 - ANEMIA, UNSPECIFIED SNOMED Code(s): 259005429 (3) Alcohol abuse Current Visit: No Status: Chronic Code(s): F10.10 - ALCOHOL ABUSE, UNCOMPLICATED SNOMED Code(s): 03870601 (4) Thrombocytopenia Current Visit: Yes Status: Acute Code(s): D69.6 - THROMBOCYTOPENIA, UNSPECIFIED SNOMED Code(s): 683393774 (5) Coagulopathy Current Visit: Yes Status: Acute Code(s): D68.9 - COAGULATION DEFECT, UNSPECIFIED SNOMED Code(s): 65716640 Plan: 1. Case was discussed with Dr. Martin recommend transfer to tertiary center secondary to her decompensated status hepatic encephalopathy and mechanical ventilation. Recommendation were discussed with her parents here agreeable for transfer to tertiary care center. 2. Continue present medical therapy. Protonix 40 mg twice daily. 3. Lactulose 30 g 4 times daily. Overall condition is guarded. Assessment and plan a care discussed with Dr. Martin
[2018-12-07] MEDS ORDERED: RIFAXIMIN 550 MG TABLET PO SCH (12:30)
[2018-12-07] MEDS ORDERED: FUROSEMIDE 10 MG/ML 4 ML VIAL IV STA (13:30)
--- NOTE | 2018-12-07 15:25 | DS ---
DISCHARGE SUMMARY CHIEF COMPLAINT: Upper gastrointestinal hemorrhage. HISTORY OF PRESENT ILLNESS AND PHYSICAL EXAM: Details of this lady's history and physical can be found in the initial workup. LABORATORY STUDIES: While she was in a hospital, she had laboratory studies, details of which can be found in the laboratory section of her chart. COURSE IN HOSPITAL: After admission, she was placed on bedrest, started on intravenous fluids and she was seen by Gastroenterology and Intensive Medicine. Bleeding stopped, but she continued to deteriorate. She became progressively more lethargic and her bilirubin started to rise. Her pancytopenia persisted. There is no sign to suggest infection or sepsis. She became more and more lethargic despite a normal serum ammonia. She did go into DTs and she is being treated with [facility] protocol. At times, she became loose and seemed to be improving, but then she become much more lethargic. She has never developed any focal neurologic signs or symptoms. Liver enzymes remains essentially normal indicating that she probably was in a complete hepatic failure as the bilirubin cathie to around 20. She continued put out urine. Just before she was transferred, she suddenly became nearly completely obtunded and she was placed on a ventilator. Ammonia level elevated further. It was the consensus of opinion from Intensive Medicine and Gastroenterology that she probably should be transferred to a tertiary hospital and arrangements were made for her to go to [facility]. FINAL DIAGNOSES: 1. Upper gastrointestinal hemorrhage, source unknown. 2. Pancytopenia. 3. Chronic alcoholism. 4. Alcoholic hepatitis. 5. Cirrhosis. 6. Encephalopathy. OPERATIONS: None. CONSULTATIONS: Intensive Medicine and Gastroenterology as well as Neurology. She was not improved. MMODL / IJN: [id number] /
--- NOTE | 2018-12-07 15:42 | CDI ---
Documentation Clarification Form Date: 12/07/2018 3:31:16 PM From: Sophia Stephen RN, CCDS Admit Date: 11/28/2018 1:30:00 PM Patient Name: Bear Nur Visit Number: [id number] ATTENTION: The Clinical Documentation Specialists (CDI) and [facility] Coding Staff appreciate your assistance in clarifying documentation. Please respond to the clarification below the line at the bottom and electronically sign. The CDI & [facility] Coding staff will review the response and follow-up if needed. Please note: Queries are made part of the Legal Health Record. If you have any questions, please contact the author of this message via ITS. Dr. Kunal Regan Malnutrition has been documented in tour 12.06 progress note, but requires further specificity. History/Risk Factors: Acute hypoxic respiratory failure, hepatic encephalopathy, intubated to protect airway, ETOH liver Cirrhosis, Paracentesisis for palliation of ascities, Seizures d/t ETOH Clinical Indicators: 12/06 Attending Progress Note: "Protein malnutrition." 12/07 Pulmonary Progress Note: "She is malnourished and anorexic and her BMI 17.3." Labs: Total Protein 6.2/5.2/4.6 Albumin 3.3/2.5/2.0 Current BMI: 23.1 Treatment: Dietary Consult: Completed 11/29 Supplements: CIB TID and Magic cups- patient is refusing PPN/TPN: 12/06 PPN @ 75 ml/hr, Lab monitoring: AM daily In your professional opinion, can you please clarify if these findings signify one of the following conditions? Moderate Protein-Calorie Malnutrition Severe Protein-Calorie Malnutrition Other condition, please specify Unable to determine (Last Revision: August 2018) MTDD
[2018-12-07 17:04] VITALS: BP 97/71; PULSE 122; RESP 24; TEMP 98.1
[2018-12-08] MEDS ORDERED: MVI, ADULT NO.4 WITH VIT K 10 ML, TRACE (CONC-1ML/DOSE) 1 ML, POTASSIUM ACETATE 20 MEQ ... IV SCH ×4
[2018-12-14] MEDS ORDERED: ERGOCALCIFEROL 50,000 UNIT CAP PO SCH (09:00)
--- NOTE | 2018-12-14 15:23 | MISC ---
MISCELLANOUS REPORT Severe protein calorie malnutrition. MMODL / IJN: [id number] /
== END 2018-12-07 16:00 | disposition short-term general hospital (02) | DRG 432 ==
LOC: EC 10:23 → 2SICU 13:30
PROVIDERS: ADMIT Family Medicine; ATTEND Family Medicine
PROC: 30233N1 Transfusion of Nonautologous Red Blood Cells into Peripheral Vein, Percutaneous Approach (ICD-10-PCS; principal; 2018-11-29)
DX: K70.11 Alcoholic hepatitis with ascites (principal); J96.01 Acute respiratory failure with hypoxia; K72.00 Acute and subacute hepatic failure without coma; D61.818 Other pancytopenia; D68.4 Acquired coagulation factor deficiency; E87.1 Hypo-osmolality and hyponatremia; F10.231 Alcohol dependence with withdrawal delirium; F50.2 Bulimia nervosa; J90 Pleural effusion, not elsewhere classified; K76.6 Portal hypertension; K80.00 Calculus of gallbladder with acute cholecystitis without obstruction; K80.10 Calculus of gallbladder with chronic cholecystitis without obstruction; K92.2 Gastrointestinal hemorrhage, unspecified; K70.31 Alcoholic cirrhosis of liver with ascites; G31.2 Degeneration of nervous system due to alcohol; E83.51 Hypocalcemia; D73.1 Hypersplenism; E87.6 Hypokalemia; F32.9 Major depressive disorder, single episode, unspecified; F41.9 Anxiety disorder, unspecified; G40.909 Epilepsy, unspecified, not intractable, without status epilepticus; R29.6 Repeated falls; S00.83XA Contusion of other part of head, initial encounter; S01.81XA Laceration without foreign body of other part of head, initial encounter; S20.219A Contusion of unspecified front wall of thorax, initial encounter; R53.81 Other malaise; D75.89 Other specified diseases of blood and blood-forming organs; Y90.6 Blood alcohol level of 120-199 mg/100 ml; Z53.9 Procedure and treatment not carried out, unspecified reason; Z79.899 Other long term (current) drug therapy; Z91.81 History of falling; Z91.018 Allergy to other foods; Z80.3 Family history of malignant neoplasm of breast; Z80.49 Family history of malignant neoplasm of other genital organs; Z80.8 Family history of malignant neoplasm of other organs or systems
CPT/HCPCS: 36415; 36573; 36600; 49083; 70470; 71045; 76700; 76705; 80048; 80053; 80076; 80320; 82140; 82150; 82330; 82805; 83605; 83690; 83735; 84100; 84132; 84478; 84703; 85025; 85027; 85379; 85384; 85610; 85730; 86803; 86850; 86900; 86901; 86920; 87040; 87070; 87077; 87086; 87186; 87205; 87340; 93005; 94002; 94003; 96361; 96365; 96375; 99284